=== PATIENT | female | born 1945 | race Caucasian/White ===

== ENCOUNTER 2023-08-05 08:44 | Outpatient (OUT) | payer MEDICARE, SELFPAY ==
[2023-08-05 09:23] LABS: Basophils Absolute Auto 0.1 10^3/uL (0.0-0.1); Eosinophils Absolute Auto 0.2 10^3/uL (0.0-0.7); Eosinophils Percent Auto 4.4 % (0.9-7.0); Hematocrit 40.7 % (36.0-48.0); Hemoglobin 13.3 g/dL (12.0-16.0); Immature Granulocytes Abs Auto 0.01 10^3/uL (0.00-0.03); Immature Granulocytes Pct Auto 0.2 % (0.0-0.5); Lymphocytes Absolute Auto 0.9 10^3/uL (1.2-3.8); Lymphocytes Percent Auto 18.6 % (20.5-60.0); Mean Corpuscular HGB Conc 32.7 g/dL (29.9-35.2); Mean Corpuscular Hemoglobin 30.8 pg (26.7-34.0); Mean Corpuscular Volume 94.2 fL (81.0-99.0); Mean Platelet Volume 9.7 fL (9.5-13.5); Monocytes Absolute Auto 0.6 10^3/uL (0.3-0.8); Monocytes Percent Auto 12.4 % (1.7-12.0); Neutrophils Absolute Auto 3.2 10^3/uL (1.4-6.5); Neutrophils Percent Auto 63.4 % (43.0-75.0); Platelet Count 330 10^3/uL (150-450); Red Blood Count 4.32 10^6/uL (4.20-5.40); Red Cell Distribution Width 13.2 % (11.0-15.0)
[2023-08-05 10:11] LABS: Anion Gap 10.5; BUN Creatinine Ratio 14.7; Calcium 8.5 mg/dL (8.5-10.1); Carbon Dioxide 28.5 mmol/L (21.0-32.0); Chloride 94 mmol/L (98-107); Estimated GFR (African America >60 (>=60); Estimated GFR (Non-African Ame >60 (>=60); Glucose 90 mg/dL (74-106); Sodium 129 mmol/L (136-145); Thyroid Stimulating Hormone 2.095 uIU/mL (0.358-3.740)
== END 2023-08-05 08:45 | disposition home or self-care (01) ==
LOC: LAB 08:49
PROVIDERS: PCP Internal Medicine; Visit Provider Internal Medicine
DX: I10 Essential (primary) hypertension (principal); R53.83 Other fatigue
CPT/HCPCS: 36415; 80048; 80053; 84443; 85025

== ENCOUNTER 2023-09-12 09:03 | Emergency (ER) | payer MEDICARE, SELFPAY ==
[2023-09-12 09:08] VITALS: BP 157/87; PULSE 90; RESP 16; TEMP 36.4; O2SAT 98; BMI 22.3
--- NOTE | 2023-09-12 09:25 | ED.SKABFB1 ---
HPI - Skin/Abscess/Foreign Bdy General Chief complaint: Skin/Abscess/Foreign Body Stated complaint: BEE STING LEFT LEG Time Seen by Provider: 09/12/23 09:24 Source: patient Mode of arrival: walk-in History of Present Illness HPI narrative: the patient's here for possible infection of her leg. She was stung by a yellow jacket several days ago air. She's not having any other ALLERGY type symptoms. She's not had fever shakes chills nausea vomiting or shortness of breath. It's slightly tender in the area that she was bitten. She's not on any antibiotics. She just wanted evaluated to see if there is any problems. Related Data Allergies Allergy/AdvReac Type Severity Reaction Status Date / Time No Known Drug Allergies Allergy Verified 09/12/23 09:08 Exam Narrative Exam Narrative: awake alert normal vital signs afebrile. In the anterior mid tibia-fibula on her leg she has a small area of erythema and a small pustule. Under magnification I can see any residual stinger from the envenomation. After cleansing the area with alcohol and #25-gauge needle was used unroofed the micral abscess and then the stinger was easily removed by blunt Escher. She tolerated very well. We'll go ahead and put her on an antibiotic should she have any worsening. There is no lymphangitis or other cellulitis indication on her leg. Constitutional Vital Signs, click to edit/add: Last Vital Signs Temp 97.6 F 09/12/23 09:08 Pulse 90 09/12/23 09:08 Resp 16 09/12/23 09:08 BP 157/87 H 09/12/23 09:08 Pulse Ox 98 09/12/23 09:08 O2 Del Method Room Air 09/12/23 09:08 Course Vital Signs Vital signs: Vital Signs Temperature 97.6 F 09/12/23 09:08 Pulse Rate 90 09/12/23 09:08 Respiratory Rate 16 09/12/23 09:08 Blood Pressure 157/87 H 09/12/23 09:08 Pulse Oximetry 98 09/12/23 09:08 Oxygen Delivery Method Room Air 09/12/23 09:08 Temperature 97.6 F 09/12/23 09:08 Pulse Rate 90 09/12/23 09:08 Respiratory Rate 16 09/12/23 09:08 Blood Pressure 157/87 H 09/12/23 09:08 Pulse Oximetry 98 09/12/23 09:08 Oxygen Delivery Method Room Air 09/12/23 09:08 Discharge Plan Discharge Chief Complaint: Skin/Abscess/Foreign Body Clinical Impression: Insect bite Patient Disposition: Home, Self-Care Time of Disposition Decision: 09:36 Additional Instructions: Band-Aid with topical antibiotic ointments/start Keflex if anything worsens as discussed Stand Alone Forms: Portal Instructions Referrals: Marlon Michelle DO [Primary Care Provider] - 1 week
== END 2023-09-12 09:50 | disposition home or self-care (01) ==
PROVIDERS: Emergency Provider Emergency Medicine Emergency Medical Services; PCP Internal Medicine
DX: S80.862A Insect bite (nonvenomous), left lower leg, initial encounter (principal); W57.XXXA Bitten or stung by nonvenomous insect and other nonvenomous arthropods, initial encounter
CPT/HCPCS: 10120; 99282

== ENCOUNTER 2023-11-05 11:31 | Outpatient (OUT) | payer MEDICARE, SELFPAY ==
--- OUTSIDE RECORDS SUMMARY | 2023-11-19 02:03 | XMS_ITS | CCD ---
Author Name Unknown Address [address] [facility] [address] [place] [address] Organization [facility] Care Team Providers Care Line Service Technician Name Role Phone JOSY, YULIYA Willis Unavailable Unavailabl e Tal Langley Unavailable Unavailable Tal Langley Unavailable Unavailable Tal Langley Unavailable Unavailable MARLON MICHELLE~[phone] UNKNOWN Unavailable Unavailable CHARLENE WEBB (PAC) Admitting Unavail able CHARLENE WEBB (PAC) Attending Unavail able FANTASMA NIEVES (PA) Referring Unavailable REQUEST, NONE LISTED Attending Unavaila ble REQUEST, NONE LISTED Admitting Unavaila ble REQUEST, NONE LISTED Consulting Unavaila ble OLGA, MARLON Primary Care Unavailable BALL, MARLON Consulting Unavailable BALL, MARLON Attending Unavailable BALL, MARLON Admitting Unavailable BALL, MARLON Primary Care Unavailable BALL, MARLON Primary Care Unavailable BALL, MARLON Consulting Unavailable BALL, MARLON Attending Unavailable BALL, MARLON Admitting Unavailable Ball, Marlon Unavailable TAL LANGLEY Attending Unavailable TAL LANGLEY Attending Unavailable Allergies Allergy Classification Reported Allergen(s) Allergy Type Date of Onset Reaction(s) Facility (3 sources) Bisphosphonate (substance) Drug allergy Unknown Fincon Other (2 sources) Alendronate Drug Allergy Comment:Oral Bisphosphonates Fincon Other (2 sources) ORAL BISPHOSPHONATES Propensity to adverse reactions 015 Unknown Fincon Other Medications Current Medications Medication Drug Class(es) Dates Sig (Normalized) Sig (Original) amLODIPine 2.5 mg oral tablet (3 sources) Dihydropyridine Calcium Channel Tessa take 1 tablet by mouth once daily amLODIPine Besylate 2.5 MG TAKE 1 TABLET BY MOUTH EVERY DAY Active aspirin 81 mg delayed release oral tablet (3 sources) Platelet Aggregation Inhibitor, Nonsteroidal Anti-inflammatory Drug take 1 tablet by mouth every twenty-four hours Aspirin 81 81 MG 1 tablet Orally Once a day Active atorvastatin 10 mg oral tablet (3 sources) HMG-CoA Reductase Inhibitor take 1 tablet by mouth every twenty-four hours Atorvastatin Calcium 10 MG 1 tablet Orally Once a day Active clopidogrel 75 mg oral tablet (3 sources) P2Y12 Platelet Inhibitor take 1 tablet by mouth once daily Clopidogrel Bisulfate 75 MG TAKE 1 TABLET BY MOUTH EVERY DAY Active pantoprazole 40 mg delayed release oral tablet (3 sources) Proton Pump Inhibitor take 1 tablet by mouth every twenty-four hours Pantoprazole Sodium 40 MG 1 tablet Orally Once a day Active Problems Active Problems Problem Classification Problem Date Documented Date Episodic/Chronic Allergic reactions (3 sources) Allergic contact dermatitis due to plants, except food; Translations: [Allergic contact dermatitis due to plants, except food] Episodic Anxiety disorders (3 sources) Anxiety; Translations: [Other specified anxiety disorders] Chronic Cancer of breast (5 sources) Personal history of primary malignant neoplasm of breast; Translations: [Personal history of malignant neoplasm of breast] Episodic Disorders of lipid metabolism (12 sources) Pure hypercholesterolemia, unspecified; Translations: [Pure hypercholesterolemia] Onset: 05-07-2022 Chronic Essential hypertension (5 sources) Essential hypertension; Translations: [Essential (primary) hypertension] Chronic Malaise and fatigue (1 source) Other fatigue Episodic Nonspecific chest pain (3 sources) Atypical chest pain; Translations: [Other chest pain] Episodic Osteoporosis (3 sources) Primary osteoporosis; Translations: [Age-related osteoporosis without current pathological fracture] Chronic Other and ill-defined cerebrovascular disease (3 sources) Cerebral atherosclerosis; Translations: [Cerebral atherosclerosis] Chronic Other and ill-defined cerebrovascular disease (2 sources) Cerebral atherosclerosis Chronic Other circulatory disease (3 sources) History of cerebrovascular accident without residual deficits; Translations: [Personal history of transient ischemic attack (TIA), and cerebral infarction without residual deficits] Episodic Other circulatory disease (2 sources) Personal history of transient ischemic attack (TIA), and cerebral infarction without residual deficits Episodic Other connective tissue disease (1 source) Presence of left artificial hip joint; Translations: [Presence of left artificial hip joint] Onset: 03-09-2019 Chronic Other ear and sense organ disorders (3 sources) Impacted cerumen; Translations: [Impacted cerumen, bilateral] Episodic Other upper respiratory infections (3 sources) Acute maxillary sinusitis; Translations: [Acute recurrent maxillary sinusitis] Episodic Skin and subcutaneous tissue infections (3 sources) Cellulitis of right forearm; Translations: [Cellulitis of right upper limb] Episodic Substance-related disorders (5 sources) Tobacco user; Translations: [Nicotine dependence, cigarettes, in remission] Chronic Unclassified (1 source) PRESENCE OF LEFT ARTIFICIAL HIP JOINT Onset: 07-24-2018 Viral infection (3 sources) Post-herpetic polyneuropathy; 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 Comment on above: Performed By: #### D ATCBC #### [facility] [address] [place] [address] Dr. Yovana Funes Basophils/100 WBC (Bld) 1.0 % Normal 0.2-2.0 [facility] Comment on above: Performed By: #### D ATCBC #### [facility] [address] [place] [address] Dr. Yovana Funes EO # 0.3 103/ul Normal 0.0-0.7 [facility] Comment on above: Performed By: #### D ATCBC #### [facility] [address] [place] [address] Dr. Yovana Funes Eosinophils/100 WBC (Bld) 5.5 % Normal 0.9-7.0 [facility] Comment on above: Performed By: #### D ATCBC #### [facility] [address] [place] [address] Dr. Yovana Funes Erythrocyte distribution wid th (RBC) [Ratio] 13.2 % Normal 11.0-15.0 [facility] Comment on above: Performed By: #### D ATCBC #### [facility] [address] [place] [address] Dr. Yovana Funes Hematocrit (Bld) [Volume fraction] 41.8 % Normal 3 6.0-48.0 [facility] Comment on above: Performed By: #### D ATCBC #### [facility] [address] [address] [address] Yovana Funes Hemoglobin (Bld) [Mass/Vol] 13.9 g/dL Normal 12.0-16. 0 [facility] Comment on above: Performed By: #### D ATCBC #### [facility] [address] [address] [address] Yovana Funes IG # 0.02 10e3/ul Normal 0.00-0.03 [facility] Comment on above: Performed By: #### D ATCBC #### [facility] [address] [place] [address] Dr. Yovana Funes IG % 0.4 % Normal 0.0-0.5 [facility] Comment on above: Performed By: #### D ATCBC #### [facility] [address] [place] [address] Dr. Yovana Funes LYMPH # 0.9 103/ul Critically low 1.2-3.8 [facility] Comment on above: Performed By: #### D ATCBC #### [facility] [address] [place] [address] Dr. Yovana Funes Lymphocytes/100 WBC (Bld) 16.6 % Critically low 20.5-6 0.0 [facility] Comment on above: Performed By: #### D ATCBC #### [facility] [address] [place] [address] Dr. Yovana Funes MCH (RBC) [Entitic mass] 31.1 pg Normal 26.7-34.0 [facility] Comment on above: Performed By: #### D ATCBC #### [facility] [address] [place] [address] Dr. Yovana Funes MCHC (RBC) [Mass/Vol] 33.3 g/dL Normal 29.9-35.2 [facility] Comment on above: Performed By: #### D ATCBC #### [facility] [address] [place] [address] Dr. Yovana Funes MCV (RBC) [Entitic vol] 93.5 fL Normal 81.0-99.0 [facility] Comment on above: Performed By: #### D ATCBC #### [facility] [address] [place] [address] Dr. Yovana Funes MONO # 0.5 103/ul Normal 0.3-0.8 [facility] Comment on above: Performed By: #### D ATCBC #### [facility] [address] [place] [address] Dr. Yovana Funes Monocytes/100 WBC (Bld) 10.3 % Normal 1.7-12.0 [facility] Comment on above: Performed By: #### D ATCBC #### [facility] [address] [place] [address] Dr. Yovana Funes NEUT # 3.5 103/ul Normal 1.4-6.5 [facility] Comment on above: Performed By: #### D ATCBC #### [facility] [address] [place] [address] Dr. Yovana Funes Neutrophils/100 WBC (Bld) 66.2 % Normal 43.0-75.0 [facility] Comment on above: Performed By: #### D ATCBC #### [facility] [address] [place] [address] Dr. Yovana Funes Platelet mean volume (Bld) [Entitic vol] 9.9 fL Normal 9.5-13.5 [facility] Comment on above: Performed By: #### D ATCBC #### [facility] [address] [place] [address] Dr. Yovana Funes PLT 369 103/ul Normal 150-450 [facility] Comment on above: Performed By: #### D ATCBC #### [facility] [address] [place] [address] Dr. Yovana Funes RBC 4.47 106/ul Normal 4.20-5.40 [facility] Comment on above: Performed By: #### D ATCBC #### [facility] [address] [address] [address] Yovana Funes WBC 5.3 103/ul Normal 4.0-11.0 [facility] Comment on above: Performed By: #### D ATCBC #### [facility] [address] [address] [address] Yovana Funes MARLEY- BMP WITH LIPIDon 2022 Anion gap [Moles/Vol] 13.0 mmol/L Normal [facility] Comment on above: Performed By: #### D ATBMP #### [facility] [address] [address] [address] Yovana Funes Calcium [Mass/Vol] 9.1 mg/dL Normal 8.5-10.1 [facility] Comment on above: Performed By: #### D ATBMP #### [facility] [address] [place] [address] Dr. Yovana Funes Chloride [Moles/Vol] 102 mmol/L Normal 98-107 [facility] Comment on above: Performed By: #### D ATBMP #### [facility] [address] [address] [address] Yovana Funes Cholesterol [Mass/Vol] 211 mg/dL Critically high <=200 [facility] Comment on above: Performed By: #### D ATBMP #### [facility] [address] [address] [address] Yovana Funes Cholesterol in HDL [Mass/Vol] 114 mg/dL Critically high 4 0-60 [facility] Comment on above: Performed By: #### D ATBMP #### [facility] [address] [address] [address] Yovana Funes Cholesterol in LDL [Mass/Vol] 89.8 mg/dL Normal [facility] Comment on above: Performed By: #### D ATBMP #### [facility] [address] [address] [address] Yovana Funes CO2 [Moles/Vol] 29.2 mmol/L Normal 21.0-32.0 [facility] Comment on above: Performed By: #### D ATBMP #### [facility] [address] [address] [address] Yovana Funes Creatinine [Mass/Vol] 0.55 mg/dL Normal 0.55-1.02 [facility] Comment on above: Performed By: #### D ATBMP #### [facility] [address] [address] [address] Yovana Funes EGFR-AF KENYAN >60 Normal >=60 [facility] Comment on above: Performed By: #### D ATBMP #### [facility] [address] [address] [address] Yovana Funes EGFR-NON AF KENYAN >60 Normal >=60 [facility] Comment on above: Performed By: #### D ATBMP #### [facility] [address] [address] [address] Yovana Funes Glucose [Mass/Vol] 101 mg/dL Normal 74-106 [facility] Comment on above: Performed By: #### D ATBMP #### [facility] [address] [address] [address] Yovana Funes HDL NORMAL > or = 60 mg/dl - LO W CARDIOVASCULAR RISK <40 mg/dl - HIGH CARDIOVASCULAR RISK Normal [facility] Comment on above: Performed By: #### D ATBMP #### [facility] [address] [address] [address] Yovana Funes LDL CALC NORMAL SEE BELOW Normal [facility] Comment on above: Result Comment: <100 mg/dl OPTIMAL 100 - 129 mg/dl NEAR OR ABOVE OPTIMAL 130 - 159 mg/dl BORDERLINE HIGH 160 - 189 mg/dl HIGH >190 mg/dl VERY HIGH Performed By: #### D ATBMP #### [facility] [address] [address] [address] Yovana Funes Potassium [Moles/Vol] 4.2 mmol/L Normal 3.5-5.1 [facility] Comment on above: Performed By: #### D ATBMP #### [facility] [address] [address] [address] Yovana Funes Sodium [Moles/Vol] 140 mmol/L Normal 136-145 [facility] Comment on above: Performed By: #### D ATBMP #### [facility] [address] [address] [address] Yovana Funes Triglyceride [Mass/Vol] 36 mg/dL Normal <=150 [facility] Comment on above: Performed By: #### D ATBMP #### [facility] [address] [address] [address] Yovana Funes Urea nitrogen [Mass/Vol] 13.0 mg/dL Normal 7.0-18.0 [facility] Comment on above: Performed By: #### D ATBMP #### [facility] [address] [place] [address] Dr. Yovana Funes Urea nitrogen/Creatinine [Mass ratio] 23.6 mg/mg Normal [facility] Comment on above: Performed By: #### D ATBMP #### [facility] [address] [place] [address] Dr. Yovana Funes VLDL CALC 7.2 mg/dL Normal [facility] Comment on above: Performed By: #### D ATBMP #### [facility] [address] [place] [address] Dr. Yovana Funes DIRECT LDLon 05-07-2022 Cholesterol in LDL [Mass/Vol] 55 mg/dL Normal [facility] Comment on above: Performed By: #### A LT, DLDL #### [facility] [address] [place] [address] Dr. Yovana Funes DLDL NORMAL SEE BELOW Normal [facility] Comment on above: Result Comment: <100 mg/dl OPTIMAL 100 - 129 mg/dl NEAR OR ABOVE OPTIMAL 130 - 159 mg/dl BORDERLINE HIGH 160 - 189 mg/dl HIGH >190 mg/dl VERY HIGH Performed By: #### A LT, DLDL #### [facility] [address] [place] [address] Dr. Yovana Funes SGPTon 05-07-2022 ALT [Catalytic activity/Vol] 26 U/L Normal 14-59 [facility] Comment on above: Performed By: #### A LT, DLDL #### [facility] [address] [address] [address] Yovana Funes DIRECT LDLon 03-15-2022 Cholesterol in LDL [Mass/Vol] 102 mg/dL Normal [facility] Comment on above: Performed By: #### D LDL, ALT #### [facility] [address] [address] [address] Yovana Funes DLDL NORMAL SEE BELOW Normal [facility] Comment on above: Result Comment: <100 mg/dl OPTIMAL 100 - 129 mg/dl NEAR OR ABOVE OPTIMAL 130 - 159 mg/dl BORDERLINE HIGH 160 - 189 mg/dl HIGH >190 mg/dl VERY HIGH Performed By: #### D LDL, ALT #### [facility] [address] [address] [address] Yovana Funes SGPTon 03-15-2022 ALT [Catalytic activity/Vol] 18 U/L Normal 14-59 [facility] Comment on above: Performed By: #### D LDL, ALT #### [facility] [address] [address] [address] Yovana Funes CBC Without Differentialon 0 05-12-2021 Erythrocyte distribution wid th (RBC) [Ratio] 13.7 % Normal 11.9-15.3 [facility] Comment on above: Performed By: #### C BCNOOUTREACH, OUTREACH CMP, OUTREACH LIPID #### [facility] [address] [place] [address] [place] Hematocrit (Bld) [Volume fraction] 42.3 % Normal 34.0-46.4 [facility] Comment on above: Performed By: #### C BCNOOUTREACH, OUTREACH CMP, OUTREACH LIPID #### [facility] [address] [id number] [place] Hemoglobin (Bld) [Mass/Vol] 14.3 g/dL Normal 11.8-15. 4 [facility] Comment on above: Performed By: #### C BCNOOUTREACH, OUTREACH CMP, OUTREACH LIPID #### [facility] [address] [id number] [place] MCH (RBC) [Entitic mass] 32.0 pg Normal 24.7-34.3 [facility] Comment on above: Performed By: #### C BCNOOUTREACH, OUTREACH CMP, OUTREACH LIPID #### [address] MCV (RBC) [Entitic vol] 95.0 fL Normal 80-100 [facility] Comment on above: Performed By: #### C BCNOOUTREACH, OUTREACH CMP, OUTREACH LIPID #### [address] Mean Corpuscular HGB Conc 33.7 g/dL Normal 32.0-35.0 [facility] Comment on above: Performed By: #### C BCNOOUTREACH, OUTREACH CMP, OUTREACH LIPID #### [address] Platelet mean volume (Bld) [Entitic vol] 8.8 fL Normal 6.3-10.7 [facility] Comment on above: Result Comment: PERF ORMED BY: [place] [address] PATHOLOGIST [employer] ADAM CROCKER M.D. Performed By: #### C BCNOOUTREACH, OUTREACH CMP, OUTREACH LIPID #### [address] Platelets (Bld) [#/Vol] 298 10*3/uL Normal 150-450 [facility] Comment on above: Performed By: #### C BCNOOUTREACH, OUTREACH CMP, OUTREACH LIPID #### [address] RBC (Bld) [#/Vol] 4.46 10*6/uL Normal 3.60-5.00 [facility] Comment on above: Performed By: #### C BCNOOUTREACH, OUTREACH CMP, OUTREACH LIPID #### [address] WBC (Bld) [#/Vol] 4.5 10*3/uL Normal 3.8-11.[address] [facility] Comment on above: Performed By: #### C BCNOOUTREACH, OUTREACH CMP, OUTREACH LIPID #### [facility] [address] [place] [address] [place] CMP Outreachon 05-12-2021 Albumin [Mass/Vol] 4.4 g/dL Normal 3.2-5.[address] [facility] Comment on above: Performed By: #### C BCNOOUTREACH, OUTREACH CMP, OUTREACH LIPID #### [facility] [address] [place] [address] [place] ALP [Catalytic activity/Vol] 50 U/L Normal 32-92 [facility] Comment on above: Performed By: #### C BCNOOUTREACH, OUTREACH CMP, OUTREACH LIPID #### [facility] [address] [place] [address] [place] ALT [Catalytic activity/Vol] 26 U/L Normal 10-60 [facility] Comment on above: Performed By: #### C BCNOOUTREACH, OUTREACH CMP, OUTREACH LIPID #### [facility] [address] [place] [address] [place] AST [Catalytic activity/Vol] 27 U/L Normal 10-42 [facility] Comment on above: Performed By: #### C BCNOOUTREACH, OUTREACH CMP, OUTREACH LIPID #### [facility] [address] [place] [address] [place] Bilirubin [Mass/Vol] 0.6 mg/dL Normal 0.3-1.2 [facility] Comment on above: Performed By: #### C BCNOOUTREACH, OUTREACH CMP, OUTREACH LIPID #### [facility] [address] [place] [address] [place] Calcium [Mass/Vol] 9.1 mg/dL Normal 8.2-10.[address] [facility] Comment on above: Performed By: #### C BCNOOUTREACH, OUTREACH CMP, OUTREACH LIPID #### [facility] [address] [place] [address] [place] Chloride [Moles/Vol] 99 mmol/L Normal 95-114 [facility] Comment on above: Performed By: #### C BCNOOUTREACH, OUTREACH CMP, OUTREACH LIPID #### [facility] [address] [place] [address] [place] CO2 [Moles/Vol] 25.1 mmol/L Normal 22.0-30.0 [facility] Comment on above: Performed By: #### C BCNOOUTREACH, OUTREACH CMP, OUTREACH LIPID #### [facility] [address] [place] [address] [place] Creatinine [Mass/Vol] 0.63 mg/dL Normal 0.44-1.03 [facility] Comment on above: Performed By: #### C BCNOOUTREACH, OUTREACH CMP, OUTREACH LIPID #### [facility] [address] [place] [address] [place] Estimated GFR ( Mary Ann > 60 Normal [facility] Comment on above: Result Comment: GFR estimated reference range: According to KDOQI guidelines, <60 ml/min/1.73m2 is sufficient to diagnose a patient with chronic kidney disease. Performed By: #### C BCNOOUTREACH, OUTREACH CMP, OUTREACH LIPID #### [facility] [address] [place] [address] [place] Estimated GFR (Non- Am > 60 [facility] Comment on above: Performed By: #### C BCNOOUTREACH, OUTREACH CMP, OUTREACH LIPID #### [facility] [address] [place] [address] [place] Glucose [Mass/Vol] 89 mg/dL Normal 70-[address] [facility] Comment on above: Result Comment: [place] Glucose Reference Range is dependent on time and content of last meal. Glucose of more than 200 mg/dL in a nonstressed, ambulatory subject supports the diagnosis of Diabetes Mellitus. ADA recommended reference range Performed By: #### C BCNOOUTREACH, OUTREACH CMP, OUTREACH LIPID #### [facility] [address] [place] [address] [place] Potassium [Moles/Vol] 3.9 mmol/L Normal 3.5-5.1 [facility] Comment on above: Performed By: #### C BCNOOUTREACH, OUTREACH CMP, OUTREACH LIPID #### [facility] [address] [id number] [place] Protein [Mass/Vol] 6.9 g/dL Normal 6.1-7.[address] [facility] Comment on above: Performed By: #### C BCNOOUTREACH, OUTREACH CMP, OUTREACH LIPID #### [facility] [address] Sodium [Moles/Vol] 135 mmol/L Low 136-[address] [facility] Comment on above: Performed By: #### C BCNOOUTREACH, OUTREACH CMP, OUTREACH LIPID #### [facility] [address] Urea nitrogen [Mass/Vol] 7 mg/dL Low 9-23 [facility] Comment on above: Performed By: #### C BCNOOUTREACH, OUTREACH CMP, OUTREACH LIPID #### [facility] [address] Lipid Profile Outreachon Cholesterol [Mass/Vol] 229 mg/dL High 140-200 [facility] Comment on above: Result Comment: Chol less than 200 mg/dl low risk Chol 201-239 mg/dl borderline risk Chol 240 mg/dl and greater high risk Performed By: #### C BCNOOUTREACH, OUTREACH CMP, OUTREACH LIPID #### [facility] [address] Cholesterol in HDL [Mass/Vol] 97 mg/dL High 35-85 [facility] Comment on above: Result Comment: HDL CHOL ATP-III CLASSIFICATION Cardiovascular Risk HDL > or equal to 60 mg/dL LOW HDL < 40 mg/dL HIGH Performed By: #### C BCNOOUTREACH, OUTREACH CMP, OUTREACH LIPID #### [facility] [address] Cholesterol.total/Cholestero l in HDL [Mass ratio] 2.4 {ratio} Normal <5.0 [facility] Comment on above: Result Comment: PERF ORMED BY: [place] [address] PATHOLOGIST [employer] ADAM CROCKER M.D. Performed By: #### C BCNOOUTREACH, OUTREACH CMP, OUTREACH LIPID #### [facility] [address] [place] [address] LDL Cholesterol,Calculated 120 mg/dL High 0-100 [facility] Comment on above: Result Comment: LDL ATP III CLASSIFICATION LDL less than 100 mg/dL Optimal LDL 100-129 mg/dL Near or above optimal LDL 130-159 mg/dL Borderline high LDL 160-189 mg/dL High LDL greater than 189 mg/dL Very high Performed By: #### C BCNOOUTREACH, OUTREACH CMP, OUTREACH LIPID #### [facility] [address] Triglyceride w/Reflex 62 mg/dL Normal 35-149 [facility] Comment on above: Result Comment: TRIG ATP III CLASSIFICATION TRIG less than 150 mg/dL Normal TRIG 150-199 mg/dL Borderline high TRIG 200-500 mg/dL High TRIG greater than 500 mg/dL Very high Standard traceable to the Center for Disease Conrtrol and Prevention (CDC) test method. Performed By: #### C BCNOOUTREACH, OUTREACH CMP, OUTREACH LIPID #### [facility] [address] VLDL CHOLESTEROL 12 mg/dL Normal [facility] Comment on above: Performed By: #### C BCNOOUTREACH, OUTREACH CMP, OUTREACH LIPID #### [facility] [address] CNPTOUTREACHon 01-23-2021 CNPTOUTREACH Patient Outreach ([place] [facility]) DYLAN TAFOYA ([id number]) 1945 F Date Time Provider Department 01/23/21 MARIKA GILES During your visit today, we recorded the following information about you: Allergies As of Date: 01/23/2021 (No Known Allergies) Date Reviewed: 03/09/2019 Reviewed by: Fantasma Nieves (Pa) - Fully Assessed Order(s):SARS-COVID VACCINE 1ST DOSE APPT [[id number]] Order #: [id number] FUTURE Prescriptions as of 01/23/2021 Sig: PANTOPRAZOLE ORAL Take 1 tablet by mouth as nee* CLOPIDOGREL 75 MG TABLET Take 75 mg by mouth once lizette* AMLODIPINE 5 MG TABLET Take 5 mg by mouth once daily. ZANTAC-PPI (OMEPRAZOLE) ORAL Take 40 mg by mouth as needed. LORATADINE 10 MG TABLET Take 10 mg by mouth once lizette* Problem List As Of Date 01/23/2021 Noted Resolved Primary osteoarthritis of left hip [M16.12] 11/11/2017 More... Personal history of malignant neoplasm of breas*12/15/2017 Pain in right upper arm [M79.621] 12/15/2017 Localized swelling, mass and lump, unspecified *12/15/2017 Benign essential HTN [I10] 12/15/2017 Gastroesophageal reflux disease without esophag*12/15/2017 Hip joint replacement status [Z96.649] 01/01/2018 Letter Text Encounter Status:Closed by [employer], PRODUSER on 01/26/21 Normal [facility] XR HIP 3V PELV+ AP/LAT LTon 03-09-2019 XR HIP 3V PELV+ AP/LAT LT * * *Final Report* * * DATE OF EXAM: Mar 09 2019 3:18PM X 5351 - XR HIP 3V PELV+ AP/LAT LT / PROCEDURE REASON: Status post total replacement of left hip * * * * Physician Interpretation * * * * RESULT: EXAMINATION / TECHNIQUE: XR HIP 3V PELV+ AP/LAT LT HISTORY: S/P LT THR X 1 YR. Status post total replacement of left hip . COMPARISON: 07/24/2018 RESULT: Left total hip arthroplasty. There is no periprosthetic fracture or lucency. No acute fracture or dislocation. No malalignment. Remaining pelvic joints are notable only for mild degenerative changes most prominent in the left sacroiliac joint. Incompletely assessed degenerative changes of visualized lower lumbar spine. Vascular calcifications. IMPRESSION: Arthroplasty without complication Transcribed Using Voice Recognition Transcribe Date/Time: Mar 09 2019 6:14P Dictated by: WILLIE VILLAFUERTE MD This examination was interpreted and the report reviewed and electronically signed by: WILLIE VILLAFUERTE MD on Mar 09 2019 6:15PM EST [id number] Normal [facility] XR HIP 3V PELV+ AP/LAT LTon 07-24-2018 XR HIP 3V PELV+ AP/LAT LT * * *Final Report* * * DATE OF EXAM: Jul 24 2018 10:30AM HMX 5351 - XR HIP 3V PELV+ AP/LAT LT / PROCEDURE REASON: THR * * * * Physician Interpretation * * * * RESULT: PELVIS, 1 AP VIEW LEFT HIP, 2 VIEWS AP and Lateral CLINICAL: Postop follow-up COMPARISON: 01/27/2018 RESULT: Pelvis: SI joints and symphysis pubis are intact. The right hip joint space is maintained. No fracture is noted. Left hip: Left total hip arthroplasty is in normal alignment. There is no periimplant fracture or lucency. IMPRESSION: Stable exam. Transcribed Using Voice Recognition Transcribe Date/Time: Jul 24 2018 11:16A Dictated by: ENOCH SOW MD This examination was interpreted and the report reviewed and electronically signed by: ENOCH SOW MD on Jul 24 2018 11:17AM EST [id number] Normal [facility] HISTORY PHYSICALon 8 HISTORY PHYSICAL HNO ID: [id number] thor: Tomasz Viveros) HarderService: (none)Author Type: Physician AssistantType: HANDPFiled: 12/16/2017 11:16 AMNote Text:HISTORY AND PHYSICAL EXAMINATIONSERVICE DATE: 12/15/2017SERVICE TIME: 10:41 AMPRITAYLOR HARDIN [facility] C[facility] PHYSICIAN: ANAHI Kessler FOR VISIT:Dylan Tafoya is a 72 year old female who is scheduled for arthroplastyacetabular and proximal femoral prosth total hip without autograft at [facility] of Dr. Yuliya Buckner for consultation. My finalrecommendation will be communicated back to the requesting physician byway of shared medical record or letter.The patient has the following:ACTIVE PROBLEM LISTPrimary Osteoarthritis of Left HipPersonal History of Malignant Neoplasm of BreastPain in Right Upper ArmLocalized Swelling, Mass and Lump, UnspecifiedBenign Essential HtnGastroesophageal Reflux Disease Without EsophagitisSUBJECTIVECHIEF COMPLAINT: Left hip painHPI: Patient is a 72 year old female with c/o pain to left hip. Pain hasbeen progressively worsening over the past 4-5 years. Described as anache, pain occasionally radiates to left foot. Pain is aggravated withstanding and walking for prolonged periods of time. Pain is alleviatedwith Aleve and Tylenol.PAST MEDICAL HISTORYDiagnosis Date- Breast cancer (HCC)- GERD (gastroesophageal reflux disease)- HTN (hypertension)PAST SURGICAL HISTORYProcedure Laterality Date- PAST SURGICAL HISTORY OF 1985, 1998 bilateral mastectomy x 2- PAST SURGICAL HISTORY OF colonoscopyHistory reviewed. No pertinent family history.SOCIAL HISTORY:Social History Marital status: Single Spouse name: Years of education: Number of children:Social History Main Topics Smoking status: Never Smoker Smokeless status: Never Used Alcohol use: Yes Drug use: NoPrior to Admission medications as of 12/15/17 1129Medication Sig Last Dose TakingamLODIPine (NORVASC) 5 mg tablet Take 5 mg by mouth once daily. YesZANTAC-PPI, OMEPRAZOLE, ORAL Take 40 mg by mouth as needed. Yesaspirin, enteric coated (ASPIRIN, ENTERIC COATED) 81 mg EC tablet Take 81mg by mouth once daily. Yesloratadine (CLARITIN) 10 mg tablet Take 10 mg by mouth once daily. Yesnaproxen sodium (ALEVE) 220 mg tablet Take 440 mg by mouth twice dailywith meals. YesNo medication comments found.ALLERGIESNo Known AllergiesREVIEW OF SYSTEMS:General: No weight loss, malaise or fevers.Neuro: Postive for TIA's (2014). Denies h/o seizure, denies frequentheadacheRespiratory: No history of current cough or dyspnea, or pneumonia in thepast 6 weeks. No history of respiratory/pulmonary symptoms or problems.Cardiovascular: Positive for: Hypertension Denies HLD requiringmedication. Denies chest pain at rest/with exertion; denies h/o UT cardiacsurgery or stents. Denies h/o DVT/PEGI: Positive for GERD Denies liver problemsGU: No history of dysuria, frequency or incontinence,, stones or chronickidney diseaseGYN: Negative for abnormal vaginal bleeding, abnormal vaginal discharge. : N/A, No LMP recorded. Patient is postmenopausal.Endocrine: No history of diabetes. Has not taken steroids within the past30 days. No history of endocrinological symptoms or problems.Hematology: No history of bleeding or clotting disorder. Pt is not takinganti-coagulation or platelet medications. No history of hematologicalsymptoms or problems.Oncology: +h/o breast cancer s/p mastectomy, chemo, and radiationPsych: No history of psychiatric symptoms or problems.Musculoskeletal: See HPISkin: Negative for lesions, rash and itching.OBJECTIVEPHYSICAL EXAM:VITALS:BP 125/60 Pulse 68 Temp (Src) 96.8 (Temporal Artery) Resp 16 Ht 5'1 (1.55m) Wt 115 lb (52.2kg) SpO2 98% BMI 21.74 kg/(m2).General: Alert and orientedSkin: Normal color, no rash, no lesions.HEENT: EOM, pupils equal, round and reactive.Cardiovascular: Normal S1 AND S2, no rubs, murmurs or gallops. No JVD. Pulseregular.Lungs: Normal breath sounds, no wheezes or crackles.Abdomen: Soft, non-tender, no rigidity.Extremities: No deformity, no edema or tenderness, no joint swelling orclubbing.Neurological: Normal cognition and motor skills.Pulses: Carotid and radial pulses normal +2.Diagnostic tests reviewed for today's visit: Lab Value Units Date High Low HB 14.4 g/dL 12/15/2017 15.5 11.5 HCT 45.0 % 12/15/2017 46.0 36.0 WBC 5.55 k/uL 12/15/2017 11.00 3.70 PLT 294 k/uL 12/15/2017 400 150 NA 141 mmol/L 12/15/2017 144 136 K 4.3 mmol/L 12/15/2017 5.1 3.7 GLUC 86 mg/dL 12/15/2017 99 74 BUN 12 mg/dL 12/15/2017 21 7 CREAT 0.61 mg/dL 12/15/2017 0.96 0.58 ABORHD O POSI* no uni* 12/15/2017Staph AureusDate: 12/15/2017Result: NegativeEKG completed in office todayDate: 12/15/2017Preliminary Result: Normal Sinus RhythmAssessmentASSESSMENTPatient has the following medical conditions which may affectperi-operative course:H/O TIA- 2014HTN- well controlled with medication. BP today 12/15/2017: 125/60GERD- symptoms controlled with Omeprazole, takes prnH/O Breast cancer- s/p mastectomy, chemo and radiation ( andrecurrence in )Osteoarthritis left hipMETS:Limited physical activity due to left hip painLives with son, able to complete ADLs without difficultyAmbulates independentlyDo light work around the house, such as dusting or washing dishes (2.70METs)Take care of self; that is eating, dressing, bathing, using the toilet(2.75 METs)Patient denies any chest pain or undue shortness of breath with the abovephysical activity.ASA Class: 3ANESTHESIA FINDINGS:Intubation History: No history of difficult intubationSignificant Anesthesia Considerations: NoneAirway Exam: General: Normal appearance Mallampati Score is CLASS II ULBT: Class I - Lower incisors can bite the upper lip above thevermillion line Neck: Normal appearance and function, Distance from hyoid to mentumduring neck extension is at least 3 finger breaths Mouth: Normal tongue size and Mouth opening greater than 2 finger breaths Dentition: Caps/crowns (upper and lower); ?bridge (lower)Airway History: No abnormal airway historySTOP BANG Score:Criteria:HypertensionAge over 50 (72 year old)Score = 2PLANThis patient is optimally prepared for surgery pending EKG.CONSULTS:Patient does not require consults for optimization at this time.The Following Tests/Procedures Have Been Initiated:Orders Placed This Encounter STAPH AUREUS PCR ECG COMPLETE W INTERPRETATIONLabs ordered by surgeon's office: BMP, CBC, Type and Screen, Confirm BloodTypePlanned Anesthetic: Per anesthesia choiceInstructions Given to Patient:Patient given verbal and written preop instructions and voicescomprehension and compliance.SIGNATURE: Tomasz Cote PA-C PATIENT NAME: Dylan TafoyaDATE: December 15, 2017 : 10:41 AM PAGER/CONTACT #: [facility] 12-15-2017 [facility] ([facility] --------DYLAN TAFOYA ([id number]) 1945 FDate Time Provider Department12/15/17 11:00 AM PACC AV 1 AVPANE During your visit today, we recorded the following information about you: Temperature Pulse Respiration Blood pressure 96.8 degrees 68/minute 16/minute 125/60 Weight Height 52.2 kg 1.549 Everardo Cote PA-C 12/16/2017 11:16 AM AddendumHISTORY AND PHYSICAL EXAMINATIONSERVICE DATE: 12/15/2017SERVICE TIME: 10:41 AMPRITAYLOR HARDIN [facility] CARE PHYSICIAN: ANAHI Kessler FOR VISIT:Dylan Tafoya is a 72 year old female who is scheduled for arthroplastyacetabular and proximal femoral prosth total hip without autograft at [facility] of Dr. Yuliya Buckner for consultation. My final recommendationwill be communicated back to the requesting physician by way of shared medicalrecord or letter.The patient has the following:ACTIVE PROBLEM LISTPrimary Osteoarthritis of Left HipPersonal History of Malignant Neoplasm of BreastPain in Right Upper ArmLocalized Swelling, Mass and Lump, UnspecifiedBenign Essential HtnGastroesophageal Reflux Disease Without EsophagitisSUBJECTIVECHIEF COMPLAINT: Left hip painHPI: Patient is a 72 year old female with c/o pain to left hip. Pain has beenprogressively worsening over the past 4-5 years. Described as an ache, painoccasionally radiates to left foot. Pain is aggravated with standing andwalking for prolonged periods of time. Pain is alleviated with Aleve andTylenol.PAST MEDICAL HISTORYDiagnosis Date- Breast cancer (HCC)- GERD (gastroesophageal reflux disease)- HTN (hypertension)PAST SURGICAL HISTORYProcedure Laterality Date- PAST SURGICAL HISTORY OF 1985, 1998 bilateral mastectomy x 2- PAST SURGICAL HISTORY OF colonoscopyHistory reviewed. No pertinent family history.SOCIAL HISTORY:Social History Marital status: Single Spouse name: Years of education: Number of children:Social History Main Topics Smoking status: Never Smoker Smokeless status: Never Used Alcohol use: Yes Drug use: NoPrior to Admission medications as of 12/15/17 1129Medication Sig Last Dose TakingamLODIPine (NORVASC) 5 mg tablet Take 5 mg by mouth once daily. YesZANTAC-PPI, OMEPRAZOLE, ORAL Take 40 mg by mouth as needed. Yesaspirin, enteric coated (ASPIRIN, ENTERIC COATED) 81 mg EC tablet Take 81 mg bymouth once daily. Yesloratadine (CLARITIN) 10 mg tablet Take 10 mg by mouth once daily. Yesnaproxen sodium (ALEVE) 220 mg tablet Take 440 mg by mouth twice daily withmeals. YesNo medication comments found.ALLERGIESNo Known AllergiesREVIEW OF SYSTEMS:General: No weight loss, malaise or fevers.Neuro: Postive for TIA's (2013). Denies h/o seizure, denies frequent headacheRespiratory: No history of current cough or dyspnea, or pneumonia in the past 6weeks. No history of respiratory/pulmonary symptoms or problems.Cardiovascular: Positive for: Hypertension Denies HLD requiring medication.Denies chest pain at rest/with exertion; denies h/o UT cardiac surgery orstents. Denies h/o DVT/PEGI: Positive for GERD Denies liver problemsGU: No history of dysuria, frequency or incontinence,, stones or chronic kidneydiseaseGYN: Negative for abnormal vaginal bleeding, abnormal vaginal discharge. : N/A, No LMP recorded. Patient is postmenopausal.Endocrine: No history of diabetes. Has not taken steroids within the past 30days. No history of endocrinological symptoms or problems.Hematology: No history of bleeding or clotting disorder. Pt is not takinganti-coagulation or platelet medications. No history of hematological symptomsor problems.Oncology: +h/o breast cancer s/p mastectomy, chemo, and radiationPsych: No history of psychiatric symptoms or problems.Musculoskeletal: See HPISkin: Negative for lesions, rash and itching.OBJECTIVEPHYSICAL EXAM:VITALS:BP 125/60 Pulse 68 Temp (Src) 96.8 (Temporal Artery) Resp 16 Ht 5'1ANDquot; (1.55m) Wt 115 lb (52.2kg) SpO2 98% BMI 21.74 kg/(m2).General: Alert and orientedSkin: Normal color, no rash, no lesions.HEENT: EOM, pupils equal, round and reactive.Cardiovascular: Normal S1 ANDamp; S2, no rubs, murmurs or gallops. No JVD. Pulseregular.Lungs: Normal breath sounds, no wheezes or crackles.Abdomen: Soft, non-tender, no rigidity.Extremities: No deformity, no edema or tenderness, no joint swelling orclubbing.Neurological: Normal cognition and motor skills.Pulses: Carotid and radial pulses normal +2.Diagnostic tests reviewed for today's visit: Lab Value Units Date High Low HB 14.4 g/dL 12/15/2017 15.5 11.5 HCT 45.0 % 12/15/2017 46.0 36.0 WBC 5.55 k/uL 12/15/2017 11.00 3.70 PLT 294 k/uL 12/15/2017 400 150 NA 141 mmol/L 12/15/2017 144 136 K 4.3 mmol/L 12/15/2017 5.1 3.7 GLUC 86 mg/dL 12/15/2017 99 74 BUN 12 mg/dL 12/15/2017 21 7 CREAT 0.61 mg/dL 12/15/2017 0.96 0.58 ABORHD O POSI* no uni* 12/15/2017Staph AureusDate: 12/15/2017Result: NegativeEKG completed in office todayDate: 12/15/2017Preliminary Result: Normal Sinus RhythmAssessmentASSESSMENTPatient has the following medical conditions which may affect ivory-operativecourse:H/O TIA- 2014HTN- well controlled with medication. BP today 12/15/2017: 125/60GERD- symptoms controlled with Omeprazole, takes prnH/O Breast cancer- s/p mastectomy, chemo and radiation ( and recurrence [id number])Osteoarthritis left hipMETS:Limited physical activity due to left hip painLives with son, able to complete ADLs without difficultyAmbulates independentlyDo light work around the house, such as dusting or washing dishes (2.70 METs)Take care of self; that is eating, dressing, bathing, using the toilet (2.75METs)Patient denies any chest pain or undue shortness of breath with the abovephysical activity.ASA Class: 3ANESTHESIA FINDINGS:Intubation History: No history of difficult intubationSignificant Anesthesia Considerations: NoneAirway Exam: General: Normal appearance Mallampati Score is CLASS II ULBT: Class I - Lower incisors can bite the upper lip above the vermillionline Neck: Normal appearance and function, Distance from hyoid to mentum duringneck extension is at least 3 finger breaths Mouth: Normal tongue size and Mouth opening greater than 2 finger breaths Dentition: Caps/crowns (upper and lower); ?bridge (lower)Airway History: No abnormal airway historySTOP BANG Score:Criteria:HypertensionAge over 50 (72 year old)Score = 2PLANThis patient is optimally prepared for surgery pending EKG.CONSULTS:Patient does not require consults for optimization at this time.The Following Tests/Procedures Have Been Initiated:Orders Placed This Encounter STAPH AUREUS PCR ECG COMPLETE W INTERPRETATIONLabs ordered by surgeon's office: BMP, CBC, Type and Screen, Confirm Blood TypePlanned Anesthetic: Per anesthesia choiceInstructions Given to Patient:Patient given verbal and written preop instructions and voices comprehensionand compliance.SIGNATURE: Tomasz Cote PA-C PATIENT NAME: Dylan TafoyaDATE: December 15, 2017 : 10:41 AM PAGER/CONTACT #:Tomasz Cote PA-C 12/15/2017 10:50 AM SignedPATIENT PREOPERATIVE INSTRUCTIONSYuliya Buckner, * has scheduled you for your procedure at this surgerycenter:[facility]: [phone] -- [address] [address].Please read below carefully for your personalized instructions.Blood Thinning Medications:- Stop NSAIDS (Ibuprofen, Advil, Aleve, Motrin, Celebrex, Mobic, etc.) 7 daysbefore surgery, as directed by your surgeon.- Stop Aspirin 7 days before surgery, as directed by your surgeon.- Stop Vitamin E, ALL multi-vitamins, herbals and dietary supplements 7 daysbefore surgery.- You may take Tylenol (Acetaminophen) or any of your pain medications that donot contain aspirin or NSAIDS as needed.Dietary Restrictions:- No solid food after midnight.- You may have 12 ounces of clear liquids (water, clear juices such as applejuice or gatorade, carbonated beverages, clear tea, black coffee, jello) until2 hours before scheduled arrival at facility. Medications:Approved medications to take the morning of surgery with a sip of water:OMEPRAZOLE, AMLODIPINEIf you start any new medications after today's visit, please [facility].Important Reminders: - Candy, mints, gum and tobacco products are NOT permitted the morning ofsurgery.- Hearing aids, dentures and glasses may be worn the morning of surgery.- NO jewelry, body piercings, makeup, nail irish, hairpins or contacts are thanh worn the day of surgery.- CHG wipes provided with instructions.If you develop symptoms such as a fever, cold, or flu, or have other changes [facility] within TWO DAYS of scheduled surgery or the morning of surgery,please contact the surgery center above.Personal Belongings:- Leave ALL valuables and money at home or with family members.For Outpatient Procedures: - YOU MUST HAVE A RESPONSIBLE HEALTH CARE ANALYST TAKE YOU HOME. A CONVEYOR MAN OR CABDRIVER CANNOT BE MADE A RESPONSIBLE HEALTH CARE ANALYST.- We recommend that a responsible person stays with you overnight to take careof you.- You cannot stay in a hotel alone after outpatient surgery. You will not bepermitted to have your surgery, if you do not have someone to take care of you. Arrival Time for Surgery: -You will receive a call from [facility] [place] the afternoon beforesurgery after 2:30 pm (or Friday for Friday surgery) for a scheduled arrivaltime.- If you have not heard by 4 pm, please contact [facility] [phone].Please be aware that emergency situations arise, which may delay or change yoursurgical time. If this happens, we will notify you as soon as possible andregret any inconvenience.ARIANNA Mondragon- CReferring Provider: YULIYA BUCKNER [[id number]]Allergies As of Date: 12/15/2017(No Known Allergies)Date Reviewed: 12/15/2017Reviewed by: Tomasz Viveros) Kera - Fully AssessedReason for Visit: Pre-Op Exam [87]Primary Visit Diagnosis:Preoperative clearance [Z01.818] Other Visit Diagnoses:Primary osteoarthritis of left hip [M16.12] Contact with and (suspected) exposure to other bacterial communicable diseases [Z20.818] Benign essential HTN [I10] Gastroesophageal reflux disease without esophagitis [K21.9]Order(s):STAPH AUREUS PCR [SQSAPCR] Order #: [id number] FUTURE ECG COMPLETE W INTERPRETATION [ECG01] Order #: [id number] as of 12/15/2017 Sig: AMLODIPINE 5 MG TABLET Take 5 mg by mouth once daily. ZANTAC-PPI (OMEPRAZOLE) ORAL Take 40 mg by mouth as needed. ASPIRIN 81 MG TABLET,DELAYED * Take 81 mg by mouth once lizette* LORATADINE 10 MG TABLET Take 10 mg by mouth once lizette* NAPROXEN SODIUM 220 MG TABLET Take 440 mg by mouth twice da*Problem List As Of Date 12/15/2017 Noted Resolved Primary osteoarthritis of left hip [M16.12] INVALID FOR* More... Personal history of malignant neoplasm of breas*INVALID FOR* Pain in right upper arm [M79.621] INVALID FOR* Localized swelling, mass and lump, unspecified *INVALID FOR* Benign essential HTN [I10] INVALID FOR* Gastroesophageal reflux disease without esophag*INVALID FOR* Other instructions from your clinician: PATIENT PREOPERATIVE INSTRUCTIONS Yuliya Buckner, * has scheduled you for your procedure at this surgery center: [facility]: [phone] -- [address] [address]. Please read below carefully for your personalized instructions. Blood Thinning Medications: - Stop NSAIDS (Ibuprofen, Advil, Aleve, Motrin, Celebrex, Mobic, etc.) 7 days before surgery, as directed by your surgeon. - Stop Aspirin 7 days before surgery, as directed by your surgeon. - Stop Vitamin E, ALL multi-vitamins, herbals and dietary supplements 7 days before surgery. - You may take Tylenol (Acetaminophen) or any of your pain medications that do not contain aspirin or NSAIDS as needed. Dietary Restrictions: - No solid food after midnight. - You may have 12 ounces of clear liquids (water, clear juices such as apple juice or gatorade, carbonated beverages, clear tea, black coffee, jello) until 2 hours before scheduled arrival at facility. Medications: Approved medications to take the morning of surgery with a sip of water: OMEPRAZOLE, AMLODIPINE If you start any new medications after today's visit, please contact the surgery center above. Important Reminders: - Candy, mints, gum and tobacco products are NOT permitted the morning of surgery. - Hearing aids, dentures and glasses may be worn the morning of surgery. - NO jewelry, body piercings, makeup, nail irish, hairpins or contacts are to be worn the day of surgery. - CHG wipes provided with instructions. If you develop symptoms such as a fever, cold, or flu, or have other changes to your health within TWO DAYS of scheduled surgery or the morning of surgery, please contact the surgery center above. Personal Belongings: - Leave ALL valuables and money at home or with family members. For Outpatient Procedures: - YOU MUST HAVE A RESPONSIBLE HEALTH CARE ANALYST TAKE YOU HOME. A CONVEYOR MAN OR PROTOTYPE MACHINE OPERATOR CANNOT BE MADE A RESPONSIBLE HEALTH CARE ANALYST. - We recommend that a responsible person stays with you overnight to take care of you. - You cannot stay in a hotel alone after outpatient surgery. You will not be permitted to have your surgery, if you do not have someone to take care of you. Arrival Time for Surgery: -You will receive a call from [facility] [place] the afternoon before surgery after 2:30 pm (or Friday for Friday surgery) for a scheduled arrival time. - If you have not heard by 4 pm, please contact [facility] at [phone]. Please be aware that emergency situations arise, which may delay or change your surgical time. If this happens, we will notify you as soon as possible and regret any inconvenience. NURA MondragonCEncounter Number: [id number] Status:Closed by TOMASZ COTE PA-C on 12/15/17 [facility] Staph aureus PCRon 8 MRSA PCR Negative [facility] Comment on above: Performed By: #### S APCR ####[facility] [id number] [place], [place] [phone] S aureus Spec Source Nasal [facility] Comment on above: Performed By: #### S APCR ####[facility] [address] [place], [place] [phone] Staph aureus PCR Negative [facility] Comment on above: Performed By: #### S APCR ####[facility] [id number] [place], [place] [phone] Coding Summary.on 08-07-2017 Coding Summary. 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 However, the narrative phrase printed from the coding software may appear abbreviated, or result in slightly different terminology. Coded By: Alida Gandhi Date Saved: 08/07/2017 09:54 am Normal [place] T [facility] Vital Signs Date Time Vital Sign Value Performing Clinician Facility 08-01-2023 10:30-0400 Body height 157.48 cm [facility] Other [facility] Other 08-01-2023 10:30-0400 Body mass index (BMI) [Ratio] 21.62 kg/m2 [facility] Other [facility] Other 08-01-2023 10:30-0400 Body weight 53.62 kg Marlon Plei Other [facility] Other 08-01-2023 10:30-0400 Diastolic blood pressure 72 mm[Hg] Marlon Plei Other [facility] Other 08-01-2023 10:30-0400 Respiratory rate 12 /min [facility] Other [facility] Other 08-01-2023 10:30-0400 Systolic blood pressure 118 mm[Hg] Marlon Plei Other [facility] Other 01-29-2023 10:30-0500 Body height 157.48 cm Marlon Michelle Other [facility] Other 01-29-2023 10:30-0500 Body mass index (BMI) [Ratio] 21.87 kg/m2 Marlon Ball Other [facility] Other 01-29-2023 10:30-0500 Body weight 54.25 kg Marlon Michelle Other [facility] Other 01-29-2023 10:30-0500 Diastolic blood pressure 70 mm[Hg] Marlon Ball Other [facility] Other 01-29-2023 10:30-0500 Respiratory rate 12 /min Marlon Ball Other [facility] Other 01-29-2023 10:30-0500 Systolic blood pressure 118 mm[Hg] Marlon Michelle Other [facility] Other Encounters Encounter Date Encounter Type Care Provider Facility Start: 11-14-2023 End: 11-14-2023 ambulatory TAL LANGLEY Not Available Start: 11-07-2023 End: 11-07-2023 ambulatory TAL LANGLEY Not Available Start: 08-07-2023 End: 08-07-2023 ambulatory Marlon Michelle Other [facility] Other Start: 08-07-2023 Telephone encounter Marlon Michelle [facility] Start: 08-01-2023 End: 08-01-2023 ambulatory Marlon Michelle Other [facility] Other Start: 08-01-2023 Office outpatient visit 25 minutes Marlon Michelle [facility] Start: 02-04-2023 End: 02-05-[address] NONE LISTED REQUEST Facility: Start: 01-29-2023 End: 01-29-2023 ambulatory Marlon Michelle Other [facility] Other Start: 01-29-2023 Patient encounter procedure Marlon Michelle [facility] Start: 05-07-2022 End: 05-08-2022 ambulatory MARLON MICHELLE Facility:[facility] Start: 03-15-2022 End: 03-16-2022 ambulatory MARLON MICHELLE Facility:[facility] Start: 03-09-2019 End: 03-09-2019 Patient encounter procedure FANTASMA ([place]) [facility] Start: 07-24-2018 End: 07-25-2018 Patient encounter procedure CHARLENE (PAC) [facility] Start: 12-15-2017 Ambulatory [place] [facility] Start: 08-05-2017 End: 08-05-2017 Ambulatory Tal Langley Facility:[facility] Immunizations Immunization Date Immunization Notes Care Provider Massiel perez 10-08-2021 COVID-19 Vaccine Moderna - Documentation Purposes Only Marlon Michelle Other [facility] Other 01-31-2021 COVID-19 Vaccine Moderna - Documentation Purposes Only Marlon Michelle Other [facility] Other 01-03-2021 COVID-19 Vaccine Moderna - Documentation Purposes Only Marlon Michelle Other [facility] Other 2017 diphtheria, tetanus toxoids and acellular pertussis vaccine, unspecified formulation Marlon Michelle Other [facility] Other Payers Date Payer Category Payer Medicare [id number] 1959 Medicare [id number] 1959 Private Health Insurance [facility] [id number] 1959 Self-pay [id number] 1945 Unknown [id number] [id number] 1945 Unknown [id number] 2.16.84 [id number] 1945 Unknown [id number] 1945 Unknown [id number] Unknown [id number] 2.16.84 [id number] Social History Date Type Detail Facility Sex Assigned At [facility] [employer] Other Evaluation note 08-01-2023 Note Date & Type Note Facility 08-01-2023 Evaluation note Encounter Date Diagnosis Assessment Notes Aug, Essential hypertension (ICD-10 - I10) This patient is instructed to consume a healthy, low-fat, low-salt diet. They are also encouraged to continue exercise to achieve/maintain a normal BMI. Aug, Pure hypercholesterolemia (ICD-10 - E78.00) Instructed on diet and exercise with continued statin therapy.Discusse d the beneficial effects of lowering cholesterol in reducing the risk for cerebrovascular and cardiovascular disease. Aug, Gastroesophageal reflux disease with esophagitis without hemorrhage (ICD-10 - K21.00) Diet instructions: Smaller portions, avoid eating and laying flat, avoid eating or drinking prior to bedtime. Weight loss. Aug, Cerebral atherosclerosis (ICD-10 - I67.2) Continue secondary prevention measures. Continue ASA/PLavix No bleeding complications noted No focal neurologic deficits, aware to have emergent evaluation if new symptoms occur Aug, Nicotine dependence, cigarettes, in remission (ICD-10 - F17.211) Continue abstinence Aug, H/O TIA (transient ischemic attack) and stroke (ICD-10 - Z86.73) Continue secondary prevention Aug, History of breast cancer (ICD-10 - Z85.3) Continue self monitoring, s/p mastectomy Aug, Fatigue, unspecified type (ICD-10 - R53.83) Check labs: r/o diabetes, anemia and thyroid disease [facility] Other Evaluation note 01-29-2023 Note Date & Type Note Facility 01-29-2023 Evaluation note Encounter Date Diagnosis Assessment Notes Jan, Medicare annual wellness visit, subsequent (ICD-10 - Z00.00) Personalized health advice was given to the beneficiary including a written plan for screenings discussed and provided. Advanced care planning reviewed and/or information given as requested. Additional counseling was provided here today in regards to, [ ]. The above visit was performed by [ ], under direct supervision of [ ]. Document reviewed and amended by provider signed below. Jan, Essential hypertension (ICD-10 - I10) This patient is instructed to consume a healthy, low-fat, low-salt diet. They are also encouraged to continue exercise to achieve/mainta in a normal BMI. Jan, Pure hypercholesterolemia (ICD-10 - E78.00) Diet and exercise with continued statin therapy. Jan, Gastroesophageal reflux disease with esophagitis without hemorrhage (ICD-10 - K21.00) Diet instructions: Smaller portions, avoid eating and laying flat, avoid eating or drinking prior to bedtime. Weight loss. Continue PPI If her symptoms continue Jan, Cerebral atherosclerosis (ICD-10 - I67.2) Diet instructions: Smaller portions, avoid eating and laying flat, avoid eating or drinking prior to bedtime. Weight loss. Continue PPI If her symptoms continue would refer for EGD Jan, Nicotine dependence, cigarettes, in remission (ICD-10 - F17.211) Jan, H/O TIA (transient ischemic attack) and stroke (ICD-10 - Z86.73) Continue secondary prevention measures. - discussed ASA, she had stopped. - instructed to restart, taking 2-3x weekly along w/ Plavix Jan, History of breast cancer (ICD-10 - Z85.3) b/l mastectomy [facility] Other Evaluation note Note Date & Type Note Facility Evaluation note No Information [facility] Other History general Narrative - Reported Note Date & Type Note Facility History general Narrative - Reported Type Medical History Cerebral atherosclerosis Medical History H/O TIA (transient i schemic attack) and stroke Medical History History of breast cancer Medical History Age-related osteopor osis without current pathological fracture Medical History Hyperlipidemia type II Medical History Gastroesophageal ref lux disease with esophagitis without hemorrhage Medical History Essential hypertension Medical History Pure hypercholesterolemia Medical History Situational anxiety Medical History Hearing loss of both ears due to cerumen impaction Medical History Allergic contact leidy matitis due to plant Medical History Atypical chest pain Medical History Cellulitis of right forearm Medical History Shingles (herpes zoster) polyneu ropathy Medical History Nicotine dependence, cigarettes, in remission Medical History Acute recurrent maxillary sinusi tis Surgical History colonoscopy 2004 Surgical History bilateral mastectomy 1987 Surgical History cataract OD 1999 Hospitalization History see surgical history [facility] Other Summary Purpose Family History No Family History Records FoundNo Family History Records FoundNo Family History Records FoundNo Family History Records FoundNo Family History Records FoundNo Family History Records FoundNo Family History Records Found Advance Directives No Advanced Directives Records FoundNo Advanced Directives Records FoundNo Advanced Directives Records FoundNo Advanced Directives Records FoundNo Advanced Directives Records FoundNo Advanced Directives Records FoundNo Advanced Directives Records Found Additional Source Comments INFORMATION SOURCE (unrecogn ized section and content) DATE CREATED AUTHOR 05/26/2018 [facility] DATE CREATED AUTHOR AUTHOR'S ORGANIZ ATION 05/27/2018 [facility] DATE CREATED AUTHOR AUTHOR'S ORGANIZ ATION 03/10/2019 [facility] DATE CREATED AUTHOR AUTHOR'S ORGANIZ ATION 01/27/2021 [facility] DATE CREATED AUTHOR AUTHOR'S ORGANIZ ATION 12/21/2021 [facility] DATE CREATED AUTHOR AUTHOR'S ORGANIZ ATION [facility]/05/2023 [facility] DATE CREATED AUTHOR AUTHOR'S ORGANIZ ATION 11/16/2023 [facility] EPIC REASON FOR VISIT (unrecogniz ed section and content) Wellness6 month Follow upLab Results FOR RECORDS PERTAINING TO PATIENTS WHO ARE OR HAVE BEEN ENROLLED IN A CHEMICAL DEPENDENCY/SUBSTANCEABUSE PROGRAM, SOME INFORMATION MAY BE OMITTED. This clinical summary was aggregated from multiple sources. Caution should be exercised in using it in the provision of clinical care. This summary normalizes information from multiple sources, and as a consequence, information in this document may materially change the coding, format and clinical context of patient data. In addition, data may be omitted in some cases. CLINICAL DECISIONS SHOULD BE BASED ON THE PRIMARY CLINICAL RECORDS. [employer] provides no warranty or guarantee of the accuracy or completeness of information in this document.
== END 2023-11-05 11:32 | disposition home or self-care (01) ==
LOC: PST 11:31
PROVIDERS: PCP Internal Medicine; Visit Provider Ophthalmology
DX: Z01.818 Encounter for other preprocedural examination (principal); H25.812 Combined forms of age-related cataract, left eye

== ENCOUNTER 2023-11-06 08:18 | Day surgery (SDC) | payer MEDICARE, SELFPAY ==
--- NOTE | 2023-11-05 | HP_ITS ---
Date: 11/05/2023 HISTORY: The patient is a 77-year-old white female with complaints of declining vision out of her left eye. The onset of this has been gradual over the last several years. She notes having difficulty with headlights at a distance creating glare and halos. She also notes that road signs at a distant are more difficult to see. She also states that she cannot see as well in dim lighting and computer distance she is having more trouble with. PAST OCULAR HISTORY: 1. Status post cataract extraction with intraocular lens placed for the right eye. 2. Macular degeneration bilaterally. PAST MEDICAL HISTORY: Hypercholesterolemia, hypertension. SOCIAL HISTORY: Denies tobacco, alcohol or recreational drug abuse. SYSTEMIC MEDICATIONS: Include atorvastatin, amlodipine, clopidogrel and loratadine. ALLERGIES TO MEDICATIONS: Denies. REVIEW OF SYSTEMS: No pertinent positives. PHYSICAL EXAM: GENERAL: In general, she is awake, alert and oriented x3, well developed, well nourished, in no acute distress. HEART: Regular rate and rhythm. LUNGS: Clear bilaterally. ABDOMEN: Soft, non-tender, non-distended. EXTREMITIES: No pitting edema. OPHTHALMIC EXAM: Revealed a visual acuity of 20/30 in the right and 20/50 -2 in the left that glared to 20/400. Pupils motility, muscle balance and confrontational visual gore within normal limits bilaterally. Pressures are measured at 20 bilaterally. Slit lamp exam revealed blepharitis with a severe decrease in tear film bilaterally. Conjunctiva, cornea, anterior chamber and iris were within normal limits bilaterally. Lens status demonstrated well centered posterior chamber intraocular lens in the right eye and a 3+ nuclear sclerosis with 2+ cortical changes in the left eye. FUNDUS EXAM: Revealed good view with good dilation bilaterally. There were RPE changes as well as soft drusen and hard drusen within the maculas bilaterally. Optic discs, vessels, periphery were within normal limits bilaterally. ASSESSMENT AND PLAN: Visually significant cataract, left eye. After the risks, benefits, and alternatives as well as expectations were delivered to the patient, she elected to go forward with cataract removal. She understands those risks to include but not limited to infection, bleeding, loss of vision or loss of the eye itself. Secondly, she understands that postoperatively she is likely to require spectacle correction for her best visual acuity. Finally, a complete ophthalmic exam was performed and she does carry the diagnosis of macular degeneration as it is limiting her vision to some degree; however, the cataract itself seems to be more significant at this time. After understanding all risks as well as expectations, she elected to go forward with the procedure as listed above and will be doing so in the near future. NEELIMA
[2023-11-06] MEDS: DIAZEPAM 5 MG TABLET PO (08:30)
[2023-11-06] MEDS: BESIFLOXACIN HCL 100 DROP DROPS.SUSP OP ×4 (08:33→09:10)
[2023-11-06] MEDS: CYCLOPENTOLATE HCL 1% OP SOL 40 DROP/2 ML BOTTLE OP ×4 (08:33→09:11)
[2023-11-06] MEDS: PHENYLEPHRINE HCL 2.5% OP SOL 40 DROP/2 ML BOTTLE OP ×4 (08:34→09:11)
[2023-11-06] MEDS: TROPICAMIDE 1% OP SOL 300 DROP/15 ML BOTTLE OP ×4 (08:34→09:12)
[2023-11-06 08:39] VITALS: BP 140/77; PULSE 76; RESP 20; TEMP 36.6; O2SAT 98
[2023-11-06 10:01] VITALS: BP 156/86; BP 165/90; PULSE 75; RESP 18; O2SAT 100
[2023-11-06] MEDS: APRACLONIDINE HCL 100 DROP/5 ML BOTTLE OP (10:03)
[2023-11-06] MEDS: HYALURONATE SODIUM 16 MG/ML SYRINGE EYE-LEFT (10:03)
[2023-11-06] MEDS: LIDOCAINE HCL 1% PF 20 MG/2 ML VIAL 1 ML INJ (10:04)
[2023-11-06] MEDS: BETADINE POVIDONE-IODINE 5% OP SOL 30 ML BOTTLE OP (10:04)
[2023-11-06] MEDS: LIDOCAINE 2% JELLY 10 ML UR (10:04)
[2023-11-06] MEDS: PROPARACAINE HCL 0.5% 300 DROP/15 ML BOTTLE OP (10:05)
[2023-11-06] MEDS: TETRACAINE HCL 0.5% OP SOL 80 DROP/4 ML BOTTLE OP (10:05)
[2023-11-06] MEDS: PREDNISOLONE ACETATE OP 1% SUSP 100 DROPS/5 ML 1 DROP OP (10:05)
[2023-11-06] MEDS: PHENYLEPHRINE/KETOROLAC 1-0.3% ML VIAL 4 ML IRR (10:06)
[2023-11-06] MEDS: CEFUROXIME SODIUM 750 MG, 0.9 % SODIUM CHLORIDE 16.3 ML OP (10:06)
--- NOTE | 2023-11-07 | OP_ITS ---
OPERATION DATE: 11/06/2023 SURGEON: Luke Langley M.D. PREOPERATIVE DIAGNOSIS: Nuclear sclerotic cataract left eye. POSTOPERATIVE DIAGNOSIS: Nuclear sclerotic cataract left eye. PROCEDURE NAME: Cataract extraction with intraocular lens placement for the left eye. ANESTHESIA: Topical. ESTIMATED BLOOD LOSS: Zero. COMPLICATIONS: None. PROCEDURE: Patient brought to the operating room in supine position. After proper identification, the left eye was prepped and draped in a sterile ophthalmic fashion. A paracentesis was created at the 5 o'clock position. Approximately 1 mL of unpreserved Xylocaine was injected into the anterior chamber followed by Amvisc Plus. Using a 2.6 mm Keratome blade, a clear corneal incision was created at the 3 o'clock limbus. A cystotome was then used to begin a curvilinear capsulorrhexis that was continued for 360 degrees with the Utrata forceps. BSS on a 26 gauge cannula was injected beneath the anterior capsule to hydrodissect as well as hydrodelineate the lens. After ensuring mobility, phacoemulsification was performed in a [id number]-type fashion. After all nuclear material had been removed from the eye, IA was introduced and all residual cortical material was cleaned up. Additional Amvisc Plus was injected into the posterior bag and a lens model MX60, 24.5 diopters was then injected and dialed into position. After ensuring centration, IA was reintroduced into the anterior chamber and all residual Amvisc Plus was removed from the eye. BSS on a 30 gauge cannula was injected into the stroma of both the clear corneal incision as well as the paracentesis to hydrate the wounds. Additional BSS was injected into the anterior chamber to pressurize the eye at approximately 20 to 22 mmHg by finger tension. 0.1 mL of antibiotic was injected into the anterior chamber and Weck-Steffanie sponge was used to check the wounds to be watertight. One drop of Apraclonidine and one drop of prednisolone acetate were placed into the eye and a shield was placed over top. The patient was then sent to the postoperative area in satisfactory condition to follow up the following day for postoperative care. NEELIMA
== END 2023-11-06 10:25 | disposition home or self-care (01) ==
LOC: SURGOUT 08:19
PROVIDERS: PCP Internal Medicine; Visit Provider Ophthalmology
PROC: (CPT 66984; principal; 2023-11-06 09:50)
DX: H25.12 Age-related nuclear cataract, left eye (principal); E78.00 Pure hypercholesterolemia, unspecified; I10 Essential (primary) hypertension
CPT/HCPCS: 66984; V2630

== ENCOUNTER 2024-02-02 07:25 | Outpatient (OUT) | payer MEDICARE, SELFPAY ==
--- OUTSIDE RECORDS SUMMARY | 2024-02-02 07:30 | XMS_ITS | CCD ---
Author Name Unknown Address [address] [facility] [address] [place] [address] Organization [facility] Care Team Providers Care Meat Carver Name Role Phone JOSY YULIYA Willis Unavailable Unavailabl e Tal Langley Unavailable Unavailable Tal Langley Unavailable Unavailable Tal Langley Unavailable Unavailable MARLON MICHELLE~[phone] UNKNOWN Unavailable Unavailable CHARLENE WEBB (PAC) Admitting Unavail able CHARLENE WEBB (PAC) Attending Unavail able FANTASMA NIEVES (PA) Referring Unavailable REQUEST, NONE LISTED Attending Unavaila ble REQUEST, NONE LISTED Admitting Unavaila ble REQUEST, NONE LISTED Consulting Unavaila ble BALL, MARLON Primary Care Unavailable BALL, MARLON Consulting Unavailable BALL, MARLON Attending Unavailable BALL, MARLON Admitting Unavailable BALL, MARLON Primary Care Unavailable BALL, MARLON Primary Care Unavailable BALL, MARLON Consulting Unavailable BALL, MARLON Attending Unavailable BALL, MARLON Admitting Unavailable Ball, Marlon Unavailable TAL LANGLEY Attending Unavailable TAL LANGLEY Attending Unavailable TAL LANGLEY Attending Unavailable Allergies Allergy Classification Reported Allergen(s) Allergy Type Date of Onset Reaction(s) Facility (3 sources) Bisphosphonate (substance) Drug allergy Unknown [facility] Other (2 sources) Alendronate Drug Allergy Comment:Oral Bisphosphonates [facility] Other (2 sources) ORAL BISPHOSPHONATES Propensity to adverse reactions 015 Unknown [facility] Other Medications Current Medications Medication Drug Class(es) [...] Results Test Name Value Interpretation Reference Range Facility CBC AUTO DIFFon 02-04-2023 BASO # 0.1 103/ul Normal 0.0-0.1 [facility] Comment on above: Performed By: #### DATCBC #### [facility] [address] [place] [address] Dr. Yovana Funes Basophils/100 WBC (Bld) 1.0 % Normal 0.2-2.0 [facility] Comment on above: Performed By: #### DATCBC #### [facility] [address] [place] [address] Dr. Yovana Funes EO # 0.3 103/ul Normal 0.0-0.7 [facility] Comment on above: Performed By: #### DATCBC #### [facility] [address] [place] [address] Dr. Yovana Funes Eosinophils/100 WBC (Bld) 5.5 % Normal 0.9-7.0 [facility] Comment on above: Performed By: #### DATCBC #### [facility] [address] [place] [address] Dr. Yovana Funes Erythrocyte distribution width (RBC) [Ratio] 13.2 % Normal 11.0-15.0 [facility] Comment on above: Performed By: #### DATCBC #### [facility] [address] [place] [address] Dr. Yovana Funes Hematocrit (Bld) [Volume fraction] 41.8 % Normal 36.0-48.0 [facility] Comment on above: Performed By: #### DATCBC #### [facility] [address] [address] [address] Yovana Funes Hemoglobin (Bld) [Mass/Vol] 13.9 g/dL Normal 12.0-16.0 [facility] Comment on above: Performed By: #### DATCBC #### [facility] [address] [address] [address] Yovana Funes IG # 0.02 10e3/ul Normal 0.00-0.03 [facility] Comment on above: Performed By: #### DATCBC #### [facility] [address] [place] [address] Dr. Yovana Funes IG % 0.4 % Normal 0.0-0.5 [facility] Comment on above: Performed By: #### DATCBC #### [facility] [address] [address] [address] Yovana Funes LYMPH # 0.9 103/ul Critically low 1.2-3.8 [facility] Comment on above: Performed By: #### DATCBC #### [facility] [address] [place] [address] Dr. Yovana Funes Lymphocytes/100 WBC (Bld) 16.6 % Critically low 20.5-60.0 [facility] Comment on above: Performed By: #### DATCBC #### [facility] [address] [place] [address] Dr. Yovana Funes MCH (RBC) [Entitic mass] 31.1 pg Normal 26.7-34.0 [facility] Comment on above: Performed By: #### DATCBC #### [facility] [address] [place] [address] Dr. Yovana Funes MCHC (RBC) [Mass/Vol] 33.3 g/dL Normal 29.9-35.2 [facility] Comment on above: Performed By: #### DATCBC #### [facility] [address] [place] [address] Dr. Yovana Funes MCV (RBC) [Entitic vol] 93.5 fL Normal 81.0-99.0 [facility] Comment on above: Performed By: #### DATCBC #### [facility] [address] [place] [address] Dr. Yovana Funes MONO # 0.5 103/ul Normal 0.3-0.8 [facility] Comment on above: Performed By: #### DATCBC #### [facility] [address] [place] [address] Dr. Yovana Funes Monocytes/100 WBC (Bld) 10.3 % Normal 1.7-12.0 [facility] Comment on above: Performed By: #### DATCBC #### [facility] [address] [place] [address] Dr. Yovana Funes NEUT # 3.5 103/ul Normal 1.4-6.5 [facility] Comment on above: Performed By: #### DATCBC #### [facility] [address] [place] [address] Dr. Yovana Funes Neutrophils/100 WBC (Bld) 66.2 % Normal 43.0-75.0 [facility] Comment on above: Performed By: #### DATCBC #### [facility] [address] [place] [address] Dr. Yovana Funes Platelet mean volume (Bld) [Entitic vol] 9.9 fL Normal 9.5-13.5 [facility] Comment on above: Performed By: #### DATCBC #### [facility] [address] [place] [address] Dr. Yovana Funes PLT 369 103/ul Normal 150-450 [facility] Comment on above: Performed By: #### DATCBC #### [facility] [address] [place] [address] Dr. Yovana Funes RBC 4.47 106/ul Normal 4.20-5.40 [facility] Comment on above: Performed By: #### DATCBC #### [facility] [address] [place] [address] Dr. Yovana Funes WBC 5.3 103/ul Normal 4.0-11.0 [facility] Comment on above: Performed By: #### DATCBC #### [facility] [address] [place] [address] Dr. Yovana Funes MARLEY- BMP WITH LIPIDon 2022 Anion gap [Moles/Vol] 13.0 mmol/L Normal [facility] Comment on above: Performed By: #### DATBMP #### [facility] [address] [place] [address] Dr. Yovana Funes Calcium [Mass/Vol] 9.1 mg/dL Normal 8.5-10.1 [facility] Comment on above: Performed By: #### DATBMP #### [facility] [address] [place] [address] Dr. Yovana Funes Chloride [Moles/Vol] 102 mmol/L Normal 98-107 [facility] Comment on above: Performed By: #### DATBMP #### [facility] [address] [place] [address] Dr. oYvana Funes Cholesterol [Mass/Vol] 211 mg/dL Critically high <=200 [facility] Comment on above: Performed By: #### DATBMP #### [facility] [address] [place] [address] Dr. Yovana Funes Cholesterol in HDL [Mass/Vol] 114 mg/dL Critically high 40-60 [facility] Comment on above: Performed By: #### DATBMP #### [facility] [address] [place] [address] Dr. Yovana uFnes Cholesterol in LDL [Mass/Vol] 89.8 mg/dL Normal [facility] Comment on above: Performed By: #### DATBMP #### [facility] [address] [place] [address] Dr. Yovana Funes CO2 [Moles/Vol] 29.2 mmol/L Normal 21.0-32.0 [facility] Comment on above: Performed By: #### DATBMP #### [facility] [address] [place] [address] Dr. Yovana Funes Creatinine [Mass/Vol] 0.55 mg/dL Normal 0.55-1.02 [facility] Comment on above: Performed By: #### DATBMP #### [facility] [address] [place] [address] Dr. Yovana Funes EGFR-AF THAI >60 Normal >=60 [facility] Comment on above: Performed By: #### DATBMP #### [facility] [address] [place] [address] Dr. Yovana Funes EGFR-NON AF THAI >60 Normal >=60 [facility] Comment on above: Performed By: #### DATBMP #### [facility] [address] [place] [address] Dr. Yovana Funes Glucose [Mass/Vol] 101 mg/dL Normal 74-106 [facility] Comment on above: Performed By: #### DATBMP #### [facility] [address] [place] [address] Dr. Yovana Funes HDL NORMAL > or = 60 mg/dl - LO W CARDIOVASCULAR RISK <40 mg/dl - HIGH CARDIOVASCULAR RISK Normal [facility] Comment on above: Performed By: #### DATBMP #### [facility] [address] [place] [address] Dr. Yovana Funes LDL CALC NORMAL SEE BELOW Normal [facility] Comment on above: Result Comment: <100 mg/dl OPTIMAL 100 - 129 mg/dl NEAR OR ABOVE OPTIMAL 130 - 159 mg/dl BORDERLINE HIGH 160 - 189 mg/dl HIGH >190 mg/dl VERY HIGH Performed By: #### D ATBMP #### [facility] [address] [place] [address] Dr. Yovana Funes Potassium [Moles/Vol] 4.2 mmol/L Normal 3.5-5.1 [facility] Comment on above: Performed By: #### DATBMP #### [facility] [address] [place] [address] Dr. Yovana Funes Sodium [Moles/Vol] 140 mmol/L Normal 136-145 [facility] Comment on above: Performed By: #### DATBMP #### [facility] [address] [address] [address] Yovana Funes Triglyceride [Mass/Vol] 36 mg/dL Normal <=150 [facility] Comment on above: Performed By: #### DATBMP #### [facility] [address] [address] [address] Yovana Funes Urea nitrogen [Mass/Vol] 13.0 mg/dL Normal 7.0-18.0 [facility] Comment on above: Performed By: #### DATBMP #### [facility] [address] [address] [address] Yovana Funes Urea nitrogen/Creatin ine [Mass ratio] 23.6 mg/mg Normal [facility] Comment on above: Performed By: #### DATBMP #### [facility] [address] [address] [address] Yovana Funes VLDL CALC 7.2 mg/dL Normal [facility] Comment on above: Performed By: #### DATBMP #### [facility] [address] [address] [address] Yovana Funes DIRECT LDLon 05-07-2022 Cholesterol in LDL [Mass/Vol] 55 mg/dL Normal [facility] Comment on above: Performed By: #### ALT, DLDL #### [facility] [address] [address] [address] Yovana Funes DLDL NORMAL SEE BELOW Normal [facility] Comment on above: Result Comment: <100 mg/dl OPTIMAL 100 - 129 mg/dl NEAR OR ABOVE OPTIMAL 130 - 159 mg/dl BORDERLINE HIGH 160 - 189 mg/dl HIGH >190 mg/dl VERY HIGH Performed By: #### A LT, DLDL #### [facility] [address] [address] [address] Yovana Funes SGPTon 05-07-2022 ALT [Catalytic activity/Vol] 26 U/L Normal 14-59 [facility] Comment on above: Performed By: #### ALT, DLDL #### [facility] [address] [address] [address] Yovana Funes DIRECT LDLon 03-15-2022 Cholesterol in LDL [Mass/Vol] 102 mg/dL Normal [facility] Comment on above: Performed By: #### DLDL, ALT #### [facility] [address] [address] [address] Yovana Funes DLDL NORMAL SEE BELOW Normal [facility] Comment on above: Result Comment: <100 mg/dl OPTIMAL 100 - 129 mg/dl NEAR OR ABOVE OPTIMAL 130 - 159 mg/dl BORDERLINE HIGH 160 - 189 mg/dl HIGH >190 mg/dl VERY HIGH Performed By: #### D LDL, ALT #### [facility] [address] [address] [address] Yovana Funes SGPTon 03-15-2022 ALT [Catalytic activity/Vol] 18 U/L Normal 14-59 [facility] Comment on above: Performed By: #### DLDL, ALT #### [facility] [address] [address] [address] Yovana Funes CBC Without Differentialon 0 05-12-2021 Erythrocyte distribution width (RBC) [Ratio] 13.7 % Normal 11.9-15.3 [facility] Comment on above: Performed By: #### CBCNOOUTREACH, OUTREA CH CMP, OUTREACH LIPID #### [facility] [address] Hematocrit (Bld) [Volume fraction] 42.3 % Normal 34.0-46.4 [facility] Comment on above: Performed By: #### CBCNOOUTREACH, OUTREA CH CMP, OUTREACH LIPID #### [facility] [address] [place] [address] [place] Hemoglobin (Bld) [Mass/Vol] 14.3 g/dL Normal 11.8-15.4 [facility] Comment on above: Performed By: #### CBCNOOUTREACH, OUTREA CH CMP, OUTREACH LIPID #### [facility] [address] [place] [address] [place] MCH (RBC) [Entitic mass] 32.0 pg Normal 24.7-34.3 [facility] Comment on above: Performed By: #### CBCNOOUTREACH, OUTREA CH CMP, OUTREACH LIPID #### [facility] [address] [place] [address] [place] MCV (RBC) [Entitic vol] 95.0 fL Normal 80-100 [facility] Comment on above: Performed By: #### CBCNOKEMARREACH, OUTREA CH CMP, OUTREACH LIPID #### [facility] [address] [place] [address] Mean Corpuscular HGB Conc 33.7 g/dL Normal 32.0-35.0 [facility] Comment on above: Performed By: #### CBCNOOUTREACH, OUTREA CH CMP, OUTREACH LIPID #### [address] Platelet mean volume (Bld) [Entitic vol] 8.8 fL Normal 6.3-10.7 [facility] Comment on above: Result Comment: PERFORMED BY: [place] [address] PATHOLOGIST [employer] ADAM CROCKER M.D. Performed By: #### C BCNOOUTREACH, OUTREACH CMP, OUTREACH LIPID #### [place] [address] [place] Platelets (Bld) [#/Vol] 298 10*3/uL Normal 150-450 [facility] Comment on above: Performed By: #### CBCNOOUTREACH, OUTREA CH CMP, OUTREACH LIPID #### [address] RBC (Bld) [#/Vol] 4.46 10*6/uL Normal 3.60-5.00 [facility] Comment on above: Performed By: #### CBCNOOUTREACH, OUTREA CH CMP, OUTREACH LIPID #### [place] [address] [place] WBC (Bld) [#/Vol] 4.5 10*3/uL Normal 3.8-11.6 [facility] Comment on above: Performed By: #### CBCNOOUTREACH, OUTREA CH CMP, OUTREACH LIPID #### [facility] [address] [place] [address] [place] CMP Outreachon 05-12-2021 Albumin [Mass/Vol] 4.4 g/dL Normal 3.2-5.5 [facility] Comment on above: Performed By: #### CBCNOOUTREACH, OUTREA CH CMP, OUTREACH LIPID #### [facility] [address] [place] [address] [place] ALP [Catalytic activity/Vol] 50 U/L Normal 32-92 [facility] Comment on above: Performed By: #### CBCNOOUTREACH, OUTREA CH CMP, OUTREACH LIPID #### [facility] [address] [place] [address] [place] ALT [Catalytic activity/Vol] 26 U/L Normal 10-60 [facility] Comment on above: Performed By: #### CBCNOOUTREACH, OUTREA CH CMP, OUTREACH LIPID #### [facility] [address] [place] [address] [place] AST [Catalytic activity/Vol] 27 U/L Normal 10-42 [facility] Comment on above: Performed By: #### CBCNOOUTREACH, OUTREA CH CMP, OUTREACH LIPID #### [facility] [address] [place] [address] [place] Bilirubin [Mass/Vol] 0.6 mg/dL Normal 0.3-1.2 [facility] Comment on above: Performed By: #### CBCNOOUTREACH, OUTREA CH CMP, OUTREACH LIPID #### [facility] [address] [place] [address] [place] Calcium [Mass/Vol] 9.1 mg/dL Normal 8.2-10.2 [facility] Comment on above: Performed By: #### CBCNOOUTREACH, OUTREA CH CMP, OUTREACH LIPID #### [facility] [address] [place] [address] [place] Chloride [Moles/Vol] 99 mmol/L Normal 95-114 [facility] Comment on above: Performed By: #### CBCNOOUTREACH, OUTREA CH CMP, OUTREACH LIPID #### [facility] [address] [place] [address] [place] CO2 [Moles/Vol] 25.1 mmol/L Normal 22.0-30.0 [facility] Comment on above: Performed By: #### CBCNOOUTREACH, OUTREA CH CMP, OUTREACH LIPID #### [facility] [address] [place] [address] [place] Creatinine [Mass/Vol] 0.63 mg/dL Normal 0.44-1.03 [facility] Comment on above: Performed By: #### CBCNOOUTREACH, OUTREA CH CMP, OUTREACH LIPID #### [facility] [address] [place] [address] [place] Estimated GFR ( Mary Ann > 60 Normal [facility] Comment on above: Result Comment: GFR estimated reference range: According to KDOQI guidelines, <60 ml/min/1.73m2 is sufficient to diagnose a patient with chronic kidney disease. Performed By: #### C BCNOOUTREACH, OUTREACH CMP, OUTREACH LIPID #### [place] [address] [place] Estimated GFR (Non- Am > 60 Normal [facility] Comment on above: Performed By: #### CBCNOOUTREACH, OUTREA CH CMP, OUTREACH LIPID #### [place] [address] [place] Glucose [Mass/Vol] 89 mg/dL Normal 70-100 [facility] Comment on above: Result Comment: Random Glucose Reference Range is dependent on time and content of last meal. Glucose of more than 200 mg/dL in a nonstressed, ambulatory subject supports the diagnosis of Diabetes Mellitus. ADA recommended reference range Performed By: #### C BCNOOUTREACH, OUTREACH CMP, OUTREACH LIPID #### [place] [address] [place] Potassium [Moles/Vol] 3.9 mmol/L Normal 3.5-5.1 [facility] Comment on above: Performed By: #### CBCNOOUTREACH, OUTREA CH CMP, OUTREACH LIPID #### [place] [address] [place] Protein [Mass/Vol] 6.9 g/dL Normal 6.1-7.9 [facility] Comment on above: Performed By: #### CBCNOOUTREACH, OUTREA CH CMP, OUTREACH LIPID #### [place] [address] [place] Sodium [Moles/Vol] 135 mmol/L Low 136-146 [facility] Comment on above: Performed By: #### MARIA D OUTREA CH CMP, OUTREACH LIPID #### [facility] [address] Urea nitrogen [Mass/Vol] 7 mg/dL Low 9-23 [facility] Comment on above: Performed By: #### MARIA D, FRANDYA CH CMP, OUTREACH LIPID #### [facility] [address] Lipid Profile Outreachon Cholesterol [Mass/Vol] 229 mg/dL High 140-200 [facility] Comment on above: Result Comment: Chol less than 200 mg/dl low risk Chol 201-239 mg/dl borderline risk Chol 240 mg/dl and greater high risk Performed By: #### C BCNOOUTREACH, OUTREACH CMP, OUTREACH LIPID #### [facility] [address] [place] [address] Cholesterol in HDL [Mass/Vol] 97 mg/dL High 35-85 [facility] Comment on above: Result Comment: HDL CHOL ATP-III CLASSIF ICATION Cardiovascular Risk HDL > or equal to 60 mg/dL LOW HDL < 40 mg/dL HIGH Performed By: #### C BCNOOUTREACH, OUTREACH CMP, OUTREACH LIPID #### [facility] [address] [place] [address] Cholesterol.tota l/Cholesterol in HDL [Mass ratio] 2.4 {ratio} Normal <5.0 [facility] Comment on above: Result Comment: PERFORMED BY: [place] [address] PATHOLOGIST [employer] ADAM CROCKER M.D. Performed By: #### C BCNOOUTREACH, OUTREACH CMP, OUTREACH LIPID #### [facility] [address] [place] [address] LDL Cholesterol,Calc ulated 120 mg/dL High 0-100 [facility] Comment on above: Result Comment: LDL ATP III CLASSIFICATI ON LDL less than 100 mg/dL Optimal LDL 100-129 mg/dL Near or above optimal LDL 130-159 mg/dL Borderline high LDL 160-189 mg/dL High LDL greater than 189 mg/dL Very high Performed By: #### C JACQUELINE, OUTREACH CMP, OUTREACH LIPID #### [facility] [address] Triglyceride w/Reflex 62 mg/dL Normal 35-149 [facility] Comment on above: Result Comment: TRIG ATP III CLASSIFICAT ION TRIG less than 150 mg/dL Normal TRIG 150-199 mg/dL Borderline high TRIG 200-500 mg/dL High TRIG greater than 500 mg/dL Very high Standard traceable to the Center for Disease Conrtrol and Prevention (CDC) test method. Performed By: #### C JACQUELINE, OUTREACH CMP, OUTREACH LIPID #### [facility] [address] VLDL CHOLESTEROL 12 mg/dL Normal [facility] Comment on above: Performed By: #### LINDA KILLIAN CMP, OUTREACH LIPID #### [facility] [address] CNPTOUTREACHon 01-23-2021 CNPTOUTREACH Patient Outreach ([place] [facility]) DYLAN TAFOYA ([id number]) 1945 F Date Time Provider Department 01/23/21 MARIKA GILES During your visit today, we recorded the following information about you: Allergies As of Date: 01/23/2021 (No Known Allergies) Date Reviewed: 03/09/2019 Reviewed by: Fantasma Nieves (Pa) - Fully Assessed Order(s):SARS-COVID VACCINE 1ST DOSE APPT [[id number]] Order #: [id number] FUTURE Prescriptions as of 01/23/2021 Sig: PANTOPRAZOLE [...] [Z96.649] 01/01/2018 Letter Text Encounter Status:Closed by EPIC, PRODUSER on 01/26/21 [facility] XR HIP 3V PELV+ AP/LAT LTon 03-09-2019 XR HIP 3V PELV+ AP/LAT LT * * *Final Report* * * DATE OF EXAM: Mar 09 2019 3:18PM HMX 5351 - XR HIP 3V PELV+ [...] on Mar 09 2019 6:15PM EST [id number] [facility] XR HIP 3V PELV+ AP/LAT LTon 07-24-2018 [...] Jul 24 2018 11:17AM EST [id number] Normal [facility] HISTORY PHYSICALon HISTORY PHYSICAL HNO ID: [id number] thor: Tomasz Viveros) KeraSerharlane: (none)Author Type: Physician AssistantType: HANDPFiled: 12/16/2017 11:16 AMNote Text:HISTORY AND PHYSICAL EXAMINATIONSERVICE DATE: 12/15/2017SERVICE TIME: 10:41 AMPRIUNITED STATES MARINE HOSPITAL CARE PHYSICIAN: ANAHI Kessler FOR VISIT:Dylan Tafoya is a 72 year old female who is scheduled for arthroplastyacetabular and proximal femoral prosth total hip without autograft at [facility] of Dr. Yuliya Buckner for consultation. My [...] for TIA's (2013). Denies h/o seizure, denies frequentheadacheRespiratory: No history of current cough or dyspnea, or pneumonia in thepast 6 weeks. No history of respiratory/pulmonary symptoms or problems.Cardiovascular: Positive for: Hypertension Denies HLD requiringmedication. Denies chest pain at rest/with exertion; denies h/o MO cardiacsurgery or stents. Denies h/o DVT/PEGI: Positive [...] compliance.SIGNATURE: Tomasz Cote PA-C PATIENT NAME: Dylan Tucker MicheletDATE: December 15, 2017 : 10:41 AM PAGER/CONTACT #: [facility] HOSP 12-15-2017 HOSP [facility] ([facility]) MICHELETDYLAN Tucker ([id number]) 1945 FDate Time Provider Department12/15/17 11:00 AM PACC AV 1 [facility] During your visit today, we recorded the following information about you: Temperature Pulse Respiration Blood pressure 96.8 degrees 68/minute 16/minute 125/60 Weight Height 52.2 kg 1.549 Everardo Cote PA-C 12/16/2017 11:16 AM AddendumHISTORY AND PHYSICAL EXAMINATIONSERVICE DATE: 12/15/2017SERVICE TIME: 10:41 AMPRIUNITED STATES MARINE HOSPITAL CARE PHYSICIAN: ISRAEL KesslerEASON FOR VISIT:Dylan Tafoya is a 72 year old female who is scheduled for arthroplastyacetabular and proximal femoral prosth total hip without autograft at [facility] of Dr. Yuliya Buckner for consultation. My [...] chest pain at rest/with exertion; denies h/o MO cardiac surgery orstents. Denies h/o DVT/PEGI: Positive [...] mastectomy, chemo and radiation ( and recurrence [id number])Osteoarthritis left hipMETS:Limited physical activity due to left [...] scheduled you for your procedure at this surgerycenter:[facility]: [phone] -- [address] [address].Please read below carefully for your personalized instructions.Blood [...] new medications after today's visit, please contact thesurgery center above.Important Reminders: - Candy, mints, gum and tobacco products are NOT permitted the morning ofsurgery.- Hearing aids, dentures and glasses may be worn the morning of surgery.- NO jewelry, body piercings, makeup, nail nauruan, hairpins or contacts are thanh worn the day of surgery.- CHG wipes provided with instructions.If you develop symptoms such as a fever, cold, or flu, or have other changes toyour health within TWO DAYS of scheduled surgery or the morning of surgery,please contact the surgery center above.Personal Belongings:- Leave ALL valuables and money at home or with family members.For Outpatient Procedures: - YOU MUST HAVE A RESPONSIBLE LOGGING CREW SUPERVISOR TAKE YOU HOME. A LOGGING SUPERVISOR OR CABDRIVER CANNOT BE MADE A RESPONSIBLE LOGGING CREW SUPERVISOR.- We recommend that a responsible person stays with you overnight to take careof you.- You cannot stay in a hotel alone after outpatient surgery. You will not bepermitted to have your surgery, if you do not have someone to take care of you. Arrival Time for Surgery: -You will receive a call from [facility] the afternoon beforesurgery after 2:30 pm (or Friday for Friday surgery) for a scheduled arrivaltime.- If you have not heard by 4 pm, please contact [facility] [phone].Please be aware that emergency situations arise, which may delay or change yoursurgical time. If this happens, we will notify you as soon as possible andregret any inconvenience.ARIANNA Mondragon-CReferring Provider: YULIYA BUCKNER [[id number]]Allergies As of Date: 12/15/2017(No Known Allergies)Date Reviewed: 12/15/2017Reviewed by: Tomasz Cote - Fully AssessedReason for Visit: Pre-Op Exam [87]Primary Visit Diagnosis:Preoperative clearance [Z01.818] Other Visit Diagnoses:Primary osteoarthritis of left hip [M16.12] Contact with and (suspected) exposure to other bacterial communicable diseases [Z20.818] Benign essential HTN [I10] Gastroesophageal reflux disease without esophagitis [K21.9]Order(s):STAPH AUREUS PCR [SQSAPCR] Order #: [id number] FUTURE ECG COMPLETE W INTERPRETATION [ECG01] Order #: [id number] as of 12/15/2017 Sig: AMLODIPINE 5 MG [...] for your procedure at this surgery center: [facility]: [phone] -- [address] [address]. Please read below carefully for your personalized [...] - NO jewelry, body piercings, makeup, nail nauruan, hairpins or contacts are to be worn [...] Procedures: - YOU MUST HAVE A RESPONSIBLE LOGGING CREW SUPERVISOR TAKE YOU HOME. A LOGGING SUPERVISOR OR SOFTWARE TESTER CANNOT BE MADE A RESPONSIBLE LOGGING CREW SUPERVISOR. - We recommend that a responsible person stays with you overnight to take care of you. - You cannot stay in a hotel alone after outpatient surgery. You will not be permitted to have your surgery, if you do not have someone to take care of you. Arrival Time for Surgery: -You will receive a call from [facility] [place] the afternoon before surgery after 2:30 pm (or Friday for Friday surgery) for a scheduled arrival time. - If you have not heard by 4 pm, please contact [facility] at [phone]. Please be aware that emergency situations arise, which may delay or change your surgical time. If this happens, we will notify you as soon as possible and regret any inconvenience. NURA MondragonPremier Healthcounter Number: [id number] Status:Closed by TOMASZ COTE PA-C on 12/15/17 [facility] Staph aureus PCRon 8 MRSA PCR Negative [facility] Comment on above: Performed By: #### SAPCR ####[facility] [address] [place], [place] [phone] S aureus Spec Source Nasal [facility] Comment on above: Performed By: #### SAPCR ####[facility] [address] [place], [place] [phone] Staph aureus PCR Negative [facility] Comment on above: Performed By: #### SAPCR ####[facility] [address] [place], [place] [phone] Coding Summary.on 08-07-2017 Coding Summary. 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 SECONDARY: PYMT PROC APC STAT DESCRIPTION DOCTOR NAME DATE 10325 4806 T Discission of secondary Tal Langley DO [...] Alida Gandhi Date Saved: 08/07/2017 09:54 am [facility] Vital Signs Date Time Vital Sign Value Performing Clinician Facility 08-01-2023 10:30-0400 Body height 157.48 cm iwoca Other [facility] Other 08-01-2023 10:30-0400 Body mass index (BMI) [Ratio] 21.62 kg/m2 Marlon Purchext Other [facility] Other 08-01-2023 10:30-0400 Body weight 53.62 kg Marlon Purchext Other [facility] Other 08-01-2023 10:30-0400 Diastolic blood pressure 72 mm[Hg] Marlon Purchext Other [facility] Other 08-01-2023 10:30-0400 Respiratory rate 12 /min Marlon Purchext Other [facility] Other 08-01-2023 10:30-0400 Systolic blood pressure 118 mm[Hg] Marlon Purchext Other [facility] Other 01-29-2023 10:30-0500 Body height 157.48 cm Marlon Purchext Other [facility] Other 01-29-2023 10:30-0500 Body mass index (BMI) [Ratio] 21.87 kg/m2 Marlon Michelle Other [facility] Other 01-29-2023 10:30-0500 Body weight 54.25 kg Marlon Michelle Other [facility] Other 01-29-2023 10:30-0500 Diastolic blood pressure 70 mm[Hg] Marlon Michelle Other [facility] Other 01-29-2023 10:30-0500 Respiratory rate 12 /min Marlon Michelle Other [facility] Other 01-29-2023 10:30-0500 Systolic blood pressure 118 mm[Hg] Marlon Michelle Other [facility] Other Encounters Encounter Date Encounter Type Care Provider Facility Start: 12-12-2023 End: 12-12-2023 ambulatory TAL LANGLEY Not Available Start: 11-14-2023 End: 11-14-2023 ambulatory TAL LANGLEY Not Available Start: 11-07-2023 End: 11-07-2023 ambulatory TAL LANGLEY Not Available Start: 08-07-2023 End: 08-07-2023 ambulatory Marlon Michelle Other [facility] Other Start: 08-07-2023 Telephone encounter Marlon Michelle [facility] Start: 08-01-2023 End: 08-01-2023 ambulatory Marlon Michelle Other [facility] Other Start: 08-01-2023 Office outpatient visit 25 minutes Marlon Michelle [facility] Start: 02-04-2023 End: 02-05-[address] NONE LISTED REQUEST Facility: Start: 01-29-2023 End: 01-29-2023 ambulatory Marlon Michelle Other [facility] Other Start: 01-29-2023 Patient encounter procedure Marlon Michelle [facility] Start: 05-07-2022 End: 05-08-2022 ambulatory MARLON MICHELLE Facility:[facility] Start: 03-15-2022 End: 03-16-2022 ambulatory MARLON MICHELLE Facility:[facility] Start: 03-09-2019 End: 03-09-2019 Patient encounter procedure FANTASMA (PA) [facility] Start: 07-24-2018 End: 07-25-2018 Patient encounter procedure CHARLENE (PAC) [facility] Start: 12-15-2017 Ambulatory YULIYA BUCKNRE [facility] Start: 08-05-2017 End: 08-05-2017 Ambulatory Talberta Langley [facility] Immunizations Immunization Date Immunization Notes Care Provider Fa ana 10-08-2021 COVID-19 Vaccine Moderna - Documentation Purposes Only Marlon Michelle Other [facility] Other 01-31-2021 COVID-19 Vaccine Moderna - Documentation Purposes Only Marlon Michelle Other [facility] Other 01-03-2021 COVID-19 Vaccine Moderna - Documentation Purposes Only Marlon Michelle Other [facility] Other 2017 diphtheria, tetanus toxoids and acellular pertussis vaccine, unspecified formulation Marlon Michelle Other [facility] Other Payers Date Payer Category Payer Medicare [id number] 1959 Medicare [id number] 1959 Private Health Insurance [facility] [id number] 1959 Self-pay [id number] 1945 Unknown [id number] 2.16.84 [id number] 1945 Unknown [id number] 2.16.84 [id number] 1945 Unknown [id number] 2.16.84 [id number] 1945 Unknown [id number] 1945 Unknown [id number] 2.16.840 [id number] Unknown [id number] 2.16.84 [id number] Social History Date Type Detail Facility Sex Assigned At [place] [facility] Other Evaluation note 08-01-2023 Note Date & [...] labs: r/o diabetes, anemia and thyroid disease [facility] Other Evaluation note 01-29-2023 Note Date & [...] breast cancer (ICD-10 - Z85.3) b/l mastectomy [facility] Other Evaluation note Note Date & Type Note Facility Evaluation note No Information [place] [facility] Other History general Narrative - Reported Note [...] OD 1999 Hospitalization History see surgical history [facility] Other Summary Purpose Family History No Family [...] section and content) DATE CREATED AUTHOR 05/26/2018 [facility] DATE CREATED AUTHOR AUTHOR'S ORGANIZ ATION 05/27/2018 [facility] DATE CREATED AUTHOR AUTHOR'S ORGANIZ ATION 03/10/2019 [facility] DATE CREATED AUTHOR AUTHOR'S ORGANIZ ATION 01/27/2021 [place] DATE CREATED AUTHOR AUTHOR'S ORGANIZ ATION 12/21/2021 [facility] DATE CREATED AUTHOR AUTHOR'S ORGANIZ ATION 02/05/2023 [facility] DATE CREATED AUTHOR AUTHOR'S ORGANIZ ATION 12/13/2023 [facility] EPIC REASON FOR VISIT (unrecogniz [...] BE BASED ON THE PRIMARY CLINICAL RECORDS. [employer] provides no warranty or guarantee of the accuracy or completeness of information in this document.
[2024-02-02 07:57] LABS: Basophils Percent Auto 0.8 % (0.2-2.0); Eosinophils Absolute Auto 0.3 10^3/uL (0.0-0.7); Eosinophils Percent Auto 4.8 % (0.9-7.0); Hematocrit 40.4 % (36.0-48.0); Immature Granulocytes Abs Auto 0.02 10^3/uL (0.00-0.03); Immature Granulocytes Pct Auto 0.4 % (0.0-0.5); Lymphocytes Absolute Auto 0.8 10^3/uL (1.2-3.8); Lymphocytes Percent Auto 14.8 % (20.5-60.0); Mean Corpuscular HGB Conc 32.2 g/dL (29.9-35.2); Mean Corpuscular Hemoglobin 30.7 pg (26.7-34.0); Mean Corpuscular Volume 95.5 fL (81.0-99.0); Mean Platelet Volume 9.9 fL (9.5-13.5); Monocytes Absolute Auto 0.6 10^3/uL (0.3-0.8); Monocytes Percent Auto 11.9 % (1.7-12.0); Neutrophils Absolute Auto 3.5 10^3/uL (1.4-6.5); Neutrophils Percent Auto 67.3 % (43.0-75.0); Platelet Count 316 10^3/uL (150-450); Red Blood Count 4.23 10^6/uL (4.20-5.40); Red Cell Distribution Width 12.9 % (11.0-15.0); White Blood Count 5.2 10^3/uL (4.0-11.0)
[2024-02-02 08:37] LABS: Alanine Aminotransferase 26 U/L (14-59); Albumin Globulin Ratio 1.1; Albumin Level 3.8 g/dL (3.4-5.0); Alkaline Phosphatase 63 U/L (46-116); Anion Gap 12.2; Aspartate Amino Transferase 18 U/L (15-37); BUN Creatinine Ratio 15.3; Bilirubin Total 0.5 mg/dL (0.2-1.0); Calcium 8.8 mg/dL (8.5-10.1); Chloride 98 mmol/L (98-107); Chol HDL Ratio 1.5; Cholesterol 182 mg/dL (<=200); Estimated GFR (African America >60 (>=60); Estimated GFR (Non-African Ame >60 (>=60); Globulin 3.5 g/dL; Glucose 95 mg/dL (74-106); HDL Cholesterol 118 mg/dL (40-60); Potassium 4.2 mmol/L (3.5-5.1); Sodium 136 mmol/L (136-145); Total Protein 7.3 g/dL (6.4-8.2); Triglycerides 37 mg/dL (<=150); VLDL CHOLESTEROL 7.4 mg/dL
== END 2024-02-02 07:26 | disposition home or self-care (01) ==
LOC: LAB 07:27
PROVIDERS: PCP Internal Medicine; Visit Provider Internal Medicine
DX: K21.00 Gastro-esophageal reflux disease with esophagitis, without bleeding (principal); E78.01 Familial hypercholesterolemia; I67.2 Cerebral atherosclerosis; I10 Essential (primary) hypertension
CPT/HCPCS: 36415; 80053; 80061; 85025

== ENCOUNTER 2024-02-15 10:47 | Observation (INO) | payer MEDICARE, SELFPAY ==
[2024-02-15] VITALS (54 sets, daily range): BP systolic 130–172; BP diastolic 71–99; PULSE 81–114; RESP 13–33; TEMP 36.9–37.2; O2SAT 84–100; BMI 23.1; BMI 23.0
--- OUTSIDE RECORDS SUMMARY | 2024-02-15 10:54 | XMS_ITS | CCD ---
Author Name Unknown Address [address] [facility] [address] [place] [address] Organization [facility] Care Team Providers Care Sales Operations Analyst Name Role Phone JOSY YULIYA Willis Unavailable Unavailabl e Tal Langley Unavailable Unavailable Tal Langley Unavailable Unavailable Tal Langley Unavailable Unavailable MARLON [phone] UNKNOWN Unavailable Unavailable CHARLENE WEBB (PAC) Admitting [...] (3 sources) Bisphosphonate (substance) Drug allergy Unknown Joox Other (2 sources) Alendronate Drug Allergy Comment:Oral Bisphosphonates Joox Other (2 sources) ORAL BISPHOSPHONATES Propensity to adverse reactions 015 Unknown Joox Other Medications Current Medications Medication Drug Class(es) [...] 02-04-2023 BASO # 0.1 103/ul Normal 0.0-0.1 [facility] Comment on above: Performed By: #### DATCBC #### Laboratory [address] [place] [address] Dr. Yovana Funes Basophils/100 WBC (Bld) 1.0 % Normal 0.2-2.0 [facility] Comment on above: Performed By: #### DATCBC #### Laboratory [address] [place] [address] Dr. Yovana Funes EO # 0.3 103/ul Normal 0.0-0.7 [facility] Comment on above: Performed By: #### DATCBC #### Laboratory [address] [place] [address] Dr. Yovana Funes Eosinophils/100 WBC (Bld) 5.5 % Normal 0.9-7.0 [facility] Comment on above: Performed By: #### DATCBC #### Laboratory [address] [place] [address] Dr. Yovana Funes Erythrocyte distribution width (RBC) [Ratio] 13.2 % Normal 11.0-15.0 [facility] Comment on above: Performed By: #### DATCBC #### Laboratory [address] [place] [address] Dr. Yovana Funes Hematocrit (Bld) [Volume fraction] 41.8 % Normal 36.0-48.0 [facility] Comment on above: Performed By: #### DATCBC #### Laboratory [address] [address] [address] Yovana Funes Hemoglobin (Bld) [Mass/Vol] 13.9 g/dL Normal 12.0-16.0 [facility] Comment on above: Performed By: #### DATCBC #### Laboratory [address] [address] [address] Yovana Funes IG # 0.02 10e3/ul Normal 0.00-0.03 [facility] Comment on above: Performed By: #### DATCBC #### Laboratory [address] [place] [address] Dr. Yovana Funes IG % 0.4 % Normal 0.0-0.5 [facility] Comment on above: Performed By: #### DATCBC #### Laboratory [address] [address] [address] Yovana Funes LYMPH # 0.9 103/ul Critically low 1.2-3.8 [facility] Comment on above: Performed By: #### DATCBC #### Laboratory [address] [place] [address] Dr. Yovana Funes Lymphocytes/100 WBC (Bld) 16.6 % Critically low 20.5-60.0 [facility] Comment on above: Performed By: #### DATCBC #### Laboratory [address] [place] [address] Dr. Yovana Funes MCH (RBC) [Entitic mass] 31.1 pg Normal 26.7-34.0 [facility] Comment on above: Performed By: #### DATCBC #### Laboratory [address] [place] [address] Dr. Yovana Funes MCHC (RBC) [Mass/Vol] 33.3 g/dL Normal 29.9-35.2 [facility] Comment on above: Performed By: #### DATCBC #### Laboratory [address] [place] [address] Dr. Yovana Funes MCV (RBC) [Entitic vol] 93.5 fL Normal 81.0-99.0 The Comment on above: Performed By: #### DATCBC #### Laboratory [address] [place] [address] Dr. Yovana Funes MONO # 0.5 103/ul Normal 0.3-0.8 The Comment on above: Performed By: #### DATCBC #### Laboratory [address] [place] [address] Dr. Yovana Funes Monocytes/100 WBC (Bld) 10.3 % Normal 1.7-12.0 The Comment on above: Performed By: #### DATCBC #### Laboratory [address] [place] [address] Dr. Yovana Funes NEUT # 3.5 103/ul Normal 1.4-6.5 [facility] Comment on above: Performed By: #### DATCBC #### Laboratory [address] [place] [address] Dr. Yovana Funes Neutrophils/100 WBC (Bld) 66.2 % Normal 43.0-75.0 The Comment on above: Performed By: #### DATCBC #### Laboratory [address] [place] [address] Dr. Yovana Funes Platelet mean volume (Bld) [Entitic vol] 9.9 fL Normal 9.5-13.5 The Comment on above: Performed By: #### DATCBC #### Laboratory [address] [place] [address] Dr. Yovana Funes PLT 369 103/ul Normal 150-450 The Comment on above: Performed By: #### DATCBC #### Laboratory [address] [place] [address] Dr. Yovana Funes RBC 4.47 106/ul Normal 4.20-5.40 The Comment on above: Performed By: #### DATCBC #### Laboratory [address] [place] [address] Dr. Yovana Funes WBC 5.3 103/ul Normal 4.0-11.0 [facility] Comment on above: Performed By: #### DATCBC #### Laboratory [address] [place] [address] Dr. Yovana Funes MARLEY- BMP WITH LIPIDon 2022 Anion gap [Moles/Vol] 13.0 mmol/L Normal [facility] Comment on above: Performed By: #### DATBMP #### Laboratory [address] [place] [address] Dr. Yovana Funes Calcium [Mass/Vol] 9.1 mg/dL Normal 8.5-10.1 [facility] Comment on above: Performed By: #### DATBMP #### Laboratory [address] [place] [address] Dr. Yovana Funes Chloride [Moles/Vol] 102 mmol/L Normal 98-107 [facility] Comment on above: Performed By: #### DATBMP #### Laboratory [address] [place] [address] Dr. Yovana Funes Cholesterol [Mass/Vol] 211 mg/dL Critically high <=200 The Comment on above: Performed By: #### DATBMP #### Laboratory [address] [place] [address] Dr. Yovana Funes Cholesterol in HDL [Mass/Vol] 114 mg/dL Critically high 40-60 [facility] Comment on above: Performed By: #### DATBMP #### Laboratory [address] [place] [address] Dr. Yovana Funes Cholesterol in LDL [Mass/Vol] 89.8 mg/dL Normal [facility] Comment on above: Performed By: #### DATBMP #### Laboratory [address] [place] [address] Dr. Yovana Funes CO2 [Moles/Vol] 29.2 mmol/L Normal 21.0-32.0 [facility] Comment on above: Performed By: #### DATBMP #### Laboratory [address] [place] [address] Dr. Yovana Funes Creatinine [Mass/Vol] 0.55 mg/dL Normal 0.55-1.02 The Comment on above: Performed By: #### DATBMP #### Laboratory [address] [place] [address] Dr. Yovana Funes EGFR-AF MONTENEGRIN >60 Normal >=60 [facility] Comment on above: Performed By: #### DATBMP #### Laboratory [address] [place] [address] Dr. Yovana Funes EGFR-NON AF MONTENEGRIN >60 Normal >=60 [facility] Comment on above: Performed By: #### DATBMP #### Laboratory [address] [place] [address] Dr. Yovana Funes Glucose [Mass/Vol] 101 mg/dL Normal 74-106 [facility] Comment on above: Performed By: #### DATBMP #### Laboratory [address] [place] [address] Dr. Yovana Funes HDL NORMAL > or = 60 mg/dl - LO W CARDIOVASCULAR RISK <40 mg/dl - HIGH CARDIOVASCULAR RISK Normal The Comment on above: Performed By: #### DATBMP #### Laboratory [address] [place] [address] Dr. Yovana Funes LDL CALC NORMAL SEE BELOW Normal The Comment on above: Result Comment: <100 mg/dl OPTIMAL 100 - 129 mg/dl NEAR OR ABOVE OPTIMAL 130 - 159 mg/dl BORDERLINE HIGH 160 - 189 mg/dl HIGH >190 mg/dl VERY HIGH Performed By: #### D ATBMP #### Laboratory [address] [place] [address] Dr. Yovana Funes Potassium [Moles/Vol] 4.2 mmol/L Normal 3.5-5.1 The Comment on above: Performed By: #### DATBMP #### Laboratory [address] [place] [address] Dr. Yovana Funes Sodium [Moles/Vol] 140 mmol/L Normal 136-145 The Comment on above: Performed By: #### DATBMP #### Laboratory [address] [address] [address] Yovana Funes Triglyceride [Mass/Vol] 36 mg/dL Normal <=150 [facility] Comment on above: Performed By: #### DATBMP #### Laboratory [address] [address] [address] Yovana Funes Urea nitrogen [Mass/Vol] 13.0 mg/dL Normal 7.0-18.0 [facility] Comment on above: Performed By: #### DATBMP #### Laboratory [address] [address] [address] Yovana Funes Urea nitrogen/Creatin ine [Mass ratio] 23.6 mg/mg Normal [facility] Comment on above: Performed By: #### DATBMP #### Laboratory [address] [address] [address] Yovana Funes VLDL CALC 7.2 mg/dL Normal [facility] Comment on above: Performed By: #### DATBMP #### Laboratory [address] [address] [address] Yovana Funes DIRECT LDLon 05-07-2022 Cholesterol in LDL [Mass/Vol] 55 mg/dL Normal [facility] Comment on above: Performed By: #### ALT, DLDL #### Laboratory [address] [address] [address] Yovana Funes DLDL NORMAL SEE BELOW Normal [facility] Comment on above: Result Comment: <100 mg/dl OPTIMAL 100 - 129 mg/dl NEAR OR ABOVE OPTIMAL 130 - 159 mg/dl BORDERLINE HIGH 160 - 189 mg/dl HIGH >190 mg/dl VERY HIGH Performed By: #### A LT, DLDL #### Laboratory [address] [address] [address] Yovana Funes SGPTon 05-07-2022 ALT [Catalytic activity/Vol] 26 U/L Normal 14-59 [facility] Comment on above: Performed By: #### ALT, DLDL #### Laboratory [address] [address] [address] Yovana Funes DIRECT LDLon 03-15-2022 Cholesterol in LDL [Mass/Vol] 102 mg/dL Normal The Comment on above: Performed By: #### DLDL, ALT #### Laboratory [address] [address] [address] Yovana Funes DLDL NORMAL SEE BELOW Normal [facility] Comment on above: Result Comment: <100 mg/dl OPTIMAL 100 - 129 mg/dl NEAR OR ABOVE OPTIMAL 130 - 159 mg/dl BORDERLINE HIGH 160 - 189 mg/dl HIGH >190 mg/dl VERY HIGH Performed By: #### D LDL, ALT #### Laboratory [address] [address] [address] Yovana Funes SGPTon 03-15-2022 ALT [Catalytic activity/Vol] 18 U/L Normal 14-59 [facility] Comment on above: Performed By: #### DLDL, ALT #### Laboratory [address] [address] [address] Yovana Funes CBC Without Differentialon 0 05-12-2021 Erythrocyte distribution width (RBC) [Ratio] 13.7 % Normal 11.9-15.3 [facility] Comment on above: Performed By: #### CBCNOOUTREACH, OUTREA CH CMP, OUTREACH LIPID #### [facility] [address] Hematocrit (Bld) [Volume fraction] 42.3 % Normal 34.0-46.4 [facility] Comment on above: Performed By: #### CBCNOOUTREACH, OUTREA CH CMP, OUTREACH LIPID #### [facility] [address] [place] [address] [place] Hemoglobin (Bld) [Mass/Vol] 14.3 g/dL Normal 11.8-15.4 [facility] Comment on above: Performed By: #### CBCNOOUTREACH, OUTREA CH CMP, OUTREACH LIPID #### [facility] [address] [place] [address] [place] MCH (RBC) [Entitic mass] 32.0 pg Normal 24.7-34.3 [facility] Comment on above: Performed By: #### CBCNOOUTREACH, OUTREA CH CMP, OUTREACH LIPID #### [facility] [address] [place] [address] [place] MCV (RBC) [Entitic vol] 95.0 fL Normal 80-100 [facility] Comment on above: Performed By: #### CBCNOKEMARREACH, OUTREA CH CMP, OUTREACH LIPID #### [facility] [address] [place] [address] Mean Corpuscular HGB Conc 33.7 g/dL Normal 32.0-35.0 [facility] Comment on above: Performed By: #### CBCNOOUTREACH, OUTREA CH CMP, OUTREACH LIPID #### [address] Platelet mean volume (Bld) [Entitic vol] 8.8 fL Normal 6.3-10.7 [facility] Comment on above: Result Comment: PERFORMED BY: [place] [address] PATHOLOGIST DIGITAL MUSIC INSTRUCTOR ADAM CROCKER M.D. Performed By: #### C BCNOOUTREACH, OUTREACH CMP, OUTREACH LIPID #### [place] [address] [place] Platelets (Bld) [#/Vol] 298 10*3/uL Normal 150-450 [facility] Comment on above: Performed By: #### CBCNOOUTREACH, OUTREA CH CMP, OUTREACH LIPID #### [address] RBC (Bld) [#/Vol] 4.46 10*6/uL Normal 3.60-5.00 [facility] Comment on above: Performed By: #### CBCNOOUTREACH, OUTREA CH CMP, OUTREACH LIPID #### [place] [address] [place] WBC (Bld) [#/Vol] 4.5 10*3/uL Normal 3.8-11.6 [facility] Comment on above: Performed By: #### CBCNOOUTREACH, OUTREA CH CMP, OUTREACH LIPID #### [facility] [address] [place] [address] [place] CMP Outreachon 05-12-2021 Albumin [Mass/Vol] 4.4 g/dL Normal 3.2-5.5 [facility] Comment on above: Performed By: #### CBCNOOUTREACH, OUTREA CH CMP, OUTREACH LIPID #### [facility] [address] [place] [address] [place] ALP [Catalytic activity/Vol] 50 U/L Normal 32-92 [facility] Comment on above: Performed By: #### CBCNOOUTREACH, OUTREA CH CMP, OUTREACH LIPID #### [facility] [address] [place] [address] [place] ALT [Catalytic activity/Vol] 26 U/L Normal 10-60 [facility] Comment on above: Performed By: #### CBCNOOUTREACH, OUTREA CH CMP, OUTREACH LIPID #### [facility] [address] [place] [address] [place] AST [Catalytic activity/Vol] 27 U/L Normal 10-42 [facility] Comment on above: Performed By: #### CBCNOOUTREACH, OUTREA CH CMP, OUTREACH LIPID #### [facility] [address] [place] [address] [place] Bilirubin [Mass/Vol] 0.6 mg/dL Normal 0.3-1.2 [facility] Comment on above: Performed By: #### CBCNOOUTREACH, OUTREA CH CMP, OUTREACH LIPID #### [facility] [address] [place] [address] [place] Calcium [Mass/Vol] 9.1 mg/dL Normal 8.2-10.2 [facility] Comment on above: Performed By: #### CBCNOOUTREACH, OUTREA CH CMP, OUTREACH LIPID #### [facility] [address] [place] [address] [place] Chloride [Moles/Vol] 99 mmol/L Normal 95-114 [facility] Comment on above: Performed By: #### CBCNOOUTREACH, OUTREA CH CMP, OUTREACH LIPID #### [facility] [address] [place] [address] [place] CO2 [Moles/Vol] 25.1 mmol/L Normal 22.0-30.0 [facility] Comment on above: Performed By: #### CBCNOOUTREACH, OUTREA CH CMP, OUTREACH LIPID #### [facility] [address] [place] [address] [place] Creatinine [Mass/Vol] 0.63 mg/dL Normal 0.44-1.03 [facility] Comment on above: Performed By: #### CBCNOOUTREACH, OUTREA CH CMP, OUTREACH LIPID #### [facility] [address] [place] [address] [place] Estimated GFR ( Mary Ann > 60 Normal [facility] Comment on above: Result Comment: GFR estimated reference range: According to KDOQI guidelines, <60 ml/min/1.73m2 is sufficient to diagnose a patient with chronic kidney disease. Performed By: #### C BCNOOUTREACH, OUTREACH CMP, OUTREACH LIPID #### [place] [address] [place] Estimated GFR (Non- Am > 60 Normal [facility] Comment on above: Performed By: #### CBCNOOUTREACH, OUTREA CH CMP, OUTREACH LIPID #### [place] [address] [place] Glucose [Mass/Vol] 89 mg/dL Normal 70-100 [facility] Comment on above: Result Comment: Random Glucose Reference Range is dependent on time and content of last meal. Glucose of more than 200 mg/dL in a nonstressed, ambulatory subject supports the diagnosis of Diabetes Mellitus. ADA recommended reference range Performed By: #### C BCNOOUTREACH, OUTREACH CMP, OUTREACH LIPID #### [place] [address] [place] Potassium [Moles/Vol] 3.9 mmol/L Normal 3.5-5.1 [facility] Comment on above: Performed By: #### CBCNOOUTREACH, OUTREA CH CMP, OUTREACH LIPID #### [place] [address] [place] Protein [Mass/Vol] 6.9 g/dL Normal 6.1-7.9 [facility] Comment on above: Performed By: #### CBCNOOUTREACH, OUTREA CH CMP, OUTREACH LIPID #### [place] [address] [place] Sodium [Moles/Vol] 135 mmol/L Low 136-146 [facility] Comment on above: Performed By: #### MARIA D OUTREA CH CMP, OUTREACH LIPID #### [facility] [address] Urea nitrogen [Mass/Vol] 7 mg/dL Low 9-23 [facility] Comment on above: Performed By: #### MARIA D, FRANDYA CH CMP, OUTREACH LIPID #### [facility] [address] Lipid Profile Outreachon Cholesterol [Mass/Vol] 229 mg/dL High 140-200 [facility] Comment on above: Result Comment: Chol less than 200 mg/dl low risk Chol 201-239 mg/dl borderline risk Chol 240 mg/dl and greater high risk Performed By: #### C BCNOOUTREACH, OUTREACH CMP, OUTREACH LIPID #### [facility] [address] [place] [address] Cholesterol in HDL [Mass/Vol] 97 mg/dL High 35-85 [facility] Comment on above: Result Comment: HDL CHOL ATP-III CLASSIF ICATION Cardiovascular Risk HDL > or equal to 60 mg/dL LOW HDL < 40 mg/dL HIGH Performed By: #### C BCNOOUTREACH, OUTREACH CMP, OUTREACH LIPID #### [facility] [address] [place] [address] Cholesterol.tota l/Cholesterol in HDL [Mass ratio] 2.4 {ratio} Normal <5.0 [facility] Comment on above: Result Comment: PERFORMED BY: [place] [address] PATHOLOGIST DIGITAL MUSIC INSTRUCTOR ADAM CROCKER M.D. Performed By: #### C BCNOOUTREACH, OUTREACH CMP, OUTREACH LIPID #### [facility] [address] [place] [address] LDL Cholesterol,Calc ulated 120 mg/dL High 0-100 [facility] Comment on above: Result Comment: LDL ATP III CLASSIFICATI ON LDL less than 100 mg/dL Optimal LDL 100-129 mg/dL Near or above optimal LDL 130-159 mg/dL Borderline high LDL 160-189 mg/dL High LDL greater than 189 mg/dL Very high Performed By: #### C JACQUELINE, OUTREACH CMP, OUTREACH LIPID #### [facility] [address] Triglyceride w/Reflex 62 mg/dL Normal 35-149 [facility] Comment on above: Result Comment: TRIG ATP III CLASSIFICAT ION TRIG less than 150 mg/dL Normal TRIG 150-199 mg/dL Borderline high TRIG 200-500 mg/dL High TRIG greater than 500 mg/dL Very high Standard traceable to the Center for Disease Conrtrol and Prevention (CDC) test method. Performed By: #### C JACQUELINE, OUTREACH CMP, OUTREACH LIPID #### [facility] [address] VLDL CHOLESTEROL 12 mg/dL Normal [facility] Comment on above: Performed By: #### LINDA KILLIAN CMP, OUTREACH LIPID #### [facility] [address] CNPTOUTREACHon 01-23-2021 CNPTOUTREACH Patient Outreach ([place] [facility]) DYLAN TAFOYA ([id number]) 1945 F Date Time Provider Department 01/23/21 MARIKA GILES During your visit today, we recorded the following information about you: Allergies As of Date: 01/23/2021 (No Known Allergies) Date Reviewed: 03/09/2019 Reviewed by: Fantasma Nieves (Pa) - Fully Assessed Order(s):SARS-COVID VACCINE 1ST DOSE APPT [63996XMS] Order #: [id number] FUTURE Prescriptions as of 01/23/2021 Sig: PANTOPRAZOLE [...] Encounter Status:Closed by EPIC, PRODUSER on 01/26/21 [facility] XR HIP 3V PELV+ AP/LAT LTon [...] on Mar 09 2019 6:15PM EST [id number] [facility] XR HIP 3V PELV+ AP/LAT LTon [...] Jul 24 2018 11:17AM EST [id number] Normal [facility] HISTORY PHYSICALon HISTORY PHYSICAL HNO ID: [id number] thor: Tomasz Viveros) KeraSerharlane: (none)Author Type: Physician AssistantType: HANDPFiled: 12/16/2017 11:16 AMNote Text:HISTORY AND PHYSICAL EXAMINATIONSERVICE DATE: 12/15/2017SERVICE TIME: 10:41 [facility]: ANAHI Kessler FOR VISIT:Dylan Tafoya [...] chest pain at rest/with exertion; denies h/o [place] cardiacsurgery or stents. Denies h/o DVT/PEGI: Positive [...] 15, 2017 : 10:41 AM PAGER/CONTACT #: [facility] HOSP 12-15-2017 HOSP [facility] ([facility] MICHELETDYLAN Tucker ([id number]) 1945 FDate Time Provider Department12/15/17 11:00 AM P[facility] During your visit today, we recorded the following information about you: Temperature Pulse Respiration Blood pressure 96.8 degrees 68/minute 16/minute 125/60 Weight Height 52.2 kg 1.549 Everardo Cote PA-C 12/16/2017 11:16 AM AddendumHISTORY AND PHYSICAL EXAMINATIONSERVICE DATE: 12/15/2017SERVICE TIME: 10:41 [facility] PHYSICIAN: ISRAEL KesslerEASON FOR VISIT:Dylan Tafoya is a 72 year old female who is scheduled for arthroplastyacetabular and proximal femoral prosth total hip without autograft at [facility] of Dr. Yuliya Buckner [...] chest pain at rest/with exertion; denies h/o [place] cardiac surgery orstents. Denies h/o DVT/PEGI: Positive [...] mastectomy, chemo and radiation ( and recurrence [id number])Osteoarthritis left hipMETS:Limited physical activity due to left [...] scheduled you for your procedure at this surgerycenter:[facility]: [phone] -- [address] [address].Please read below carefully for your personalized instructions.Blood [...] surgery.- NO jewelry, body piercings, makeup, nail armenian, hairpins or contacts are thanh worn the [...] Procedures: - YOU MUST HAVE A RESPONSIBLE LEGAL RESEARCH ANALYST TAKE YOU HOME. A [employer]LIK[employer] DEVELOPER OR CABDRIVER CANNOT BE MADE A RESPONSIBLE LEGAL RESEARCH ANALYST.- We recommend that a responsible person stays with you overnight to take careof you.- You cannot stay in a hotel alone after outpatient surgery. You will not bepermitted to have your surgery, if you do not have someone to take care of you. Arrival Time for Surgery: -You will receive a call from [facility] the afternoon beforesurgery after 2:30 pm (or Friday for Friday surgery) for a scheduled arrivaltime.- If you have not heard by 4 pm, please contact [facility] [phone].Please be aware that emergency situations arise, which may delay or change yoursurgical time. If this happens, we will notify you as soon as possible andregret any inconvenience.ARIANNA Mondragon-CReferring Provider: YULIYA BUCKNER [[id number]]Allergies As of Date: 12/15/2017(No Known Allergies)Date Reviewed: 12/15/2017Reviewed by: Tomasz Cote - Fully AssessedReason for Visit: Pre-Op Exam [87]Primary Visit Diagnosis:Preoperative clearance [Z01.818] Other Visit Diagnoses:Primary osteoarthritis of left hip [M16.12] Contact with and (suspected) exposure to other bacterial communicable diseases [Z20.818] Benign essential HTN [I10] Gastroesophageal reflux disease without esophagitis [K21.9]Order(s):STAPH AUREUS PCR [SQSAPCR] Order #: [id number] FUTURE ECG COMPLETE W INTERPRETATION [ECG01] Order #: [id number] as of 12/15/2017 Sig: AMLODIPINE 5 MG [...] for your procedure at this surgery center: [facility]: [phone] -- [address] [address]. Please read below carefully for your personalized [...] - NO jewelry, body piercings, makeup, nail armenian, hairpins or contacts are to be worn [...] Procedures: - YOU MUST HAVE A RESPONSIBLE LEGAL RESEARCH ANALYST TAKE YOU HOME. A [employer]LIKVIEW DEVELOPER OR AUTO DEALERSHIP PORTER CANNOT BE MADE A RESPONSIBLE LEGAL RESEARCH ANALYST. - We recommend that a responsible person stays with you overnight to take care of you. - You cannot stay in a hotel alone after outpatient surgery. You will not be permitted to have your surgery, if you do not have someone to take care of you. Arrival Time for Surgery: -You will receive a call from [facility] the afternoon before surgery after 2:30 pm (or Friday for Friday surgery) for a scheduled arrival time. - If you have not heard by 4 pm, please contact [facility] at [phone]. Please be aware that emergency situations arise, which may delay or change your surgical time. If this happens, we will notify you as soon as possible and regret any inconvenience. [facility]agonMansfield Hospitalcounter Number: [id number] Status:Closed by TOMASZ COTE PA-C on 12/15/17 [facility] Staph aureus PCRon 8 MRSA PCR Negative [facility] Comment on above: Performed By: #### SAPCR ####[facility] [address] [place], [place] [phone] S aureus Spec Source Nasal [facility] Comment on above: Performed By: #### SAPCR ####[facility] [address] [place], [place] [phone] Staph aureus PCR Negative [facility] Comment on above: Performed By: #### SAPCR ####[facility] [address] [place], [place] [phone] Coding Summary.on 08-07-2017 Coding Summary. CODING DATE: 017 LATR[facility] STATUS: Home (Routine DC) PAYOR: Medicare APC DESCRIPTION [address] [facility] Procedures ADMIT DX: REASON FOR VISIT DX: H26.40 Unspecified secondary cataract FINAL DX: PRINCIPAL: H26.40 Unspecified secondary cataract SECONDARY: PYMT PROC APC STAT DESCRIPTION DOCTOR NAME DATE 82259 [id number] T Discission of secondary Tal Langley DO [...] Alida Gandhi Date Saved: 08/07/2017 09:54 am [facility] Vital Signs Date Time Vital Sign Value Performing Clinician Facility 08-01-2023 10:30-0400 Body height 157.[address] [facility] Other [facility] Other 08-01-2023 10:30-0400 Body mass index (BMI) [Ratio] 21.62 kg/m2 [facility] Other [facility] Other 08-01-2023 10:30-0400 Body weight 53.62 kg [facility] Other [facility] Other 08-01-2023 10:30-0400 Diastolic blood pressure 72 mm[Hg] [facility] Other [facility] Other 08-01-2023 10:30-0400 Respiratory rate 12 /min [facility] Other [facility] Other 08-01-2023 10:30-0400 Systolic blood pressure 118 mm[Hg] [facility] Other [facility] Other 01-29-2023 10:30-0500 Body height 157.48 cm [facility] Other [facility] Other 01-29-2023 10:30-0500 Body mass index (BMI) [Ratio] 21.87 kg/m2 Marlon Michelle Other [facility] Other 01-29-2023 10:30-0500 Body weight 54.25 kg Marlon Michelle Other [facility] Other 01-29-2023 10:30-0500 Diastolic blood pressure 70 mm[Hg] Marlon Michelle Other [facility] Other 01-29-2023 10:30-0500 Respiratory rate 12 /min Marlon Michelle Other [facility] Other 01-29-2023 10:30-0500 Systolic blood pressure 118 mm[Hg] [facility] Michelle Other [facility] Other Encounters Encounter Date Encounter Type Care Provider Facility Start: 12-12-2023 End: 12-12-2023 ambulatory TAL LANGLEY Not Available Start: 11-14-2023 End: 11-14-2023 ambulatory TAL LANGLEY Not Available Start: 11-07-2023 End: 11-07-2023 ambulatory TAL LANGLEY Not Available Start: 08-07-2023 End: 08-07-2023 ambulatory Marlon Michelle Other [facility] Other Start: 08-07-2023 Telephone encounter Marlon Michelle [facility] Start: 08-01-2023 End: 08-01-2023 ambulatory Marlon Michelle Other [facility] Other Start: 08-01-2023 Office outpatient visit 25 minutes Marlon Michelle [facility] Start: 02-04-2023 End: 02-05-[address] NONE LISTED REQUEST Facility: Start: 01-29-2023 End: 01-29-2023 ambulatory Marlon Michelle Other [facility] Other Start: 01-29-2023 Patient encounter procedure Marlon Michelle [facility] Start: 05-07-2022 End: 05-08-2022 ambulatory MARLON MICHELLE Facility:[facility] Start: 03-15-2022 End: 03-16-2022 ambulatory MARLON MICHELLE Facility:[facility] Start: 03-09-2019 End: 03-09-2019 Patient encounter procedure FANTASMA (PA) [facility] Start: 07-24-2018 End: 07-25-2018 Patient encounter procedure CHARLENE (PAC) [facility] Start: 12-15-2017 Ambulatory YULIYA BUCKNER [facility] Start: 08-05-2017 End: 08-05-2017 Ambulatory Talberta Langley Facility:[facility] Immunizations Immunization Date Immunization Notes Care Provider Fa ana 10-08-2021 COVID-19 Vaccine Moderna - Documentation Purposes Only Marlon Michelle Other [facility] Other 01-31-2021 COVID-19 Vaccine Moderna - Documentation Purposes Only Marlon Michelle Other [facility] Other 01-03-2021 COVID-19 Vaccine Moderna - Documentation Purposes Only Marlon Michelle Other [facility] Other 2017 diphtheria, tetanus toxoids and acellular pertussis vaccine, unspecified formulation Marlon Michelle Other [facility] Other Payers Date Payer Category Payer Medicare [id number] 1959 Medicare [id number] 1959 Private Health Insurance [facility] [id number] 1959 Self-pay [id number] 1945 Unknown [id number] 2.16.84 [id number] 1945 Unknown [id number] 2.16.84 [id number] 1945 Unknown [id number] 2.16.84 [id number] 1945 Unknown [id number] 1945 Unknown [id number] Unknown [id number] 2.16.84 [id number] Social History Date Type Detail Facility Sex Assigned At [facility] Other Evaluation note 08-01-2023 Note Date & [...] labs: r/o diabetes, anemia and thyroid disease [facility] Other Evaluation note 01-29-2023 Note Date & [...] breast cancer (ICD-10 - Z85.3) b/l mastectomy [facility] Other Evaluation note Note Date & Type Note Facility Evaluation note No Information [facility] Other History general Narrative - Reported Note [...] OD 1999 Hospitalization History see surgical history [facility] Other Summary Purpose Family History No Family [...] section and content) DATE CREATED AUTHOR 05/26/2018 [facility] DATE CREATED AUTHOR AUTHOR'S ORGANIZ ATION 05/27/2018 [facility] DATE CREATED AUTHOR AUTHOR'S ORGANIZ ATION 03/10/2019 [facility] DATE CREATED AUTHOR AUTHOR'S ORGANIZ ATION 01/27/2021 [facility] DATE CREATED AUTHOR AUTHOR'S ORGANIZ ATION 12/21/2021 [facility] DATE CREATED AUTHOR AUTHOR'S ORGANIZ ATION 02/05/2023 [facility] DATE CREATED AUTHOR AUTHOR'S ORGANIZ ATION 12/13/2023 [facility] EPIC REASON FOR VISIT (unrecogniz [...] BE BASED ON THE PRIMARY CLINICAL RECORDS. [employer] provides no warranty or guarantee of the accuracy or completeness of information in this document.
--- NOTE | 2024-02-15 11:01 | XR_ITS ---
The [address] [address] Patient Name: DYLAN TAFOYA MRN: [id number] date: 1945 Sex: F Assigned Patient Location: ER Current Patient Location: ER Accession/Order Number: [id number] Exam Date: 02/15/2024 11:20 Report Date: 02/15/2024 12:20 At the request of: JOE TORRES Procedure: XR chest 1V EXAMINATION: XR chest 1V HISTORY: poss tia ; frontal headache; numbness in upper extremities COMPARISON: XR chest 07/27/2020 FINDINGS: LUNGS: Stable dense nodule within right lung base favoring a granuloma. No acute infiltrates. MEDIASTINUM: No abnormal widening. BOWEL GAS PATTERN: Non-obstructed. FREE AIR: None. CALCIFICATIONS: None significant. BONES: No fracture or visible bone lesion. OTHER: Numerous surgical clips projecting over left axilla and upper chest. XR/XR chest 1V IMPRESSION: 1. No acute cardiopulmonary process. Stable chest. Electronically authenticated by: LI WEI Date: 02/15/2024 12:20
--- NOTE | 2024-02-15 11:01 | ECG_ITS ---
The [facility] Test Date: 2024-02-15 Pat Name: DYLAN TAFOYA Department: Room: - Gender: Female Sorority Mother: : 1945 Requested By: EMERSON ESPINOZA Order Number: [id number] Reading MD: EMERSON ESPINOZA Measurements Intervals [place] Rate: 97 P: 50 GA: 172 QRS: 35 QRSD: 72 T: 56 QT: 330 QTc: 385 Interpretive Statements 1100 Sinus rhythm 8102 Low QRS voltage in chest leads 9120 atypical ECG Compared to ECG 11/23/2021 23:14:16 Low QRS voltage now present Electronically Signed On 02-15-2024 19:56:14 EDT by EMERSON ESPINOZA
--- NOTE | 2024-02-15 11:01 | CT_ITS ---
The [address] [address] Patient Name: DYLAN TAFOYA MRN: [id number] date: 1945 Sex: F Assigned Patient Location: ER Current Patient Location: ER Accession/Order Number: [id number] Exam Date: 02/15/2024 11:20 Report Date: 02/15/2024 11:51 At the request of: JOE TORRES Procedure: CT stroke head/brain wo con EXAM: CT stroke head/brain wo con HISTORY: Right hand numbness, improved frontal headache numbness in extremities COMPARISON: None. TECHNIQUE: Noncontrast CT was obtained of the head. Dose reduction techniques were achieved by using automated exposure control and/or adjustment of mA and/or kV according to patient size and/or use of iterative reconstruction technique. FINDINGS: Mild diffuse ventricular and sulcal prominence consistent with age-related involutional change No herniation or hydrocephalus. The drummond matter/white matter differentiation is maintained throughout. Periventricular and deep white matter regions of decreased attenuation. No CT evidence of contemporary infarction. No acute intracranial hemorrhage or parenchymal mass. The calvarium and skull base are intact. The pneumatized portions of the skull are clear. Atherosclerotic vascular calcifications. CT/CT stroke head/brain wo con IMPRESSION: 1. No acute intracranial abnormality. Electronically authenticated by: RAINE ALEMAN Date: 02/15/2024 11:51
--- NOTE | 2024-02-15 11:03 | ED.GENADUL1 ---
HPI - General Adult General Chief complaint: Headache Stated complaint: FAINT, NUMBING Time Seen by Provider: 02/15/24 10:51 Source: patient Mode of arrival: Wheelchair Limitations: no limitations History of Present Illness HPI narrative: 78-year-old female presents for right hand numbness which is nearly resolved. She was at a grocery store when this started about 1 hour ago. Earlier in the day she had had a headache but she took her blood pressure medicine and an aspirin and it went away. She has had no weakness in the arm and no speech difficulties. Only her hand was affected. 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 Related Data Home Medications Medication Instructions Recorded Confirmed amlodipine 2.5 mg tablet 2.5 mg PO QDAY 11/03/23 11/03/23 atorvastatin 10 mg tablet 10 mg PO QDAY 11/03/23 11/03/23 clopidogrel 75 mg tablet 75 mg PO QDAY 11/03/23 11/03/23 pantoprazole 40 mg tablet,delayed 40 mg PO QDAY 11/03/23 11/03/23 release Allergies Allergy/AdvReac Type Severity Reaction Status Date / Time No Known Drug Allergies Allergy Verified 02/15/24 10:54 Review of Systems ROS Narrative A ten point review of systems is negative except as noted above. [facility] Medical History (Updated 02/15/24 @ 13:35 by Anuj Reid MD) Macular degeneration ?H35.30 - Unspecified macular degeneration (ICD-10) Breast cancer ?C50.919 - Malignant neoplasm of unspecified site of unspecified female breast (ICD-10) History of TIAs ?Z86.73 - Personal history of transient ischemic attack (TIA), and cerebral infarction without residual deficits (ICD-10) High cholesterol ?E78.00 - Pure hypercholesterolemia, unspecified (ICD-10) GERD (gastroesophageal reflux disease) ?K21.9 - Gastro-esophageal reflux disease without esophagitis (ICD-10) Hypertension ?I10 - Essential (primary) hypertension (ICD-10) Cataracts, bilateral ?H26.9 - Unspecified cataract (ICD-10) Surgical History (Updated 11/03/23 @ 12:53 by Luna Li RN) History of hip replacement ?Z96.649 - Presence of unspecified artificial hip joint (ICD-10) H/O bilateral mastectomy ?Z90.13 - Acquired absence of bilateral breasts and nipples (ICD-10) Family History (Updated 11/03/23 @ 12:54 by Luna Li RN) Other Family history of COPD (chronic obstructive pulmonary disease) Family history of cancer Family history of hypertension Family history of stroke Social History (Updated 11/03/23 @ 12:54 by Luna Li RN) Within the past year, how often did you have a drink containing alcohol: never Score interpretation: A score less than 3 is consistent with normal alcohol consumption. Smoking status: Never smoker Second hand tobacco smoke exposure: No Non-prescribed substance use: denies use Previous occupational history: retired Exam Narrative Exam Narrative: Nurses note and vital signs reviewed and patient is not hypoxic. General: The patient appears well and in no apparent distress. Patient is resting comfortably on cart. Skin: Warm, dry, no pallor noted. There is no rash noted. Head: Normocephalic, atraumatic Eye: Normal conjunctiva, no drainage Ears, Nose, Mouth, and Throat: oral mucosa is moist. Nares patent. Cardiovascular: Regular Rate and Rhythm Respiratory: Patient is in no distress, no accessory muscle use, lungs are clear to auscultation, no wheezing, rales or rhonchi Back: non-tender GI: Soft and nontender Musculoskeletal: The patient has no evidence of calf tenderness, no pitting edema, symmetrical pulses noted bilaterally Neurological: Awake alert and oriented. Cranial nerves II through XII intact. Hand grasp 5 out of 5 and symmetric. Biceps and tricep strength 5 out of 5 and symmetric. Lower extremity strength intact. Radial pulses are 2+ bilaterally. Psychiatric: Cooperative Constitutional Vital Signs, click to edit/add: Last Vital Signs Temp 98.5 F 02/15/24 10:52 Pulse 96 H 02/15/24 12:30 Resp 21 02/15/24 12:30 BP 136/77 02/15/24 12:30 Pulse Ox 98 02/15/24 12:30 O2 Del Method Room Air 02/15/24 10:52 Course Vital Signs Vital signs: Vital Signs Temperature 98.5 F 02/15/24 10:52 Pulse Rate 97 H 02/15/24 10:52 Respiratory Rate 16 02/15/24 10:52 Blood Pressure 172/99 H 03/17/24 10:52 Pulse Oximetry 100 03/17/24 10:52 Oxygen Delivery Method Room Air 02/15/24 10:52 Temperature 98.5 F 02/15/24 10:52 Pulse Rate 96 H 02/15/24 12:30 Respiratory Rate 21 02/15/24 12:30 Blood Pressure 136/77 02/15/24 12:30 Pulse Oximetry 98 02/15/24 12:30 Oxygen Delivery Method Room Air 02/15/24 10:52 Medical Decision Making MDM Narrative Medical decision making narrative: NIH score is 1 CT is negative. Neurology was consulted and they recommend admitting with follow-up MRI and continuing her Plavix and statin. As of 1:30 PM her symptoms in the right hand has resolved completely. My clinical impression is that she has had a TIA. Differential Diagnosis Differential Diagnosis: TIA, stroke, migraine Lab Data Lab results reviewed: Yes I reviewed the patient's lab results Labs: Lab Results 02/15/24 Range/Units 11:06 WBC 5.3 (4.0-11.0) 10^3/uL RBC 4.24 (4.20-5.40) 10^6/uL Hgb 13.3 (12.0-16.0) g/dL Hct 41.1 (36.0-48.0) % MCV 96.9 (81.0-99.0) fL MCH 31.4 (26.7-34.0) pg MCHC 32.4 (29.9-35.2) g/dL RDW 12.9 (11.0-15.0) % Plt Count 334 (150-450) 10^3/uL MPV 10.0 (9.5-13.5) fL Neut % (Auto) 71.6 (43.0-75.0) % Lymph % (Auto) 14.2 L (20.5-60.0) % [place] % (Auto) 9.5 (1.7-12.0) % Eos % (Auto) 3.2 (0.9-7.0) % Baso % (Auto) 1.1 (0.2-2.0) % Neut # (Auto) 3.8 (1.4-6.5) 10^3/uL Lymph # (Auto) 0.8 L (1.2-3.8) 10^3/uL [place] # (Auto) 0.5 (0.3-0.8) 10^3/uL Eos # (Auto) 0.2 (0.0-0.7) 10^3/uL Baso # (Auto) 0.1 (0.0-0.1) 10^3/uL Abs Immat Gran (auto) 0.02 (0.00-0.03) 10^3/uL Imm/Tot Granulo (auto) 0.4 (0.0-0.5) % PT 9.8 (9.0-11.6) sec INR <0.93 APTT 28.4 (22.3-36.2) sec Sodium 135 L (136-145) mmol/L Potassium 3.9 (3.5-5.1) mmol/L Chloride 96 L (98-107) mmol/L Carbon Dioxide 28.0 (21.0-32.0) mmol/L Anion Gap 14.9 BUN 9.0 (7.0-18.0) mg/dL Creatinine 0.64 (0.55-1.02) mg/dL Est GFR ( Amer) >60 (>=60) Est GFR (Non-Af Amer) >60 (>=60) BUN/Creatinine Ratio 14.1 Glucose 99 (74-106) mg/dL Calcium 8.6 (8.5-10.1) mg/dL Imaging Data CT scan - head: Radiologist's impression: ITS Impressions Brain CT 02/15/24 11:01 IMPRESSION: 1. No acute intracranial abnormality. Electronically authenticated by: RAINE ALEMAN Date: 02/15/2024 11:51 Chest X-Ray 02/15/24 11:01 IMPRESSION: 1. No acute cardiopulmonary process. Stable chest. Electronically authenticated by: LI WEI Date: 02/15/2024 12:20 ECG Data Attestation: I personally reviewed and interpreted this ECG as follows: (EKG on my interpretation shows sinus rhythm with a rate of 97 and no acute change) Discharge Plan Discharge Chief Complaint: Headache Clinical Impression: Brain TIA Patient Disposition: Admitted as Observation Time of Disposition Decision: 13:34 Condition: Good Prescriptions / Home Meds: No Action atorvastatin 10 mg tablet 10 mg PO QDAY amlodipine 2.5 mg tablet 2.5 mg PO QDAY clopidogrel 75 mg tablet 75 mg PO QDAY pantoprazole 40 mg tablet,delayed release (DR/EC) 40 mg PO QDAY Referrals: Marlon Michelle DO [Primary Care Provider] - 1 week
[2024-02-15 11:27] LABS: Basophils Absolute Auto 0.1 10^3/uL (0.0-0.1); Basophils Percent Auto 1.1 % (0.2-2.0); Eosinophils Absolute Auto 0.2 10^3/uL (0.0-0.7); Eosinophils Percent Auto 3.2 % (0.9-7.0); Hematocrit 41.1 % (36.0-48.0); Hemoglobin 13.3 g/dL (12.0-16.0); Immature Granulocytes Abs Auto 0.02 10^3/uL (0.00-0.03); Immature Granulocytes Pct Auto 0.4 % (0.0-0.5); Lymphocytes Absolute Auto 0.8 10^3/uL (1.2-3.8); Lymphocytes Percent Auto 14.2 % (20.5-60.0); Mean Corpuscular HGB Conc 32.4 g/dL (29.9-35.2); Mean Corpuscular Hemoglobin 31.4 pg (26.7-34.0); Mean Corpuscular Volume 96.9 fL (81.0-99.0); Monocytes Absolute Auto 0.5 10^3/uL (0.3-0.8); Monocytes Percent Auto 9.5 % (1.7-12.0); Neutrophils Absolute Auto 3.8 10^3/uL (1.4-6.5); Neutrophils Percent Auto 71.6 % (43.0-75.0); Platelet Count 334 10^3/uL (150-450); Red Blood Count 4.24 10^6/uL (4.20-5.40); Red Cell Distribution Width 12.9 % (11.0-15.0); White Blood Count 5.3 10^3/uL (4.0-11.0)
[2024-02-15 11:37] LABS: Anion Gap 14.9; BUN Creatinine Ratio 14.1; Calcium 8.6 mg/dL (8.5-10.1); Chloride 96 mmol/L (98-107); Estimated GFR (African America >60 (>=60); Estimated GFR (Non-African Ame >60 (>=60); Glucose 99 mg/dL (74-106); Potassium 3.9 mmol/L (3.5-5.1); Sodium 135 mmol/L (136-145)
[2024-02-15 11:42] LABS: Partial Thromboplastin Time 28.4 sec (22.3-36.2); Prothrombin Time 9.8 sec (9.0-11.6)
[2024-02-15 11:46] LABS: INR <0.93
--- OUTSIDE RECORDS SUMMARY | 2024-02-15 13:56 | XMS_ITS | CCD ---
Author Name Unknown Address [address] [place] [address] Organization [facility] Care Team Providers Care Fishing Vessel Operator Name Role Phone JOSY YULIYA Willis Unavailable Unavailabl e Tal Langley Unavailable Unavailable Tal Langley Unavailable Unavailable Tal Langley Unavailable Unavailable MARLON MICHELLE~[phone] UNKNOWN Unavailable Unavailable CHARLENE WEBB (PAC) Admitting Unavail able CHARLENE WEBB (PAC) Attending Unavail able FANTASMA NIEVES (PA) Referring Unavailable REQUEST, NONE LISTED Attending Unavaila ble REQUEST, NONE LISTED Admitting Unavaila ble REQUEST, NONE LISTED Consulting Unavaila ble OLGA, MARLON Primary Care Unavailable BALL, MALRON Consulting Unavailable OLGA, MARLON Attending Unavailable BALL, MARLON Admitting Unavailable BALL, MARLON Primary Care Unavailable BALL, MARLON Primary Care Unavailable BALL, MARLON Consulting Unavailable BALL, MARLON Attending Unavailable BALL, MARLON Admitting Unavailable Ball, Marlon Unavailable TAL LANGLEY Attending Unavailable TAL LANGLEY Attending Unavailable TAL LANGLEY Attending Unavailable Allergies Allergy Classification Reported Allergen(s) Allergy Type Date of Onset Reaction(s) Facility (3 sources) Bisphosphonate (substance) Drug allergy Unknown Dazo Other (2 sources) Alendronate Drug Allergy Comment:Oral Bisphosphonates Dazo Other (2 sources) ORAL BISPHOSPHONATES Propensity to adverse reactions 015 Unknown Dazo Other Medications Current Medications Medication Drug Class(es) [...] 02-04-2023 BASO # 0.1 103/ul Normal 0.0-0.1 [facility] Comment on above: Performed By: #### DATCBC #### [facility] [address] [place] [address] Dr. Yovana Funes Basophils/100 WBC (Bld) 1.0 % Normal 0.2-2.0 [facility] Comment on above: Performed By: #### DATCBC #### [facility] [address] [place] [address] Dr. Yovana Funes EO # 0.3 103/ul Normal 0.0-0.7 [facility] Comment on above: Performed By: #### DATCBC #### [facility] [address] [place] [address] Dr. Yovana Funes Eosinophils/100 WBC (Bld) 5.5 % Normal 0.9-7.0 [facility] Comment on above: Performed By: #### DATCBC #### [facility] [address] [place] [address] Dr. Yovana Funes Erythrocyte distribution width (RBC) [Ratio] 13.2 % Normal 11.0-15.0 [facility] Comment on above: Performed By: #### DATCBC #### [facility] [address] [place] [address] Dr. Yovana Funes Hematocrit (Bld) [Volume fraction] 41.8 % Normal 36.0-48.0 [facility] Comment on above: Performed By: #### DATCBC #### [facility] [address] [address] [address] Yovana Funes Hemoglobin (Bld) [Mass/Vol] 13.9 g/dL Normal 12.0-16.0 [facility] Comment on above: Performed By: #### DATCBC #### [facility] [address] [address] [address] Yovana Funes IG # 0.02 10e3/ul Normal 0.00-0.03 [facility] Comment on above: Performed By: #### DATCBC #### [facility] [address] [place] [address] Dr. Yovana Funes IG % 0.4 % Normal 0.0-0.5 [facility] Comment on above: Performed By: #### DATCBC #### [facility] [address] [address] [address] Yovana Funes LYMPH # 0.9 103/ul Critically low 1.2-3.8 [facility] Comment on above: Performed By: #### DATCBC #### [facility] [address] [place] [address] Dr. Yovana Funes Lymphocytes/100 WBC (Bld) 16.6 % Critically low 20.5-60.0 [facility] Comment on above: Performed By: #### DATCBC #### [facility] [address] [place] [address] Dr. Yovana Funes MCH (RBC) [Entitic mass] 31.1 pg Normal 26.7-34.0 [facility] Comment on above: Performed By: #### DATCBC #### [facility] [address] [place] [address] Dr. Yovana Funes MCHC (RBC) [Mass/Vol] 33.3 g/dL Normal 29.9-35.2 [facility] Comment on above: Performed By: #### DATCBC #### [facility] [address] [place] [address] Dr. Yovana Funes MCV (RBC) [Entitic vol] 93.5 fL Normal 81.0-99.0 [facility] Comment on above: Performed By: #### DATCBC #### [facility] [address] [place] [address] Dr. Yovana Funes MONO # 0.5 103/ul Normal 0.3-0.8 [facility] Comment on above: Performed By: #### DATCBC #### [facility] [address] [place] [address] Dr. Yovana Funes Monocytes/100 WBC (Bld) 10.3 % Normal 1.7-12.0 [facility] Comment on above: Performed By: #### DATCBC #### [facility] [address] [place] [address] Dr. Yovana Funes NEUT # 3.5 103/ul Normal 1.4-6.5 [facility] Comment on above: Performed By: #### DATCBC #### [facility] [address] [place] [address] Dr. Yovana Funes Neutrophils/100 WBC (Bld) 66.2 % Normal 43.0-75.0 [facility] Comment on above: Performed By: #### DATCBC #### [facility] [address] [place] [address] Dr. Yovana Funes Platelet mean volume (Bld) [Entitic vol] 9.9 fL Normal 9.5-13.5 [facility] Comment on above: Performed By: #### DATCBC #### [facility] [address] [place] [address] Dr. Yovana Funes PLT 369 103/ul Normal 150-450 [facility] Comment on above: Performed By: #### DATCBC #### [facility] [address] [place] [address] Dr. Yovana Funes RBC 4.47 106/ul Normal 4.20-5.40 [facility] Comment on above: Performed By: #### DATCBC #### [facility] [address] [place] [address] Dr. Yovana Funes WBC 5.3 103/ul Normal 4.0-11.0 [facility] Comment on above: Performed By: #### DATCBC #### [facility] [address] [place] [address] Dr. Yovana Funes MARLEY- BMP WITH LIPIDon 2022 Anion gap [Moles/Vol] 13.0 mmol/L Normal [facility] Comment on above: Performed By: #### DATBMP #### [facility] [address] [place] [address] Dr. Yovana Funes Calcium [Mass/Vol] 9.1 mg/dL Normal 8.5-10.1 [facility] Comment on above: Performed By: #### DATBMP #### [facility] [address] [place] [address] Dr. Yovana Funes Chloride [Moles/Vol] 102 mmol/L Normal 98-107 [facility] Comment on above: Performed By: #### DATBMP #### [facility] [address] [place] [address] Dr. Yovana Funes Cholesterol [Mass/Vol] 211 mg/dL Critically high <=200 [facility] Comment on above: Performed By: #### DATBMP #### [facility] [address] [place] [address] Dr. Yovana Funes Cholesterol in HDL [Mass/Vol] 114 mg/dL Critically high 40-60 [facility] Comment on above: Performed By: #### DATBMP #### [facility] [address] [place] [address] Dr. Yovana Funes Cholesterol in LDL [Mass/Vol] 89.8 mg/dL Normal [facility] Comment on above: Performed By: #### DATBMP #### [facility] [address] [place] [address] Dr. Yovana Funes CO2 [Moles/Vol] 29.2 mmol/L Normal 21.0-32.0 [facility] Comment on above: Performed By: #### DATBMP #### [facility] [address] [place] [address] Dr. Yovana Funes Creatinine [Mass/Vol] 0.55 mg/dL Normal 0.55-1.02 [facility] Comment on above: Performed By: #### DATBMP #### [facility] [address] [place] [address] Dr. Yovana Funes EGFR-AF LAO >60 Normal >=60 [facility] Comment on above: Performed By: #### DATBMP #### [facility] [address] [place] [address] Dr. Yovana Funes EGFR-NON AF LAO >60 Normal >=60 [facility] Comment on above: Performed By: #### DATBMP #### [facility] [address] [place] [address] Dr. Yovana Funes Glucose [Mass/Vol] 101 mg/dL Normal 74-106 [facility] Comment on above: Performed By: #### DATBMP #### [facility] [address] [place] [address] Dr. Yovana Funes HDL NORMAL > or = 60 mg/dl - LO W CARDIOVASCULAR RISK <40 mg/dl - HIGH CARDIOVASCULAR RISK Normal [facility] Comment on above: Performed By: #### DATBMP #### [facility] [address] [place] [address] Dr. Yovana Funes LDL CALC NORMAL SEE BELOW Normal [facility] Comment on above: Result Comment: <100 mg/dl OPTIMAL 100 - 129 mg/dl NEAR OR ABOVE OPTIMAL 130 - 159 mg/dl BORDERLINE HIGH 160 - 189 mg/dl HIGH >190 mg/dl VERY HIGH Performed By: #### D ATBMP #### [facility] [address] [place] [address] Dr. Yovana Funes Potassium [Moles/Vol] 4.2 mmol/L Normal 3.5-5.1 [facility] Comment on above: Performed By: #### DATBMP #### [facility] [address] [place] [address] Dr. Yovana Funes Sodium [Moles/Vol] 140 mmol/L Normal 136-145 [facility] Comment on above: Performed By: #### DATBMP #### [facility] [address] [address] [address] Yovana Funes Triglyceride [Mass/Vol] 36 mg/dL Normal <=150 [facility] Comment on above: Performed By: #### DATBMP #### [facility] [address] [address] [address] Yovana Funes Urea nitrogen [Mass/Vol] 13.0 mg/dL Normal 7.0-18.0 [facility] Comment on above: Performed By: #### DATBMP #### [facility] [address] [address] [address] Yovana Funes Urea nitrogen/Creatin ine [Mass ratio] 23.6 mg/mg Normal [facility] Comment on above: Performed By: #### DATBMP #### [facility] [address] [address] [address] Yovana Funes VLDL CALC 7.2 mg/dL Normal [facility] Comment on above: Performed By: #### DATBMP #### [facility] [address] [address] [address] Yovana Funes DIRECT LDLon 05-07-2022 Cholesterol in LDL [Mass/Vol] 55 mg/dL Normal [facility] Comment on above: Performed By: #### ALT, DLDL #### [facility] [address] [address] [address] Yovana Funes DLDL NORMAL SEE BELOW Normal [facility] Comment on above: Result Comment: <100 mg/dl OPTIMAL 100 - 129 mg/dl NEAR OR ABOVE OPTIMAL 130 - 159 mg/dl BORDERLINE HIGH 160 - 189 mg/dl HIGH >190 mg/dl VERY HIGH Performed By: #### A LT, DLDL #### [facility] [address] [address] [address] Yovana Funes SGPTon 05-07-2022 ALT [Catalytic activity/Vol] 26 U/L Normal 14-59 [facility] Comment on above: Performed By: #### ALT, DLDL #### [facility] [address] [address] [address] Yovana Funes DIRECT LDLon 03-15-2022 Cholesterol in LDL [Mass/Vol] 102 mg/dL Normal [facility] Comment on above: Performed By: #### DLDL, ALT #### [facility] [address] [address] [address] Yovana Funes DLDL NORMAL SEE BELOW Normal [facility] Comment on above: Result Comment: <100 mg/dl OPTIMAL 100 - 129 mg/dl NEAR OR ABOVE OPTIMAL 130 - 159 mg/dl BORDERLINE HIGH 160 - 189 mg/dl HIGH >190 mg/dl VERY HIGH Performed By: #### D LDL, ALT #### [facility] [address] [address] [address] Yovana Funes SGPTon 03-15-2022 ALT [Catalytic activity/Vol] 18 U/L Normal 14-59 [facility] Comment on above: Performed By: #### DLDL, ALT #### [facility] [address] [address] [address] Yovana Funes CBC Without Differentialon 0 05-12-2021 Erythrocyte distribution width (RBC) [Ratio] 13.7 % Normal 11.9-15.3 [facility] Comment on above: Performed By: #### CBCNOOUTREACH, OUTREA CH CMP, OUTREACH LIPID #### [facility] [address] Hematocrit (Bld) [Volume fraction] 42.3 % Normal 34.0-46.4 [facility] Comment on above: Performed By: #### CBCNOOUTREACH, OUTREA CH CMP, OUTREACH LIPID #### [facility] [address] [place] [address] [place] Hemoglobin (Bld) [Mass/Vol] 14.3 g/dL Normal 11.8-15.4 [facility] Comment on above: Performed By: #### CBCNOOUTREACH, OUTREA CH CMP, OUTREACH LIPID #### [facility] [address] [place] [address] [place] MCH (RBC) [Entitic mass] 32.0 pg Normal 24.7-34.3 [facility] Comment on above: Performed By: #### CBCNOOUTREACH, OUTREA CH CMP, OUTREACH LIPID #### [facility] [address] [place] [address] [place] MCV (RBC) [Entitic vol] 95.0 fL Normal 80-100 [facility] Comment on above: Performed By: #### CBCNOKEMARREACH, OUTREA CH CMP, OUTREACH LIPID #### [facility] [address] [place] [address] Mean Corpuscular HGB Conc 33.7 g/dL Normal 32.0-35.0 [facility] Comment on above: Performed By: #### CBCNOOUTREACH, OUTREA CH CMP, OUTREACH LIPID #### [address] Platelet mean volume (Bld) [Entitic vol] 8.8 fL Normal 6.3-10.7 [facility] Comment on above: Result Comment: PERFORMED BY: [place] [address] PATHOLOGIST LOANS OFFICER ADAM CROCKER M.D. Performed By: #### C BCNOOUTREACH, OUTREACH CMP, OUTREACH LIPID #### [place] [address] [place] Platelets (Bld) [#/Vol] 298 10*3/uL Normal 150-450 [facility] Comment on above: Performed By: #### CBCNOOUTREACH, OUTREA CH CMP, OUTREACH LIPID #### [address] RBC (Bld) [#/Vol] 4.46 10*6/uL Normal 3.60-5.00 [facility] Comment on above: Performed By: #### CBCNOOUTREACH, OUTREA CH CMP, OUTREACH LIPID #### [place] [address] [place] WBC (Bld) [#/Vol] 4.5 10*3/uL Normal 3.8-11.6 [facility] Comment on above: Performed By: #### CBCNOOUTREACH, OUTREA CH CMP, OUTREACH LIPID #### [facility] [address] [place] [address] [place] CMP Outreachon 05-12-2021 Albumin [Mass/Vol] 4.4 g/dL Normal 3.2-5.5 [facility] Comment on above: Performed By: #### CBCNOOUTREACH, OUTREA CH CMP, OUTREACH LIPID #### [facility] [address] [place] [address] [place] ALP [Catalytic activity/Vol] 50 U/L Normal 32-92 [facility] Comment on above: Performed By: #### CBCNOOUTREACH, OUTREA CH CMP, OUTREACH LIPID #### [facility] [address] [place] [address] [place] ALT [Catalytic activity/Vol] 26 U/L Normal 10-60 [facility] Comment on above: Performed By: #### CBCNOOUTREACH, OUTREA CH CMP, OUTREACH LIPID #### [facility] [address] [place] [address] [place] AST [Catalytic activity/Vol] 27 U/L Normal 10-42 [facility] Comment on above: Performed By: #### CBCNOOUTREACH, OUTREA CH CMP, OUTREACH LIPID #### [facility] [address] [place] [address] [place] Bilirubin [Mass/Vol] 0.6 mg/dL Normal 0.3-1.2 [facility] Comment on above: Performed By: #### CBCNOOUTREACH, OUTREA CH CMP, OUTREACH LIPID #### [facility] [address] [place] [address] [place] Calcium [Mass/Vol] 9.1 mg/dL Normal 8.2-10.2 [facility] Comment on above: Performed By: #### CBCNOOUTREACH, OUTREA CH CMP, OUTREACH LIPID #### [facility] [address] [place] [address] [place] Chloride [Moles/Vol] 99 mmol/L Normal 95-114 [facility] Comment on above: Performed By: #### CBCNOOUTREACH, OUTREA CH CMP, OUTREACH LIPID #### [facility] [address] [place] [address] [place] CO2 [Moles/Vol] 25.1 mmol/L Normal 22.0-30.0 [facility] Comment on above: Performed By: #### CBCNOOUTREACH, OUTREA CH CMP, OUTREACH LIPID #### [facility] [address] [place] [address] [place] Creatinine [Mass/Vol] 0.63 mg/dL Normal 0.44-1.03 [facility] Comment on above: Performed By: #### CBCNOOUTREACH, OUTREA CH CMP, OUTREACH LIPID #### [facility] [address] [place] [address] [place] Estimated GFR ( Mary Ann > 60 Normal [facility] Comment on above: Result Comment: GFR estimated reference range: According to KDOQI guidelines, <60 ml/min/1.73m2 is sufficient to diagnose a patient with chronic kidney disease. Performed By: #### C BCNOOUTREACH, OUTREACH CMP, OUTREACH LIPID #### [address] Estimated GFR (Non- Am > 60 Normal [facility] Comment on above: Performed By: #### CBCNOOUTREACH, OUTREA CH CMP, OUTREACH LIPID #### [place] [address] [place] Glucose [Mass/Vol] 89 mg/dL Normal 70-100 [facility] Comment on above: Result Comment: Random Glucose Reference Range is dependent on time and content of last meal. Glucose of more than 200 mg/dL in a nonstressed, ambulatory subject supports the diagnosis of Diabetes Mellitus. ADA recommended reference range Performed By: #### C BCNOOUTREACH, OUTREACH CMP, OUTREACH LIPID #### [place] [address] [place] Potassium [Moles/Vol] 3.9 mmol/L Normal 3.5-5.1 [facility] Comment on above: Performed By: #### CBCNOOUTREACH, OUTREA CH CMP, OUTREACH LIPID #### [place] [address] [place] Protein [Mass/Vol] 6.9 g/dL Normal 6.1-7.9 [facility] Comment on above: Performed By: #### CBCNOOUTREACH, OUTREA CH CMP, OUTREACH LIPID #### [place] [address] [place] Sodium [Moles/Vol] 135 mmol/L Low 136-146 [facility] Comment on above: Performed By: #### MARIA D, OUTREA CH CMP, OUTREACH LIPID #### [facility] [address] Urea nitrogen [Mass/Vol] 7 mg/dL Low 9-23 [facility] Comment on above: Performed By: #### MARIA D, FRANDYA CH CMP, OUTREACH LIPID #### [facility] [address] [place] [address] [place] Lipid Profile Outreachon Cholesterol [Mass/Vol] 229 mg/dL High 140-200 [facility] Comment on above: Result Comment: Chol less than 200 mg/dl low risk Chol 201-239 mg/dl borderline risk Chol 240 mg/dl and greater high risk Performed By: #### C BCNOOUTREACH, OUTREACH CMP, OUTREACH LIPID #### [facility] [address] [place] [address] Cholesterol in HDL [Mass/Vol] 97 mg/dL High 35-85 [facility] Comment on above: Result Comment: HDL CHOL ATP-III CLASSIF ICATION Cardiovascular Risk HDL > or equal to 60 mg/dL LOW HDL < 40 mg/dL HIGH Performed By: #### C BCNOOUTREACH, OUTREACH CMP, OUTREACH LIPID #### [facility] [address] [place] [address] Cholesterol.tota l/Cholesterol in HDL [Mass ratio] 2.4 {ratio} Normal <5.0 [facility] Comment on above: Result Comment: PERFORMED BY: [place] [address] PATHOLOGIST LOANS OFFICER ADAM CROCKER M.D. Performed By: #### C BCNOOUTREACH, OUTREACH CMP, OUTREACH LIPID #### [facility] [address] [place] [address] LDL Cholesterol,Calc ulated 120 mg/dL High 0-100 [facility] Comment on above: Result Comment: LDL ATP III CLASSIFICATI ON LDL less than 100 mg/dL Optimal LDL 100-129 mg/dL Near or above optimal LDL 130-159 mg/dL Borderline high LDL 160-189 mg/dL High LDL greater than 189 mg/dL Very high Performed By: #### C JACQUELINE, OUTREACH CMP, OUTREACH LIPID #### [facility] [address] Triglyceride w/Reflex 62 mg/dL Normal 35-149 [facility] Comment on above: Result Comment: TRIG ATP III CLASSIFICAT ION TRIG less than 150 mg/dL Normal TRIG 150-199 mg/dL Borderline high TRIG 200-500 mg/dL High TRIG greater than 500 mg/dL Very high Standard traceable to the Center for Disease Conrtrol and Prevention (CDC) test method. Performed By: #### C JACQUELINE, OUTREACH CMP, OUTREACH LIPID #### [facility] [address] VLDL CHOLESTEROL 12 mg/dL Normal [facility] Comment on above: Performed By: #### LINDA KILLIAN CMP, OUTREACH LIPID #### [facility] [address] CNPTOUTREACHon 01-23-2021 CNPTOUTREACH Patient Outreach ([place] [facility]) DYLAN TAFOYA ([id number]) 1945 F Date Time Provider Department 01/23/21 MARIKA GILES During your visit today, we recorded the following information about you: Allergies As of Date: 01/23/2021 (No Known Allergies) Date Reviewed: 03/09/2019 Reviewed by: Fantasma Nieves (Pa) - Fully Assessed Order(s):SARS-COVID VACCINE 1ST DOSE APPT [[id number]] Order #: [id number] FUTURE Prescriptions as of 01/23/2021 Sig: PANTOPRAZOLE [...] Encounter Status:Closed by EPIC, PRODUSER on 01/26/21 [facility] XR HIP 3V PELV+ AP/LAT LTon 03-09-2019 [...] on Mar 09 2019 6:15PM EST [id number] [facility] XR HIP 3V PELV+ AP/LAT [...] Jul 24 2018 11:17AM EST [id number] Normal [facility] HISTORY PHYSICALon HISTORY PHYSICAL HNO ID: [id number] thor: Tomasz Viveros) KeraService: (none)Author Type: Physician AssistantType: HANDPFiled: 12/16/2017 11:16 AMNote Text:HISTORY AND PHYSICAL EXAMINATIONSERVICE DATE: 12/15/2017SERVICE TIME: 10:41 [facility]PR[facility]USA [facility] PH[facility]IAN: ANAHI Kessler FOR VISIT:Dylan [...] chest pain at rest/with exertion; denies h/o [place] cardiacsurgery or stents. Denies h/o DVT/PEGI: Positive [...] and compliance.SIGNATURE: Tomasz Cote PA-C PATIENT NAME: yDlan Tucker KeanuDATE: December 15, 2017 : 10:41 AM PAGER/CONTACT #: [facility] 12-15-2017 [facility] DYLAN TAFOYA Garrett ([id number]) 1945 FDate Time Provider Department12/15/17 11:00 AM P[facility] During your visit today, we recorded the following information about you: Temperature Pulse Respiration Blood pressure 96.8 degrees 68/minute 16/minute 125/60 Weight Height 52.2 kg 1.549 Everardo Cote PA-C 12/16/2017 11:16 AM AddendumHISTORY AND PHYSICAL EXAMINATIONSERVICE DATE: 12/15/2017SERVICE TIME: 10:41 AMPRIUSA [facility] PHYSICIAN: ISRAEL KesslerEASON FOR VISIT:Dylan Tafoya is a 72 year old female who is scheduled for arthroplastyacetabular and proximal femoral prosth total hip [facility] Yuliya Buckner for consultation. [...] chest pain at rest/with exertion; denies h/o [place] cardiac surgery orstents. Denies h/o DVT/PEGI: Positive [...] medical conditions which may affect ivory-operativecourse:H/O TIA- 2013HTN- well controlled with medication. BP today 12/15/2017: 125/60GERD- symptoms controlled with Omeprazole, takes prnH/O Breast cancer- s/p mastectomy, chemo and radiation ( and recurrence [id number])Osteoarthritis left hipMETS:Limited physical activity due to left [...] ?bridge (lower)Airway History: No abnormal airway historySTOP [facility] Score:Criteria:HypertensionAge over 50 (72 year old)Score = [...] scheduled you for your procedure at this surgerycenter:[facility]: [phone] -- [address] [address].Please read below carefully for your personalized instructions.Blood [...] surgery.- NO jewelry, body piercings, makeup, nail barbadian, hairpins or contacts are thanh worn the [...] Procedures: - YOU MUST HAVE A RESPONSIBLE ELECTRIC DEICER INSPECTOR TAKE YOU HOME. A INK TECHNICIAN OR CABDRIVER CANNOT BE MADE A RESPONSIBLE ELECTRIC DEICER INSPECTOR.- We recommend that a responsible person stays with you overnight to take careof you.- You cannot stay in a hotel alone after outpatient surgery. You will not bepermitted to have your surgery, if you do not have someone to take care of you. Arrival Time for Surgery: -You will receive a call from [facility] the afternoon beforesurgery after 2:30 pm (or Friday for Friday surgery) for a scheduled arrivaltime.- If you have not heard by 4 pm, please contact [facility] [phone].Please be aware that emergency situations arise, which may delay or change yoursurgical time. If this happens, we will notify you as soon as possible andregret any inconvenience.ARIANNA Mondragon-CReferring Provider: YULIYA BUCKNER [[id number]]Allergies As of Date: 12/15/2017(No Known Allergies)Date Reviewed: 12/15/2017Reviewed by: Tomasz Cote - Fully AssessedReason for Visit: Pre-Op Exam [87]Primary Visit Diagnosis:Preoperative clearance [Z01.818] Other Visit Diagnoses:Primary osteoarthritis of left hip [M16.12] Contact with and (suspected) exposure to other bacterial communicable diseases [Z20.818] Benign essential HTN [I10] Gastroesophageal reflux disease without esophagitis [K21.9]Order(s):STAPH AUREUS PCR [SQSAPCR] Order #: [id number] FUTURE ECG COMPLETE W INTERPRETATION [ECG01] Order #: [id number] as of 12/15/2017 Sig: AMLODIPINE 5 MG [...] for your procedure at this surgery center: [facility]: [phone] -- [address] [address]. Please read below carefully for your personalized [...] - NO jewelry, body piercings, makeup, nail barbadian, hairpins or contacts are to be worn [...] Procedures: - YOU MUST HAVE A RESPONSIBLE ELECTRIC DEICER INSPECTOR TAKE YOU HOME. A INK TECHNICIAN OR ANCHOR TACK PULLER CANNOT BE MADE A RESPONSIBLE ELECTRIC DEICER INSPECTOR. - We recommend that a responsible person stays with you overnight to take care of you. - You cannot stay in a hotel alone after outpatient surgery. You will not be permitted to have your surgery, if you do not have someone to take care of you. Arrival Time for Surgery: -You will receive a call from [facility] the afternoon before surgery after 2:30 pm (or Friday for Friday surgery) for a scheduled arrival time. - If you have not heard by 4 pm, please contact [facility] at [phone]. Please be aware that emergency situations arise, which may delay or change your surgical time. If this happens, we will notify you as soon as possible and regret any inconvenience. [facility]Paul[facility] Hospitalcounter Number: [id number] Status:Closed by TOMASZ COTE PA-C on 12/15/17 [facility] Staph aureus PCRon 8 MRSA PCR Negative [facility] Comment on above: Performed By: #### SAPCR ####[facility] [address] [place], [place] [phone] S aureus Spec Source Nasal [facility] Comment on above: Performed By: #### SAPCR ####[facility] [address] [place], [place] [phone] Staph aureus PCR Negative [facility] Comment on above: Performed By: #### SAPCR ####[facility] [address] [place], [place] [phone] Coding Summary.on 08-07-2017 Coding Summary. CODING DATE: 017 LATRICE [facility] STATUS: Home (Routine DC) PAYOR: Medicare APC DESCRIPTION [address] [facility] Procedures ADMIT DX: REASON FOR VISIT DX: H26.40 Unspecified secondary cataract FINAL DX: PRINCIPAL: H26.40 Unspecified secondary cataract SECONDARY: PYMT PROC APC STAT DESCRIPTION DOCTOR NAME DATE 54090 4596 T Discission of secondary Tal Langley DO [...] Alida Gandhi Date Saved: 08/07/2017 09:54 am [facility] Vital Signs Date Time Vital Sign Value Performing Clinician Facility 08-01-2023 10:30-0400 Body height 157.48 cm [facility] Other [facility] Other 08-01-2023 10:30-0400 Body mass index (BMI) [Ratio] 21.62 kg/m2 Marlon CS [facility] Other [facility] Other 08-01-2023 10:30-0400 Body weight 53.62 kg Marlon [facility] Other [facility] Other 08-01-2023 10:30-0400 Diastolic blood pressure 72 mm[Hg] [facility] Other [facility] Other 08-01-2023 10:30-0400 Respiratory rate 12 /min Marlon [facility] Other [facility] Other 08-01-2023 10:30-0400 Systolic blood pressure 118 mm[Hg] Marlon [facility] Other [facility] Other 01-29-2023 10:30-0500 Body height 157.48 cm Marlon [facility] Other [facility] Other 01-29-2023 10:30-0500 Body mass index (BMI) [Ratio] 21.87 kg/m2 Marlon Michelle Other [facility] Other 01-29-2023 10:30-0500 Body weight 54.25 kg Marlon Michelle Other [facility] Other 01-29-2023 10:30-0500 Diastolic blood pressure 70 mm[Hg] Marlon Michelle Other [facility] Other 01-29-2023 10:30-0500 Respiratory rate 12 /min Marlon Michelle Other [facility] Other 01-29-2023 10:30-0500 Systolic blood pressure 118 mm[Hg] Marlon Michelle Other [facility] Other Encounters Encounter Date Encounter Type Care Provider Facility Start: 12-12-2023 End: 12-12-2023 ambulatory TAL LANGLEY Not Available Start: 11-14-2023 End: 11-14-2023 ambulatory TAL LANGLEY Not Available Start: 11-07-2023 End: 11-07-2023 ambulatory TAL LANGLEY Not Available Start: 08-07-2023 End: 08-07-2023 ambulatory Marlon Michelle Other [facility] Other Start: 08-07-2023 Telephone encounter Marlon Michelle [facility] Start: 08-01-2023 End: 08-01-2023 ambulatory Marlon Michelle Other [facility] Other Start: 08-01-2023 Office outpatient visit 25 minutes Marlon Michelle [facility] Start: 02-04-2023 End: 02-05-[address] NONE LISTED REQUEST Facility: Start: 01-29-2023 End: 01-29-2023 ambulatory Marlon Michelle Other [facility] Other Start: 01-29-2023 Patient encounter procedure Marlon [facility] Start: 05-07-2022 End: 05-08-2022 ambulatory MARLON MICHELLE Facility:[facility] Start: 03-15-2022 End: 03-16-2022 ambulatory MARLON MICHELLE Facility:[facility] Start: 03-09-2019 End: 03-09-2019 Patient encounter procedure FANTASMA (PA) [facility] Start: 07-24-2018 End: 07-25-2018 Patient encounter procedure CHARLENE (PAC) [facility] Start: 12-15-2017 Ambulatory YULIYA BUCKNER [facility] Start: 08-05-2017 End: 08-05-2017 Ambulatory Talberta Langley Facility:[facility] [place] [place] Immunizations Immunization Date Immunization Notes Care Provider Massiel perez 10-08-2021 COVID-19 Vaccine Moderna - Documentation Purposes Only Marlon Michelle Other [facility] Other 01-31-2021 COVID-19 Vaccine Moderna - Documentation Purposes Only Marlon Michelle Other [facility] Other 01-03-2021 COVID-19 Vaccine Moderna - Documentation Purposes Only Marlon Michelle Other [facility] Other 2017 diphtheria, tetanus toxoids and acellular pertussis vaccine, unspecified formulation Marlon Michelle Other [facility] Other Payers Date Payer Category Payer Medicare [id number] 1959 Medicare [id number] 1959 Private Health Insurance [facility] [id number] 1959 Self-pay [id number] 1945 Unknown [id number] 2.16.84 [id number] 1945 Unknown [id number] 2.16.84 [id number] 1945 Unknown [id number] 2.16.84 [id number] 1945 Unknown [id number] 1945 Unknown [id number] Unknown [id number] 2.16.84 [id number] Social History Date Type Detail Facility Sex Assigned At [facility] Other Evaluation note 08-01-2023 Note Date & [...] labs: r/o diabetes, anemia and thyroid disease [facility] Other Evaluation note 01-29-2023 Note Date & [...] breast cancer (ICD-10 - Z85.3) b/l mastectomy [facility] Other Evaluation note Note Date & Type Note Facility Evaluation note No Information [place] Other History general Narrative - Reported Note [...] OD 1999 Hospitalization History see surgical history [facility] Other Summary Purpose Family History No Family [...] section and content) DATE CREATED AUTHOR 05/26/2018 [facility] DATE CREATED AUTHOR AUTHOR'S ORGANIZ ATION 05/27/2018 [facility] DATE CREATED AUTHOR AUTHOR'S ORGANIZ ATION 03/10/2019 [facility] DATE CREATED AUTHOR AUTHOR'S ORGANIZ ATION 01/27/2021 [facility] DATE CREATED AUTHOR AUTHOR'S ORGANIZ ATION 12/21/2021 [facility] DATE CREATED AUTHOR AUTHOR'S ORGANIZ ATION 02/05/2023 [facility] DATE CREATED AUTHOR AUTHOR'S ORGANIZ ATION 12/13/2023 [facility] EPIC REASON FOR VISIT [...] BE BASED ON THE PRIMARY CLINICAL RECORDS. [employer] provides no warranty or guarantee of the accuracy or completeness of information in this document.
--- NOTE | 2024-02-15 14:21 | MR_ITS ---
The [address] [address] Patient Name: DYLAN TAFOYA MRN: [id number] date: 1945 Sex: F Assigned Patient Location: ICU Current Patient Location: ICU Accession/Order Number: [id number] Exam Date: 02/15/2024 15:30 Report Date: 02/15/2024 16:17 At the request of: WKESI SHARMA Procedure: MR head/brain wo con EXAM: MR head/brain wo con CLINICAL INDICATION: TIA COMPARISON: None TECHNIQUE: Unenhanced MRI imaging of the brain was performed. Images were obtained in multiple planes using a variety of pulse sequences including T1 weighting, T2 weighting, FLAIR, and diffusion-weighted imaging. FINDINGS: Axial FLAIR sequence demonstrates moderate hyperintensity within the periventricular and deep subcortical white matter, likely related to chronic small vessel ischemic changes. Scattered small foci of susceptibility artifact within the bilateral cerebral hemispheres and brainstem, likely old microhemorrhages and/or related to cerebral amyloid angiopathy. Otherwise no suspicious abnormal parenchymal signal intensity, mass effect, midline shift, or extra-axial collection. No hydrocephalus. No abnormal signal on diffusion imaging to suggest acute infarct. Mild bilateral maxillary sinus mucosal thickening. The vascular structures at the skull base are unremarkable. MR/MR head/brain wo con IMPRESSION: No acute intracranial abnormality noted. Chronic senescent changes. Scattered small old microhemorrhages and/or changes related to cerebral amyloid angiopathy. Electronically authenticated by: TAMMIE HODGES Date: 02/15/2024 16:17
--- NOTE | 2024-02-15 14:21 | MR_ITS ---
[address] [address] Patient Name: DYLAN TAFOYA MRN: [id number] date: 1945 Sex: F Assigned Patient Location: ICU Current Patient Location: ICU Accession/Order Number: [id number] Exam Date: 02/15/2024 15:30 Report Date: 02/15/2024 16:14 At the request of: KWESI SHARMA Procedure: MR angio head wo con EXAM: MR angio head wo con CLINICAL INDICATION: TIA COMPARISON: None TECHNIQUE: MRA of the brain/[place] of [place] without contrast. The following sequences were performed: Axial 2-D and 3-D [id number]. Three-dimensional reconstructions were performed. FINDINGS: Evaluation is slightly limited due to patient involuntary motion artifact. The visualized vertebral arteries appear intact and are symmetric. The basilar artery is intact. The visualized right internal carotid artery is normal. The visualized left internal carotid artery is normal. Anterior circulation: Limited evaluation due to motion artifact. No high-grade occlusions. Posterior circulation: Limited evaluation due to motion artifact. No high-grade occlusions. origin of the left posterior cerebral artery, normal variant. MR/MR angio head wo con IMPRESSION: This examination demonstrates no focal hemodynamically significant stenosis, aneurysm or occlusion. Electronically authenticated by: TAMMIE HODGES Date: 02/15/2024 16:14
[2024-02-15] MEDS: LORAZEPAM 1 MG TABLET PO (15:25)
--- NOTE | 2024-02-15 16:57 | US_ITS ---
[address] [address] Patient Name: DYLAN TAFOYA MRN: [id number] date: 1945 Sex: F Assigned Patient Location: ICU Current Patient Location: ICU Accession/Order Number: [id number] Exam Date: 02/15/2024 17:15 Report Date: 02/16/2024 04:15 At the request of: KWESI SHARMA Procedure: US carotid duplex BI EXAMINATION: US carotid duplex BI HISTORY: TIA , right arm numbness COMPARISON: No relevant comparison available. TECHNIQUE: Duplex Doppler ultrasound analysis of carotid and vertebral arteries. . Bilateral carotid arterial duplex examination was performed using B-mode, color flow and spectral analysis. Carotid stenosis is reported according to validated velocity parameters, similar to NASCET criteria. FINDINGS: RIGHT CAROTID ARTERY: Mild atherosclerotic plaque within bulb without significant stenosis. RIGHT VERTEBRAL: Antegrade flow. Subclavian: PSV: 77.4 cm/s EDV: 0.0 cm/s CCA: Prox: PSV: 39.2 cm/s EDV: 10.4 cm/s Mid: PSV: 57.5 cm/s EDV: 12.1 cm/s Distal: PSV: 52.0 cm/s EDV: 14.5 cm/s BULB: PSV: 52.9 cm/s EDV: 11.9 cm/s ICA: Prox: PSV: 55.5 cm/s EDV: 16.2 cm/s Mid: PSV: 79.0 cm/s EDV: 26.7 cm/s Distal: PSV: 99.1 cm/s EDV: 30.5 cm/s ECA: PSV: 75.8 cm/s EDV: 13.7 cm/s VERTEBRAL: PSV: 47.6 cm/s EDV: 8.4 cm/s ICA/CCA ratio: PSV: 1.7 EDV: 2.5 LEFT CAROTID ARTERY: Mild atherosclerotic plaque within bulb without significant stenosis. LEFT VERTEBRAL: Antegrade flow. Subclavian: PSV: 108.0 cm/s EDV: 0.0 cm/s CCA: Prox: PSV: 54.5 cm/s EDV: 16.0 cm/s Mid: PSV: 72.1 cm/s EDV: 17.1 cm/s Distal: PSV: 72.1 cm/s EDV: 17.1 cm/s BULB: PSV: 68.8 cm/s EDV: 16.0 cm/s ICA: Prox: PSV: 81.7 cm/s EDV: 20.4 cm/s Mid: PSV: 78.5 cm/s EDV: 26.8 cm/s Distal: PSV: 94.6 cm/s EDV: 30.0 cm/s ECA: PSV: 69.4 cm/s EDV: 9.8 cm/s VERTEBRAL: PSV: 37.2 cm/s EDV: 10.1 cm/s ICA/CCA ratio: PSV: 1.3 EDV: 1.8 US/US carotid duplex BI IMPRESSION: 1. Bilateral mild atherosclerotic plaque within carotid bulbs without significant stenosis. 2. Bilateral 0-49% flow stenosis. Spectral Doppler US Thresholds Stenosis (%) PSV (cm/sec) VICA/VCCA 0-49 <150 <2.5 50-69 150-225 2.5-4.0 >70 >225 >4.0 Electronically authenticated by: LI WEI Date: 02/16/2024 04:15
[2024-02-15] MEDS: CLOPIDOGREL BISULFATE 75 MG TABLET PO (21:30)
[2024-02-15] MEDS: ATORVASTATIN CALCIUM 10 MG TABLET PO (21:30)
[2024-02-16] VITALS (8 sets, daily range): BP systolic 139; BP diastolic 90; PULSE 76–88; RESP 16–18; TEMP 37.2; O2SAT 96
[2024-02-16 05:33] LABS: Estimated Average Glucose 105 mg/dL; Glycohemoglobin A1C 5.3 % (4.5-6.2)
[2024-02-16 05:41] LABS: Alanine Aminotransferase 19 U/L (14-59); Albumin Globulin Ratio 1.1; Albumin Level 3.4 g/dL (3.4-5.0); Alkaline Phosphatase 57 U/L (46-116); Aspartate Amino Transferase 16 U/L (15-37); BUN Creatinine Ratio 18.6; Bilirubin Total 0.4 mg/dL (0.2-1.0); Calcium 8.7 mg/dL (8.5-10.1); Carbon Dioxide 27.8 mmol/L (21.0-32.0); Chloride 101 mmol/L (98-107); Estimated GFR (African America >60 (>=60); Estimated GFR (Non-African Ame >60 (>=60); Glucose 88 mg/dL (74-106); Potassium 3.8 mmol/L (3.5-5.1); Sodium 136 mmol/L (136-145); Total Protein 6.4 g/dL (6.4-8.2)
[2024-02-16] MEDS: ACETAMINOPHEN 500 MG TABLET 1000 MG PO (07:16)
[2024-02-16] MEDS: OMEPRAZOLE 40 MG CAPSULE.DR PO (09:25)
[2024-02-16] MEDS: AMLODIPINE BESYLATE 5 MG TABLET 2.5 MG PO (09:25)
--- NOTE | 2024-02-16 11:51 | CM.NOTE ---
Rounds made with Dr. Romano, discussed with pt discharge to home today after EEG completed.
--- NOTE | 2024-02-16 12:11 | CM.NOTE ---
Medicare Outpatient Observation Notice discussed with pt, pt verbalizes understanding and signs paper. Original given to pt and copy placed in pt's chart.
--- NOTE | 2024-02-16 12:42 | P.HP_ITS ---
<Statement entered by Jhonny Romano MD - 02/16/24 20:30> Patient seen and examined, agree with assessment and plan below. Presented with numbness in right hand. No weakness or speech deficits. To ER and symptoms resolved. CT head negative. Teleneuro recommended MRI brain. Admitted and MRI/MRA normal. Carotid US normal. No additional symptoms. Neurology recommended aspirin in addition to plavix x 3 weeks. Discharge home. Diagnosis: 1. TIA 2. HTN 3. Dyslipidemia HPI H&P: HPI History of Present Illness Chief complaint: FAINT, NUMBING TIA Narrative: 02/16/24 1105 This is a 78-year-old female patient with a past medical history as outlined below including previous TIAs, hypertension, hyperlipidemia, and GERD; who presented to the ED yesterday afternoon complaining of right hand numbness and headache. She apparently also was noting some altered sensation of the left forearm and hand but cannot clearly describe whether this was left lateral numbness, or related to altered sensation of her right hand when touching her left arm. She has been complaining of neck pain and headache and difficulty finding a comfortable pillow to sleep on. She denies any dysarthria, facial droop, or unilateral weakness with this episode. She presented to the ED for further evaluation as her previous TIAs presented with numbness of the hand, although dysarthria was also noted during those events. Workup in the ED was relatively benign with normal lab values, and an unremarkable EKG. CT of the brain was negative for acute findings. Telemetry stroke was consulted and they recommended an observation admission to obtain an MRI of the brain. An MRI of the brain was obtained yesterday afternoon and it was also negative for acute findings of ischemia. An MRA of the head revealed no hemodynamically significant stenosis, aneurysm, or occlusion. Carotid Doppler study was also obtained and this was negative for flow stenosis. At the time of my exam the patient is sitting up in a bedside chair chatting with her son. She denies any numbness of either arm. Her headache has improved since taking Tylenol. She continues to complain of neck pain and stiffness. The cervical paraspinous and trapezius muscles are notably spasmed, especially on the left. The patient has been seen in consult by telestroke and they believe nerve impingement is the likely cause of the patient's symptoms. They are recommending an EEG for complete workup to rule out focal or absence type seizures. An EEG will be obtained prior to patient's discharge today. Interpretation of that study will be pending neurology review in the next couple of days. Disposition: As the patient's symptoms have resolved, she is being discharged home in stable condition. Per neurology recommendation, we are prescribing a low-dose aspirin for 21 days to be taken along with her usual Plavix. She should follow-up with teleneurology as scheduled. We defer further workup to the neurology service if indicated. Opioid HPI Opioid Management Most Recent Opioid Data: Last Pain Intensity 0 02/16/24 11:19 Last Pain Assessment 02/16/24 12:00 Last MAR Pain Assessment 02/16/24 09:27 Last ORT Total Score 0 02/15/24 14:13 Last ORT Risk Category Low Risk 02/15/24 14:13 Review of Systems ROS Status of ROS 10 or more systems reviewed and unremark able except as noted in history and below [facility] Medical History (Updated 02/16/24 @ 12:42 by Tiffany Meza NP) High cholesterol ?E78.00 - Pure hypercholesterolemia, unspecified (ICD-10) Hypertension ?I10 - Essential (primary) hypertension (ICD-10) Insect bite ?W57.XXXA - Bitten or stung by nonvenomous insect and other nonvenomous arthropods, initial encounter (ICD-10) Macular degeneration ?H35.30 - Unspecified macular degeneration (ICD-10) Breast cancer ?C50.919 - Malignant neoplasm of unspecified site of unspecified female breast (ICD-10) History of TIAs ?Z86.73 - Personal history of transient ischemic attack (TIA), and cerebral infarction without residual deficits (ICD-10) GERD (gastroesophageal reflux disease) ?K21.9 - Gastro-esophageal reflux disease without esophagitis (ICD-10) Cataracts, bilateral ?H26.9 - Unspecified cataract (ICD-10) Surgical History (Updated 11/03/23 @ 12:53 by Luna Li RN) History of hip replacement ?Z96.649 - Presence of unspecified artificial hip joint (ICD-10) H/O bilateral mastectomy ?Z90.13 - Acquired absence of bilateral breasts and nipples (ICD-10) Family History (Updated 11/03/23 @ 12:54 by Luna Li RN) Other Family history of COPD (chronic obstructive pulmonary disease) Family history of cancer Family history of hypertension Family history of stroke Social History (Updated 11/03/23 @ 12:54 by Luna Li RN) Within the past year, how often did you have a drink containing alcohol: never Score interpretation: A score less than 3 is consistent with normal alcohol consumption. Smoking status: Never smoker Second hand tobacco smoke exposure: No Non-prescribed substance use: denies use Previous occupational history: retired [employer] Home Medications and Allergies Home Medications Medication Instructions Recorded Confirmed Type amlodipine 2.5 mg tablet 2.5 mg PO QDAY 11/03/23 02/15/24 History atorvastatin 10 mg tablet 10 mg PO .QHS 11/03/23 02/15/24 History clopidogrel 75 mg tablet 75 mg PO QDAY 11/03/23 02/15/24 History pantoprazole 40 mg tablet,delayed 40 mg PO QDAY 11/03/23 02/15/24 History release aspirin 81 mg capsule 81 mg PO DAILY 21 days #21 caps 02/16/24 Rx Allergies Allergy/AdvReac Type Severity Reaction Status Date / Time No Known Drug Allergies Allergy Verified 02/15/24 10:54 Exam Constitutional Vital Signs, click to edit/add: Last Vital Signs Temp 98.9 F 02/16/24 03:07 Pulse 88 02/16/24 12:00 Resp 16 02/16/24 12:00 BP 139/90 02/16/24 03:07 Pulse Ox 96 02/16/24 12:00 O2 Del Method Room Air 02/16/24 03:07 Common normals: no apparent distress, oriented x3, alert and well nourished General appearance: cooperative Orientation/consciousness: Yes awake HENNY Common normals: normocephalic, head/scalp atraumatic, hearing grossly normal bilaterally, external nose normal and moist oral mucous membranes Eye Common normals: PERRL, EOMs intact bilaterally, conjunctivae normal and no scleral icterus Alignment: alignment normal Eyelid: eyelids normal Neck & C-Spine Common normals: no JVD Cervical spine: pain with cervical ROM, paracervical muscle tenderness, paracervical muscle spasm (L>R) and trapezius muscle tenderness Chest Common normals: inspection of chest normal Chest: symmetrical chest wall rise Respiratory Common normals: normal respiratory effort, no retractions, no use of accessory muscles and clear to auscultation bilaterally Effort & inspection: able to speak in complete sentences Cardio Common normals: no JVD, regular rate, regular rhythm, S1 normal heart sound, S2 normal heart sound, no gallops, no clicks, no murmurs, no rub and peripheral pulses 2+ throughout GI Common normals: Normal to inspection, nondistended, normoactive bowel sounds present, soft to palpation, non-tender, no hepatosplenomegaly, no masses and no bruits Bladder/kidney exam: bladder normal to palpation Back & Pelvis Common normals: thoracic and lumbar spine normal to inspection Extremity Common normals: normal capillary refill and no pedal edema General: normal exam except as noted; no clubbing and no cyanosis Neuro Daniele Coma Scale: GCS not evaluated Common normals: CN's II-XII intact bilaterally, moves all extremities, no focal motor deficits and no sensory deficits noted Speech: speech normal Gait (neuro): normal gait Sensory exam: double simultaneous stimulation for sensation normal Motor exam: strength 5/5 throughout Psych Common normals: mental status grossly normal, thought process normal, affect normal and activity/motor behavior normal Results Labs Labs: BMP 02/16/24 04:11 Sodium 136 Potassium 3.8 Chloride 101 Carbon Dioxide 27.8 BUN 11.0 Creatinine 0.59 Glucose 88 Calcium 8.7 Liver Function 02/16/24 Range/Units 04:11 Total Bilirubin 0.4 (0.2-1.0) mg/dL AST 16 (15-37) U/L ALT 19 (14-59) U/L Alkaline Phosphatase 57 (46-116) U/L Albumin 3.4 (3.4-5.0) g/dL Pulse Oximetry Attestation: I have reviewed the pertinent pulse oximetry results. Assessment and Plan Assessment and Plan (1) Brain TIA: Assessment and Plan: Acute/Suspected * Adm observation * All imaging studies including CT brain, MRI brain, MRA Head, and Carotid dopplers are negative for acute ischemia/occlusion * Clinically suspect nerve impingement or cervical muscle strain * Consult Telestroke - follow up outpatient with neurology service after discharge * EEG obtained prior to discharge - result pending * Recent 2D Echo with bubble study negative for PFO or other structural abnormalities * D/C home on usual Plavix plus 21 day course of low dose Aspirin. (2) Cervical muscle strain: Assessment and Plan: Acute/subacute * Recommend massage therapy or PT therapy or both * Follow up w/ PCP (3) Hypertension: Assessment and Plan: Chronic * Continue home amlodipine (4) High cholesterol: Assessment and Plan: Chronic * Continue home statin (5) GERD (gastroesophageal reflux disease): Assessment and Plan: Chronic * Continue home PPI
--- NOTE | 2024-02-17 15:52 | CM.DCFOLLOWU ---
02/16- 1st attempt. No answer
--- NOTE | 2024-02-18 14:15 | CM.NOTE ---
02/17) 14:15 Second attempt at discharge followup call and no answer.
--- NOTE | 2024-02-19 14:36 | CM.NOTE ---
3rd attempt. No answer
== END 2024-02-16 13:00 | disposition home or self-care (01) ==
LOC: ER 13:35 → ICU 13:54
PROVIDERS: Admitting Provider Family Medicine; Emergency Provider Emergency Medicine; PCP Internal Medicine; Visit Provider Family Medicine
DX: G45.9 Transient cerebral ischemic attack, unspecified (principal); I10 Essential (primary) hypertension; E78.00 Pure hypercholesterolemia, unspecified; K21.9 Gastro-esophageal reflux disease without esophagitis; S16.1XXA Strain of muscle, fascia and tendon at neck level, initial encounter; Z86.73 Personal history of transient ischemic attack (TIA), and cerebral infarction without residual deficits; Z85.3 Personal history of malignant neoplasm of breast; Z96.649 Presence of unspecified artificial hip joint; Z90.13 Acquired absence of bilateral breasts and nipples; Z79.82 Long term (current) use of aspirin; Z79.899 Other long term (current) drug therapy; Z79.02 Long term (current) use of antithrombotics/antiplatelets
CPT/HCPCS: 36415; 70450; 70544; 70551; 71045; 80048; 80053; 83036; 85025; 85610; 85730; 93005; 93880; 95816; 99285; G0378

== ENCOUNTER 2024-08-18 13:27 | Outpatient (OUT) | payer MEDICARE, SELFPAY ==
[2024-08-18 13:53] LABS: Basophils Absolute Auto 0.1 10^3/uL (0.0-0.1); Basophils Percent Auto 0.9 % (0.2-2.0); Eosinophils Absolute Auto 0.2 10^3/uL (0.0-0.7); Hematocrit 40.4 % (36.0-48.0); Hemoglobin 13.1 g/dL (12.0-16.0); Immature Granulocytes Abs Auto 0.02 10^3/uL (0.00-0.03); Immature Granulocytes Pct Auto 0.3 % (0.0-0.5); Lymphocytes Percent Auto 13.6 % (20.5-60.0); Mean Corpuscular HGB Conc 32.4 g/dL (29.9-35.2); Mean Corpuscular Hemoglobin 31.1 pg (26.7-34.0); Mean Platelet Volume 9.7 fL (9.5-13.5); Monocytes Absolute Auto 0.7 10^3/uL (0.3-0.8); Monocytes Percent Auto 9.3 % (1.7-12.0); Neutrophils Absolute Auto 5.1 10^3/uL (1.4-6.5); Neutrophils Percent Auto 72.9 % (43.0-75.0); Platelet Count 353 10^3/uL (150-450); Red Blood Count 4.21 10^6/uL (4.20-5.40); Red Cell Distribution Width 13.4 % (11.0-15.0)
[2024-08-18 14:23] LABS: BUN Creatinine Ratio 17.7; Calcium 8.8 mg/dL (8.5-10.1); Carbon Dioxide 31.9 mmol/L (21.0-32.0); Chloride 96 mmol/L (98-107); Estimated GFR (African America >60 (>=60); Estimated GFR (Non-African Ame >60 (>=60); Glucose 99 mg/dL (74-106); Potassium 3.9 mmol/L (3.5-5.1); Sodium 130 mmol/L (136-145); Thyroid Stimulating Hormone 1.387 uIU/mL (0.358-3.740)
[2024-08-19 04:08] LABS: Vitamin B12 353 pg/mL (232-1245)
== END 2024-08-18 13:28 | disposition home or self-care (01) ==
LOC: LAB 13:31
PROVIDERS: PCP Internal Medicine; Visit Provider Internal Medicine
DX: E78.00 Pure hypercholesterolemia, unspecified (principal); I67.2 Cerebral atherosclerosis; R53.83 Other fatigue; D64.9 Anemia, unspecified; I10 Essential (primary) hypertension; I25.10 Atherosclerotic heart disease of native coronary artery without angina pectoris
CPT/HCPCS: 36415; 80048; 82607; 82728; 84443; 85025

== ENCOUNTER 2024-09-22 12:52 | Outpatient (OUT) | payer MEDICARE, SELFPAY ==
--- OUTSIDE RECORDS SUMMARY | 2024-09-22 13:19 | XMS_ITS | CCD ---
Author Organization [facility] Care Team Providers Care Storekeeper Steward Name Role Phone YULIYA BUCKNER Unavailable Unavailabl e Tal Langley Unavailable Unavailable Tal Langley Unavailable Unavailable Tal Langley Unavailable Unavailable MARLON [phone] UNKNOWN Unavailable Unavailable CHARLENE WEBB (PAC) Admitting [...] Ball, Marlon Unavailable TAL LANGLEY Attending Unavailable ZAHLTAL MCGILL Attending Unavailable TAL LANGLEY Attending Unavailable ZAHLER, TAL Inman Attending Unavailable ZAHLER, TAL Inman Attending Unavailable Allergies Allergy Classification Reported Allergen(s) Allergy Type Date of Onset Reaction(s) Facility (3 sources) Bisphosphonate (substance) Drug allergy Unknown [facility] Other (2 sources) Alendronate Drug Allergy Comment:Oral Bisphosphonates [facility] Other (2 sources) ORAL BISPHOSPHONATES Propensity to adverse reactions Unknown [facility] Other (2 sources) Alendronate Drug Allergy Comment:Oral Bisphosphonates [facility] (2 sources) Bisphosphonates Allergy to substance Unknown Reaction [facility] Medications Current Medications Medication Drug Class(es) Dates Sig (Normalized) Sig (Original) amLODIPine 2.5 mg oral tablet (6 sources) Dihydropyridine Calcium Channel Tessa Start: 01-29-2024 End: 04-28-2024 take 2.5 mg by mouth once daily Amlodipine Active 2.5 MG PO Daily April 28, 2024 12:35pm take 1 tablet by mouth once lizette y amLODIPine Besylate 2.5 MG TAKE 1 TABLET BY MOUTH EVERY DAY Active aspirin 81 mg delayed release oral tablet (5 sources) Platelet Aggregation Inhibitor, Nonsteroidal Anti-inflammatory Drug Start: 01-29-2024 take 81 mg by mouth once daily Aspirin Active 81 MG PO Daily January 29, 2024 1:00am take 1 tablet by tabatha th every twenty-four hours Aspirin 81 81 MG 1 tablet Orally Once a day Active atorvastatin 10 mg oral tablet (6 sources) HMG-CoA Reductase Inhibitor Start: 08-12-2024 Atorvastatin Active 0 .ROUTE .COMPLEX August 12, 2024 7:22am TAKE 1 TABLET EVERY EVENING 90 Start: 01-29-2024 End: 08-12-2024 take 10 mg by mouth once daily Atorvastatin Discontinu ed 10 MG PO Daily January 29, 2024 1:00am August 12, 2024 7:22am take 1 tablet by tabatha th every twenty-four hours Atorvastatin Calcium 10 MG 1 tablet Orally Once a day Active clopidogrel 75 mg oral tablet (6 sources) [id number] Platelet Inhibitor Start: 01-29-2024 End: 04-28-2024 take 75 mg by mouth once daily Clopidogrel Active 75 MG PO Daily April 28, 2024 12:35pm take 1 tablet by mouth once lizette y Clopidogrel Bisulfate 75 MG TAKE 1 TABLET BY MOUTH EVERY DAY Active doxepin 6 mg oral tablet (1 source) Tricyclic Antidepressant Start: 08-17-2024 take 6 mg by mouth once daily at bedtime Doxepin Active 6 MG PO Daily at bedtime August 17, 2024 12:00am pantoprazole 40 mg delayed release oral tablet (5 sources) Proton Pump Inhibitor Start: 01-29-2024 take 40 mg by mouth once daily Pantoprazole Active 40 MG PO Daily January 29, 2024 1:00am take 1 tablet by tabatha th every twenty-four hours Pantoprazole Sodium 40 MG 1 tablet Orall y Once a day Active Problems Active Problems Problem Classification Problem Date Documented Date Episodic/Chronic Allergic reactions (3 sources) Allergic contact dermatitis due to plants, except food; Translations: [Allergic contact dermatitis due to plants, except food] Episodic Anxiety disorders (5 sources) Anxiety; Translations: [Other specified anxiety disorders] 01-29-2024 Chronic Cancer of breast (9 sources) Personal history of primary malignant neoplasm of breast; Translations: [Personal history of malignant neoplasm of breast] Episodic Disorders of lipid metabolism (17 sources) Pure hypercholesterolemia, unspecified; Translations: [Pure hypercholesterolemia] Onset: 05-07-2022 Chronic Esophageal disorders (4 sources) Gastro-esophageal reflux disease with esophagitis; Translations: [Gastroesophageal reflux disease with esophagitis without hemorrhage] 01-29-2024 Chronic Essential hypertension (11 sources) Essential hypertension; Translations: [Essential (primary) hypertension] Chronic Malaise and fatigue (1 source) Other fatigue Episodic Nonspecific chest pain (3 sources) Atypical chest pain; Translations: [Other chest pain] Episodic Osteoporosis (7 sources) Primary osteoporosis; Translations: [Age-related osteoporosis without current pathological fracture] 01-29-2024 Chronic Other and ill-defined cerebrovascular disease (5 sources) Cerebral atherosclerosis; Translations: [Cerebral atherosclerosis] 01-29-2024 Chronic Other and ill-defined cerebrovascular disease (5 sources) Cerebral atherosclerosis; Translations: [Cerebral atherosclerosis] Chronic Other circulatory disease (3 sources) History of cerebrovascular accident without residual deficits; Translations: [Personal history of transient ischemic attack (TIA), and cerebral infarction without residual deficits] Episodic Other circulatory disease (5 sources) Personal history of transient ischemic attack (TIA), and cerebral infarction without residual deficits; Translations: [Personal history of transient ischemic attack (TIA), and cerebral infarction without residual deficits] Episodic Other circulatory disease (2 sources) History of cerebrovascular disease; Translations: [Personal history of transient ischemic attack (TIA), and cerebral infarction without residual deficits] 01-29-2024 Episodic Other connective tissue disease (1 source) Presence of left artificial hip joint; Translations: [Presence of left artificial hip joint] Onset: 03-09-2019 Chronic Other ear and sense organ disorders (3 sources) Impacted cerumen; Translations: [Impacted cerumen, bilateral] Episodic Other upper respiratory infections (3 sources) Acute maxillary sinusitis; Translations: [Acute recurrent maxillary sinusitis] Episodic Residual codes; unclassified (1 source) Pain, unspecified; Translations: [Pain, unspecified] Onset: 02-16-2024 Episodic Residual codes; unclassified (1 source) Insomnia; Translations: [Insomnia, unspecified] 08-17-2024 Episodic Residual codes; unclassified (1 source) Insomnia, unspecified; Translations: [Insomnia, unspecified] 08-17-2024 Episodic Skin and subcutaneous tissue infections (3 sources) Cellulitis of right forearm; Translations: [Cellulitis of right upper limb] Episodic Spondylosis; intervertebral disc disorders; other back problems (4 sources) Cervical spondylosis; Translations: [Other spondylosis with radiculopathy, cervical region] 02-22-2024 Chronic Substance-related disorders (5 sources) Tobacco user; Translations: [Nicotine dependence, cigarettes, in remission] Chronic Syncope (1 source) Syncope and collapse; Translations: [Syncope and collapse] Onset: 02-16-2024 Episodic Unclassified (1 source) PRESENCE OF LEFT ARTIFICIAL HIP JOINT Onset: 07-24-2018 Unclassified (1 source) TIA vs. 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] Episodic Past or Other Problems Problem Classification Problem Date Documented Da te Episodic/Chronic Esophageal disorders (5 sources) Esophageal disorders; Translations: [Gastroesophageal reflux disease with esophagitis without hemorrhage] Results Test Name Value Interpretation Reference Range Facility Estimated glomerular filtrat ion rate (GFR) non- Americanon 02-16-2024 GFR/1.73 sq M.predicted among non-blacks MDRD (S/P/Bld) [Vol rate/Area] mL/min/{1.73_m2} >=60 [facility] Globulin Calc (S) [Mass/Vol] on 02-16-2024 Globulin (S) [Mass/Vol] 3.0 g/dL [facility] Glucose mean value [Mass/vol ume] in Blood Estimated from glycated hemoglobinon 02-16-2024 Average glucose Estimated from glycated hemoglobin (Bld) [Mass/Vol] 105 mg/dL [facility] Laboratory - Chemistry and C hemistry - challengeon 02-16-2024 Albumin [Mass/Vol] 3.4 g/dL 3.4-5.0 [facility] ALP [Catalytic activity/Vol] 57 U/L 46-116 [facility] ALT [Catalytic activity/Vol] 19 U/L 14-59 [facility] AST [Catalytic activity/Vol] 16 U/L 15-37 [facility] Bilirubin [Mass/Vol] 0.4 mg/dL 0.2-1.0 [facility] Calcium [Mass/Vol] 8.7 mg/dL 8.5-10.1 [facility] Chloride [Moles/Vol] 101 mmol/L 98-107 [facility] CO2 [Moles/Vol] 27.8 mmol/L 21.0-32.0 [facility] Creatinine [Mass/Vol] 0.59 mg/dL 0.55-1.02 [facility] GFR/1.73 sq M.predicted MDRD (S/P/Bld) [Vol rate/Area] mL/min/{1.73_m2} >=60 [facility] Glucose [Mass/Vol] 88 mg/dL 74-106 [facility] Potassium [Moles/Vol] 3.8 mmol/L 3.5-5.1 [facility] Protein [Mass/Vol] 6.4 g/dL 6.4-8.2 [facility] Sodium [Moles/Vol] 136 mmol/L 136-145 [facility] Urea nitrogen [Mass/Vol] 11.0 mg/dL 7.0-18.0 [facility] Urea nitrogen/Creatin ine [Mass ratio] 18.6 mg/mg [facility] Laboratory - Hematology and Cell countson 02-16-2024 HbA1c (Bld) [Mass fraction] 5.3 % 4.5-6.2 [facility] Comment on above: ADA RECOMMENDED LIMIT 4.0 - 6.0ADA THERA PEUTIC TARGET < 7.0ACTION SUGGESTED> 7.0 Serum or plasma albumin/glob ulin mass ratioon 02-16-2024 Albumin/Globulin [Mass ratio] 1.1 {ratio} [facility] Serum or plasma anion gap de terminationon 02-16-2024 Anion gap [Moles/Vol] 11.0 mmol/L [facility] Activated partial thrombopla stin time (aPTT) in platelet poor plasma by coagulation aon 02-15-2024 aPTT Coag (PPP) [Time] 28.4 s 22.3-36.2 [facility] Basophils Auto (Bld) [#/Vol] on 02-15-2024 Basophils (Bld) [#/Vol] 0.1 10 3/uL 0.0-0.1 [facility] Basophils/100 WBC Auto (Bld) on 02-15-2024 Basophils/100 WBC (Bld) 1.1 % 0.2-2.0 [facility] Eosinophils/100 WBC Auto (Bl d)on 02-15-2024 Eosinophils/100 WBC (Bld) 3.2 % 0.9-7.0 [facility] Erythrocyte distribution wid th Auto (RBC) [Ratio]on 02-15-2024 Erythrocyte distribution width (RBC) [Ratio] 12.9 % 11.0-15.0 [facility] Estimated glomerular filtrat ion rate (GFR) non- Americanon 02-15-2024 GFR/1.73 sq M.predicted among non-blacks MDRD (S/P/Bld) [Vol rate/Area] mL/min/{1.73_m2} >=60 [facility] Hematocrit Auto (Bld) [Volum e fraction]on 02-15-2024 Hematocrit (Bld) [Volume fraction] 41.1 % 36.0-48.0 [facility] Hemoglobin [Mass/volume] in Bloodon 02-15-2024 Hemoglobin (Bld) [Mass/Vol] 13.3 g/dL 12.0-16.0 [facility] INR in Platelet poor plasma by Coagulation assayon 02-15-2024 INR Coag (PPP) [Relative time] {INR} [facility] Comment on above: DESIRED INR:2.0-3.0 CONDITIONS NOT LISTE D BELOW2.5-3.5 FOR PROSTHETIC HEART VALVE REPLACEMENT2.5-3.5 RECURRENT THROMBOSIS Laboratory - Chemistry and C hemistry - challengeon 02-15-2024 Calcium [Mass/Vol] 8.6 mg/dL 8.5-10.1 [facility] Chloride [Moles/Vol] 96 mmol/L 98-107 [facility] CO2 [Moles/Vol] 28.0 mmol/L 21.0-32.0 [facility] Creatinine [Mass/Vol] 0.64 mg/dL 0.55-1.02 [facility] GFR/1.73 sq M.predicted MDRD (S/P/Bld) [Vol rate/Area] mL/min/{1.73_m2} >=60 [facility] Glucose [Mass/Vol] 99 mg/dL 74-106 [facility] Potassium [Moles/Vol] 3.9 mmol/L 3.5-5.1 [facility] Sodium [Moles/Vol] 135 mmol/L 136-145 [facility] Urea nitrogen [Mass/Vol] 9.0 mg/dL 7.0-18.0 [facility] Urea nitrogen/Creatin ine [Mass ratio] 14.1 mg/mg [facility] Laboratory - Hematology and Cell countson 02-15-2024 Immature granulocytes/100 WBC (Bld) 0.4 % 0.0-0.5 [facility] Leukocytes [#/volume] correc jatin for nucleated erythrocytes in Blood by Automated counon 02-15-2024 WBC corrected for nucl RBC Auto (Bld) [#/Vol] 5.3 10 3/uL 4.0-11.0 [facility] Lymphocytes Auto (Bld) [#/Vo l]on 02-15-2024 Lymphocytes (Bld) [#/Vol] 0.8 10 3/uL 1.2-3.8 [facility] Lymphocytes/100 WBC Auto (Bl d)on 02-15-2024 Lymphocytes/100 WBC (Bld) 14.2 % 20.5-60.0 [facility] MCH Auto (RBC) [Entitic mass ]on 02-15-2024 MCH (RBC) [Entitic mass] 31.4 pg 26.7-34.0 [facility] MCHC Auto (RBC) [Mass/Vol]on 02-15-2024 MCHC (RBC) [Mass/Vol] 32.4 g/dL 29.9-35.2 [facility] MCV Auto (RBC) [Entitic vol] on 02-15-2024 MCV (RBC) [Entitic vol] 96.9 fL 81.0-99.0 [facility] Monocytes Auto (Bld) [#/Vol] on 02-15-2024 Monocytes (Bld) [#/Vol] 0.5 10 3/uL 0.3-0.8 [facility] Monocytes/100 WBC Auto (Bld) on 02-15-2024 Monocytes/100 WBC (Bld) 9.5 % 1.7-12.0 [facility] Neutrophils Auto (Bld) [#/Vo l]on 02-15-2024 Neutrophils (Bld) [#/Vol] 3.8 10 3/uL 1.4-6.5 [facility] Neutrophils/100 WBC Auto (Bl d)on 02-15-2024 Neutrophils/100 WBC (Bld) 71.6 % 43.0-75.0 [facility] No Panel Informationon 02-14 Eosinophils # (Auto) 0.2 10 3/uL 0.0-0.7 [facility] Immature Granulocyte # (Auto) 0.02 10 3/uL 0.00-0.03 [facility] Platelet mean volume Auto (B ld) [Entitic vol]on 02-15-2024 Platelet mean volume (Bld) [Entitic vol] 10.0 fL 9.5-13.5 [facility] Platelets Auto (Bld) [#/Vol] on 02-15-2024 Platelets (Bld) [#/Vol] 334 10 3/uL 150-450 [facility] Prothrombin time (PT)on 01-29 PT Coag (PPP) [Time] 9.8 s 9.0-11.6 [facility] RBC Auto (Bld) [#/Vol]on RBC (Bld) [#/Vol] 4.24 10 6/uL 4.20-5.40 [facility] Serum or plasma anion gap de terminationon 02-15-2024 Anion gap [Moles/Vol] 14.9 mmol/L [facility] Basophils Auto (Bld) [#/Vol] on 02-02-2024 Basophils (Bld) [#/Vol] 0.0 10 3/uL 0.0-0.1 [facility] Basophils/100 WBC Auto (Bld) on 02-02-2024 Basophils/100 WBC (Bld) 0.8 % 0.2-2.0 [facility] Cholesterol in LDL Calc [Mas s/Vol]on 02-02-2024 Cholesterol in LDL [Mass/Vol] 57.0 mg/dL [facility] Comment on above: <100 mg/dl [id number] mg/dl NEAR OR ABOVE [id number] mg/dl BORDERLINE [id number] mg/dl HIGH>190 mg/dl VERY HIGH Cholesterol in VLDL Calc [Ma ss/Vol]on 02-02-2024 Cholesterol in VLDL [Mass/Vol] 7.4 mg/dL [facility] Eosinophils/100 WBC Auto (Bl d)on 02-02-2024 Eosinophils/100 WBC (Bld) 4.8 % 0.9-7.0 [facility] Erythrocyte distribution wid th Auto (RBC) [Ratio]on 02-02-2024 Erythrocyte distribution width (RBC) [Ratio] 12.9 % 11.0-15.0 [facility] Estimated glomerular filtrat ion rate (GFR) non- Americanon 02-02-2024 GFR/1.73 sq M.predicted among non-blacks MDRD (S/P/Bld) [Vol rate/Area] mL/min/{1.73_m2} >=60 [facility] Globulin Calc (S) [Mass/Vol] on 02-02-2024 Globulin (S) [Mass/Vol] 3.5 g/dL [facility] Hematocrit Auto (Bld) [Volum e fraction]on 02-02-2024 Hematocrit (Bld) [Volume fraction] 40.4 % 36.0-48.0 [facility] Hemoglobin [Mass/volume] in Bloodon 02-02-2024 Hemoglobin (Bld) [Mass/Vol] 13.0 g/dL 12.0-16.0 [facility] Laboratory - Chemistry and C hemistry - challengeon 02-02-2024 Albumin [Mass/Vol] 3.8 g/dL 3.4-5.0 [facility] ALP [Catalytic activity/Vol] 63 U/L 46-116 [facility] ALT [Catalytic activity/Vol] 26 U/L 14-59 [facility] AST [Catalytic activity/Vol] 18 U/L 15-37 [facility] Bilirubin [Mass/Vol] 0.5 mg/dL 0.2-1.0 [facility] Calcium [Mass/Vol] 8.8 mg/dL 8.5-10.1 [facility] Chloride [Moles/Vol] 98 mmol/L 98-107 [facility] Cholesterol [Mass/Vol] 182 mg/dL <=200 [facility] Cholesterol in HDL [Mass/Vol] 118 mg/dL 40-60 [facility] Comment on above: > or =60 mg/dl - LOW CARDIOVASCULAR RISK <40 mg/dl - HIGH CARDIOVASCULAR RISK CO2 [Moles/Vol] 30.0 mmol/L 21.0-32.0 [facility] Creatinine [Mass/Vol] 0.72 mg/dL 0.55-1.02 [facility] GFR/1.73 sq M.predicted MDRD (S/P/Bld) [Vol rate/Area] mL/min/{1.73_m2} >=60 [facility] Glucose [Mass/Vol] 95 mg/dL 74-106 [facility] Potassium [Moles/Vol] 4.2 mmol/L 3.5-5.1 [facility] Protein [Mass/Vol] 7.3 g/dL 6.4-8.2 [facility] Sodium [Moles/Vol] 136 mmol/L 136-145 [facility] Triglyceride [Mass/Vol] 37 mg/dL <=150 [facility] Urea nitrogen [Mass/Vol] 11.0 mg/dL 7.0-18.0 [facility] Urea nitrogen/Creatin ine [Mass ratio] 15.3 mg/mg [facility] Laboratory - Hematology and Cell countson 02-02-2024 Immature granulocytes/100 WBC (Bld) 0.4 % 0.0-0.5 [facility] Leukocytes [#/volume] correc jatin for nucleated erythrocytes in Blood by Automated counon 02-02-2024 WBC corrected for nucl RBC Auto (Bld) [#/Vol] 5.2 10 3/uL 4.0-11.0 [facility] Lymphocytes Auto (Bld) [#/Vo l]on 02-02-2024 Lymphocytes (Bld) [#/Vol] 0.8 10 3/uL 1.2-3.8 [facility] Lymphocytes/100 WBC Auto (Bl d)on 02-02-2024 Lymphocytes/100 WBC (Bld) 14.8 % 20.5-60.0 [facility] MCH Auto (RBC) [Entitic mass ]on 02-02-2024 MCH (RBC) [Entitic mass] 30.7 pg 26.7-34.0 [facility] MCHC Auto (RBC) [Mass/Vol]on 02-02-2024 MCHC (RBC) [Mass/Vol] 32.2 g/dL 29.9-35.2 [facility] MCV Auto (RBC) [Entitic vol] on 02-02-2024 MCV (RBC) [Entitic vol] 95.5 fL 81.0-99.0 [facility] Monocytes Auto (Bld) [#/Vol] on 02-02-2024 Monocytes (Bld) [#/Vol] 0.6 10 3/uL 0.3-0.8 [facility] Monocytes/100 WBC Auto (Bld) on 02-02-2024 Monocytes/100 WBC (Bld) 11.9 % 1.7-12.0 [facility] Neutrophils Auto (Bld) [#/Vo l]on 02-02-2024 Neutrophils (Bld) [#/Vol] 3.5 10 3/uL 1.4-6.5 [facility] Neutrophils/100 WBC Auto (Bl d)on 02-02-2024 Neutrophils/100 WBC (Bld) 67.3 % 43.0-75.0 [facility] No Panel Informationon 02-01 Eosinophils # (Auto) 0.3 10 3/uL 0.0-0.7 [facility] Immature Granulocyte # (Auto) 0.02 10 3/uL 0.00-0.03 [facility] Platelet mean volume Auto (B ld) [Entitic vol]on 02-02-2024 Platelet mean volume (Bld) [Entitic vol] 9.9 fL 9.5-13.5 [facility] Platelets Auto (Bld) [#/Vol] on 02-02-2024 Platelets (Bld) [#/Vol] 316 10 3/uL 150-450 [facility] RBC Auto (Bld) [#/Vol]on RBC (Bld) [#/Vol] 4.23 10 6/uL 4.20-5.40 [facility] Serum or plasma albumin/glob ulin mass ratioon 02-02-2024 Albumin/Globulin [Mass ratio] 1.1 {ratio} [facility] Serum or plasma anion gap de terminationon 02-02-2024 Anion gap [Moles/Vol] 12.2 mmol/L [facility] Serum or plasma total choles terol/high density lipoprotein (HDL) cholesterol mass olivia 02-02-2024 Cholesterol.tota l/Cholesterol in HDL [Mass ratio] 1.5 {ratio} [facility] Comment on above: 3.3 - 4.4 LOW RISK4.4 - 7.1 AVERAGE RISK 7.1 - 11.0 MODERATE RISK>11.0 HIGH RISK CBC AUTO DIFFon 02-04-2023 BASO # 0.1 103/ul Normal 0.0-0.1 [facility] Comment on above: Performed By: #### DATCBC #### [facility] [address] [place] [address] Dr. Yovana Funes Basophils/100 WBC (Bld) 1.0 % Normal 0.2-2.0 [facility] Comment on above: Performed By: #### DATCBC #### [facility] [address] [place] [address] Dr. Yovnaa Funes EO # 0.3 103/ul Normal 0.0-0.7 [facility] Comment on above: Performed By: #### DATCBC #### [facility] [address] [place] [address] Dr. Yovana Funes Eosinophils/100 WBC (Bld) 5.5 % Normal 0.9-7.0 [facility] Comment on above: Performed By: #### DATCBC #### [facility] [address] [place] [address] Dr. Yovana Funes Erythrocyte distribution width (RBC) [Ratio] 13.2 % Normal 11.0-15.0 [facility] Comment on above: Performed By: #### DATCBC #### [facility] [address] [place] [address] Dr. Yovana Funes Hematocrit (Bld) [Volume fraction] 41.8 % Normal 36.0-48.0 [facility] Comment on above: Performed By: #### DATCBC #### [facility] [address] [place] [address] Dr. Yovana Funes Hemoglobin (Bld) [Mass/Vol] 13.9 g/dL Normal 12.0-16.0 [facility] Comment on above: Performed By: #### DATCBC #### [facility] [address] [place] [address] Dr. Yovana Funes IG # 0.02 10e3/ul Normal 0.00-0.03 [facility] Comment on above: Performed By: #### DATCBC #### [facility] [address] [place] [address] Dr. Yovana Funes IG % 0.4 % Normal 0.0-0.5 [facility] Comment on above: Performed By: #### DATCBC #### [facility] [address] [place] [address] Dr. Yovana Funes LYMPH # 0.9 103/ul Critically low 1.2-3.8 [facility] Comment on above: Performed By: #### DATCBC #### [facility] [address] [place] [address] Dr. Yovana Funes Lymphocytes/100 WBC (Bld) 16.6 % Critically low 20.5-60.0 [facility] Comment on above: Performed By: #### DATCBC #### [facility] [address] [place] [address] Dr. Yovana Funes MCH (RBC) [Entitic mass] 31.1 pg Normal 26.7-34.0 [facility] Comment on above: Performed By: #### DATCBC #### [facility] [address] [address] [address] Yovana Funes MCHC (RBC) [Mass/Vol] 33.3 g/dL Normal 29.9-35.2 [facility] Comment on above: Performed By: #### DATCBC #### [facility] [address] [place] [address] Dr. Yovana Funes MCV (RBC) [Entitic vol] 93.5 fL Normal 81.0-99.0 [facility] Comment on above: Performed By: #### DATCBC #### [facility] [address] [address] [address] Yovana Funes MONO # 0.5 103/ul Normal 0.3-0.8 [facility] Comment on above: Performed By: #### DATCBC #### [facility] [address] [place] [address] Dr. Yovana Funes Monocytes/100 WBC (Bld) 10.3 % Normal 1.7-12.0 [facility] Comment on above: Performed By: #### DATCBC #### [facility] [address] [place] [address] Dr. Yovana Funes NEUT # 3.5 103/ul Normal 1.4-6.5 [facility] Comment on above: Performed By: #### DATCBC #### [facility] [address] [place] [address] Dr. Yovana Funes Neutrophils/100 WBC (Bld) 66.2 % Normal 43.0-75.0 [facility] Comment on above: Performed By: #### DATCBC #### [facility] [address] [place] [address] Dr. Yovana Funes Platelet mean volume (Bld) [Entitic vol] 9.9 fL Normal 9.5-13.5 [facility] Comment on above: Performed By: #### DATCBC #### [facility] [address] [place] [address] Dr. Yovana Funes PLT 369 103/ul Normal 150-450 [facility] Comment on above: Performed By: #### DATCBC #### [facility] [address] [address] [address] Yovana Funes RBC 4.47 106/ul Normal 4.20-5.40 [facility] Comment on above: Performed By: #### DATCBC #### [facility] [address] [address] [address] Yovana Funes WBC 5.3 103/ul Normal 4.0-11.0 [facility] Comment on above: Performed By: #### DATCBC #### [facility] [address] [address] [address] Yovana Funes MARLEY- BMP WITH LIPIDon 2022 Anion gap [Moles/Vol] 13.0 mmol/L Normal [facility] Comment on above: Performed By: #### DATBMP #### [facility] [address] [place] [address] Dr. Yovana Funes Calcium [Mass/Vol] 9.1 mg/dL Normal 8.5-10.1 [facility] Comment on above: Performed By: #### DATBMP #### [facility] [address] [place] [address] Dr. Yovana Funes Chloride [Moles/Vol] 102 mmol/L Normal 98-107 [facility] Comment on above: Performed By: #### DATBMP #### [facility] [address] [place] [address] Dr. Yovana Funes Cholesterol [Mass/Vol] 211 mg/dL Critically high <=200 [facility] Comment on above: Performed By: #### DATBMP #### [facility] [address] [place] [address] Dr. Yovana Funes Cholesterol in HDL [Mass/Vol] 114 mg/dL Critically high 40-60 [facility] Comment on above: Performed By: #### DATBMP #### [facility] [address] [place] [address] Dr. Yovana Funes Cholesterol in LDL [Mass/Vol] 89.8 mg/dL Normal [facility] Comment on above: Performed By: #### DATBMP #### [facility] [address] [place] [address] Dr. Yovana Funes CO2 [Moles/Vol] 29.2 mmol/L Normal 21.0-32.0 [facility] Comment on above: Performed By: #### DATBMP #### [facility] [address] [place] [address] Dr. Yovana Funes Creatinine [Mass/Vol] 0.55 mg/dL Normal 0.55-1.02 [facility] Comment on above: Performed By: #### DATBMP #### [facility] [address] [place] [address] Dr. Yovana Funes EGFR-AF GRENADIAN >60 Normal >=60 [facility] Comment on above: Performed By: #### DATBMP #### [facility] [address] [place] [address] Dr. Yovana Funes EGFR-NON AF GRENADIAN >60 Normal >=60 [facility] Comment on above: Performed By: #### DATBMP #### [facility] [address] [place] [address] Dr. Yovana Funes Glucose [Mass/Vol] 101 mg/dL Normal 74-106 [facility] Comment on above: Performed By: #### DATBMP #### [facility] [address] [place] [address] Dr. Yovana Funes HDL NORMAL > or = 60 mg/dl - LO W CARDIOVASCULAR RISK <40 mg/dl - HIGH CARDIOVASCULAR RISK Normal [facility] Comment on above: Performed By: #### DATBMP #### [facility] [address] [place] [address] Dr. Yovana Funes LDL CALC NORMAL SEE BELOW Normal [facility] Comment on above: Result Comment: <100 mg/dl OPTIMAL 100 - 129 mg/dl NEAR OR ABOVE OPTIMAL 130 - 159 mg/dl BORDERLINE HIGH 160 - 189 mg/dl HIGH >190 mg/dl VERY HIGH Performed By: #### D ATBMP #### [facility] [address] [place] [address] Dr. Yovana Funes Potassium [Moles/Vol] 4.2 mmol/L Normal 3.5-5.1 [facility] Comment on above: Performed By: #### DATBMP #### [facility] [address] [address] [address] Yovana Funes Sodium [Moles/Vol] 140 mmol/L Normal 136-145 [facility] Comment on above: Performed By: #### DATBMP #### [facility] [address] [address] [address] Yovana Funes Triglyceride [Mass/Vol] 36 mg/dL Normal <=150 [facility] Comment on above: Performed By: #### DATBMP #### [facility] [address] [address] [address] Yovana Funes Urea nitrogen [Mass/Vol] 13.0 mg/dL Normal 7.0-18.0 [facility] Comment on above: Performed By: #### DATBMP #### [facility] [address] [place] [address] Dr. Yovana Funes Urea nitrogen/Creatin ine [Mass ratio] 23.6 mg/mg Normal [facility] Comment on above: Performed By: #### DATBMP #### [facility] [address] [place] [address] Dr. Yovana Funes VLDL CALC 7.2 mg/dL Normal [facility] Comment on above: Performed By: #### DATBMP #### [facility] [address] [place] [address] Dr. Yovana Funes DIRECT LDLon 05-07-2022 Cholesterol in LDL [Mass/Vol] 55 mg/dL Normal [facility] Comment on above: Performed By: #### ALT, DLDL #### [facility] [address] [place] [address] Dr. Yovana Funes DLDL NORMAL SEE BELOW Normal [facility] Comment on above: Result Comment: <100 mg/dl OPTIMAL 100 - 129 mg/dl NEAR OR ABOVE OPTIMAL 130 - 159 mg/dl BORDERLINE HIGH 160 - 189 mg/dl HIGH >190 mg/dl VERY HIGH Performed By: #### A LT, DLDL #### [facility] [address] [address] [address] Yovana Funes SGPTon 05-07-2022 ALT [Catalytic activity/Vol] 26 U/L Normal 14-59 [facility] Comment on above: Performed By: #### ALT, DLDL #### [facility] [address] [address] [address] Yovana Funes DIRECT LDLon 03-15-2022 Cholesterol in LDL [Mass/Vol] 102 mg/dL Normal [facility] Comment on above: Performed By: #### DLDL, ALT #### [facility] [address] [address] [address] Yovana Funes DLDL NORMAL SEE BELOW Normal [facility] Comment on above: Result Comment: <100 mg/dl OPTIMAL 100 - 129 mg/dl NEAR OR ABOVE OPTIMAL 130 - 159 mg/dl BORDERLINE HIGH 160 - 189 mg/dl HIGH >190 mg/dl VERY HIGH Performed By: #### D LDL, ALT #### [facility] [address] [address] [address] Yovana Funes SGPTon 03-15-2022 ALT [Catalytic activity/Vol] 18 U/L Normal [facility] Comment on above: Performed By: #### DLDL, ALT #### [facility] [address] [address] [address] Yovana Funes CBC Without Differentialon 0 05-12-2021 Erythrocyte distribution width (RBC) [Ratio] 13.7 % Normal 11.9-15.3 [facility] Comment on above: Performed By: #### CBCNOKEMARREACH, OUTREA CH CMP, OUTREACH LIPID #### [facility] [address] [place] [address] [place] Hematocrit (Bld) [Volume fraction] 42.3 % Normal 34.0-46.4 [facility] Comment on above: Performed By: #### CBCNOOUTREACH, OUTREA CH CMP, OUTREACH LIPID #### [facility] [address] [place] [address] [place] Hemoglobin (Bld) [Mass/Vol] 14.3 g/dL Normal 11.8-15.4 [facility] Comment on above: Performed By: #### CBCNOOUTREACH, OUTREA CH CMP, OUTREACH LIPID #### [facility] [address] [place] [address] [place] MCH (RBC) [Entitic mass] 32.0 pg Normal 24.7-34.3 [facility] Comment on above: Performed By: #### CBCNOOUTREACH, OUTREA CH CMP, OUTREACH LIPID #### [facility] [address] [place] [address] MCV (RBC) [Entitic vol] 95.0 fL Normal 80-100 [facility] Comment on above: Performed By: #### CBCNOOUTREACH, OUTREA CH CMP, OUTREACH LIPID #### [facility] [address] Mean Corpuscular HGB Conc 33.7 g/dL Normal 32.0-35.0 [facility] Comment on above: Performed By: #### CBCNOOUTREACH, OUTREA CH CMP, OUTREACH LIPID #### [address] Platelet mean volume (Bld) [Entitic vol] 8.8 fL Normal 6.3-10.7 [facility] Comment on above: Result Comment: PERFORMED BY: [place] [address] PATHOLOGIST HAZARDOUS MATERIAL TECHNICIAN ADAM CROCKER M.D. Performed By: #### C BCNOOUTREACH, OUTREACH CMP, OUTREACH LIPID #### [address] Platelets (Bld) [#/Vol] 298 10*3/uL Normal 150-450 [facility] Comment on above: Performed By: #### CBCNOOUTREACH, OUTREA CH CMP, OUTREACH LIPID #### [place] [address] [place] RBC (Bld) [#/Vol] 4.46 10*6/uL Normal 3.60-5.00 [facility] Comment on above: Performed By: #### CBCNOOUTREACH, OUTREA CH CMP, OUTREACH LIPID #### [place] [address] [place] WBC (Bld) [#/Vol] 4.5 10*3/uL Normal 3.8-11.6 [facility] Comment on above: Performed By: #### MARIA D, OUTREA CH CMP, OUTREACH LIPID #### [facility] [address] [place] [address] [place] CMP Outreachon 05-12-2021 Albumin [Mass/Vol] 4.4 g/dL Normal 3.2-5.5 [facility] Comment on above: Performed By: #### CBCNOKEMARREACH, OUTREA CH CMP, OUTREACH LIPID #### [facility] [address] [place] [address] [place] ALP [Catalytic activity/Vol] 50 U/L Normal 32-92 [facility] Comment on above: Performed By: #### CBCNOKEMARREACH, OUTREA CH CMP, OUTREACH LIPID #### [facility] [address] [place] [address] [place] ALT [Catalytic activity/Vol] 26 U/L Normal 10-60 [facility] Comment on above: Performed By: #### CBCNOKEMARREACH, OUTREA CH CMP, OUTREACH LIPID #### [facility] [address] [place] [address] [place] AST [Catalytic activity/Vol] 27 U/L Normal 10-42 [facility] Comment on above: Performed By: #### CBCNOOUTREACH, OUTREA CH CMP, OUTREACH LIPID #### [facility] [address] [place] [address] [place] Bilirubin [Mass/Vol] 0.6 mg/dL Normal 0.3-1.2 [facility] Comment on above: Performed By: #### CBCNOOUTREACH, OUTREA CH CMP, OUTREACH LIPID #### [facility] [address] [place] [address] [place] Calcium [Mass/Vol] 9.1 mg/dL Normal 8.2-10.2 [facility] Comment on above: Performed By: #### CBCNOOUTREACH, OUTREA CH CMP, OUTREACH LIPID #### [facility] [address] [place] [address] [place] Chloride [Moles/Vol] 99 mmol/L Normal 95-114 [facility] Comment on above: Performed By: #### CBCNOOUTREACH, OUTREA CH CMP, OUTREACH LIPID #### [facility] [address] [id number] [place] CO2 [Moles/Vol] 25.1 mmol/L Normal 22.0-30.0 [facility] Comment on above: Performed By: #### CBCNOOUTREACH, OUTREA CH CMP, OUTREACH LIPID #### [facility] [address] [id number] [place] Creatinine [Mass/Vol] 0.63 mg/dL Normal 0.44-1.03 [facility] Comment on above: Performed By: #### CBCNOOUTREACH, OUTREA CH CMP, OUTREACH LIPID #### [facility] [address] [place] [address] [place] Estimated GFR ( Mary Ann > 60 Normal [facility] Comment on above: Result Comment: GFR estimated reference range: According to KDOQI guidelines, <60 ml/min/1.73m2 is sufficient to diagnose a patient with chronic kidney disease. Performed By: #### C BCNOOUTREACH, OUTREACH CMP, OUTREACH LIPID #### [facility] [address] [place] [address] [place] Estimated GFR (Non- Am > 60 Normal [facility] Comment on above: Performed By: #### CBCNOOUTREACH, OUTREA CH CMP, OUTREACH LIPID #### [facility] [address] [place] [address] [place] Glucose [Mass/Vol] 89 mg/dL Normal 70-100 [facility] Comment on above: Result Comment: Random Glucose Reference Range is dependent on time and content of last meal. Glucose of more than 200 mg/dL in a nonstressed, ambulatory subject supports the diagnosis of Diabetes Mellitus. ADA recommended reference range Performed By: #### C BCNOOUTREACH, OUTREACH CMP, OUTREACH LIPID #### [facility] [address] [place] [address] [place] Potassium [Moles/Vol] 3.9 mmol/L Normal 3.5-5.1 [facility] Comment on above: Performed By: #### CBCNOOUTREACH, OUTREA CH CMP, OUTREACH LIPID #### [facility] [address] [place] [address] [place] Protein [Mass/Vol] 6.9 g/dL Normal 6.1-7.9 [facility] Comment on above: Performed By: #### ANISHAREACH, OUTREA CH CMP, OUTREACH LIPID #### [facility] [address] Sodium [Moles/Vol] 135 mmol/L Low 136-146 [facility] Comment on above: Performed By: #### CBCNOKEMARREACH, OUTREA CH CMP, OUTREACH LIPID #### [facility] [address] Urea nitrogen [Mass/Vol] 7 mg/dL Low 9-23 [facility] Comment on above: Performed By: #### CBCNOKEMARREACH, OUTREA CH CMP, OUTREACH LIPID #### [facility] [address] [place] [address] [place] Lipid Profile Outreachon Cholesterol [Mass/Vol] 229 mg/dL High 140-200 [facility] Comment on above: Result Comment: Chol less than 200 mg/dl low risk Chol 201-239 mg/dl borderline risk Chol 240 mg/dl and greater high risk Performed By: #### C BCNOOUTREACH, OUTREACH CMP, OUTREACH LIPID #### [facility] [address] Cholesterol in HDL [Mass/Vol] 97 mg/dL High 35-85 [facility] Comment on above: Result Comment: HDL CHOL ATP-III CLASSIF ICATION Cardiovascular Risk HDL > or equal to 60 mg/dL LOW HDL < 40 mg/dL HIGH Performed By: #### C BCNOOUTREACH, OUTREACH CMP, OUTREACH LIPID #### [facility] [address] Cholesterol.tota l/Cholesterol in HDL [Mass ratio] 2.4 {ratio} Normal <5.0 [facility] Comment on above: Result Comment: PERFORMED BY: [place] [address] PATHOLOGIST HAZARDOUS MATERIAL TECHNICIAN ADAM CROCKER M.D. Performed By: #### C BCNOOUTREACH, OUTREACH CMP, OUTREACH LIPID #### [facility] [address] LDL Cholesterol,Calc ulated 120 mg/dL High 0-100 [facility] Comment on above: Result Comment: LDL ATP III CLASSIFICATI ON LDL less than 100 mg/dL Optimal LDL 100-129 mg/dL Near or above optimal LDL 130-159 mg/dL Borderline high LDL 160-189 mg/dL High LDL greater than 189 mg/dL Very high Performed By: #### C JACQUELINE, OUTREACH CMP, OUTREACH LIPID #### [facility] [address] Triglyceride w/Reflex 62 mg/dL Normal 35-149 [facility] Comment on above: Result Comment: TRIG ATP III CLASSIFICAT ION TRIG less than 150 mg/dL Normal TRIG 150-199 mg/dL Borderline high TRIG 200-500 mg/dL High TRIG greater than 500 mg/dL Very high Standard traceable to the Center for Disease Conrtrol and Prevention (CDC) test method. Performed By: #### C JACQUELINE, [facility] CMP, OUTREACH LIPID #### [facility] [address] VLDL CHOLESTEROL 12 mg/dL Normal [facility] Comment on above: Performed By: #### LINDA KILLIAN CMP, OUTREACH LIPID #### [address] [place] [id number] [facility] CNPTOUTREACHon 01-23-2021 CNPTOUTREACH Patient Outreach ([place] [facility]) DYLAN TAFOYA ([id number]) 1945 F Date Time Provider Department 01/23/21 MARIKA GILES During your visit today, we recorded the following information about you: Allergies As of Date: 01/23/2021 (No Known Allergies) Date Reviewed: 03/09/2019 Reviewed by: Fantasma Nieves (Pa) - Fully Assessed Order(s):SARS-COVID VACCINE 1ST DOSE APPT [[id number]] Order #: [id number] FUTURE Prescriptions as of 01/23/2021 Sig: PANTOPRAZOLE [...] [Z96.649] 01/01/2018 Letter Text Encounter Status:Closed by [employer], PRODUSER on 01/26/21 Normal [facility] XR HIP 3V PELV+ AP/LAT LTon [...] on Mar 09 2019 6:15PM EST [id number] [facility] XR HIP 3V PELV+ AP/LAT [...] on Jul 24 2018 11:17AM EST [id number] [facility] HISTORY PHYSICALon HISTORY PHYSICAL HNO ID: [id number] thor: Tomasz Viveros) HarderService: (none)Author Type: Physician AssistantType: HANDPFiled: 12/16/2017 11:16 AMNote Text:HISTORY AND PHYSICAL EXAMINATIONSERVICE DATE: 12/15/2017SERVICE TIME: 10:[facility]: ISRAEL KesslerEASON FOR VISIT:Dylan Tafoya [...] chest pain at rest/with exertion; denies h/o DC cardiacsurgery or stents. Denies h/o DVT/PEGI: Positive [...] compliance.SIGNATURE: Tomasz Cote PA-C PATIENT NAME: Dylan SchraderTE: December 15, 2017 : 10:41 AM PAGER/CONTACT #: [facility] 12-15-2017 [facility] DYLAN TAFOYA ([id number]) 1945 FDate Time Provider Department12/15/17 11:00 AM PACC AV 1 AVPANE During your visit today, we recorded the following information about you: Temperature Pulse Respiration Blood pressure 96.8 degrees 68/minute 16/minute 125/60 Weight Height 52.2 kg 1.549 Everardo Cote PA-C 12/16/2017 11:16 AM AddendumHISTORY AND PHYSICAL EXAMINATIONSERVICE DATE: 12/15/2017SERVICE TIME: 10:41 [facility]PR[facility]AN[facility]IAN: ANAHI Kessler FOR VISIT:Dylan Tafoya is a 72 year old female who is scheduled for arthroplastyacetabular and proximal femoral prosth total hip without autograft at [facility] Dr. Yuliya Buckner for [...] chest pain at rest/with exertion; denies h/o DC cardiac surgery orstents. Denies h/o DVT/PEGI: Positive [...] mastectomy, chemo and radiation ( and recurrence [id number])Osteoarthritis left hipMETS:Limited physical activity due to left [...] comprehensionand compliance.SIGNATURE: Tomasz Cote PA-C PATIENT NAME: Dlyan TafoyaDATE: December 15, 2017 : 10:41 AM PAGER/CONTACT #:Tomasz Cote PA-C 12/15/2017 10:50 AM SignedPATIENT PREOPERATIVE INSTRUCTIONSYuliya Buckner, * has scheduled you for your procedure at this surgerycenter:[facility]: [phone] -- [address] [address].Please read below carefully for your personalized instructions.Blood [...] surgery.- NO jewelry, body piercings, makeup, nail finnish, hairpins or contacts are thanh worn the day of surgery.- CHG wipes provided with instructions.If you develop symptoms such as a fever, cold, or flu, or have other changes [facility] within TWO DAYS of scheduled surgery or the morning of surgery,please contact the surgery center above.Personal Belongings:- Leave ALL valuables and money at home or with family members.For Outpatient Procedures: - YOU MUST HAVE A RESPONSIBLE GAS LINE REPAIRER TAKE YOU HOME. A COTTON AGENT OR CABDRIVER CANNOT BE MADE A RESPONSIBLE GAS LINE REPAIRER.- We recommend that a responsible person stays with you overnight to take careof you.- You cannot stay in a hotel alone after outpatient surgery. You will not bepermitted to have your surgery, if you do not have someone to take care of you. Arrival Time for Surgery: -You will receive a call from [facility] the afternoon beforesurgery after 2:30 pm (or Friday for Friday surgery) for a scheduled arrivaltime.- If you have not heard by 4 pm, please contact [facility] [phone].Please be aware that emergency situations arise, which may delay or change yoursurgical time. If this happens, we will notify you as soon as possible andregret any inconvenience.ARIANNA Mondragon-CReferring Provider: YULIYA BUCKNER [[id number]]Allergies As of Date: 12/15/2017(No Known Allergies)Date Reviewed: 12/15/2017Reviewed by: Tomasz Viveros) Kera - Fully AssessedReason for Visit: Pre-Op Exam [87]Primary Visit Diagnosis:Preoperative clearance [Z01.818] Other Visit Diagnoses:Primary osteoarthritis of left hip [M16.12] Contact with and (suspected) exposure to other bacterial communicable diseases [Z20.818] Benign essential HTN [I10] Gastroesophageal reflux disease without esophagitis [K21.9]Order(s):STAPH AUREUS PCR [SQSAPCR] Order #: [id number] FUTURE ECG COMPLETE W INTERPRETATION [ECG01] Order #: [id number] as of 12/15/2017 Sig: AMLODIPINE 5 MG [...] for your procedure at this surgery center: [facility]: [phone] -- [address] [address]. Please read below carefully for your personalized [...] - NO jewelry, body piercings, makeup, nail finnish, hairpins or contacts are to be worn [...] Procedures: - YOU MUST HAVE A RESPONSIBLE GAS LINE REPAIRER TAKE YOU HOME. A COTTON AGENT OR OFFICE CLEANER CANNOT BE MADE A RESPONSIBLE GAS LINE REPAIRER. - We recommend that a responsible person stays with you overnight to take care of you. - You cannot stay in a hotel alone after outpatient surgery. You will not be permitted to have your surgery, if you do not have someone to take care of you. Arrival Time for Surgery: -You will receive a call from [facility] the afternoon before surgery after 2:30 pm (or Friday for Friday surgery) for a scheduled arrival time. - If you have not heard by 4 pm, please contact [facility] at [phone]. Please be aware that emergency situations arise, which may delay or change your surgical time. If this happens, we will notify you as soon as possible and regret any inconvenience. NURA MondragonCEncounter Number: [id number] Status:Closed by TOMASZ COTE PA-C on 12/15/17 [facility] Staph aureus PCRon 8 MRSA PCR Negative [facility] Comment on above: Performed By: #### SAPCR ####[facility]ish vargasUnited [facility] [place] [address] [place], [place] [phone] S aureus Spec Source Nasal [facility] Comment on above: Performed By: #### SAPCR ####[facility] [address] [place], [place] [phone] Staph aureus PCR Negative [facility] Comment on above: Performed By: #### SAPCR ####Vish Newell [employer] [address] [place], [place] [phone] Coding Summary.on 08-07-2017 Coding Summary. CODING DATE: 017 FINAL [facility] DSCH STATUS: Home (Routine DC) PAYOR: Medicare APC DESCRIPTION 5[address] [facility] Procedures ADMIT DX: REASON FOR VISIT DX: H26.40 Unspecified secondary cataract FINAL DX: PRINCIPAL: H26.40 Unspecified secondary cataract SECONDARY: PYMT PROC APC STAT DESCRIPTION DOCTOR NAME DATE 22867 5481 T Discission of secondary Tal Langley DO [...] Gandhi Date Saved: 08/07/2017 09:54 am Normal [facility] Vital Signs Date Time Vital Sign Value Performing Clinician Facility 08-17-2024 10:36-0400 Body height 157.48 cm [facility] 08-17-2024 10:36-0400 Body mass index (BMI) [Ratio] 21.9 kg/m2 [facility] 08-17-2024 10:36-0400 Body weight 54.43 kg [facility] 08-17-2024 10:36-0400 Diastolic blood pressure 74 mm[Hg] [facility] 08-17-2024 10:36-0400 Heart rate 71 /min [facility] 08-17-2024 10:36-0400 Respiratory rate 12 /min [facility] 08-17-2024 10:36-0400 Systolic blood pressure 130 mm[Hg] [facility] 02-24-2024 09:51-0400 Body height 157.48 cm [facility] 02-24-2024 09:51-0400 Body mass index (BMI) [Ratio] 22.6 kg/m2 [facility] 02-24-2024 09:51-0400 Body weight 56.01 kg [facility] 03-26-2024 09:51-0400 Diastolic blood pressure 76 mm[Hg] [facility] 02-24-2024 09:51-0400 Heart rate 90 /min [facility] 02-24-2024 09:51-0400 Respiratory rate 12 /min [facility] 02-24-2024 09:51-0400 Systolic blood pressure 125 mm[Hg] [facility] 01-30-2024 10:51-0500 Body height 157.48 cm [facility] 01-30-2024 10:51-0500 Body mass index (BMI) [Ratio] 22.6 kg/m2 [facility] 01-30-2024 10:51-0500 Body weight 56.3 kg [facility] 01-30-2024 10:51-0500 Diastolic blood pressure 75 mm[Hg] [facility] 01-30-2024 10:51-0500 Heart rate 83 /min [facility] 01-30-2024 10:51-0500 Respiratory rate 12 /min [facility] 01-30-2024 10:51-0500 Systolic blood pressure 135 mm[Hg] [facility] 08-01-2023 10:30-0400 Body height 157.48 cm Marlon Ball Other [facility] [employer] Other 08-01-2023 10:30-0400 Body mass index (BMI) [Ratio] 21.62 kg/m2 Marlon Ball Other [facility] [employer] Other 08-01-2023 10:30-0400 Body weight 53.62 kg Marlon Ball Other [facility] [employer] Other 08-01-2023 10:30-0400 Diastolic blood pressure 72 mm[Hg] Marlon Ball Other [facility] [employer] Other 08-01-2023 10:30-0400 Respiratory rate 12 /min Marlon Ball Other [facility] [employer] Other 08-01-2023 10:30-0400 Systolic blood pressure 118 mm[Hg] Marlon Miguel Angel Other [employer] Other 01-29-2023 10:30-0500 Body height 157.48 cm Marlon Ball Other [employer] Other 01-29-2023 10:30-0500 Body mass index (BMI) [Ratio] 21.87 kg/m2 Marlon Michelle Other [employer] Other 01-29-2023 10:30-0500 Body weight 54.25 kg Marlon Michelle Other [employer] Other 01-29-2023 10:30-0500 Diastolic blood pressure 70 mm[Hg] Marlon [employer] Other [employer] Other 01-29-2023 10:30-0500 Respiratory rate 12 /min Marlon Michelle Other [employer] Other 01-29-2023 10:30-0500 Systolic blood pressure 118 mm[Hg] [facility] [employer] Other [employer] Other Encounters Encounter Date Encounter Type Care Provider Facility Start: 08-17-2024 End: 08-17-2024 ambulatory [facility] Work Phone: Start: 08-17-2024 End: 08-17-2024 Patient encounter procedure [facility] [facility] Work Phone: Start: 07-21-2024 End: 07-21-2024 ambulatory TAL LANGLEY Not Available Start: 03-12-2024 End: 03-12-2024 ambulatory TAL LANGLEY Not Available Start: 02-24-2024 End: 02-24-2024 ambulatory [facility] Work Phone: Start: 02-24-2024 End: 02-24-2024 Patient encounter procedure [facility] Work Phone: Start: 02-18-2024 Non-patient / Non-visit [facility] Work Phone: Start: 02-16-2024 ambulatory [facility] Start: 02-16-2024 Non-patient / Non-visit [facility] Work Phone: Start: 02-15-2024 End: 02-17-2024 Emergency department patient visit [facility] Start: 02-15-2024 Non-patient / Non-visit [facility] Work Phone: Start: 02-02-2024 Non-patient / Non-visit [facility] Work Phone: Start: 01-30-2024 End: 01-30-2024 Patient encounter procedure [facility] Work Phone: Start: 12-12-2023 End: 12-12-2023 ambulatory TAL D KERRYER Not Available Start: 11-14-2023 End: 11-14-2023 ambulatory TAL D KERRYER Not Available Start: 11-07-2023 End: 11-07-2023 ambulatory TAL D ZAHLER Not Available Start: 08-07-2023 End: 08-07-2023 ambulatory Marlon Michelle Other [facility] Other Start: 08-07-2023 Telephone encounter Marlon Michelle FP [facility] Start: 08-01-2023 End: 08-01-2023 ambulatory Marlon Michelle Other [facility] Other Start: 08-01-2023 Office outpatient visit 25 minutes Marlon Michelle [facility] Start: 02-04-2023 End: 02-05-[address] NONE LISTED REQUEST Facility: Start: 01-29-2023 End: 01-29-2023 ambulatory Marlon Michelle Other [facility] Other Start: 01-29-2023 Patient encounter procedure Marlon Michelle [facility] Start: 05-07-2022 End: 05-08-2022 ambulatory MARLON MICHELLE Facility:[facility] Start: 03-15-2022 End: 03-16-2022 ambulatory MARLON MICHELLE Facility:[facility] Start: 03-09-2019 End: 03-09-2019 Patient encounter procedure FANTASMA ([place]) [facility] Start: 07-24-2018 End: 07-25-2018 Patient encounter procedure CHARLENE (PAC) [facility] Start: 12-15-2017 Ambulatory YULIYA [facility] Start: 08-05-2017 End: 08-05-2017 Ambulatory Tal Langley Facility:[facility] Plan of Treatment Date Care Activity Detail Author [facility] Immunizations Immunization Date Immunization Notes Care Provider Fa ana 10-08-2021 COVID-19 Vaccine Mod shailesh - Documentation Purposes Only Marlon Michelle Other [facility] 01-31-2021 COVID-19 Vaccine Mod shailesh - Documentation Purposes Only Marlon Michelle Other [facility] 01-03-2021 COVID-19 Vaccine Mod shailesh - Documentation Purposes Only Marlon Michelle Other [facility] 2017 diphtheria, tetanus toxoids and acellular pertussis vaccine, unspecified formulation Marlon Michelle Other [facility] Payers Date Payer Category Payer Medicare [id number] 1959 Medicare [id number] 1959 Private Health Insurance [facility] [id number] Self-pay [id number] 1945 Unknown [id number] 1945 Unknown [id number] [id number] 1945 Unknown [id number] 2.16.840.1.386736.3.579.2.1286 1945 Unknown [id number] 2.16.840.1.761163.3.579.2.1286 1945 Unknown [id number] 2.16.840.1.529602.3.579.2.1286 1945 Unknown [id number] 2.16.840.1.632858.3.579.2.1286 1945 Unknown [id number] 2.16.840.1.627366.3.579.2.1286 1945 Unknown [id number] 2.16.840.1.255511.3.579.2.1286 1945 Unknown [id number] 2.16.840.1.894513.3.579.2.1259 1945 Unknown [id number] 2.16.840.1.755968.3.579.2.1259 1945 Unknown [id number] 2.16.840.1.791613.3.579.2.1259 1945 Unknown [id number] 2.16.840.1.364865.3.579.2.1259 1945 Unknown [id number] 2.16.840.1.003864.3.579.2.1259 Self-pay Self Pay [id number] Unknown [id number] [id number] Unknown [place] [id number] Social History Date Type Detail Facility Sex Assigned At [facility] Other Start: 01-30-2024 [facility] Start: 1945 Sex Assigned At Female [facility] Evaluation note 08-01-2023 Note Date & Type [...] labs: r/o diabetes, anemia and thyroid disease [facility] Other Evaluation note 01-29-2023 Note Date & [...] breast cancer (ICD-10 - Z85.3) b/l mastectomy [facility] Other Evaluation note Note Date & Type Note Facility Evaluation note No Information [place] [employer] Other Evaluation note Note Date & Type Note Facility Evaluation note Diagnosis Onset Date Age-related osteoporosis wit hout current pathological fracture acute Cerebral atherosclerosis acu te Essential hypertension acute Gastroesophageal reflux dise ase with esophagitis without hemorrhage acute H/O TIA (transient ischemic attack) and stroke acute History of breast cancer acu te Hyperlipidemia type II acute Medicare annual wellness visit, subsequent noneactive Cerebral atherosclerosis acu te Cervical spondylosis with radiculopathy acute Essential hypertension acute H/O TIA (transient ischemic attack) and stroke acute History of breast cancer acu te Hyperlipidemia type II acute [facility] Work Phone: Evaluation note Note Date & Type Note Facility Evaluation note Diagnosis Onset Date Age-related osteoporosis wit hout current pathological fracture acute Cerebral atherosclerosis acu te Cervical spondylosis with radiculopathy acute Essential hypertension acute Gastroesophageal reflux dise ase with esophagitis without hemorrhage acute H/O TIA (transient ischemic attack) and stroke acute Hypercholesterolemia acute Insomnia acute [facility] Work Phone: History general Narrative - Reported Note Date [...] recurrent maxillary sinusi tis Surgical History colonoscopy 2003 Surgical History bilateral mastectomy 1986 Surgical History cataract OD 1998 Hospitalization History see surgical history [facility] Other Summary Purpose Family History No Family History Records FoundNo Family History Records FoundNo Family History Records FoundNo Family History Records FoundNo Family History Records FoundNo Family History Records FoundNo Family History Records FoundNo Family History Records Found Advance Directives Advance Directive Response Recorded Date/ Time Advance Directives No April 16 3:34pm Chief Complaint and Reason for Visit Chief Complaint [facility] Amb Documentation TB Follow Up Reason for Visit Age-related osteopor osis without current pathological fracture Cerebral atherosclerosis Essential hypertension Gastroesophageal reflux disease with esophagitis without hemorrhage H/O TIA (transient ischemic attack) and stroke History of breast cancer Hyperlipidemia type II Medicare annual wellness visit, subsequent Cerebral atherosclerosis Cervical spondylosis with radiculopathy Essential hypertension H/O TIA (transient ischemic attack) and stroke History of breast cancer Hyperlipidemia type II Chief Complaint 6 month follow up/LV M to reschedule 07/23 Reason for Visit Age-related osteopor osis without current pathological fracture Cerebral atherosclerosis Cervical spondylosis with radiculopathy Essential hypertension Gastroesophageal reflux disease with esophagitis without hemorrhage H/O TIA (transient ischemic attack) and stroke Hypercholesterolemia Insomnia Additional Source Comments INFORMATION SOURCE (unrecogn ized section and content) DATE CREATED AUTHOR 05/26/2018 [facility] DATE CREATED AUTHOR AUTHOR'S ORGANIZ ATION 05/27/2018 [facility] DATE CREATED AUTHOR AUTHOR'S ORGANIZ ATION 03/10/2019 [facility] DATE CREATED AUTHOR AUTHOR'S ORGANIZ ATION 01/27/2021 [facility] DATE CREATED AUTHOR AUTHOR'S ORGANIZ ATION 12/21/2021 [facility] DATE CREATED AUTHOR AUTHOR'S ORGANIZ ATION 02/05/2023 [facility] DATE CREATED AUTHOR AUTHOR'S ORGANKING ATION 02/22/2024 [facility] DATE CREATED AUTHOR AUTHOR'S ORGANKING ATION 07/23/2024 [facility] EPIC REASON FOR VISIT (unrecogniz ed section and content) Wellness6 month Follow upLab Results Care Teams (unrecognized sec tion and content) Team Status: Active Member Role Status Dates Marlon Michelle , DO Primary Care Provider Active Team Status: Inactive Member Role Status Dates Marlon Michelle , DO Primary Care Provide r, Attending Provider Active Start: January 30, 2024 End: January 30, 2024 Team Status: Active Member Role Status Dates Marlon Michelle , DO Primary Care Provide r, Attending Provider Active Start: February 02, 2024 Team Status: Active Member Role Status Dates Marlon Michelle , DO Primary Care Provide r, Attending Provider Active Start: February 15, 2024 Team Status: Active Member Role Status Dates Marlon Michelle , DO Primary Care Provide r, Attending Provider Active Start: February 16, 2024 Team Status: Active Member Role Status Dates Marlon Michelle , DO Primary Care Provider Active Start: February 18, 2024 BING Caro Attending Provider Active St art: February 18, 2024 Team Status: Inactive Member Role Status Dates Marlon Michelle , DO Primary Care Provide r, Attending Provider Active Start: February 24, 2024 End: February 24, 2024 Team Status: Inactive Member Role Status Dates Marlon Michelle , DO Primary Care Provide r, Attending Provider Active Start: August 17, 2024 End: August 17, 2024 Goals (unrecognized section and content) Goals may be documented in a n alternate section FOR RECORDS PERTAINING TO PATIENTS WHO ARE [...] BE BASED ON THE PRIMARY CLINICAL RECORDS. [facility]. provides no warranty or guarantee of the accuracy or completeness of information in this document.
[2024-09-22 13:28] LABS: Sodium Urine Random 38 mmol/L (30-90)
[2024-09-22 13:57] LABS: Anion Gap 12.1; BUN Creatinine Ratio 15.9; Calcium 8.6 mg/dL (8.5-10.1); Carbon Dioxide 27.7 mmol/L (21.0-32.0); Chloride 99 mmol/L (98-107); Estimated GFR (African America >60 (>=60 mL/min/1.73m^2); Estimated GFR (Non-African Ame >60 (>=60 mL/min/1.73m^2); Glucose 75 mg/dL (74-106); Potassium 3.8 mmol/L (3.5-5.1); Sodium 135 mmol/L (136-145)
[2024-09-28 05:08] LABS: Osmolality, Urine 219 mOsmol/kg (.)
== END 2024-09-22 12:53 | disposition home or self-care (01) ==
LOC: LAB 12:57
PROVIDERS: PCP Internal Medicine; Visit Provider Internal Medicine
DX: E87.1 Hypo-osmolality and hyponatremia (principal)
CPT/HCPCS: 36415; 80048; 83930; 83935; 84300

== ENCOUNTER 2024-10-19 09:16 | Outpatient (OUT) | payer MEDICARE, SELFPAY ==
--- OUTSIDE RECORDS SUMMARY | 2024-10-19 09:41 | XMS_ITS | CCD ---
Author Organization [facility] Care Team Providers Care Diabetes Specialist Name Role Phone YULIYA BUCKNER Unavailable Unavailabl e Tal Langley Unavailable Unavailable Tal Langley Unavailable Unavailable Tal Langley Unavailable Unavailable MARLON [phone] UNKNOWN Unavailable Unavailable CHARLENE WEBB (PAC) Admitting [...] (3 sources) Bisphosphonate (substance) Drug allergy Unknown [facility] Other (2 sources) Alendronate Drug Allergy Comment:Oral Bisphosphonates [facility] Other (2 sources) ORAL BISPHOSPHONATES Propensity to adverse reactions Unknown [facility] Other (3 sources) Alendronate Drug Allergy Comment:Oral Bisphosphonates [facility] (3 sources) Bisphosphonates Allergy to substance Unknown Reaction [facility] Medications Current Medications Medication Drug Class(es) Dates Sig (Normalized) Sig (Original) amLODIPine 2.5 mg oral tablet (8 sources) Dihydropyridine Calcium Channel Tessa Start: 01-29-2024 End: 04-28-2024 take 1 tablet by mouth once daily Amlodipine 2.5 mg tablet Active 2.5 MG PO Daily April 28, 2024 11:35am take 1 tablet by mouth once lizette y amLODIPine Besylate 2.5 MG TAKE 1 TABLET BY MOUTH EVERY DAY Active aspirin 81 mg delayed release oral tablet (6 sources) Platelet Aggregation Inhibitor, Nonsteroidal Anti-inflammatory Drug Start: 01-29-2024 take 1 tablet by mouth once daily Aspirin 81 mg tablet,delayed release (DR/EC) Active 81 MG PO Daily January 29, 2024 12:00am take 1 tablet by tabatha th every twenty-four hours Aspirin 81 81 MG 1 tablet Orally Once a day Active atorvastatin 10 mg oral tablet (8 sources) HMG-CoA Reductase Inhibitor Start: 08-12-2024 Atorvastatin 10 mg tablet Active 0 .ROUTE .COMPLEX August 12, 2024 6:22am TAKE 1 TABLET EVERY EVENING 90 Start: 01-29-2024 End: 08-12-2024 take 1 tablet by mouth once daily Atorvastatin 10 mg tablet Discontinued 10 MG PO Daily January 29, 2024 12:00am August 12, 2024 6:22am take 1 tablet by tabatha th every twenty-four hours Atorvastatin Calcium 10 MG 1 tablet Orally Once a day Active clopidogrel 75 mg oral tablet (8 sources) [id number] Platelet Inhibitor Start: 01-29-2024 End: 04-28-2024 take 1 tablet by mouth once daily Clopidogrel 75 mg tablet Active 75 MG PO Daily April 28, 2024 11:35am take 1 tablet by mouth once lizette y Clopidogrel Bisulfate 75 MG TAKE 1 TABLET BY MOUTH EVERY DAY Active doxepin 6 mg oral tablet (2 sources) Tricyclic Antidepressant Start: 08-17-2024 take 1 tablet by mouth once daily at bedtime as needed for sleep Doxepin 6 mg tablet Active 6 MG PO Daily at bedtime as needed for sleep August 16, 2024 11:00pm pantoprazole 40 mg delayed release oral tablet (6 sources) Proton Pump Inhibitor Start: 01-29-2024 take 1 tablet by mouth once daily Pantoprazole 40 mg tablet,delayed release (DR/EC) Active 40 MG PO Daily January 29, 2024 12:00am take 1 tablet by tabatha th every twenty-four hours Pantoprazole Sodium 40 MG 1 tablet Orall y Once a day Active predniSONE 20 mg oral tablet (1 source) Start: 10-19-2024 Prednisone 20 mg tablet Active 0 PO Daily 15 October 19, 2024 12:00am 2 tabs w/ food daily x 5 days then 1 tab w/ food x 5 days Problems Active Problems Problem Classification Problem Date Documented Date Episodic/Chronic Allergic reactions (3 sources) Allergic contact dermatitis due to plants, except food; Translations: [Allergic contact dermatitis due to plants, except food] Episodic Anxiety disorders (6 sources) Anxiety; Translations: [Other specified anxiety disorders] 01-29-2024 Chronic Cancer of breast (10 sources) Personal history of primary malignant neoplasm of breast; Translations: [Personal history of malignant neoplasm of breast] Episodic Disorders of lipid metabolism (20 sources) Pure hypercholesterolemia, unspecified; Translations: [Pure hypercholesterolemia] Onset: 05-07-2022 Chronic Esophageal disorders (6 sources) Gastro-esophageal reflux disease with esophagitis; Translations: [Gastroesophageal reflux disease with esophagitis without hemorrhage] 01-29-2024 Chronic Essential hypertension (14 sources) Essential hypertension; Translations: [Essential (primary) hypertension] Chronic Fluid and electrolyte disorders (1 source) Hyponatremia; Translations: [Hypo-osmolality and hyponatremia] 08-19-2024 Episodic Headache; including migraine (2 sources) Temporal headache; Translations: [Right sided temporal headache] 10-19-2024 Episodic Malaise and fatigue (1 source) Other fatigue Episodic Nonspecific chest pain (3 sources) Atypical chest pain; Translations: [Other chest pain] Episodic Osteoporosis (9 sources) Primary osteoporosis; Translations: [Age-related osteoporosis without current pathological fracture] 01-29-2024 Chronic Other and ill-defined cerebrovascular disease (6 sources) Cerebral atherosclerosis; Translations: [Cerebral atherosclerosis] 01-29-2024 Chronic Other and ill-defined cerebrovascular disease (7 sources) Cerebral atherosclerosis; Translations: [Cerebral atherosclerosis] Chronic Other circulatory disease (3 sources) History of cerebrovascular accident without residual deficits; Translations: [Personal history of transient ischemic attack (TIA), and cerebral infarction without residual deficits] Episodic Other circulatory disease (7 sources) Personal history of transient ischemic attack (TIA), and cerebral infarction without residual deficits; Translations: [Personal history of transient ischemic attack (TIA), and cerebral infarction without residual deficits] Episodic Other circulatory disease (3 sources) History of cerebrovascular disease; Translations: [Personal [...] unspecified] Onset: 02-16-2024 Episodic Residual codes; unclassified (2 sources) Insomnia; Translations: [Insomnia, unspecified] 08-17-2024 Episodic Residual codes; unclassified (2 sources) Insomnia, unspecified; Translations: [Insomnia, unspecified] 08-17-2024 Episodic Skin and subcutaneous tissue infections (3 sources) Cellulitis of right forearm; Translations: [Cellulitis of right upper limb] Episodic Spondylosis; intervertebral disc disorders; other back problems (6 sources) Cervical spondylosis; Translations: [Other spondylosis with [...] glomerular filtrat ion rate (GFR) non- Americanon 09-22-2024 GFR/1.73 sq M.predicted among non-blacks MDRD (S/P/Bld) [Vol rate/Area] Estimated glomerular filtration rate (GFR) non- >=60 mL/min/1.7 3m 2 [facility] Laboratory - Chemistry and C hemistry - challengeon 09-22-2024 Calcium [Mass/Vol] 8.6 mg/dL 8.5-10.1 [facility] Chloride [Moles/Vol] 99 mmol/L 98-107 [facility] CO2 [Moles/Vol] 27.7 mmol/L 21.0-32.0 [facility] Creatinine [Mass/Vol] 0.69 mg/dL 0.55-1.02 [facility] GFR/1.73 sq M.predicted MDRD (S/P/Bld) [Vol rate/Area] mL/min/{1.73_m2} >=60 mL/min/1.7 3m 2 [facility] Glucose [Mass/Vol] 75 mg/dL 74-106 [facility] Osmolality [Osmolality] 265 mosm/kg Abnormal 280-301 [facility] Comment on above: Performed at: [facility] [address] [id number] Director: Nicole Fowler MD, Phone: [phone] Potassium [Moles/Vol] 3.8 mmol/L 3.5-5.1 [facility] Sodium [Moles/Vol] 135 mmol/L Low 136-145 [facility] Urea nitrogen [Mass/Vol] 11.0 mg/dL 7.0-18.0 [facility] Urea nitrogen/Creatin ine [Mass ratio] 15.9 mg/mg [facility] Sodium (U) [Moles/Vol] 38 mmol/L 30-90 [facility] No Panel Informationon 09-22 Urine Osmolality 219 mOsmol/kg . [facility] Comment on above: 24 hr : 300 - 900 Random: 50 - 1400 Afte r 12hr fluid restriction: >850Performed at: [facility] [address] [id number] Director: Nicole Fowler MD, Phone: [phone] Serum or plasma anion gap de terminationon 09-22-2024 Anion gap [Moles/Vol] Serum or plasma anion gap determination [facility] Basophils Auto (Bld) [#/Vol] on 08-18-2024 Basophils (Bld) [#/Vol] Automated basophil count 0.0-0.1 [facility] Basophils/100 WBC Auto (Bld) on 08-18-2024 Basophils/100 WBC (Bld) Automated basophil % 0.2-2.0 [facility] Eosinophils/100 WBC Auto (Bl d)on 08-18-2024 Eosinophils/100 WBC (Bld) Automated eosinophil % 0.9-7.0 [facility] Erythrocyte distribution wid th Auto (RBC) [Ratio]on 08-18-2024 Erythrocyte distribution width (RBC) [Ratio] Erythrocyte distribution width [Ratio] by Automated count 11.0-15.0 [facility] Estimated glomerular filtrat ion rate (GFR) non- Americanon 08-18-2024 GFR/1.73 sq M.predicted among non-blacks MDRD (S/P/Bld) [Vol rate/Area] Estimated glomerular filtration rate (GFR) non- >=60 [facility] Hematocrit Auto (Bld) [Volum e fraction]on 08-18-2024 Hematocrit (Bld) [Volume fraction] Hematocrit [Volume Fraction] of Blood by Automated count 36.0-48.0 [facility] Hemoglobin [Mass/volume] in Bloodon 08-18-2024 Hemoglobin (Bld) [Mass/Vol] Hemoglobin [Mass/volume] in Blood 12.0-16.0 [facility] Laboratory - Chemistry and C hemistry - challengeon 08-18-2024 Calcium [Mass/Vol] 8.8 mg/dL 8.5-10.1 [facility] Chloride [Moles/Vol] 96 mmol/L Low 98-107 [facility] CO2 [Moles/Vol] 31.9 mmol/L 21.0-32.0 [facility] Cobalamin (Vitamin B12) [Mass/Vol] 353 pg/mL 232-1245 [facility] Comment on above: Performed at: [facility] [id number] [place], [place] [id number] Director: Hunter Hoover PhD, Phone: [phone] Creatinine [Mass/Vol] 0.62 mg/dL 0.55-1.02 [facility] Ferritin [Mass/Vol] 79.0 ng/mL 8.0-252.0 [facility] GFR/1.73 sq M.predicted MDRD (S/P/Bld) [Vol rate/Area] mL/min/{1.73_m2} >=60 [facility] Glucose [Mass/Vol] 99 mg/dL 74-106 [facility] Potassium [Moles/Vol] 3.9 mmol/L 3.5-5.1 [facility] Sodium [Moles/Vol] 130 mmol/L Low 136-145 [facility] TSH Qn 1.387 m[IU]/L 0.358-3.74 0 [facility] Urea nitrogen [Mass/Vol] 11.0 mg/dL 7.0-18.0 [facility] Urea nitrogen/Creatin ine [Mass ratio] 17.7 mg/mg [facility] Laboratory - Hematology and Cell countson 08-18-2024 Immature granulocytes/100 WBC (Bld) 0.3 % 0.0-0.5 [facility] Leukocytes [#/volume] correc jatin for nucleated erythrocytes in Blood by Automated counon 08-18-2024 WBC corrected for nucl RBC Auto (Bld) [#/Vol] Leukocytes [#/volume] corrected for nucleated erythrocytes in Blood by Automated coun 4.0-11.0 [facility] Lymphocytes Auto (Bld) [#/Vo l]on 08-18-2024 Lymphocytes (Bld) [#/Vol] Lymphocytes [#/volume] in Blood by Automated count Low 1.2-3.8 [facility] Lymphocytes/100 WBC Auto (Bl d)on 08-18-2024 Lymphocytes/100 WBC (Bld) Lymphocytes/100 leukocytes in Blood by Automated count Low 20.5-60.0 [facility] MCH Auto (RBC) [Entitic mass ]on 08-18-2024 MCH (RBC) [Entitic mass] MCH [Entitic mass] by Automated count 26.7-34.0 [facility] MCHC Auto (RBC) [Mass/Vol]on 08-18-2024 MCHC (RBC) [Mass/Vol] MCHC [Mass/volume] by Automated count 29.9-35.2 [facility] MCV Auto (RBC) [Entitic vol] on 08-18-2024 MCV (RBC) [Entitic vol] MCV [Entitic volume] by Automated count 81.0-99.0 [facility] Monocytes Auto (Bld) [#/Vol] on 08-18-2024 Monocytes (Bld) [#/Vol] Automated blood monocyte count 0.3-0.8 [facility] Monocytes/100 WBC Auto (Bld) on 08-18-2024 Monocytes/100 WBC (Bld) Automated monocyte % 1.7-12.0 [facility] Neutrophils Auto (Bld) [#/Vo l]on 08-18-2024 Neutrophils (Bld) [#/Vol] Neutrophils [#/volume] in Blood by Automated count 1.4-6.5 [facility] Neutrophils/100 WBC Auto (Bl d)on 08-18-2024 Neutrophils/100 WBC (Bld) Automated neutrophil % 43.0-75.0 [facility] No Panel Informationon 08-18 Eosinophils # (Auto) 0.2 10 3/uL 0.0-0.7 [facility] Immature Granulocyte # (Auto) 0.02 10 3/uL 0.00-0.03 [facility] Platelet mean volume Auto (B ld) [Entitic vol]on 08-18-2024 Platelet mean volume (Bld) [Entitic vol] Platelet mean volume [Entitic volume] in Blood by Automated count 9.5-13.5 [facility] Platelets Auto (Bld) [#/Vol] on 08-18-2024 Platelets (Bld) [#/Vol] Platelets [#/volume] in Blood by Automated count 150-450 [facility] RBC Auto (Bld) [#/Vol]on RBC (Bld) [#/Vol] Erythrocytes [#/volume] in Blood by Automated count 4.20-5.40 [facility] Serum or plasma anion gap de terminationon 08-18-2024 Anion gap [Moles/Vol] Serum or plasma anion gap determination [facility] Estimated glomerular filtrat ion rate (GFR) non- Americanon 02-16-2024 GFR/1.73 sq M.predicted among non-blacks MDRD (S/P/Bld) [Vol rate/Area] mL/min/{1.73_m2} >=60 [facility] Globulin Calc (S) [Mass/Vol] on 02-16-2024 Globulin (S) [Mass/Vol] 3.0 g/dL [facility] Glucose mean value [Mass/vol ume] in Blood Estimated from glycated hemoglobinon 02-16-2024 Average glucose Estimated from glycated hemoglobin (Bld) [Mass/Vol] 105 mg/dL [facility] Laboratory - Chemistry and C hemistry - challengeon 02-16-2024 Albumin [Mass/Vol] 3.4 g/dL 3.4-5.0 [facility] ALP [Catalytic activity/Vol] 57 U/L 46-116 [facility] ALT [Catalytic activity/Vol] 19 U/L 14-59 [facility] AST [Catalytic activity/Vol] 16 U/L 15-37 [facility] Bilirubin [Mass/Vol] 0.4 mg/dL 0.2-1.0 [facility] Calcium [Mass/Vol] 8.7 mg/dL 8.5-10.1 [facility] Chloride [Moles/Vol] 101 mmol/L 98-107 [facility] CO2 [Moles/Vol] 27.8 mmol/L 21.0-32.0 [facility] Creatinine [Mass/Vol] 0.59 mg/dL 0.55-1.02 [facility] GFR/1.73 sq M.predicted MDRD (S/P/Bld) [Vol rate/Area] mL/min/{1.73_m2} >=60 [facility] Glucose [Mass/Vol] 88 mg/dL 74-106 [facility] Potassium [Moles/Vol] 3.8 mmol/L 3.5-5.1 [facility] Protein [Mass/Vol] 6.4 g/dL 6.4-8.2 [facility] Sodium [Moles/Vol] 136 mmol/L 136-145 [facility] Urea nitrogen [Mass/Vol] 11.0 mg/dL 7.0-18.0 [facility] Urea nitrogen/Creatin ine [Mass ratio] 18.6 mg/mg [facility] Laboratory - Hematology and Cell countson 02-16-2024 HbA1c (Bld) [Mass fraction] 5.3 % 4.5-6.2 [facility] Comment on above: ADA RECOMMENDED LIMIT 4.0 - 6.0ADA THERA PEUTIC TARGET < 7.0ACTION SUGGESTED> 7.0 Serum or plasma albumin/glob ulin mass ratioon 02-16-2024 Albumin/Globulin [Mass ratio] 1.1 {ratio} [facility] Serum or plasma anion gap de terminationon 02-16-2024 Anion gap [Moles/Vol] 11.0 mmol/L [facility] Activated partial thrombopla stin time (aPTT) in platelet poor plasma by coagulation aon 02-15-2024 aPTT Coag (PPP) [Time] 28.4 s 22.3-36.2 [facility] Basophils Auto (Bld) [#/Vol] on 02-15-2024 Basophils (Bld) [#/Vol] 0.1 10 3/uL 0.0-0.1 [facility] Basophils/100 WBC Auto (Bld) on 02-15-2024 Basophils/100 WBC (Bld) 1.1 % 0.2-2.0 [facility] Eosinophils/100 WBC Auto (Bl d)on 02-15-2024 Eosinophils/100 WBC (Bld) 3.2 % 0.9-7.0 [facility] Erythrocyte distribution wid th Auto (RBC) [Ratio]on 02-15-2024 Erythrocyte distribution width (RBC) [Ratio] 12.9 % 11.0-15.0 [facility] Estimated glomerular filtrat ion rate (GFR) non- Americanon 02-15-2024 GFR/1.73 sq M.predicted among non-blacks MDRD (S/P/Bld) [Vol rate/Area] mL/min/{1.73_m2} >=60 [facility] Hematocrit Auto (Bld) [Volum e fraction]on 02-15-2024 Hematocrit (Bld) [Volume fraction] 41.1 % 36.0-48.0 [facility] Hemoglobin [Mass/volume] in Bloodon 02-15-2024 Hemoglobin (Bld) [Mass/Vol] 13.3 g/dL 12.0-16.0 [facility] INR in Platelet poor plasma by Coagulation assayon 02-15-2024 INR Coag (PPP) [Relative time] {INR} [facility] Comment on above: DESIRED INR:2.0-3.0 CONDITIONS NOT LISTE D BELOW2.5-3.5 FOR PROSTHETIC HEART VALVE REPLACEMENT2.5-3.5 RECURRENT THROMBOSIS Laboratory - Chemistry and C hemistry - challengeon 02-15-2024 Calcium [Mass/Vol] 8.6 mg/dL 8.5-10.1 [facility] Chloride [Moles/Vol] 96 mmol/L 98-107 [facility] CO2 [Moles/Vol] 28.0 mmol/L 21.0-32.0 [facility] Creatinine [Mass/Vol] 0.64 mg/dL 0.55-1.02 [facility] GFR/1.73 sq M.predicted MDRD (S/P/Bld) [Vol rate/Area] mL/min/{1.73_m2} >=60 [facility] Glucose [Mass/Vol] 99 mg/dL 74-106 [facility] Potassium [Moles/Vol] 3.9 mmol/L 3.5-5.1 [facility] Sodium [Moles/Vol] 135 mmol/L 136-145 [facility] Urea nitrogen [Mass/Vol] 9.0 mg/dL 7.0-18.0 [facility] Urea nitrogen/Creatin ine [Mass ratio] 14.1 mg/mg [facility] Laboratory - Hematology and Cell countson 02-15-2024 Immature granulocytes/100 WBC (Bld) 0.4 % 0.0-0.5 [facility] Leukocytes [#/volume] correc jatin for nucleated erythrocytes in Blood by Automated counon 02-15-2024 WBC corrected for nucl RBC Auto (Bld) [#/Vol] 5.3 10 3/uL 4.0-11.0 [facility] Lymphocytes Auto (Bld) [#/Vo l]on 02-15-2024 Lymphocytes (Bld) [#/Vol] 0.8 10 3/uL 1.2-3.8 [facility] Lymphocytes/100 WBC Auto (Bl d)on 02-15-2024 Lymphocytes/100 WBC (Bld) 14.2 % 20.5-60.0 [facility] MCH Auto (RBC) [Entitic mass ]on 02-15-2024 MCH (RBC) [Entitic mass] 31.4 pg 26.7-34.0 [facility] MCHC Auto (RBC) [Mass/Vol]on 02-15-2024 MCHC (RBC) [Mass/Vol] 32.4 g/dL 29.9-35.2 [facility] MCV Auto (RBC) [Entitic vol] on 02-15-2024 MCV (RBC) [Entitic vol] 96.9 fL 81.0-99.0 [facility] Monocytes Auto (Bld) [#/Vol] on 02-15-2024 Monocytes (Bld) [#/Vol] 0.5 10 3/uL 0.3-0.8 [facility] Monocytes/100 WBC Auto (Bld) on 02-15-2024 Monocytes/100 WBC (Bld) 9.5 % 1.7-12.0 [facility] Neutrophils Auto (Bld) [#/Vo l]on 02-15-2024 Neutrophils (Bld) [#/Vol] 3.8 10 3/uL 1.4-6.5 [facility] Neutrophils/100 WBC Auto (Bl d)on 02-15-2024 Neutrophils/100 WBC (Bld) 71.6 % 43.0-75.0 [facility] No Panel Informationon 02-14 Eosinophils # (Auto) 0.2 10 3/uL 0.0-0.7 [facility] Immature Granulocyte # (Auto) 0.02 10 3/uL 0.00-0.03 [facility] Platelet mean volume Auto (B ld) [Entitic vol]on 02-15-2024 Platelet mean volume (Bld) [Entitic vol] 10.0 fL 9.5-13.5 [facility] Platelets Auto (Bld) [#/Vol] on 02-15-2024 Platelets (Bld) [#/Vol] 334 10 3/uL 150-450 [facility] Prothrombin time (PT)on 01-29 PT Coag (PPP) [Time] 9.8 s 9.0-11.6 [facility] RBC Auto (Bld) [#/Vol]on RBC (Bld) [#/Vol] 4.24 10 6/uL 4.20-5.40 [facility] Serum or plasma anion gap de terminationon 02-15-2024 Anion gap [Moles/Vol] 14.9 mmol/L [facility] Basophils Auto (Bld) [#/Vol] on 02-02-2024 Basophils (Bld) [#/Vol] 0.0 10 3/uL 0.0-0.1 [facility] Basophils/100 WBC Auto (Bld) on 02-02-2024 Basophils/100 WBC (Bld) 0.8 % 0.2-2.0 [facility] Cholesterol in LDL Calc [Mas s/Vol]on 02-02-2024 Cholesterol in LDL [Mass/Vol] 57.0 mg/dL [facility] Comment on above: <100 mg/dl [id number] mg/dl NEAR OR ABOVE [id number] mg/dl BORDERLINE [id number] mg/dl HIGH>190 mg/dl VERY HIGH Cholesterol in VLDL Calc [Ma ss/Vol]on 02-02-2024 Cholesterol in VLDL [Mass/Vol] 7.4 mg/dL [facility] Eosinophils/100 WBC Auto (Bl d)on 02-02-2024 Eosinophils/100 WBC (Bld) 4.8 % 0.9-7.0 [facility] Erythrocyte distribution wid th Auto (RBC) [Ratio]on 02-02-2024 Erythrocyte distribution width (RBC) [Ratio] 12.9 % 11.0-15.0 [facility] Estimated glomerular filtrat ion rate (GFR) non- Americanon 02-02-2024 GFR/1.73 sq M.predicted among non-blacks MDRD (S/P/Bld) [Vol rate/Area] mL/min/{1.73_m2} >=60 [facility] Globulin Calc (S) [Mass/Vol] on 02-02-2024 Globulin (S) [Mass/Vol] 3.5 g/dL [facility] Hematocrit Auto (Bld) [Volum e fraction]on 02-02-2024 Hematocrit (Bld) [Volume fraction] 40.4 % 36.0-48.0 [facility] Hemoglobin [Mass/volume] in Bloodon 02-02-2024 Hemoglobin (Bld) [Mass/Vol] 13.0 g/dL 12.0-16.0 [facility] Laboratory - Chemistry and C hemistry - challengeon 02-02-2024 Albumin [Mass/Vol] 3.8 g/dL 3.4-5.0 [facility] ALP [Catalytic activity/Vol] 63 U/L 46-116 [facility] ALT [Catalytic activity/Vol] 26 U/L 14-59 [facility] AST [Catalytic activity/Vol] 18 U/L 15-37 [facility] Bilirubin [Mass/Vol] 0.5 mg/dL 0.2-1.0 [facility] Calcium [Mass/Vol] 8.8 mg/dL 8.5-10.1 [facility] Chloride [Moles/Vol] 98 mmol/L 98-107 [facility] Cholesterol [Mass/Vol] 182 mg/dL <=200 [facility] Cholesterol in HDL [Mass/Vol] 118 mg/dL 40-60 [facility] Comment on above: > or =60 mg/dl - LOW CARDIOVASCULAR RISK <40 mg/dl - HIGH CARDIOVASCULAR RISK CO2 [Moles/Vol] 30.0 mmol/L 21.0-32.0 [facility] Creatinine [Mass/Vol] 0.72 mg/dL 0.55-1.02 [facility] GFR/1.73 sq M.predicted MDRD (S/P/Bld) [Vol rate/Area] mL/min/{1.73_m2} >=60 [facility] Glucose [Mass/Vol] 95 mg/dL 74-106 [facility] Potassium [Moles/Vol] 4.2 mmol/L 3.5-5.1 [facility] Protein [Mass/Vol] 7.3 g/dL 6.4-8.2 [facility] Sodium [Moles/Vol] 136 mmol/L 136-145 [facility] Triglyceride [Mass/Vol] 37 mg/dL <=150 [facility] Urea nitrogen [Mass/Vol] 11.0 mg/dL 7.0-18.0 [facility] Urea nitrogen/Creatin ine [Mass ratio] 15.3 mg/mg [facility] Laboratory - Hematology and Cell countson 02-02-2024 Immature granulocytes/100 WBC (Bld) 0.4 % 0.0-0.5 [facility] Leukocytes [#/volume] correc jatin for nucleated erythrocytes in Blood by Automated counon 02-02-2024 WBC corrected for nucl RBC Auto (Bld) [#/Vol] 5.2 10 3/uL 4.0-11.0 [facility] Lymphocytes Auto (Bld) [#/Vo l]on 02-02-2024 Lymphocytes (Bld) [#/Vol] 0.8 10 3/uL 1.2-3.8 [facility] Lymphocytes/100 WBC Auto (Bl d)on 02-02-2024 Lymphocytes/100 WBC (Bld) 14.8 % 20.5-60.0 [facility] MCH Auto (RBC) [Entitic mass ]on 02-02-2024 MCH (RBC) [Entitic mass] 30.7 pg 26.7-34.0 [facility] MCHC Auto (RBC) [Mass/Vol]on 02-02-2024 MCHC (RBC) [Mass/Vol] 32.2 g/dL 29.9-35.2 [facility] MCV Auto (RBC) [Entitic vol] on 02-02-2024 MCV (RBC) [Entitic vol] 95.5 fL 81.0-99.0 [facility] Monocytes Auto (Bld) [#/Vol] on 02-02-2024 Monocytes (Bld) [#/Vol] 0.6 10 3/uL 0.3-0.8 [facility] Monocytes/100 WBC Auto (Bld) on 02-02-2024 Monocytes/100 WBC (Bld) 11.9 % 1.7-12.0 [facility] Neutrophils Auto (Bld) [#/Vo l]on 02-02-2024 Neutrophils (Bld) [#/Vol] 3.5 10 3/uL 1.4-6.5 [facility] Neutrophils/100 WBC Auto (Bl d)on 02-02-2024 Neutrophils/100 WBC (Bld) 67.3 % 43.0-75.0 [facility] No Panel Informationon 02-01 Eosinophils # (Auto) 0.3 10 3/uL 0.0-0.7 [facility] Immature Granulocyte # (Auto) 0.02 10 3/uL 0.00-0.03 [facility] Platelet mean volume Auto (B ld) [Entitic vol]on 02-02-2024 Platelet mean volume (Bld) [Entitic vol] 9.9 fL 9.5-13.5 [facility] Platelets Auto (Bld) [#/Vol] on 02-02-2024 Platelets (Bld) [#/Vol] 316 10 3/uL 150-450 [facility] RBC Auto (Bld) [#/Vol]on RBC (Bld) [#/Vol] 4.23 10 6/uL 4.20-5.40 [facility] Serum or plasma albumin/glob ulin mass ratioon 02-02-2024 Albumin/Globulin [Mass ratio] 1.1 {ratio} [facility] Serum or plasma anion gap de terminationon 02-02-2024 Anion gap [Moles/Vol] 12.2 mmol/L [facility] Serum or plasma total choles terol/high density lipoprotein (HDL) cholesterol mass olivia 02-02-2024 Cholesterol.tota l/Cholesterol in HDL [Mass ratio] 1.5 {ratio} [facility] Comment on above: 3.3 - 4.4 LOW RISK4.4 - 7.1 AVERAGE RISK 7.1 - 11.0 MODERATE RISK>11.0 HIGH RISK CBC AUTO DIFFon 02-04-2023 BASO # 0.1 103/ul Normal 0.0-0.1 [facility] Comment on above: Performed By: #### DATCBC #### [facility] [address] [place] [address] Dr. Yovana Funes Basophils/100 WBC (Bld) 1.0 % Normal 0.2-2.0 [facility] Comment on above: Performed By: #### DATCBC #### [facility] [address] [place] [address] Dr. Yovana Funes EO # 0.3 103/ul Normal 0.0-0.7 [facility] Comment on above: Performed By: #### DATCBC #### [facility] [address] [place] [address] Dr. Yovana Funes Eosinophils/100 WBC (Bld) 5.5 % Normal 0.9-7.0 [facility] Comment on above: Performed By: #### DATCBC #### [facility] [address] [place] [address] Dr. Yovana Funes Erythrocyte distribution width (RBC) [Ratio] 13.2 % Normal 11.0-15.0 [facility] Comment on above: Performed By: #### DATCBC #### [facility] [address] [place] [address] Dr. Yovana Funes Hematocrit (Bld) [Volume fraction] 41.8 % Normal 36.0-48.0 [facility] Comment on above: Performed By: #### DATCBC #### [facility] [address] [place] [address] Dr. Yovana Funes Hemoglobin (Bld) [Mass/Vol] 13.9 g/dL Normal 12.0-16.0 [facility] Comment on above: Performed By: #### DATCBC #### [facility] [address] [place] [address] Dr. Yovana Funes IG # 0.02 10e3/ul Normal 0.00-0.03 [facility] Comment on above: Performed By: #### DATCBC #### [facility] [address] [place] [address] Dr. Yovana Funes IG % 0.4 % Normal 0.0-0.5 [facility] Comment on above: Performed By: #### DATCBC #### [facility] [address] [place] [address] Dr. Yovana Funes LYMPH # 0.9 103/ul Critically low 1.2-3.8 [facility] Comment on above: Performed By: #### DATCBC #### [facility] [address] [place] [address] Dr. Yovana Funes Lymphocytes/100 WBC (Bld) 16.6 % Critically low 20.5-60.0 [facility] Comment on above: Performed By: #### DATCBC #### [facility] [address] [place] [address] Dr. Yovana Funes MCH (RBC) [Entitic mass] 31.1 pg Normal 26.7-34.0 [facility] Comment on above: Performed By: #### DATCBC #### [facility] [address] [place] [address] Dr. Yovana Funes MCHC (RBC) [Mass/Vol] 33.3 g/dL Normal 29.9-35.2 [facility] Comment on above: Performed By: #### DATCBC #### [facility] [address] [place] [address] Dr. Yovana Funes MCV (RBC) [Entitic vol] 93.5 fL Normal 81.0-99.0 [facility] Comment on above: Performed By: #### DATCBC #### [facility] [address] [place] [address] Dr. Yovana Funes MONO # 0.5 103/ul Normal 0.3-0.8 [facility] Comment on above: Performed By: #### DATCBC #### [facility] [address] [place] [address] Dr. Yovana Funes Monocytes/100 WBC (Bld) 10.3 % Normal 1.7-12.0 [facility] Comment on above: Performed By: #### DATCBC #### [facility] [address] [place] [address] Dr. Yovana Funes NEUT # 3.5 103/ul Normal 1.4-6.5 [facility] Comment on above: Performed By: #### DATCBC #### [facility] [address] [address] [address] Yovana Funes Neutrophils/100 WBC (Bld) 66.2 % Normal 43.0-75.0 [facility] Comment on above: Performed By: #### DATCBC #### [facility] [address] [address] [address] Yovana Funes Platelet mean volume (Bld) [Entitic vol] 9.9 fL Normal 9.5-13.5 [facility] Comment on above: Performed By: #### DATCBC #### [facility] [address] [place] [address] Dr. Yovana Funes PLT 369 103/ul Normal 150-450 [facility] Comment on above: Performed By: #### DATCBC #### [facility] [address] [place] [address] Dr. Yovana Funes RBC 4.47 106/ul Normal 4.20-5.40 [facility] Comment on above: Performed By: #### DATCBC #### [facility] [address] [place] [address] Dr. Yovnaa Funes WBC 5.3 103/ul Normal 4.0-11.0 [facility] Comment on above: Performed By: #### DATCBC #### [facility] [address] [place] [address] Dr. Yovana Funes MARLEY- BMP WITH LIPIDon 2022 Anion gap [Moles/Vol] 13.0 mmol/L Normal [facility] Comment on above: Performed By: #### DATBMP #### [facility] [address] [place] [address] Dr. Yovana Funes Calcium [Mass/Vol] 9.1 mg/dL Normal 8.5-10.1 [facility] Comment on above: Performed By: #### DATBMP #### [facility] [address] [place] [address] Dr. Yovana Funes Chloride [Moles/Vol] 102 mmol/L Normal 98-107 [facility] Comment on above: Performed By: #### DATBMP #### [facility] [address] [address] [address] Yovana Funes Cholesterol [Mass/Vol] 211 mg/dL Critically high <=200 [facility] Comment on above: Performed By: #### DATBMP #### [facility] [address] [address] [address] Yovana Funes Cholesterol in HDL [Mass/Vol] 114 mg/dL Critically high 40-60 [facility] Comment on above: Performed By: #### DATBMP #### [facility] [address] [address] [address] Yovana Funes Cholesterol in LDL [Mass/Vol] 89.8 mg/dL Normal [facility] Comment on above: Performed By: #### DATBMP #### [facility] [address] [address] [address] Yovana Funes CO2 [Moles/Vol] 29.2 mmol/L Normal 21.0-32.0 [facility] Comment on above: Performed By: #### DATBMP #### [facility] [address] [address] [address] Yovana Funes Creatinine [Mass/Vol] 0.55 mg/dL Normal 0.55-1.02 [facility] Comment on above: Performed By: #### DATBMP #### [facility] [address] [address] [address] Yovana Funes EGFR-AF GUINEAN >60 Normal >=60 [facility] Comment on above: Performed By: #### DATBMP #### [facility] [address] [address] [address] Yovana Funes EGFR-NON AF GUINEAN >60 Normal >=60 [facility] Comment on above: Performed By: #### DATBMP #### [facility] [address] [address] [address] Yovana Funes Glucose [Mass/Vol] 101 mg/dL Normal 74-106 [facility] Comment on above: Performed By: #### DATBMP #### [facility] [address] [address] [address] Yovana Funes HDL NORMAL > or = 60 mg/dl - LO W CARDIOVASCULAR RISK <40 mg/dl - HIGH CARDIOVASCULAR RISK Normal [facility] Comment on above: Performed By: #### DATBMP #### [facility] [address] [address] [address] Yovana Funes LDL CALC NORMAL SEE BELOW Normal [facility] Comment on above: Result Comment: <100 mg/dl OPTIMAL 100 - 129 mg/dl NEAR OR ABOVE OPTIMAL 130 - 159 mg/dl BORDERLINE HIGH 160 - 189 mg/dl HIGH >190 mg/dl VERY HIGH Performed By: #### D ATBMP #### [facility] [address] [address] [address] Yovana Funes Potassium [Moles/Vol] 4.2 mmol/L Normal 3.5-5.1 [facility] Comment on above: Performed By: #### DATBMP #### [facility] [address] [address] [address] Yovana Funes Sodium [Moles/Vol] 140 mmol/L Normal 136-145 [facility] Comment on above: Performed By: #### DATBMP #### [facility] [address] [address] [address] Yovana Funes Triglyceride [Mass/Vol] 36 mg/dL Normal <=150 [facility] Comment on above: Performed By: #### DATBMP #### [facility] [address] [address] [address] Yovana Funes Urea nitrogen [Mass/Vol] 13.0 mg/dL Normal 7.0-18.0 [facility] Comment on above: Performed By: #### DATBMP #### [facility] [address] [address] [address] Yovana Funes Urea nitrogen/Creatin ine [Mass ratio] 23.6 mg/mg Normal [facility] Comment on above: Performed By: #### DATBMP #### [facility] [address] [address] [address] Yovana Funse VLDL CALC 7.2 mg/dL Normal [facility] Comment on above: Performed By: #### DATBMP #### [facility] [address] [address] [address] Yovana Funes DIRECT LDLon 05-07-2022 Cholesterol in LDL [Mass/Vol] 55 mg/dL Normal [facility] Comment on above: Performed By: #### ALT, DLDL #### [facility] [address] [place] [address] Dr. Yovana Funes DLDL NORMAL SEE BELOW Normal [facility] Comment on above: Result Comment: <100 mg/dl OPTIMAL 100 - 129 mg/dl NEAR OR ABOVE OPTIMAL 130 - 159 mg/dl BORDERLINE HIGH 160 - 189 mg/dl HIGH >190 mg/dl VERY HIGH Performed By: #### A LT, DLDL #### [facility] [address] [place] [address] Dr. Yovana Funes SGPTon 05-07-2022 ALT [Catalytic activity/Vol] 26 U/L Normal [facility] Comment on above: Performed By: #### ALT, DLDL #### [facility] [address] [place] [address] Dr. Yovana Funes DIRECT LDLon 03-15-2022 Cholesterol in LDL [Mass/Vol] 102 mg/dL Normal [facility] Comment on above: Performed By: #### DLDL, ALT #### [facility] [address] [place] [address] Dr. Yovana Funes DLDL NORMAL SEE BELOW Normal [facility] Comment on above: Result Comment: <100 mg/dl OPTIMAL 100 - 129 mg/dl NEAR OR ABOVE OPTIMAL 130 - 159 mg/dl BORDERLINE HIGH 160 - 189 mg/dl HIGH >190 mg/dl VERY HIGH Performed By: #### D LDL, ALT #### [facility] [address] [place] [address] Dr. Yovana Funes SGPTon 03-15-2022 ALT [Catalytic activity/Vol] 18 U/L Normal [facility] Comment on above: Performed By: #### DLDL, ALT #### [facility] [address] [place] [address] Dr. Yovana Funes CBC Without Differentialon 0 05-12-2021 Erythrocyte distribution width (RBC) [Ratio] 13.7 % Normal 11.9-15.3 [facility] Comment on above: Performed By: #### CBCNOOUTREACH, OUTREA CH CMP, OUTREACH LIPID #### [facility] [address] [place] [address] Hematocrit (Bld) [Volume fraction] 42.3 % Normal 34.0-46.4 [facility] Comment on above: Performed By: #### CBCNOOUTREACH, OUTREA CH CMP, OUTREACH LIPID #### [address] Hemoglobin (Bld) [Mass/Vol] 14.3 g/dL Normal 11.8-15.4 [facility] Comment on above: Performed By: #### CBCNOOUTREACH, OUTREA CH CMP, OUTREACH LIPID #### [address] MCH (RBC) [Entitic mass] 32.0 pg Normal 24.7-34.3 [facility] Comment on above: Performed By: #### CBCNOOUTREACH, OUTREA CH CMP, OUTREACH LIPID #### [address] MCV (RBC) [Entitic vol] 95.0 fL Normal 80-100 [facility] Comment on above: Performed By: #### CBCNOOUTREACH, OUTREA CH CMP, OUTREACH LIPID #### [address] Mean Corpuscular HGB Conc 33.7 g/dL Normal 32.0-35.0 [facility] Comment on above: Performed By: #### CBCNOOUTREACH, OUTREA CH CMP, OUTREACH LIPID #### [address] Platelet mean volume (Bld) [Entitic vol] 8.8 fL Normal 6.3-10.7 [facility] Comment on above: Result Comment: PERFORMED BY: [place] [address] PATHOLOGIST LEAK OPERATOR [employer] ADAM CROCKER M.D. Performed By: #### C BCNOOUTREACH, OUTREACH CMP, OUTREACH LIPID #### [facility] [address] Platelets (Bld) [#/Vol] 298 10*3/uL Normal 150-450 [facility] Comment on above: Performed By: #### CBCNOKEMARREACH, OUTREA CH CMP, OUTREACH LIPID #### [facility] [address] RBC (Bld) [#/Vol] 4.46 10*6/uL Normal 3.60-5.00 [facility] Comment on above: Performed By: #### CBCNOKEMARREACH, OUTREA CH CMP, OUTREACH LIPID #### [facility] [address] WBC (Bld) [#/Vol] 4.5 10*3/uL Normal 3.8-11.6 [facility] Comment on above: Performed By: #### QASIMNOFRANDYACH, OUTREA CH CMP, OUTREACH LIPID #### [facility] [address] [place] [address] CMP Outreachon 05-12-2021 Albumin [Mass/Vol] 4.4 g/dL Normal 3.2-5.5 [facility] Comment on above: Performed By: #### CBCNOKEMARREACH, OUTREA CH CMP, OUTREACH LIPID #### [facility] [address] [place] [address] ALP [Catalytic activity/Vol] 50 U/L Normal 32-92 [facility] Comment on above: Performed By: #### CBCNOOUTREACH, OUTREA CH CMP, OUTREACH LIPID #### [facility] [address] [place] [address] [place] ALT [Catalytic activity/Vol] 26 U/L Normal 10-60 [facility] Comment on above: Performed By: #### CBCNOOUTREACH, OUTREA CH CMP, OUTREACH LIPID #### [facility] [address] [place] [address] AST [Catalytic activity/Vol] 27 U/L Normal 10-42 [facility] Comment on above: Performed By: #### CBCNOOUTREACH, OUTREA CH CMP, OUTREACH LIPID #### [facility] [address] [place] [address] [place] Bilirubin [Mass/Vol] 0.6 mg/dL Normal 0.3-1.2 [facility] Comment on above: Performed By: #### CBCNOOUTREACH, OUTREA CH CMP, OUTREACH LIPID #### [facility] [address] [place] [address] [place] Calcium [Mass/Vol] 9.1 mg/dL Normal 8.2-10.2 [facility] Comment on above: Performed By: #### CBCNOOUTREACH, OUTREA CH CMP, OUTREACH LIPID #### [facility] [address] [place] [address] [place] Chloride [Moles/Vol] 99 mmol/L Normal 95-114 [facility] Comment on above: Performed By: #### CBCNOOUTREACH, OUTREA CH CMP, OUTREACH LIPID #### [facility] [address] [place] [address] [place] CO2 [Moles/Vol] 25.1 mmol/L Normal 22.0-30.0 [facility] Comment on above: Performed By: #### CBCNOOUTREACH, OUTREA CH CMP, OUTREACH LIPID #### [facility] [address] [place] [address] [place] Creatinine [Mass/Vol] 0.63 mg/dL Normal 0.44-1.03 [facility] Comment on above: Performed By: #### CBCNOOUTREACH, OUTREA CH CMP, OUTREACH LIPID #### [facility] [address] [place] [address] [place] Estimated GFR ( Mary Ann > 60 [facility] Comment on above: Result Comment: GFR estimated reference range: According to KDOQI guidelines, <60 ml/min/1.73m2 is sufficient to diagnose a patient with chronic kidney disease. Performed By: #### C BCNOOUTREACH, OUTREACH CMP, OUTREACH LIPID #### [facility] [address] [place] [address] [place] Estimated GFR (Non- Am > 60 Normal [facility] Comment on above: Performed By: #### CBCNOOUTREACH, OUTREA CH CMP, OUTREACH LIPID #### [facility] [address] [place] [address] [place] Glucose [Mass/Vol] 89 mg/dL Normal 70-100 [facility] Comment on above: Result Comment: Random Glucose Reference Range is dependent on time and content of last meal. Glucose of more than 200 mg/dL in a nonstressed, ambulatory subject supports the diagnosis of Diabetes Mellitus. ADA recommended reference range Performed By: #### C BCNOKEMARRENINO, OUTREACH CMP, OUTREACH LIPID #### [facility] [address] [place] [address] [place] Potassium [Moles/Vol] 3.9 mmol/L Normal 3.5-5.1 [facility] Comment on above: Performed By: #### LINDA KILLIAN CH CMP, OUTREACH LIPID #### [facility] [address] [place] [address] [place] Protein [Mass/Vol] 6.9 g/dL Normal 6.1-7.9 [facility] Comment on above: Performed By: #### LINDA KILLIAN CH CMP, OUTREACH LIPID #### [facility] [address] [place] [address] [place] Sodium [Moles/Vol] 135 mmol/L Low 136-146 [facility] Comment on above: Performed By: #### LINDA KILLIAN CH CMP, OUTREACH LIPID #### [facility] [address] [id number] [place] Urea nitrogen [Mass/Vol] 7 mg/dL Low 9-23 [facility] Comment on above: Performed By: #### LINDA KILLIAN CH CMP, OUTREACH LIPID #### [facility] [address] [id number] [place] Lipid Profile Outreachon Cholesterol [Mass/Vol] 229 mg/dL High 140-200 [facility] Comment on above: Result Comment: Chol less than 200 mg/dl low risk Chol 201-239 mg/dl borderline risk Chol 240 mg/dl and greater high risk Performed By: #### C BCNOKEMARREACH, OUTREACH CMP, OUTREACH LIPID #### [facility] [address] [id number] [place] Cholesterol in HDL [Mass/Vol] 97 mg/dL High 35-85 [facility] Comment on above: Result Comment: HDL CHOL ATP-III CLASSIF ICATION Cardiovascular Risk HDL > or equal to 60 mg/dL LOW HDL < 40 mg/dL HIGH Performed By: #### C BCNOOUTREACH, OUTREACH CMP, OUTREACH LIPID #### [facility] [address] Cholesterol.tota l/Cholesterol in HDL [Mass ratio] 2.4 {ratio} Normal <5.0 [facility] Comment on above: Result Comment: PERFORMED BY: [facility] [address] [place] [address] PATHOLOGIST LEAK OPERATOR [employer] ADAM CROCKER M.D. Performed By: #### C BCNOOUTREACH, OUTREACH CMP, OUTREACH LIPID #### [facility] [address] LDL Cholesterol,Calc ulated 120 mg/dL High 0-100 [facility] Comment on above: Result Comment: LDL ATP III CLASSIFICATI ON LDL less than 100 mg/dL Optimal LDL 100-129 mg/dL Near or above optimal LDL 130-159 mg/dL Borderline high LDL 160-189 mg/dL High LDL greater than 189 mg/dL Very high Performed By: #### C BCNOOUTREACH, OUTREACH CMP, OUTREACH LIPID #### [facility] [address] Triglyceride w/Reflex 62 mg/dL Normal 35-149 [facility] Comment on above: Result Comment: TRIG ATP III CLASSIFICAT ION TRIG less than 150 mg/dL Normal TRIG 150-199 mg/dL Borderline high TRIG 200-500 mg/dL High TRIG greater than 500 mg/dL Very high Standard traceable to the Center for Disease Conrtrol and Prevention (CDC) test method. Performed By: #### C BCNOOUTREACH, OUTREACH CMP, OUTREACH LIPID #### [facility] [address] VLDL CHOLESTEROL 12 mg/dL Normal [facility] Comment on above: Performed By: #### CBCNOKEMARREACH, OUTREA CMP, OUTREACH LIPID #### [facility] [address] [id number] [facility] CNPTOUTREACHon 01-23-2021 J[facility] Patient Outreach ([place] [facility]) DYLAN TAFOYA ([id number]) 1945 F Date Time Provider Department 01/23/21 SHERSMARIKA During your visit today, we recorded the following information about you: Allergies As of Date: 01/23/2021 (No Known Allergies) Date Reviewed: 03/09/2019 Reviewed by: Fantasma Mandujano) Sandeep - Fully Assessed Order(s):SARS-COVID VACCINE 1ST DOSE APPT [[id number]] Order #: [id number] FUTURE Prescriptions as of 01/23/2021 Sig: PANTOPRAZOLE [...] Encounter Status:Closed by EPIC, PRODUSER on 01/26/21 Normal [facility] XR HIP 3V PELV+ AP/LAT LTon 03-09-2019 [...] on Mar 09 2019 6:15PM EST [id number] [facility] XR HIP 3V PELV+ AP/LAT LTon [...] on Jul 24 2018 11:17AM EST [id number] [facility] HISTORY PHYSICALon 8 HISTORY PHYSICAL HNO ID: [id number] thor: Tomasz Lópeze: (none)Author Type: Physician AssistantType: HANDPFiled: 12/16/2017 11:16 AMNote Text:HISTORY AND PHYSICAL EXAMINATIONSERVICE DATE: 12/15/2017SERVICE TIME: 10:[facility] ANAHI Kessler FOR VISIT:Dylan [...] chest pain at rest/with exertion; denies h/o AR cardiacsurgery or stents. Denies h/o DVT/PEGI: Positive [...] 15, 2017 : 10:41 AM PAGER/CONTACT #: [facility] 12-15-2017 [facility] DYL[facility] TAFOYA ([id number]) 1945 FDate Time Provider Department12/15/17 11:[address] During your visit today, we recorded the following information about you: Temperature Pulse Respiration Blood pressure 96.8 degrees 68/minute 16/minute 125/60 Weight Height 52.2 kg 1.549 Everardo Cote PA-C 12/16/2017 11:16 AM AddendumHISTORY AND PHYSICAL EXAMINATIONSERVICE DATE: 12/15/2017SERVICE TIME: 10:41 [facility] CARE PHYSICIAN: ANAHI Kessler FOR [...] for TIA's (2014). Denies h/o seizure, denies frequent headacheRespiratory: No history of current cough or dyspnea, or pneumonia in the past 6weeks. No history of respiratory/pulmonary symptoms or problems.Cardiovascular: Positive for: Hypertension Denies HLD requiring medication.Denies chest pain at rest/with exertion; denies h/o AR cardiac surgery orstents. Denies h/o DVT/PEGI: Positive [...] mastectomy, chemo and radiation ( and recurrence [id number])Osteoarthritis left hipMETS:Limited physical activity due to left [...] Tomasz Cote PA-C PATIENT NAME: Dylan Tucker BradyDATE: December 15, 2017 : 10:41 AM PAGER/CONTACT #:Tomasz Cote PA-C 12/15/2017 10:50 AM SignedPATIENT PREOPERATIVE INSTRUCTIONSYuliya Buckner, * has scheduled you for your procedure at this surgerycenter:[facility]: [phone] -- [address] [address].Please read below carefully for your personalized instructions.Blood [...] new medications after today's visit, please contact [facility] center above.Important Reminders: - Candy, mints, gum and tobacco products are NOT permitted the morning ofsurgery.- Hearing aids, dentures and glasses may be worn the morning of surgery.- NO jewelry, body piercings, makeup, nail angolan, hairpins or contacts are thanh worn the [...] Procedures: - YOU MUST HAVE A RESPONSIBLE MANAGER PHYSICAL TAKE YOU HOME. A INSPECTOR [employer] OR CABDRIVER CANNOT BE MADE A RESPONSIBLE MANAGER PHYSICAL.- We recommend that a responsible person stays with you overnight to take careof you.- You cannot stay in a hotel alone after outpatient surgery. You will not bepermitted to have your surgery, if you do not have someone to take care of you. Arrival Time for Surgery: -You will receive a call from [facility] the afternoon beforesurgery after 2:30 pm (or Friday for Friday surgery) for a scheduled arrivaltime.- If you have not heard by 4 pm, please contact [facility] [phone].Please be aware that emergency situations arise, which may delay or change yoursurgical time. If this happens, we will notify you as soon as possible andregret any inconvenience.ARIANNA Mondragon-CReferring Provider: YULIYA BUCKNER [[id number]]Allergies As of Date: 12/15/2017(No Known Allergies)Date Reviewed: 12/15/2017Reviewed by: Tomasz Viveros) Kera - Fully AssessedReason for Visit: Pre-Op Exam [87]Primary Visit Diagnosis:Preoperative clearance [Z01.818] Other Visit Diagnoses:Primary osteoarthritis of left hip [M16.12] Contact with and (suspected) exposure to other bacterial communicable diseases [Z20.818] Benign essential HTN [I10] Gastroesophageal reflux disease without esophagitis [K21.9]Order(s):STAPH AUREUS PCR [SQSAPCR] Order #: [id number] FUTURE ECG COMPLETE W INTERPRETATION [ECG01] Order #: [id number] as of 12/15/2017 Sig: AMLODIPINE 5 MG [...] for your procedure at this surgery center: [facility]: [phone] -- [address], [place] [address]. Please read below carefully for your personalized [...] - NO jewelry, body piercings, makeup, nail angolan, hairpins or contacts are to be worn [...] Procedures: - YOU MUST HAVE A RESPONSIBLE MANAGER PHYSICAL TAKE YOU HOME. A INSPECTOR [employer] OR DESK EDITOR CANNOT BE MADE A RESPONSIBLE MANAGER PHYSICAL. - We recommend that a responsible person stays with you overnight to take care of you. - You cannot stay in a hotel alone after outpatient surgery. You will not be permitted to have your surgery, if you do not have someone to take care of you. Arrival Time for Surgery: -You will receive a call from [facility] the afternoon before surgery after 2:30 pm (or Friday for Friday surgery) for a scheduled arrival time. - If you have not heard by 4 pm, please contact [facility] [place] at [phone]. Please be aware that emergency situations arise, which may delay or change your surgical time. If this happens, we will notify you as soon as possible and regret any inconvenience. ARIANNA Mondragon-CEncounter Number: [id number] Status:Closed by TOMASZ COTE PA-C on 12/15/17 [facility] Staph aureus PCRon 8 MRSA PCR Negative [facility] Comment on above: Performed By: #### SAPCR ####Vish Newell [facility] [id number] [place], [place] [phone] S aureus Spec Source Nasal [facility] Comment on above: Performed By: #### SAPCR ####Vish [facility]ell [facility] [id number] [place], [place] [phone] Staph aureus PCR Negative [facility] Comment on above: Performed By: #### SAPCR ####[facility] [address] [place], [place] [phone] Coding Summary.on 08-07-2017 Coding Summary. 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 [...] Alida Gandhi Date Saved: 08/07/2017 09:54 am [facility] Vital Signs Date Time Vital Sign Value Performing Clinician Facility 10-19-2024 08:270500 Body height 157.48 cm [facility] 10-19-2024 08:270500 Body mass index (BMI) [Ratio] 22 kg/m2 [facility] 10-19-2024 08:270500 Body weight 54.6 kg [facility] 10-19-2024 08:27-0500 Diastolic blood pressure 81 mm[Hg] [facility] 10-19-2024 08:27-0500 Heart rate 81 /min [facility] 10-19-2024 08:27-0500 Respiratory rate 12 /min [facility] 10-19-2024 08:27-0500 Systolic blood pressure 135 mm[Hg] [facility] 08-17-2024 10:36-0400 Body height 157.48 cm [facility] 08-17-2024 10:36-0400 Body mass index (BMI) [Ratio] 21.9 kg/m2 [facility] 08-17-2024 10:36-0400 Body weight 54.43 kg [facility] 08-17-2024 10:36-0400 Diastolic blood pressure 74 mm[Hg] [facility] 08-17-2024 10:36-0400 Heart rate 71 /min [facility] 08-17-2024 10:36-0400 Respiratory rate 12 /min [facility] 08-17-2024 10:36-0400 Systolic blood pressure 130 mm[Hg] [facility] 02-24-2024 09:51-0400 Body height 157.48 cm [facility] 02-24-2024 09:51-0400 Body mass index (BMI) [Ratio] 22.6 kg/m2 [facility] 02-24-2024 09:51-0400 Body weight 56.01 kg [facility] 02-24-2024 09:51-0400 Diastolic blood pressure 76 mm[Hg] [facility] 02-24-2024 09:51-0400 Heart rate 90 /min [facility] 02-24-2024 09:51-0400 Respiratory rate 12 /min [facility] 02-24-2024 09:51-0400 Systolic blood pressure 125 mm[Hg] [facility] 01-30-2024 10:51-0500 Body height 157.48 cm [facility] 01-30-2024 10:51-0500 Body mass index (BMI) [Ratio] 22.6 kg/m2 [facility] 01-30-2024 10:51-0500 Body weight 56.3 kg [facility] 01-30-2024 10:51-0500 Diastolic blood pressure 75 mm[Hg] [facility] 01-30-2024 10:51-0500 Heart rate 83 /min [facility] 01-30-2024 10:51-0500 Respiratory rate 12 /min [facility] 01-30-2024 10:51-0500 Systolic blood pressure 135 mm[Hg] [facility] 08-01-2023 10:30-0400 Body height 157.48 cm Marlon Ball Other [facility] Other 08-01-2023 10:30-0400 Body mass index (BMI) [Ratio] 21.62 kg/m2 Marlon Ball Other [facility] Other 08-01-2023 10:30-0400 Body weight 53.62 kg Marlon Ball Other [facility] Other 08-01-2023 10:30-0400 Diastolic blood pressure 72 mm[Hg] Marlon Ball Other [facility] Other 08-01-2023 10:30-0400 Respiratory rate 12 /min Marlon Ball Other [facility] Other 08-01-2023 10:30-0400 Systolic blood pressure 118 mm[Hg] Marlon Ball Other [facility] Other 01-29-2023 10:30-0500 Body height 157.48 cm Marlon Ball Other [facility] Other 01-29-2023 10:30-0500 Body mass index (BMI) [Ratio] 21.87 kg/m2 Marlon Ball Other [facility] Other 01-29-2023 10:30-0500 Body weight 54.25 kg Marlon Ball Other [facility] Other 01-29-2023 10:30-0500 Diastolic blood pressure 70 mm[Hg] Marlon Ball Other [facility] Other 01-29-2023 10:30-0500 Respiratory rate 12 /min Marlon Ball Other [facility] Other 01-29-2023 10:30-0500 Systolic blood pressure 118 mm[Hg] Marlon Ball Other [facility] Other Encounters Encounter Date Encounter Type Care Provider Facility Start: 10-19-2024 End: 10-19-2024 [facility] Work Phone: Start: 10-19-2024 End: 10-19-2024 Patient encounter procedure [facility] Physician [facility] Work Phone: Start: 09-22-2024 Non-patient / Non-visit [facility] Physician [facility] Work Phone: Start: 08-18-2024 Non-patient / Non-visit [facility] Phys[facility] Work Phone: Start: 08-17-2024 End: 08-17-2024 ambulatory [facility] Work Phone: Start: 08-17-2024 End: 08-17-2024 Patient encounter procedure [facility] Physician [facility] Work Phone: Start: 07-21-2024 End: 07-21-2024 ambulatory TAL LANGLEY Not Available Start: 03-12-2024 End: 03-12-2024 ambulatory TAL LANGLEY Not Available Start: 02-24-2024 End: 02-24-2024 ambulatory [facility] Work Phone: Start: 02-24-2024 End: 02-24-2024 Patient encounter procedure [facility] Physician [facility] Work Phone: Start: 02-18-2024 Non-patient / Non-visit [facility] Work Phone: Start: 02-16-2024 ambulatory [facility] Start: 02-16-2024 Non-patient / Non-visit [facility] Work Phone: Start: 02-15-2024 End: 02-17-2024 Emergency department patient visit [facility] Start: 02-15-2024 Non-patient / Non-visit [facility] Work Phone: Start: 02-02-2024 Non-patient / Non-visit [facility] Work Phone: Start: 01-30-2024 End: 01-30-2024 Patient encounter procedure [facility] Work Phone: Start: 12-12-2023 End: 12-12-2023 ambulatory TALANGUS LANGLEY Not Available Start: 11-14-2023 End: 11-14-2023 ambulatory TAL D SHIVAM Not Available Start: 11-07-2023 End: 11-07-2023 ambulatory TAL D KERRYER Not Available Start: 08-07-2023 End: 08-07-2023 ambulatory Marlon Michelle Other [facility] Other Start: 08-07-2023 Telephone encounter Marlon Michelle [facility] Start: 08-01-2023 End: 08-01-2023 ambulatory Marlon Michelle Other [facility] Other Start: 08-01-2023 Office outpatient visit 25 minutes Marlon Michelle [facility] Start: 02-04-2023 End: 02-05-[address] NONE LISTED REQUEST Facility: Start: 01-29-2023 End: 01-29-2023 ambulatory Marlon Michelle Other [facility] Other Start: 01-29-2023 Patient encounter procedure Marlon Michelle [facility] Start: 05-07-2022 End: 05-08-2022 ambulatory MARLON MICHELLE Facility:[facility] Start: 03-15-2022 End: 03-16-2022 ambulatory MARLON MICHELLE Facility:[facility] Start: 03-09-2019 End: 03-09-2019 Patient encounter procedure FANTASMA (PA) [facility] Start: 07-24-2018 End: 07-25-2018 Patient encounter procedure CHARLENE (PAC) [facility] Start: 12-15-2017 Ambulatory YULIYA BUCKNER [facility] Start: 08-05-2017 End: 08-05-2017 Ambulatory Tal Shivam Facility:[facility] Plan of Treatment Date Care Activity Detail Author [facility] Immunizations Immunization Date Immunization Notes Care Provider Massiel perez 10-08-2021 COVID-19 Vaccine Mod shailesh - Documentation Purposes Only Marlon Michelle Other [facility] 01-31-2021 COVID-19 Vaccine Mod shailesh - Documentation Purposes Only Marlon Michelle Other [facility] 01-03-2021 COVID-19 Vaccine Mod shailesh - Documentation Purposes Only Marlon Michelle Other [facility] 2017 diphtheria, tetanus toxoids and acellular pertussis vaccine, unspecified formulation Marlon Michelle Other [facility] Payers Date Payer Category Payer Medicare [id number] 1959 Medicare [id number] 1959 Private Health Insurance [facility] [id number] Self-pay [id number] 1945 Unknown [id number] 1945 Unknown [id number] 1945 Unknown [id number] 2.16.840.1.746868.3.579.2.1286 1945 Unknown [id number] 2.16.840.1.964746.3.579.2.1286 1945 Unknown [id number] 2.16.840.1.272785.3.579.2.1286 1945 Unknown [id number] 2.16.840.1.894174.3.579.2.1286 1945 Unknown [id number] 2.16.840.1.138739.3.579.2.1286 1945 Unknown [id number] 2.16.840.1.554790.3.579.2.1286 1945 Unknown [id number] 2.16.840.1.453907.3.579.2.1259 1945 Unknown [id number] 2.16.840.1.974656.3.579.2.1259 1945 Unknown [id number] 2.16.840.1.953351.3.579.2.1259 1945 Unknown [id number] 2.16.840.1.429257.3.579.2.1259 1945 Unknown [id number] 2.16.840.1.247565.3.579.2.1259 Self-pay Self Pay [id number] 311 Unknown [id number] [id number] Unknown [facility] [id number] Social History Date Type Detail Facility Sex Assigned At [facility] Other Start: 01-30-2024 End: 01-30-2024 Tobacco smoking status NHIS Never smoked tobacco (finding) [facility] Start: 1945 Sex Assigned At Female [facility] Start: 10-19-2024 Sex Female (finding) [facility] Evaluation note 08-17-2024 Note Date & Type Note Facility 08-17-2024 Evaluation note Diagnosis Onset Date Resolution Age-related osteoporosis without current pathological fracture acute August 17, 2024 10:24am Cerebral atherosclerosis acute August 17, 2024 10:24am Cervical spondylosis with radiculopathy acute August 17, 2024 10:24am Essential hypertension acute Se ptember 2023 10:24am Gastroesophageal reflux disease with esophagitis without hemorrhage acute August 10:24am H/O TIA (transient ischemic attack) and stroke acute August 10:24am Hypercholesterolemia acute Aug emb2023 10:24am Insomnia acute August 10:24am Cerebral atherosclerosis acute October 19, 2024 8:23am H/O TIA (transient ischemic attack) and stroke acute October 8:23am Hypercholesterolemia acute Nove mb2023 8:23am Right temporal headache acute N ovember 2023 8:23am [facility] Work Phone: Evaluation note 08-01-2023 Note Date & Type [...] labs: r/o diabetes, anemia and thyroid disease [facility] Other Evaluation note 01-29-2023 Note Date & [...] breast cancer (ICD-10 - Z85.3) b/l mastectomy [facility] Other Evaluation note Note Date & Type Note Facility Evaluation note No Information [facility] Other Evaluation note Note Date & Type [...] cancer acu te Hyperlipidemia type II acute [facility] Work Phone: Evaluation note Note Date & Type Note Facility Evaluation note Diagnosis Onset Date Age-related osteoporosis wit hout current pathological fracture acute Cerebral atherosclerosis acu te Cervical spondylosis with radiculopathy acute Essential hypertension acute Gastroesophageal reflux dise ase with esophagitis without hemorrhage acute H/O TIA (transient ischemic attack) and stroke acute Hypercholesterolemia acute Insomnia acute [facility] Work Phone: History general Narrative - Reported [...] History colonoscopy 2003 Surgical History bilateral mastectomy 1987 Surgical History cataract OD 1998 Hospitalization History see surgical history [facility] Other Summary Purpose Family History No Family History Records FoundNo Family History Records FoundNo Family History Records FoundNo Family History Records FoundNo Family History Records FoundNo Family History Records FoundNo Family History Records FoundNo Family History Records Found Advance Directives Advance Directive Response Recorded Date/ Time Advance Directives No April 16 3:34pm Advance Directive Response Recorded Date/ Time Advance Directives No April 16 2:34pm Chief Complaint and Reason for Visit Chief Complaint [facility] Amb Documentation [facility] Follow Up Reason for Visit Age-related osteopor [...] (transient ischemic attack) and stroke Hypercholesterolemia Insomnia Chief Complaint Admit Date 6 month follow up/LVM to reschedule 07/23August 17, 2024 10:24am pain by confucianist October 19, 2024 8:23am Reason for Visit Admit Date Age-related osteoporosis wit hout current pathological fracture August 17, 2024 10:24am Cerebral atherosclerosis August 17, 2024 10:24am Cervical spondylosis with radiculopathy August 17, 2024 10:24am Essential hypertension August 17 024 10:24am Gastroesophageal reflux dise ase with esophagitis without hemorrhage August 17, 2024 10:24am H/O TIA (transient ischemic attack) and stroke August 17, 2024 10:24am Hypercholesterolemia August 17 10:24am Insomnia August 17, 2024 10:24am Cerebral atherosclerosis October 19, 2024 8:23am H/O TIA (transient ischemic attack) and stroke October 19, 2024 8:23am Hypercholesterolemia October 19, 2024 8:23am Right temporal headache October 19 8:23am Additional Source Comments INFORMATION SOURCE (unrecogn ized section and content) DATE CREATED AUTHOR 05/26/2018 [facility] DATE CREATED AUTHOR AUTHOR'S ORGANIZ ATION 05/27/2018 [facility] DATE CREATED AUTHOR AUTHOR'S ORGANIZ ATION 03/10/2019 [facility] DATE CREATED AUTHOR AUTHOR'S ORGANIZ ATION 01/27/2021 [facility] DATE CREATED AUTHOR AUTHOR'S ORGANIZ ATION 12/21/2021 [facility] DATE CREATED AUTHOR AUTHOR'S ORGANIZ ATION 02/05/2023 [facility] DATE CREATED AUTHOR AUTHOR'S ORGANIZ ATION 02/22/2024 [facility] DATE CREATED AUTHOR AUTHOR'S ORGANIZ ATION 07/23/2024 [facility] EPIC REASON FOR [...] 2024 Team Status: Active Member Role Status Ti Michelle , DO Primary Care Provide r, Attending Provider Active Start: February 02, 2024 Team Status: Active Member Role Status Ti Michelle DO Primary Care Provide r, Attending Provider Active Start: February 15, 2024 Team Status: Active Member Role Status Ti Michelle DO Primary Care Provide r, Attending Provider Active Start: February 16, 2024 Team Status: Active Member Role Status Ti Michelle DO Primary Care Provider Active Start: February 18, 2024 BING Caro Attending Provider Active St art: February 18, 2024 Team Status: Inactive Member Role Status Ti Michelle DO Primary Care Provide r, Attending Provider Active Start: February 24, 2024 End: February 24, 2024 Team Status: Inactive Member Role Status Ti Michelle DO Primary Care Provide r, Attending Provider Active Start: August 17, 2024 End: August 17, 2024 Team Status: Active Member Role Status Ti Michelle DO Primary Care Provide r, Attending Provider Active Start: August 18, 2024 Team Status: Active Member Role Status Ti Michelle DO Primary Care Provide r, Attending Provider Active Start: September 22, 2024 Team Status: Inactive Member Role Status Ti Michelle , DO Primary Care Provide r, Attending Provider Active Start: October 19, 2024 End: October 19, 2024 Goals (unrecognized section and content) Goals [...] BE BASED ON THE PRIMARY CLINICAL RECORDS. [facility] [employer] [facility]. provides no warranty or guarantee of the accuracy or completeness of information in this document.
[2024-10-19 09:58] LABS: Basophils Absolute Auto 0.1 10^3/uL (0.0-0.1); Eosinophils Absolute Auto 0.2 10^3/uL (0.0-0.7); Eosinophils Percent Auto 2.7 % (0.9-7.0); Hematocrit 40.6 % (36.0-48.0); Hemoglobin 13.5 g/dL (12.0-16.0); Immature Granulocytes Abs Auto 0.02 10^3/uL (0.00-0.03); Immature Granulocytes Pct Auto 0.3 % (0.0-0.5); Lymphocytes Absolute Auto 0.8 10^3/uL (1.2-3.8); Lymphocytes Percent Auto 13.7 % (20.5-60.0); Mean Corpuscular HGB Conc 33.3 g/dL (29.9-35.2); Mean Corpuscular Hemoglobin 31.6 pg (26.7-34.0); Mean Corpuscular Volume 95.1 fL (81.0-99.0); Mean Platelet Volume 9.9 fL (9.5-13.5); Monocytes Absolute Auto 0.5 10^3/uL (0.3-0.8); Monocytes Percent Auto 8.7 % (1.7-12.0); Neutrophils Absolute Auto 4.4 10^3/uL (1.4-6.5); Neutrophils Percent Auto 73.6 % (43.0-75.0); Platelet Count 334 10^3/uL (150-450); Red Blood Count 4.27 10^6/uL (4.20-5.40); Red Cell Distribution Width 12.9 % (11.0-15.0)
[2024-10-19 10:07] LABS: Anion Gap 14.5; BUN Creatinine Ratio 17.9; C Reactive Protein <0.50 mg/dL (<=0.50); Calcium 8.9 mg/dL (8.5-10.1); Carbon Dioxide 27.1 mmol/L (21.0-32.0); Chloride 99 mmol/L (98-107); Estimated GFR (African America >60 (>=60 mL/min/1.73m^2); Estimated GFR (Non-African Ame >60 (>=60 mL/min/1.73m^2); Glucose 89 mg/dL (74-106); Potassium 4.6 mmol/L (3.5-5.1); Sodium 136 mmol/L (136-145)
[2024-10-19 10:34] LABS: Erythrocyte Sedimentation Rate 6 mm/hr (<=30)
== END 2024-10-19 09:17 | disposition home or self-care (01) ==
LOC: LAB 09:18
PROVIDERS: PCP Internal Medicine; Visit Provider Internal Medicine
DX: R51.9 Headache, unspecified (principal); M31.6 Other giant cell arteritis; I10 Essential (primary) hypertension
CPT/HCPCS: 36415; 80048; 85025; 85652; 86140

== ENCOUNTER 2025-07-20 20:22 | Observation (INO) | payer MEDICARE, SELFPAY ==
[2025-07-20] VITALS (21 sets, daily range): BP systolic 138–175; BP diastolic 85–92; PULSE 83–104; TEMP 37.1; O2SAT 95–99; BMI 24.2
--- OUTSIDE RECORDS SUMMARY | 2025-07-20 20:29 | XMS_ITS | CCD ---
Author Organization [facility] Care Team Providers Care Fold Skiver Name Role Phone YULIYA BUCKNER Unavailable Unavailabl e CHARLENE WEBB (PAC) Admitting Unavail able CHARLENE WEBB (PAC) Attending Unavail able FANTASMA NIEVES (PA) Referring Unavailable REQUEST, NONE LISTED Attending Unavaila ble REQUEST, NONE LISTED Admitting Unavaila ble REQUEST, NONE LISTED Consulting Unavaila ble OLGA, MARLON Primary Care Unavailable OLGA, MARLON Consulting Unavailable OLGA, MARLON Attending Unavailable OLGA, MARLON Admitting Unavailable BALL, MARLON Primary Care Unavailable BALL, MARLON Primary Care Unavailable BALL, MARLON Consulting Unavailable OLGA, MARLON Attending Unavailable LOGA, MARLON Admitting Unavailable Olga, Marlon Unavailable Marlon Espinoza MD Primary Care Provider Marlon Espinoza DO Primary Care Provider Jai Gonzales Attending Unavailable Yuliya Christianson Attending Unavailable Yuliya Christianson Admitting Unavailable Yuliya Garza Consulting Unavailable Garza, DO Yuliya Maldonado Consulting Unavailable Garza, Yuliya Maldonado Consulting Unavailable Garza, Yuliya Maldonado Consulting Unavailable Agrza, Yuliya T Consulting Unavailable Garza, Yuliya T Consulting Unavailable Garza, Yuliya T Consulting Unavailable Garza, Yuliya T Consulting Unavailable Garza, Yuliya T Consulting Unavailable Garza, Yuliya T Consulting Unavailable Garza, Yuliya Maldonado Consulting Unavailable Geoff, Yuliya Maldonado Consulting Unavailable MARLON ESPINOZA Primary Care Physician [phone] Aubrie Scott Unavailable Unavailable Unavailable Primary Care Provider Unavailabl e PROVIDER, UNKNOWN Admitting Unavailable KIARA POSADA Attending Unavailable JANETT JARAMILLO Referring Unavailable PROVIDER, UNKNOWN Attending Unavailable PROVIDER, UNKNOWN Admitting Unavailable Marlon Espinoza DO Primary Care Provider Yuliya Christianson Admitting Unavailable Yuliya Christianson Attending Unavailable Yuliya Garza Consulting Unavailable Garza, DO Yuliya Maldonado Consulting Unavailable Darrel Rodriguez Consulting Unavailable Garza, Yuliya Maldonado Consulting Unavailable Garza, Yuliya T Consulting Unavailable Garza, Yuliya T Consulting Unavailable Garza, Yuliya T Consulting Unavailable Garza, Yuliya T Consulting Unavailable Garza, Yuliya T Consulting Unavailable Garza, Yuliya T Consulting Unavailable Garza, Yuliya T Consulting Unavailable Garza, Yuliya T Consulting Unavailable ZAHLER, TAL [place] Attending Unavailable ZAHLNANO, TAL [place] Attending Unavailable GARZA, YULIYA T Referring Unavailable GARZA, YULIYA T Attending Unavailable GARZA, YULIYA T Referring Unavailable GARZA, YULIYA T Referring Unavailable GARZA, YULIYA T Attending Unavailable GARZA, YULIYA T Referring Unavailable CODY, LUPE Attending Unavailable GARZA, YULIYA T Referring Unavailable KELBLEY, TIFFANIE Attending Unavailable GARZA, YULIYA T Referring Unavailable KELBLEY, TIFFANIE Attending Unavailable GARZA, YULIYA T Referring Unavailable CODY, LUPE Attending Unavailable GARZA, YULIYA T Referring Unavailable ZAHLER, TAL [place] Attending Unavailable ZAHLER, TAL [place] Attending Unavailable Allergies Allergy Classification Reported Allergen(s) Allergy Type Date of Onset Reaction(s) Facility (3 sources) Bisphosphonate (substance) Drug allergy Unknown [facility] Other (2 sources) Alendronate Drug Allergy Comment:Oral Bisphosphonates [facility] Other (2 sources) ORAL BISPHOSPHONATES Propensity to adverse reactions Unknown [facility] Other (4 sources) Alendronate Drug Allergy Comment:Oral Bisphosphonates [facility] (4 sources) Bisphosphonates Allergy to substance Unknown Reaction [facility] Medications Current Medications Medication Drug Class(es) Dates Sig (Normalized) Sig (Original) acetaminophen 325 mg oral tablet (11 sources) Start: 05-05-2025 take 2 tablets by mouth every six hours acetaminophen 325 mg Tab 650 mg = 2 tab(s), Oral, q6hr, # 112, Refills(s) 0 Start Date: 05/05/25 Status: Ordered Quantity: 112.0 Unit: Repeat number: 1 acetaminophen (T ylenol) 500 MG tablet Take by mouth Active amitriptyline hydrochloride 10 mg oral tablet (20 sources) Tricyclic Antidepressant Start: 10-27-2024 End: 01-31-2025 take 1 tablet by mouth at bedtime amitriptyline (Elavil) 10 MG tablet Take 10 mg by mouth at bedtime 11/08/2024 Active amLODIPine 2.5 mg oral tablet (20 sources) Dihydropyridine Calcium Channel Tessa Start: 02-06-2023 End: 04-28-2024 take 1 tablet by mouth once daily amLODIPine (Norvasc) 2.5 MG tablet Take 2.5 mg by mouth Daily 02/06/2023 Active aspirin 81 mg delayed release oral tablet (20 sources) Platelet Aggregation Inhibitor, Nonsteroidal Anti-inflammatory Drug Start: 01-29-2024 Aspirin Low Dose 81 MG EC tablet 02/16/2024 Active take 1 tablet by tabatha th every twenty-four hours Aspirin 81 81 MG 1 tablet Orally Once a day Active atorvastatin 10 mg oral tablet (20 sources) HMG-CoA Reductase Inhibitor Start: 08-12-2024 Atorvastatin 10 mg tablet Active 0 .ROUTE .COMPLEX August 12, 2024 6:22am TAKE 1 TABLET EVERY EVENING 90 Start: 03-10-2023 End: 08-12-2024 take 1 tablet by mouth in the evening atorvastatin (Lipitor) 10 MG tablet Take 10 mg by mouth in the evening 03/10/2023 Active clobetasol propionate 0.5 mg/ml topical cream (18 sources) Corticosteroid Start: 04-08-2023 clobetasol (Te movate) 0.05 % cream 04/08/2023 Active Start: 04-08-2023 clobetasol (Te movate) 0.05 % cream APPLY TO AFFECTED AREAS ON EXTREMITIES TWICE DAILY FRIDAY THRU FRIDAY,OFF ON WEEKENDS 04/08/2023 Active clopidogrel 75 mg oral tablet (20 sources) P2Y12 Platelet Inhibitor Start: 05-03-2025 take 1 tablet by mouth once daily clopidogrel 75 mg Tab 75 mg = 1 tab(s), Oral, Daily, # 30 tab(s), Refills(s) 0 Start Date: 05/03/25 Status: Ordered Quantity: 30.0 Unit: tab(s) Repeat number: 1 Start: 01-29-2024 End: 04-28-2024 take 1 tablet by mouth once daily Clopidogrel 75 mg tablet Active 75 MG PO Daily April 28, 2024 11:35am CoQ10 100 mg oral capsule (1 source) Start: 05-03-2025 take 1 capsule by mouth at bedtime CoQ10 100 mg oral capsule = 1 cap(s), Oral, Bedtime, Refills(s) 0 Start Date: 05/03/25 Status: Ordered Repeat number: 1 famotidine 20 mg oral tablet (2 sources) Histamine-2 Receptor Antagonist Start: 05-03-2025 take 1 tablet by mouth once daily as needed famotidine 20 mg Tab 20 mg = 1 tab(s), Oral, Daily, PRN Indigestion, # 30 tab(s), Refills(s) 0 Start Date: 05/03/25 Status: Ordered Quantity: 30.0 Unit: tab(s) Repeat number: 1 Start: 01-31-2025 take 1 tablet by tabatha twice daily as needed Famotidine 20 mg tablet Active 20 MG PO Twice daily as needed for dyspepsia 60 January 31, 2025 12:00am fluocinonide 0.0005 mg/mg topical ointment (18 sources) Corticosteroid Start: 09-16-2022 fluocinonide ( Lidex) 0.05 % ointment 09/16/2022 Active Start: 09-16-2022 fluocinonide ( Lidex) 0.05 % ointment APPLY TO AFFECTED AREAS ON LEG TWICE A DAY FOR 3 WEEKS THEN NEEDED FOR FLARE 09/16/2022 Active loratadine 10 mg oral tablet (19 sources) Start: 05-03-2025 take 1 tablet by mouth once daily loratadine 10 mg Tab 10 mg = 1 tab(s), Oral, Daily, # 90 tab(s), Refills(s) 0 Start Date: 05/03/25 Status: Ordered Quantity: 90.0 Unit: tab(s) Repeat number: 1 Multi Vitamins oral tablet (1 source) Start: 05-03-2025 Multi Vitamins oral tablet 1 tab(s), Oral, Daily, 30 tab(s), Refill(s) 0 Start Date: 05/03/25 Status: Ordered Quantity: 30.0 Unit: tab(s) Repeat number: 1 ofloxacin 3 mg/ml ophthalmic solution (4 sources) Quinolone Antimicrobial Start: 10-08-2023 End: 12-10-2024 ofloxacin (Ocuflox) 0.3 % ophthalmic solution 10/08/2023 12/10/2024 Discontinued pantoprazole 40 mg delayed release oral tablet (20 sources) Proton Pump Inhibitor Start: 01-29-2024 End: 01-31-2025 pantoprazole (ProtoNix) 40 MG EC tablet 02/16/2024 Active take 1 tablet by tabatha th every twenty-four hours Pantoprazole Sodium 40 MG 1 tablet Orall y Once a day Active traMADol hydrochloride 50 mg oral tablet (5 sources) Opioid Agonist Start: 05-05-2025 End: 06-23-2025 Ultram 50 mg Tab 50 mg = 1 tab(s), Oral, q6hr, PRN Pain 8-10, # 16 tab(s), Refills(s) 0, Pharmacy: [facility]/pharmacy #[id number], 154.9, cm, 05/03/25 12:59:00 EDT, Height/Length Dosing, 53.7, kg, 05/04/25 7:33:00 EDT, Weight Dosing Start Date: 05/05/25 Status: Ordered Quantity: 16.0 Unit: tab(s) Repeat number: 1 Completed/Discontinued Medications Medication Drug Class(es) Dates Sig (Normalized) Sig (Original) doxepin 6 mg oral tablet (3 sources) Tricyclic Antidepressant Start: 08-17-2024 End: 10-27-2024 take 1 tablet by mouth once daily at bedtime as needed for sleep Doxepin 6 mg tablet Discontinued 6 MG PO Daily at bedtime as needed for sleep August 16, 2024 11:00pm October 27, 2024 5:47pm predniSONE 20 mg oral tablet (2 sources) Start: 10-19-2024 End: 10-27-2024 Prednisone 20 mg tablet Discontinued 0 PO Daily 15 October 19, 2024 12:00am October 27, 2024 5:42pm 2 tabs w/ food daily x 5 days then 1 tab w/ food x 5 days Problems Active Problems Problem Classification Problem Date Documented Date Episodic/Chronic Allergic reactions (3 sources) Allergic contact dermatitis due to plants, except food; Translations: [Allergic contact dermatitis due to plants, except food] Episodic Anxiety disorders (7 sources) Anxiety; Translations: [Other specified anxiety disorders] 01-29-2024 Chronic Cancer of breast (12 sources) Personal history of primary malignant neoplasm of breast; Translations: [Personal history of malignant neoplasm of breast] Episodic Cataract (20 sources) Artificial lens present; Translations: [Presence of intraocular lens] Onset: 04-30-2023 Resolved: 07-21-2024 11-07-2023 Chronic Disorders of lipid metabolism (20 sources) Pure hypercholesterolemia, unspecified; Translations: [Pure hypercholesterolemia] Onset: 05-07-2022 Chronic E Codes: Fall (1 source) Unspecified fall, initial encounter; Translations: [Unspecified fall, initial encounter] Onset: 05-06-2025 Episodic Esophageal disorders (8 sources) Gastro-esophageal reflux disease with esophagitis; Translations: [Gastroesophageal reflux disease with esophagitis without hemorrhage] 01-29-2024 Chronic Essential hypertension (17 sources) Essential hypertension; Translations: [Essential (primary) hypertension] Chronic Fluid and electrolyte disorders (2 sources) Hyponatremia; Translations: [Hypo-osmolality and hyponatremia] 08-19-2024 Episodic Fracture of upper limb (9 sources) Closed fracture of shaft of humerus; Translations: [Unspecified fracture of shaft of humerus, left arm, initial encounter for closed fracture] Onset: 05-03-2025 Episodic Headache; including migraine (3 sources) Temporal headache; Translations: [Right sided temporal headache] 10-19-2024 Episodic Malaise and fatigue (1 source) Other fatigue Episodic Nonspecific chest pain (3 sources) Atypical chest pain; Translations: [Other chest pain] Episodic Open wounds of head; neck; and trunk (1 source) Laceration of lip ; Translations: [Laceration without foreign body of lip, initial encounter] Onset: 05-03-2025 Episodic Osteoporosis (11 sources) Primary osteoporosis; Translations: [Age-related osteoporosis without current pathological fracture] 01-29-2024 Chronic Other and ill-defined cerebrovascular disease (7 sources) Cerebral atherosclerosis; Translations: [Cerebral atherosclerosis] 01-29-2024 Chronic Other and ill-defined cerebrovascular disease (8 sources) Cerebral atherosclerosis; Translations: [Cerebral atherosclerosis] Chronic Other circulatory disease (3 sources) History of cerebrovascular accident without residual deficits; Translations: [Personal history of transient ischemic attack (TIA), and cerebral infarction without residual deficits] Episodic Other circulatory disease (8 sources) Personal history of transient ischemic attack (TIA), and cerebral infarction without residual deficits; Translations: [Personal history of transient ischemic attack (TIA), and cerebral infarction without residual deficits] Episodic Other circulatory disease (4 sources) History of cerebrovascular disease; Translations: [Personal history of transient ischemic attack (TIA), and cerebral infarction without residual deficits] 01-29-2024 Episodic Other connective tissue disease (1 source) Presence of left artificial hip joint; Translations: [Presence of left artificial hip joint] Onset: 03-09-2019 Chronic Other ear and sense organ disorders (3 sources) Impacted cerumen; Translations: [Impacted cerumen, bilateral] Episodic Other eye disorders (1 source) Hemorrhage of left orbit; Translations: [Hemorrhage of left orbit] Onset: 05-03-2025 Chronic Other non-traumatic joint disorders (8 sources) Pain in left shoulder; Translations: [Pain in joint, shoulder region] 05-26-2025 Episodic Other upper respiratory infections (3 sources) Acute maxillary sinusitis; Translations: [Acute recurrent maxillary sinusitis] Episodic Residual codes; unclassified (1 source) Pain, unspecified; Translations: [Pain, unspecified] Onset: 02-16-2024 Episodic Residual codes; unclassified (3 sources) Insomnia; Translations: [Insomnia, unspecified] 08-17-2024 Episodic Residual codes; unclassified (3 sources) Insomnia, unspecified; Translations: [Insomnia, unspecified] 08-17-2024 Episodic Retinal detachments; defects; vascular occlusion; and retinopathy (20 sources) Nonexudative age-related macular degeneration; Translations: [Nonexudative age-related macular degeneration, bilateral, 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 involvement] Onset: 04-30-2023 07-21-2024 Chronic Skin and subcutaneous tissue infections (3 sources) Cellulitis of right forearm; Translations: [Cellulitis of right upper limb] Episodic Skull and face fractures (9 sources) Closed fracture of orbital floor; Translations: [Fracture of orbital floor, left side, initial encounter for closed fracture] Onset: 05-03-2025 Episodic Spondylosis; intervertebral disc disorders; other back problems (8 sources) Cervical spondylosis; Translations: [Other spondylosis with radiculopathy, cervical region] 02-22-2024 Chronic Substance-related disorders (5 sources) Tobacco user; Translations: [Nicotine dependence, cigarettes, in remission] Chronic Syncope (3 sources) Syncope and collapse; Translations: [Syncope and collapse] Onset: 02-16-2024 Episodic Unclassified (1 source) PRESENCE OF LEFT ARTIFICIAL HIP JOINT Onset: 07-24-2018 Unclassified (1 source) TIA vs. Migraine Onset: 02-15-2024 Unclassified (2 sources) Acute pain of left shoulder 06-23-2025 Viral infection (3 sources) Post-herpetic polyneuropathy; Translations: [Postherpetic polyneuropathy] Episodic Past or Other Problems Problem Classification Problem Date Documented Da te Episodic/Chronic Esophageal disorders (5 sources) Esophageal disorders; Translations: [Gastroesophageal reflux disease with esophagitis without hemorrhage] Inflammation; infection of eye (except that caused by tuberculosis or sexually transmitteddisease) (20 sources) Blepharitis of upper and lower eyelids of bilateral eyes; Translations: [Unspecified blepharitis right eye, upper and lower eyelids] Onset: 04-30-2023 07-21-2024 Episodic Other eye disorders (20 sources) Dry eyes; Translations: [Dry eye syndrome of bilateral lacrimal glands] Onset: 04-30-2023 07-21-2024 Episodic Other eye disorders (14 sources) Epithelial basement membrane dystrophy; Translations: [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 After 2 weeks, if you must blow your nose, blow gently through both sides at the same time. Do not pinch your nose: do not blow just one side at a time. Sneezing: If you must sneeze, keep your mouth open and do not pinch your nose closed. Sucking: Do not drink though a straw (using a syringe is okay). Do not smoke (this will also impair your body's ability to heal). Blowing: Do not play a wind instrument. Do not blow up balloons. Pushing or lifting: Do not lift or push objects weighing more than 20 pounds. Bending over: Keep your head above the level of your heart. Sleep with your head slightly raised Normal [facility] Progress Notes[facility] 05-12-2025 [facility] Attendant Authentication Interface Message Text New Patient - Face Trauma Ms Tafoya sustained a fall after missing the last step on stairs. She was transported to ED at [facility] via EMS. She fell overall on there left side resulting in left sided facial pain, swelling, and UE pain (shoulder vs arm fx/dislocation). She was admitted to hospital for 2 days following accident and was discharged home with instructions to follow up for further evaluation of facial injuries. Today Mrs. Tafoya presents for further evaluation of facial injuries. She reports improvement in swelling, but notes that the bruising has remained overall consistent. 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 She reports some tenderness at her upper jaw on the left with some foods that require more chewing or are hard. Endorses tenderness to palpation just below her nose. Endorses using cool compresses for swelling and discomfort. Arm is currently in sling and reports that she does not need surgery for this, but is unsure how long she will be in sling. Denies any fever, chills, MUELLER, SOB/ difficulty in breathing, Visual changes, nausea or vomiting. Medical History[1] Surgical History[2] Problem List[3] Social Drivers of Health Tobacco Use: Low Risk (04/13/2025) Received from [facility] Healthcare Patient History Smoking Tobacco Use: Never Smokeless Tobacco Use: Never Passive Exposure: Not on file Alcohol Use: Not on file Financial Resource Strain: Not on file Food Insecurity: Not on file Transportation Needs: Not on file Physical Activity: Not on file Stress: Not on file Social Connections: Not on file Intimate Partner Violence: Unknown (01/22/2024) Received from [facility] Safety AND Environment Fear of Current or Ex-Partner: Not on file Emotionally Abused: Not on file Physically Abused: Not on file Sexually Abused: Not on file Physically or Sexually Abused: Not on file Depression: Not on file Housing Stability: Not on file Utilities: Not on file Physical Exam: Gen- Well appearing, NAD Head- NC/AT Face- No abrasions or lacerations. + Mid face stability. Forehead- No lacerations or abrasions. + Diffuse Ecchymosis, minimal edema. Small hematoma at the left lateral brow cecilia. 2 cm x 1 cm. No depressions or palpable step offs. Eye- Symmetric in position without enophthalmos and proptosis. No subconjunctival hemorrhage. Clear sclera. No telecanthus. Pupils reactive bilaterally. EOMI bilaterally. + periorbital edema. + periorbital ecchymosis. No discharge, bleeding or excessive tearing. No palpable step offs or crepitus. Minimal tenderness on palpation. Nose - Nares patent bilaterally. No septal hematoma or visible FB. No septal deviation. Nasal dorsum positioned midline without obvious displacement/deviation. No ecchymosis or edema. No active bleeding or drainage from nostrils. tenderness at the nasal bridge or dorsum. No palpable crepitus. Ears - No ecchymosis in the pre- and post auricular region. No drainage or bleeding from ear canal. Mouth- No external abrasions, lacerations or lesions in perioral region. Moist oral mucosa. No intraoral lesions or alveolar ridge ecchymosis. Minor tenderness at the left maxilla. Mandible - No palpable fractures or step offs. No mobile fragments. No Malocclusion. TMJ ROM intact. No tenderness to palpation at TMJ. No Tenderness to palpation along the mandibular angle, body and submental region. No shift at opening of jaw. Neuro- Facial nerve grossly intact. Sensation to light touch intact in V1, V2 and V3. Neck - ROM intact Assessment: Facial fractures and CT reviewed with patient. It was explained to patient that facial fractures can be treated both conservatively (without surgery) and operatively. Based on the fracture pattern and clinical symptoms, each option can be considered. Based on fractures pt sustained, the fractures are minimally displaced and positioned in a way that healing will occur appropriately. Risks with conservative management without operative intervention in this setting could result in asymmetry or aesthetic differences. Pt overall states that if surgery could be avoided that would be her preference. Plan: - No acute surgical intervention needed. - Reviewed sinus precautions - 2 more weeks - HOB Elevation for decreased swelling - OK to use ice for pain and comfort. - Soft diet for comfort - advance as tolerated. Kiara Posada PA-C [1] No past medical history on file. [2] No past surgical history on file. [3] There is no problem list on file for this patient. Normal [facility] Att[facility] Authentication Interface Message Text Patient was identified by name and date of . Adriana Gregg MA Chief Complaint Patient presents with New patient, to establish relationship Normal [facility] Progress Noteson 05-06-2025 [facility] Attendant Authentication Interface Message Text Orders encounter created to obtain images from [employer] for outpatient follow up with Plastic Surgery. Normal [facility] Discharge Note-Nursingon Discharge Note-Nursing Discharge Note-Nursing APRIL TAFOYA :1945 Visit Date:05/03/2025 Inpatient Discharge Instructions Your Care Team Admitting Physician - Meghan LIN, Yuliya Healy Consulting Physician - Yuliya Garza DO Reason for Your Visit fall Your Diagnosis Closed fracture of left maxillary sinus Closed head injury with LOC Closed left humeral fracture Fall Fracture of left orbital floor Laceration of lower lip Periorbital hematoma of left eye Shoulder pain-swelling Syncope Syncope/Near syncope Tests Performed Carotid Duplex US Bilateral CT Abdomen/Pelvis w/ Contrast CT C-Spine w/o Contrast CT Chest w/ Contrast CT Head or Brain w/o Contrast CT Maxillofacial w/o Contrast Humerus XR Left XR Knee Complete 4+ Views Right This Is Your Medications List acetaminophen (acetaminophen 325 mg Tab) amitriptyline (amitriptyline 10 mg Tab) amlodipine (amLODIPine 2.5 mg Tab) aspirin (aspirin 81 mg Oral EC Tab) atorvastatin (atorvastatin 10 mg Tab) clopidogrel (clopidogrel 75 mg Tab) famotidine (famotidine 20 mg Tab) loratadine (loratadine 10 mg Tab) multivitamin (Multi Vitamins oral tablet) tramadol (Ultram 50 mg Tab) ubiquinone (CoQ10 100 mg oral capsule) Procedure History Colonoscopy (2003), Cancer of chin, 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 Discharge Vitals Temperature (Oral) 36.7 ???C Heart Rate (Monitored) 78 Respiratory Rate 16 Blood Pressure 123/72 Weight 61.7 kg What to do next Instructions From Your Doctor Event Name Event Result Discharge Activity Expect minimal amount of drainage and/or bleeding, No weight bearing Discharge Restrictions No driving, Do not operate machinery or tools, Do not make important decisions for 24 hours Discharge Diet(s) Regular Call Your Doctor For Persistent or heavy bleeding, Temperature above 101.5 degrees, Redness, swelling, or pus at operative site, Severe pain at the operative site, Persistent vomiting Discharge Instructions Sling for 4 weeks. New Follow Up Appointments after Discharge Follow Up with MARLON ESPINOZA When: Comments: Doctor's office will call patient to make hospital follow up appointment. Where: [address] [facility] [place] [address]- Business (1) Follow Up with [facility] will be in place for patient upon discharged from the hospital. When: Follow Up with Yuliya Garza When: Comments: Call for followup appointment 2-3 weeks left shoulder Where: [address] [place] [id number]- Business (1) The Following Services Have Been Arranged for You Prof Skilled Services, Arranged - Occupational Therapy, Physical Therapy, Nursing Medications What How Much When Instructions Next Dose New acetaminophen (acetaminophen 325 mg Tab) 2 Tablets By Mouth Every 6 hours 6/5 @ 4pm New tramadol (Ultram 50 mg Tab) 1 Tablets By Mouth Every 6 hours as needed for Pain 8-10 Pickup at [facility]/pharmacy #[id number] 6/5 @ 2pm Unchanged amitriptyline (amitriptyline 10 mg Tab) 1 Tablets By Mouth Once a day (at bedtime) as needed for Sleep 6/ @ 9pm Unchanged amlodipine (amLODIPine 2.5 mg Tab) 1 Tablets By Mouth Every day 6/6 @ 9am Unchanged aspirin (aspirin 81 mg Oral EC Tab) 1 Tablets By Mouth Every day as needed for Headache 6/6 @ 9am Unchanged atorvastatin (atorvastatin 10 mg Tab) 1 Tablets By Mouth At bedtime 6/5 @ 9pm Unchanged clopidogrel (clopidogrel 75 mg Tab) 1 Tablets By Mouth Every day 6/6 @ 9am Unchanged famotidine (famotidine 20 mg Tab) 1 Tablets By Mouth Every day as needed for Indigestion resume Unchanged loratadine (loratadine 10 mg Tab) 1 Tablets By Mouth Every day 05/06 @ 9am Unchanged multivitamin (Multi Vitamins oral tablet) 1 Tablets By Mouth Every day /6 @ 9am Unchanged ubiquinone (CoQ10 100 mg oral capsule) 1 Capsules By Mouth At bedtime /5 @ 9pm Pharmacy Information [facility]/pharmacy #[id number]: [address], [place] [id number] [phone] Test Results CBC BMP WBC: 11 E9/L (05/04/25 06:17:00) Glucose Lvl: 113 mg/dL (05/04/25 06:17:00) RBC: 3.9 E12/L Low (05/04/25 06:17:00) BUN: 18 mg/dL (05/04/25 06:17:00) HGB: 12.4 gm/dL (05/04/25 06:17:00) Creatinine: 0.6 mg/dL (05/04/25 06:17:00) Hct: 35.9 % (05/04/25 06:17:00) BUN/Creat Ratio: 30 High (05/04/25 06:17:00) MCV: 91.7 fL (05/04/25 06:17:00) Sodium Lvl: 128 mmol/L Low (05/04/25 06:17:00) MCH: 31.7 pg (05/04/25 06:17:00) Potassium Lvl: 4 mmol/L (05/04/25 06:17:00) MCHC: 34.6 gm/dL (05/04/25 06:17:00) Chloride: 94 mmol/L Low (05/04/25 06:17:00) RDW: 13.7 % (05/04/25 06:17:00) CO2: 25 mmol/L (05/04/25 06:17:00) Platelet: 374 E9/L (05/04/25 06:17:00) AGAP: 13 mEq/L (05/04/25 06:17:00) MPV: 8.4 fL (05/04/25 06:17:00) Calcium Lvl: 8.8 mg/dL Low ( (more content not included)... Normal [facility] [place] Inpatient Clinical Summaryon 05-05-2025 Inpatient Clinical Summary Inpatient Clinical Summary [place] [id number] Clinical Summary Person Information: Name: APRIL TAFOYA Age: 79 Years : 1945 Sex: Female PCP: MARLON ESPINOZA DO Marital Status: Phone: [phone] Race: White Ethnicity: Non- or Language: Greenlandic Visit Id: Visit Reason: Shoulder pain-swelling; Closed head injury with LOC; Syncope/Near syncope; Fall; FALL, SYCOPE Speciality: Acuity: Enc Type: Inpatient Med Service: Medical Arrival: 05/03/2025 12:25:32 Discharge: Dispo Type: Admitted as IP to this [facility] Address: [address] [id number] Provider Notes: Diagnosis: Closed fracture of left maxillary sinus; Closed left humeral fracture; Fracture of left orbital floor; Laceration of lower lip; Periorbital hematoma of left eye; Syncope Problems Active Syncope Smoking Status: Former Smoker Functional Status: Sensory Deficits: History of Falls: Immediately prior to hospitalization Mobility Assistance Prior to Admission: Independent ADLs: Independent Current Level of Assistance for Self-Care/Mobility: Cognitive Status: Oriented x 3 Allergies No Known Allergies Measurements: Height: 154.9 cm Weight: 61.7 kg Blood Pressure: 123 mmHg / 72 mmHg BMI: 23.17 kg/m2 Procedures No Procedures Performed or Documented Immunizations No Immunizations Documented This Visit Final Med List: acetaminophen (acetaminophen 325 mg Tab) 2 Tablets By Mouth every 6 hours. amitriptyline (amitriptyline 10 mg Tab) 1 Tablets By Mouth once a day (at bedtime) as needed Sleep. amlodipine (amLODIPine 2.5 mg Tab) 1 Tablets By Mouth every day. aspirin (aspirin 81 mg Oral EC Tab) 1 Tablets By Mouth every day as needed Headache. atorvastatin (atorvastatin 10 mg Tab) 1 Tablets By Mouth at bedtime. clopidogrel (clopidogrel 75 mg Tab) 1 Tablets By Mouth every day. famotidine (famotidine 20 mg Tab) 1 Tablets By Mouth every day as needed Indigestion. loratadine (loratadine 10 mg Tab) 1 Tablets By Mouth every day. multivitamin (Multi Vitamins oral tablet) 1 Tablets By Mouth every day. tramadol (Ultram 50 mg Tab) 1 Tablets By Mouth every 6 hours as needed Pain 8-10. Refills: 0. ubiquinone (CoQ10 100 mg oral capsule) 1 Capsules By Mouth at bedtime. Care Team Members: Attending Physician: Yuliya Christianson MD Consulting Physician: Yuliya Garza DO Referring Physician: Follow up: With: Address: When: Yuliya Garza [address] [place] [id number] Business (1) 05/26/2025 2:45 PM With: Address: When: MARLON ESPINOZA [address] [place] [id number] Business (1) Comments: Doctor's office will call patient to make hospital follow up appointment. With: Address: When: [facility] will be in place for patient upon discharged from the hospital. Patient Education Information: Humerus Fracture Treated With Immobilization, Eoam-ew-Ptwa Normal [facility] Inpatient Patient Summaryon 05-05-2025 Inpatient Patient Summary Inpatient Patient Summary [facility] [address], [place] [address] Patient Discharge Instructions PERSON INFORMATION Name: APRIL TAFOYA Date of : 1945 Current Date: 05/05/2025 14:11:04 PHYSICIANS Admitting Physician: Mgehan LIN, Yuliya Healy Primary Care Physician: MARLON ESPINOZA DO PCP Comment: Discharge Diagnosis: Closed fracture of left maxillary sinus; Closed left humeral fracture; Fracture of left orbital floor; Laceration of lower lip; Periorbital hematoma of left eye; Syncope Condition at Discharge: APRIL TAFOYA has been given the following list of follow-up instructions, prescriptions, and patient education materials: PATIENT FOLLOW-UP INFORMATION Diet: Regular Discharge Activity: Expect minimal amount of drainage and/or bleeding, No weight bearing Discharge Restrictions: No driving, Do not operate machinery or tools, Do not make important decisions for 24 hours Wound Care Instructions: Remove Your Dressing In Days Call Your Doctor For: Persistent or heavy bleeding, Temperature above 101.5 degrees, Redness, swelling, or pus at operative site, Severe pain at the operative site, Persistent vomiting IF UNABLE TO CONTACT YOUR PHYSICIAN AND YOU FEEL IT IS AN EMERGENCY, GO TO THE NEAREST EMERGENCY ROOM OR CALL 911 Home Treatment: Devices/Equipment: None, Walker Special Services: Additional Instructions: Sling for 4 weeks. Primary Care Physician to provide the following pending test results: Follow up: With: Address: When: Yuliya Garza [address] [place] [address] Business (1) 05/26/2025 2:45 PM With: Address: Ros: MARLON ESPINOZA [address] [place] [address] Business (1) Comments: Doctor's office will call patient to make hospital follow up appointment. With: Address: When: [facility] will be in place for patient upon discharged from the hospital. In the event that this physician does not participate in your insurance network, please consult with your insurance company to find a nearby participating provider. Comment: MICHELET Larson JANET F, have received the attached patient education materials/instructions and have verbalized understanding: Patient Signature Date Clinican/Nurse Signature Date HERE ARE THE MEDICATION CHANGES THAT OCCURRED DURING YOUR HOSPITAL STAY New Medications [id number], [address], [place] [id number], [phone] tramadol (Ultram 50 mg Tab) 1 Tablets By Mouth every 6 hours as needed Pain 8-10. Refills: 0. Last Dose: Next Dose: Other Medications acetaminophen (acetaminophen 325 mg Tab) 2 Tablets By Mouth every 6 hours. Last Dose: Next Dose: Medications to Continue with No Changes Other Medications amitriptyline (amitriptyline 10 mg Tab) 1 Tablets By Mouth once a day (at bedtime) as needed Sleep. Last Dose: Next Dose: amlodipine (amLODIPine 2.5 mg Tab) 1 Tablets By Mouth every day. Last Dose: Next Dose: aspirin (aspirin 81 mg Oral EC Tab) 1 Tablets By Mouth every day as needed Headache. Last Dose: Next Dose: atorvastatin (atorvastatin 10 mg Tab) 1 Tablets By Mouth at bedtime. Last Dose: Next Dose: clopidogrel (clopidogrel 75 mg Tab) 1 Tablets By Mouth every day. Last Dose: Next Dose: famotidine (famotidine 20 mg Tab) 1 Tablets By Mouth every day as needed Indigestion. Last Dose: Next Dose: loratadine (loratadine 10 mg Tab) 1 Tablets By Mouth every day. Last Dose: Next Dose: multivitamin (Multi Vitamins oral tablet) 1 Tablets By Mouth every day. Last Dose: Next Dose: ubiquinone (CoQ10 100 mg oral capsule) 1 Capsules By Mouth at bedtime. Last Dose: Next Dose: Comment: MEDICATION LIST PROVIDED FOR YOU IS A LIST OF YOUR CURRENT MEDICATIONS. PLEASE CARRY THIS WITH YOU AT ALL TIMES. acetaminophen (acetaminophen 325 mg Tab) 2 Tablets By Mouth every 6 hours. amitriptyline (amitriptyline 10 mg Tab) 1 Tablets By Mouth once a day (at bedtime) as needed Sleep. amlodipine (amLODIPine 2.5 mg Tab) 1 Tablets By Mouth every day. aspirin (aspirin 81 mg Oral EC Tab) 1 Tablets By Mouth every day as needed Headache. atorvastatin (atorvastatin 10 mg Tab) 1 Tablets By Mouth at bedtime. clopidogrel (clopidogrel 75 mg Tab) 1 Tablets By Mouth every day. famotidine (famotidine 20 mg Tab) 1 Tablets By Mouth ever (more content not included)... Normal [facility] [place] Interdisciplinary Note - Ubaldo e Manageron 05-05-2025 Interdisciplinary Note - Shoe Caser Interdisciplinary Note - Shoe Caser CM followed up with patient and sister at bedside. Patient denies any additional discharge needs at this time and son will transport home at discharge. Plan is home with supportive family and [facility]. IMM reviewed and copy in room. All in agreement with discharge plan. Normal [facility] [place] Comment on above: Result Comment: Elec tronically Signed By: Eugenia Allen I\.br\Date and Time Signed: 05/05/25 09:44 EDT BMPon 05-04-2025 Anion gap [Moles/Vol] 13 mmol/L Normal 6-16 [facility] [place] Comment on above: Performed By: #### 2 [id number] #### [facility] [place] [facility] [address] [place] [address] BUN/Creat Ratio 30 No Units High 10-20 [facility] Comment on above: Performed By: #### 2 [id number] #### [facility] [place] [facility] [address] [place] [address] Calcium [Mass/Vol] 8.8 mg/dL Low 8.9-11.1 [facility] [place] Comment on above: Performed By: #### 2 [id number] #### [facility] [place] [facility] [address] [place] [address] Chloride [Moles/Vol] 94 mmol/L Low 101-111 [facility] [place] Comment on above: Performed By: #### 2 [id number] #### [facility] [place] [facility] [address] [place] [address] CO2 [Moles/Vol] 25 mmol/L Normal 21-31 [facility] Comment on above: Performed By: #### 2 [id number] #### [facility] [place] [facility] [address] [place] [address] Creatinine [Mass/Vol] 0.6 mg/dL Normal 0.5-1.3 [facility] [place] Comment on above: Performed By: #### 2 [id number] #### [facility] [place] [facility] [address] [place] [address] Glucose [Mass/Vol] 113 mg/dL Normal 55-199 [facility] [place] Comment on above: Performed By: #### 2 [id number] #### [facility] [place] [facility] [address] [place] [address] Potassium [Moles/Vol] 4.0 mmol/L Normal 3.5-5.3 [facility] [place] Comment on above: Performed By: #### 2 [id number] #### [facility] [place] [facility] [address] [place] [address] Sodium [Moles/Vol] 128 mmol/L Low 135-145 [facility] [place] Comment on above: Performed By: #### 2 [id number] #### [facility] [place] [facility] [address] [place] [address] Urea nitrogen [Mass/Vol] 18 mg/dL Normal 5-21 [facility] [place] Comment on above: Performed By: #### 2 [id number] #### [facility] [place] [facility] [address] [place] [address] CBC w/ Auto Diffon 5 Basophil Absolute 0.0 E9/L Normal 0.0-0.2 [facility] [place] Comment on above: Performed By: #### 2 [id number] #### [facility] [place] [facility] [address] [place] [address] Basophils/100 WBC (Bld) 0.1 % Normal 0.0-2.0 [facility] [place] Comment on above: Performed By: #### 2 [id number] #### [facility] [place] [facility] [address] [place] [address] Eos Absolute 0.0 E9/L Normal 0.0-0.5 [facility] [place] Comment on above: Performed By: #### 2 [id number] #### [facility] [place] [facility] [address] [place] [address] Eosinophils/100 WBC (Bld) 0.0 % Normal 0.0-8.0 [facility] [place] Comment on above: Performed By: #### 2 [id number] #### [facility] [place] [facility] [address] [place] [address] Erythrocyte distribution width (RBC) [Ratio] 13.7 % Normal 10.9-14.2 [facility] [place] Comment on above: Performed By: #### 2 [id number] #### [facility] [place] [facility] [address] [place] [address] Hematocrit (Bld) [Volume fraction] 35.9 % Normal 34.0-46.0 [facility] [place] Comment on above: Performed By: #### 2 [id number] #### [facility] [place] [facility] [address] [place] [address] Hemoglobin (Bld) [Mass/Vol] 12.4 g/dL Normal 12.0-16.0 [facility] [place] Comment on above: Performed By: #### 2 [id number] #### [facility] [place] [facility] [address] [place] [address] Lymph Absolute 0.4 E9/L Low 1.0-4.0 [facility] Comment on above: Performed By: #### 2 [id number] #### [facility] [place] [facility] [address] [place] [address] Lymphocytes/100 WBC (Bld) 3.9 % Low 14.0-50.0 [facility] [place] Comment on above: Performed By: #### 2 [id number] #### [facility] [place] [facility] [address] [place] [address] MCH (RBC) [Entitic mass] 31.7 pg Normal 27.0-34.0 [facility] [place] Comment on above: Performed By: #### 2 [id number] #### [facility] [place] [facility] [address] [place] [address] MCHC (RBC) [Mass/Vol] 34.6 g/dL Normal 31.4-36.0 [facility] [place] Comment on above: Performed By: #### 2 [id number] #### [facility] [place] [facility] [address] [place] [address] MCV (RBC) [Entitic vol] 91.7 fL Normal 80.0-100.0 [facility] [place] Comment on above: Performed By: #### 2 [id number] #### [facility] [place] [facility] [address] [place] [address] [place] Absolute 1.1 E9/L High 0.2-1.0 [facility] Comment on above: Performed By: #### 2 [id number] #### [facility] [place] [facility] [address] [place] [address] Monocytes/100 WBC (Bld) 9.9 % Normal 4.0-14.0 [facility] [place] Comment on above: Performed By: #### 2 [id number] #### [facility] [place] [facility] [address] [place] [address] Neutro Absolute 9.4 E9/L High 2.0-7.5 [facility] Comment on above: Performed By: #### 2 [id number] #### [facility] [place] [facility] [address] [place] [address] Neutro Auto 86.1 % High 36.0-75.0 [facility] [place] Comment on above: Performed By: #### 2 [id number] #### [facility] [place] [facility] [address] [place] [address] Platelet 374.0 E9/L Normal 150.0-500. 0 [facility] [place] Comment on above: Performed By: #### 2 [id number] #### [facility] [place] [facility] [address] [place] [address] Platelet mean volume (Bld) [Entitic vol] 8.4 fL Normal 6.4-10.8 [facility] [place] Comment on above: Performed By: #### 2 [id number] #### [facility] [place] [facility] [address] [place] [address] RBC 3.9 E12/L Low 4.3-5.9 [facility] [place] Comment on above: Performed By: #### 2 [id number] #### [facility] [place] [facility] [address] [place] [address] WBC 11.0 E9/L Normal 4.0-11.0 [facility] [place] Comment on above: Performed By: #### 2 [id number] #### [facility] [place] [facility] [address] [place] [address] CHEMISTRYOrdered By: SYSTEM SYSTEM on 05-04-2025 Anion gap [Moles/Vol] 13 mmol/L Normal 6 - 16 mEq/L [facility] Calcium [Mass/Vol] 8.8 mg/dL Low 8.9 - 11. 1 mg/dL [facility] Chloride [Moles/Vol] 94 mmol/L Low 101 - 111 mmol/L [facility] CO2 [Moles/Vol] 25 mmol/L Normal 21 - 31 mmol/L [facility] Creatinine [Mass/Vol] 0.6 mg/dL Normal 0.5 - 1.3 mg/dL [facility] GFR/1.73 sq M.predicted MDRD (S/P/Bld) [Vol rate/Area] 91 mL/min/1.73 m2 Normal >=59mL/min /1.73 m2 [facility] Glucose [Mass/Vol] 113 mg/dL Normal 55 - 199 mg/dL [facility] Magnesium [Mass/Vol] 2.0 mg/dL Normal 1.3 - 2.4 mg/dL [facility] Phosphate [Mass/Vol] 3.8 mg/dL Normal 1.9 - 4.6 mg/dL [facility] Potassium [Moles/Vol] 4.0 mmol/L Normal 3.5 - 5.3 mmol/L [facility] Sodium [Moles/Vol] 128 mmol/L Low 135 - 145 mmol/L [facility] Urea nitrogen [Mass/Vol] 18 mg/dL Normal 5 - 21 mg/dL [facility] Urea nitrogen/Creatinine [Mass ratio] 30 mg/mg High 10 - 20 [facility] COAGULATIONOrdered By: Jen Longoria on 05-04-2025 aPTT Coag (PPP) [Time] 30.0 s Normal 25.1 - 36.5 second(s) [facility] Comment on above: Interpretive Data: P arameter 15 days - 4 weeks 1 - 5 months 6 - 11 months 1 - 5 years 6 - 10 years 11 - 17 years PTT Mean: 35.4 (27.6-45.6) Mean: 33.5 (24.8-40.7) Mean: 32.4 (25.1-40.7) Mean: 31.6 (24.0-39.2) Mean: 31.6 (26.9-38.7) Mean: 31.0 (24.6-38.4) Pediatric Reference ranges were obtained from a study by Golden Chen et al. prepared from 1437 samples obtained at 7 different centers using the same coagulation reagent and instrumentation as [facility] Currently there are no coagulation studies available worldwide for children to 14 days, and no normal ranges. Heparin therapeutic range (represented by Anti-Factor Xa activity of 0.2 - 0.4 U/mL) corresponds to PTT of 56.6 - 109.0 sec. INR Coag (PPP) [Relative time] 0.94 {INR} Invalid Interpretation Code [facility] Comment on above: Interpretive Data: I NR results are specifically intended to assess patients stabilized on long-term Anticoagulation therapy suggested INR s Less Intensive Anticoagulation 2.0 3.0 Conventional Range 3.0 4.5 PT Coag (PPP) [Time] 10.5 s Normal 9.4 - 12.5 second(s) [facility] Comment on above: Interpretive Data: 1 5 days - 4 weeks 1 - 5 months 6 -11 months 1-5 years 6-10 years 11 -17 years Mean: 11.2 (9.5-12.6) Mean: 11.0 (9.7-12.8) Mean: 11.0 (9.8-13.0) Mean: 11.3 (9.9-13.4) Mean: 11.7 (10.0-14.6) Mean: 11.8 (10.0 - 14.1) Pediatric Reference ranges were obtained from a study by Golden Chen et alSteven prepared from 1437 samples obtained at 7 different centers using the same coagulation reagent and instrumentation as [facility]. Currently there are no coagulation studies available worldwide for children to 14 days, and no normal ranges. HEMATOLOGYOrdered By: SYSTEM SYSTEM on 05-04-2025 Basophils/100 WBC (Bld) 0.1 % Normal 0.0 - 2.0 % [facility] Basophils/Leukocyte s Auto (Bld) [Pure # fraction] 0.0 E9/L Normal 0.0 - 0.2 E9/L [facility] Eosinophils (Bld) [#/Vol] 0.0 E9/L Normal 0.0 - 0.5 E9/L [facility] Eosinophils/100 WBC (Bld) 0.0 % Normal 0.0 - 8.0 % [facility] Erythrocyte distribution width (RBC) [Ratio] 13.7 % Normal 10.9 - 14.2 % [facility] Hematocrit (Bld) [Volume fraction] 35.9 % Normal 34.0 - 46.0 % [facility] Hemoglobin (Bld) [Mass/Vol] 12.4 g/dL Normal 12.0 - 16.0 gm/dL [facility] Lymphocytes (Bld) [#/Vol] 0.4 E9/L Low 1.0 - 4.0 E9/L [facility] Lymphocytes/100 WBC (Bld) 3.9 % Low 14.0 - 50.0 % [facility] MCH (RBC) [Entitic mass] 31.7 pg Normal 27.0 - 34.0 pg [facility] MCHC (RBC) [Mass/Vol] 34.6 g/dL Normal 31.4 - 36.0 gm/dL [facility] MCV (RBC) [Entitic vol] 91.7 fL Normal 80.0 - 100.0 fL [facility] Monocytes (Bld) [#/Vol] 1.1 E9/L High 0.2 - 1.0 E9/L [facility] Monocytes/100 WBC (Bld) 9.9 % Normal 4.0 - 14.0 % [facility] Neutrophils (Bld) [#/Vol] 9.4 E9/L High 2.0 - 7.5 E9/L [facility] Neutrophils/100 WBC (Bld) 86.1 % High 36.0 - 75.0 % [facility] Platelet mean volume (Bld) [Entitic vol] 8.4 fL Normal 6.4 - 10.8 fL [facility] Platelets (Bld) [#/Vol] 374.0 E9/L Normal 150.0 - 500.0 E9/L [facility] RBC (Bld) [#/Vol] 3.9 E12/L Low 4.3 - 5.9 E12/L [facility] WBC corrected for nucl RBC Auto (Bld) [#/Vol] 11.0 E9/L Normal 4.0 - 11.0 E9/L [facility] Interdisciplinary Note - Ubaldo Tavera 05-04-2025 Interdisciplinary Note - Shoe Caser Interdisciplinary Note - Shoe Caser CM met with patient, son and sister at bedside. Patient A & O and pleasant at time of assessment. Patient states she is from home and lives alone in a single level condo with about 3 NICOLAS. Patient at baseline is independent with all self care, drives and does not use any DME in the home. Patient states she does have DME at her son's house who lives 5 minutes from her that including a cane, FWW and shower chair if needed at discharge. Son will be her transportation home at discharge and CM reviewed discharge options of home with HHC V SNF if required. CM will follow up with patient after PT /OT evals are completed and recommendations have been made. Patient is hoping to be able to discharge home with family support and HHC. Patient states she goes to the activity center and works out 3 times a week to stay active. Patient follows with Dr Espinoza for her PCP needs and Trauma team is attending with ortho on consult. Discharge plan is pending PT OT evals at this time. CM to follow. IMM singed in ER on 05/03 and reviewed at [email or web address]. CM followed up with patient at bedside and PT /OT recs are for C at [place]. CM reviewed recommendations for HHC with patient and provided MCR choices and patient states all her neighbors have [facility] and that is who she wants. CM made referral to [facility] for RN PT OT AIDE services. Normal [facility] [place] Comment on above: Result Comment: Elec tronically Signed By: Eugenia Allen I\.emily\Date and Time Signed: 05/04/25 13:10 EDT Interdisciplinary Note - Brett n 05-04-2025 Interdisciplinary Note - OT Interdisciplinary Note - OT OT [facility] six clicks score 18/24 = HH services. Patient requires min - mod A w/ UE self care d/t fx/immobilization. Pt completes transfers with SBA. Pt is limited by pain and LUE immobilization. INpatient OT services to follow daily with focus on adapted techniques to maximize safety and Ind w/ adls/transfers. Normal [facility] [place] Magnesiumon 05-04-2025 Magnesium [Mass/Vol] 2.0 mg/dL Normal 1.3-2.4 [facility] [place] Comment on above: Performed By: #### 2 [id number] #### [facility] [place] [facility] [address] [place] [address] PT & PTTon 05-04-2025 INR Coag (PPP) [Relative time] 0.94 {INR} Invalid Interpretation Code [facility] [place] Comment on above: Result Comment: INR results are specifically intended to assess patients stabilized on long-term Anticoagulation therapy suggested INR???s ???Less Intensive Anticoagulation??? 2.0 ??? 3.0 Conventional Range 3.0 ??? 4.5 Performed By: #### 1 [id number] #### [facility] [address] [place] [address] PT 10.5 second(s) Normal 9.4-12.5 [facility] Comment on above: Result Comment: 15 d ays - 4 weeks 1 - 5 months 6 -11 months 1- 5 years 6-10 years 11 -17 years Mean: 11.2 (9.5-12.6) Mean: 11.0 (9.7-12.8) Mean: 11.0 (9.8-13.0) Mean: 11.3 (9.9-13.4) Mean: 11.7 (10.0-14.6) Mean: 11.8 (10.0 - 14.1) Pediatric Reference ranges were obtained from a study by Golden Chen et al. prepared from 1437 samples obtained at 7 different centers using the same coagulation reagent and instrumentation as [facility] Currently there are no coagulation studies available worldwide for children to 14 days, and no normal ranges. Performed By: #### 1 [id number] #### [facility] [address] [place] [address] PTT 30.0 second(s) Normal 25.1-36.5 [facility] Comment on above: Result Comment: Para meter 15 days - 4 weeks 1 - 5 months 6 - 11 months 1 - 5 years 6 - 10 years 11 - 17 years PTT Mean: 35.4 (27.6-45.6) Mean: 33.5 (24.8-40.7) Mean: 32.4 (25.1-40.7) Mean: 31.6 (24.0-39.2) Mean: 31.6 (26.9-38.7) Mean: 31.0 (24.6-38.4) Pediatric Reference ranges were obtained from a study by Golden Chen et al. prepared from 1437 samples obtained at 7 different centers using the same coagulation reagent and instrumentation as [facility] Currently there are no coagulation studies available worldwide for children to 14 days, and no normal ranges. Heparin therapeutic range (represented by Anti-Factor Xa activity of 0.2 - 0.4 U/mL) corresponds to PTT of 56.6 - 109.0 sec. 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 COLOR FLOW DOPPLER SONOGRAPHY CAROTID ARTERIES. CLINICAL HISTORY: SYNCOPE. COMPARISON: NONE. COMMENT: On the right side, calcified plaque right carotid bifurcation and proximal right internal carotid artery. On the left side, calcified plaque proximal left internal carotid artery. There is antegrade blood flow in the right and left vertebral arteries in the neck. On Doppler images, the peak systolic velocity measurements in centimeters per second are as follows: Right proximal common carotid artery is 102.0 / 9.9, right distal common carotid artery is 81.4 / 13.7, right proximal internal carotid artery is 62.1 / 15.5, right mid internal carotid artery is 80.1 / 20.5, right distal internal carotid artery is 83.9 / 21.1, right external carotid artery is 128.0 cm/s, left proximal common carotid artery is 90.1 / 18.0, left distal common carotid artery is 96.3 / 26.1, left proximal internal carotid artery is 111.0 / 21.2, left mid internal carotid artery is 94.1 / 22.7, left distal internal carotid artery is 92.5 / 27.4, left external carotid artery is 158.0 cm/s. The peak systolic internal carotid to common carotid artery ratio on the right is 1.0 and on the left is 1.2. Optimization of duplex velocity criteria for diagnosis of internal carotid artery (ICA) stenosis: A report of the Intersocietal Accreditation Commission (IAC) Vascular Testing Division Carotid Diagnostic Criteria Committee. Vascular Medicine 2020; [email or web address]/ doi/full/10.1177/0538907B6790 97535 Report Ordering Provider: Janett Jaramillo FINAL REPORT Dictated: 05/04/2025 8:48 am Marlon Corley MD Signed (Electronic Signature): 05/04/2025 8:48 am Signed by: Marlon Corley MD Transcribed by: MICK Technologist: JULIAN Normal [facility] eGFRon 05-04-2025 eGFR 91 mL/min/1.73 m2 Normal >=59 [facility] Comment on above: Performed By: #### 1 [id number] #### [facility] [address] [place] [address] ABO/Rhon 05-03-2025 ABO/Rh Positive Invalid Interpretation Code [facility] Comment on above: Performed By: #### 2 [id number] #### [facility] [address] [place] [address] ABO/Rh History Checkon 05-03 ABO/Rh History Check Type verified by second s Normal [facility] Comment on above: Performed By: #### 1 [id number] #### [facility] [address] [place] [address] ABO/Rh Retypeon 05-03-2025 ABO/Rh Retype Interp Positive Invalid Interpretation Code [facility] Comment on above: Performed By: #### 1 [id number] #### [facility] [address] [place] [address] ABSCon 05-03-2025 ABSC Gel Interp Negative Normal [facility] Comment on above: Performed By: #### 1 [id number] #### [facility] [address] [place] [address] BB Draw & Holdon 05-03-2025 BB D&H Sample drawn for Blood Ba Normal [facility] Comment on above: Performed By: #### 1 [id number] #### [facility] [address] [place] [address] BLOOD BANKOrdered By: Joseph Bowman on 05-03-2025 ABO/Rh Interp Positive Invalid Interpretation Code [facility] BB Subsection ABSC Gel Interp Negative (05/03/25 4:06 PM) Normal [facility] BB Subsection ABO/Rh Retype Interp Positive Invalid Interpretation Code [facility] BB Subsection BMPon 05-03-2025 Anion gap [Moles/Vol] 12 mmol/L Normal 6-16 [facility] Comment on above: Performed By: #### 2 [id number] #### [facility] [address] [place] [address] BUN/Creat Ratio 30 No Units High 10-20 [facility] Comment on above: Performed By: #### 2 [id number] #### [facility] [address] [place] [address] Calcium [Mass/Vol] 8.8 mg/dL Low 8.9-11.1 [facility] Comment on above: Performed By: #### 2 [id number] #### [facility] [address] [place] [address] Chloride [Moles/Vol] 96 mmol/L Low 101-111 [facility] Comment on above: Performed By: #### 2 [id number] #### [facility] [address] [place] [address] CO2 [Moles/Vol] 25 mmol/L Normal 21-31 [facility] Comment on above: Performed By: #### 2 [id number] #### [facility] [address] [place] [address] Creatinine [Mass/Vol] 0.6 mg/dL Normal 0.5-1.3 [facility] Comment on above: Performed By: #### 2 [id number] #### [facility] [address] [place] [address] Glucose [Mass/Vol] 121 mg/dL Normal 55-199 [facility] Comment on above: Performed By: #### 2 [id number] #### [facility] [address] [place] [address] Potassium [Moles/Vol] 3.9 mmol/L Normal 3.5-5.3 [facility] Comment on above: Performed By: #### 2 [id number] #### [facility] [address] [place] [address] Sodium [Moles/Vol] 129 mmol/L Low 135-145 [facility] Comment on above: Performed By: #### 2 [id number] #### [facility] [address] [place] [address] Urea nitrogen [Mass/Vol] 18 mg/dL Normal 5-21 [facility] Comment on above: Performed By: #### 2 [id number] #### [facility] [address] [place] [address] Blood Bank ID#on 05-03-2025 BBID# [id number] Invalid Interpretation Code [facility] Comment on above: Performed By: #### 1 [id number] #### [facility] [address] [place] [address] CBC w/ Auto Diffon 5 Basophil Absolute 0.1 E9/L Normal 0.0-0.2 [facility] Comment on above: Performed By: #### 2 [id number] #### [facility] [address] [place] [address] Basophils/100 WBC (Bld) 1.2 % Normal 0.0-2.0 [facility] Comment on above: Performed By: #### 2 [id number] #### [facility] [address] [place] [address] Eos Absolute 0.2 E9/L Normal 0.0-0.5 [facility] Comment on above: Performed By: #### 2 [id number] #### [facility] [address] [place] [address] Eosinophils/100 WBC (Bld) 3.2 % Normal 0.0-8.0 [facility] Comment on above: Performed By: #### 2 [id number] #### [facility] [address] [place] [address] Erythrocyte distribution width (RBC) [Ratio] 13.7 % Normal 10.9-14.2 [facility] Comment on above: Performed By: #### 2 [id number] #### [facility] [address] [place] [address] Hematocrit (Bld) [Volume fraction] 40.1 % Normal 34.0-46.0 [facility] Comment on above: Performed By: #### 2 [id number] #### [facility] [address] [place] [address] Hemoglobin (Bld) [Mass/Vol] 13.9 g/dL Normal 12.0-16.0 [facility] Comment on above: Performed By: #### 2 [id number] #### [facility] [address] [place] [address] Lymph Absolute 1.0 E9/L Normal 1.0-4.0 [facility] Comment on above: Performed By: #### 2 [id number] #### [facility] [address] [place] [address] Lymphocytes/100 WBC (Bld) 15.1 % Normal 14.0-50.0 [facility] Comment on above: Performed By: #### 2 [id number] #### [facility] [address] [place] [address] MCH (RBC) [Entitic mass] 31.8 pg Normal 27.0-34.0 [facility] Comment on above: Performed By: #### 2 [id number] #### [facility] [address] [place] [address] MCHC (RBC) [Mass/Vol] 34.5 g/dL Normal 31.4-36.0 [facility] Comment on above: Performed By: #### 2 [id number] #### [facility] [address] [place] [address] MCV (RBC) [Entitic vol] 92.1 fL Normal 80.0-100.0 [facility] Comment on above: Performed By: #### 2 [id number] #### [facility] [address] [place] [address] [place] Absolute 0.6 E9/L Normal 0.2-1.0 [facility] Comment on above: Performed By: #### 2 [id number] #### [facility] [address] [place] [address] Monocytes/100 WBC (Bld) 9.4 % Normal 4.0-14.0 [facility] Comment on above: Performed By: #### 2 [id number] #### [facility] [address] [place] [address] Neutro Absolute 4.6 E9/L Normal 2.0-7.5 [facility] Comment on above: Performed By: #### 2 [id number] #### [facility] [address] [place] [address] Neutro Auto 71.1 % Normal 36.0-75.0 [facility] Comment on above: Performed By: #### 2 [id number] #### [facility] [address] [place] [address] Platelet 382.0 E9/L Normal 150.0-500. 0 [facility] Comment on above: Performed By: #### 2 [id number] #### [facility] [address] [place] [address] Platelet mean volume (Bld) [Entitic vol] 7.6 fL Normal 6.4-10.8 [facility] Comment on above: Performed By: #### 2 [id number] #### [facility] [address] [place] [address] RBC 4.4 E12/L Normal 4.3-5.9 [facility] Comment on above: Performed By: #### 2 [id number] #### [facility] [address] [place] [address] WBC 6.4 E9/L Normal 4.0-11.0 [facility] Comment on above: Performed By: #### 2 [id number] #### [facility] [address] [place] [address] CHEMISTRYOrdered By: SYSTEM SYSTEM on 05-03-2025 Amphetamines Screen method >1000 ng/mL Ql (U) NEGATIVE 7 (05/03/25 3:24 PM) Normal NEGATIVE [facility] Comment on above: Interpretive Data: N egative Cutoff: <1000 ng/mL Barbiturates Screen Ql (U) NEGATIVE 8 (05/03/25 3:24 PM) Normal NEGATIVE [facility] Comment on above: Interpretive Data: N egative Cutoff: <200 ng/mL Benzodiazepines Ql (U) NEGATIVE 1 (05/03/25 3:24 PM) Normal NEGATIVE [facility] Comment on above: Interpretive Data: N egative Cutoff: <200 ng/mL Cannabinoids Screen Ql (U) NEGATIVE 6 (05/03/25 3:24 PM) Normal NEGATIVE [facility] Comment on above: Interpretive Data: N egative Cutoff: <50 ng/mL Cocaine Ql (U) NEGATIVE 2 (05/03/25 3:24 PM) Normal NEGATIVE [facility] Comment on above: Interpretive Data: N egative Cutoff: <300 ng/mL Opiates Screen Ql (U) NEGATIVE 4 (05/03/25 3:24 PM) Normal NEGATIVE [facility] Comment on above: Interpretive Data: N egative Cutoff: <300 ng/mL Phencyclidine Screen method >25 ng/mL Ql (U) NEGATIVE 5 (05/03/25 3:24 PM) Normal NEGATIVE [facility] Comment on above: Interpretive Data: N egative Cutoff: <25 ng/mL These drug screen results are to be used for medical (i.e., treatment) purposes only. Unconfirmed drug screening results must not be used for non-medical purposes (e.g., employment testing, legal testing). U Fentanyl NEGATIVE 16 (05/03/25 3:24 PM) Normal NEGATIVE [facility] Comment on above: Interpretive Data: N egative Cutoff: <5 ng/mL These drug screen results are to be used for medical (i.e., treatment) purposes only. Unconfirmed drug screening results must not be used for non-medical purposes (e.g., employment testing, legal testing). Albumin [Mass/Vol] 4.4 g/dL Normal 3.3 - 5.0 gm/dL [facility] Albumin/Globulin [Mass ratio] 1.8 {ratio} Normal 1.1 - 2.2 [facility] ALP [Catalytic activity/Vol] 67 [iU]/d Normal 21 - 98 Int._Unit/ L [facility] ALT No additional P-5'-P [Catalytic activity/Vol] 15 [iU]/d Normal 6 - 46 Int._Unit/ L [facility] Anion gap [Moles/Vol] 12 mmol/L Normal 6 - 16 mEq/L [facility] AST [Catalytic activity/Vol] 16 [iU]/d Normal 5 - 43 Int._Unit/ L [facility] Bilirubin [Mass/Vol] 0.5 mg/dL Normal 0.0 - 1.1 mg/dL [facility] Bilirubin.direct [Mass/Vol] 0.1 mg/dL Normal 0.0 - 0.4 mg/dL [facility] Bilirubin.indirect [Mass or moles/Vol] 0.4 mg/dL Normal 0.1 - 0.9 mg/dL [facility] Calcium [Mass/Vol] 8.8 mg/dL Low 8.9 - 11. 1 mg/dL [facility] Chloride [Moles/Vol] 96 mmol/L Low 101 - 111 mmol/L [facility] CO2 [Moles/Vol] 25 mmol/L Normal 21 - 31 mmol/L [facility] Creatinine [Mass/Vol] 0.6 mg/dL Normal 0.5 - 1.3 mg/dL [facility] Ethanol Lvl mg/dL Normal <=11mg/dL [facility] GFR/1.73 sq M.predicted MDRD (S/P/Bld) [Vol rate/Area] 91 mL/min/1.73 m2 Normal >=59mL/min /1.73 m2 [facility] Globulin (S) [Mass/Vol] 2.5 g/dL Normal 1.4 - 4.0 gm/dL [facility] Glucose [Mass/Vol] 121 mg/dL Normal 55 - 199 mg/dL [facility] Lactate [Moles/Vol] 1.2 mmol/L Normal 0.5 - 2. 2 mmol/L [facility] Lipase [Catalytic activity/Vol] 29 U/L Normal 13 - 58 unit/L [facility] Magnesium [Mass/Vol] 1.9 mg/dL Normal 1.3 - 2.4 mg/dL [facility] Potassium [Moles/Vol] 3.9 mmol/L Normal 3.5 - 5.3 mmol/L [facility] Protein [Mass/Vol] 6.9 g/dL Normal 6.0 - 7.8 gm/dL [facility] Sodium [Moles/Vol] 129 mmol/L Low 135 - 145 mmol/L [facility] Troponin HS 3.00 pg/mL Low 10.10 - 27.10 pg/mL [facility] Comment on above: Interpretive Data: T he 95% CI (Confidence Interval) PPV (Positive Predictive Value) for myocardial infarction in females is 38 pg/mL, in males 51 pg/mL. The results should be used in conjunction with clinical conditions of myocardial infarction. (Access High Sensitivity Troponin I Instructions For Use, Vitaly Thomas, July 2018) Urea nitrogen [Mass/Vol] 18 mg/dL Normal 5 - 21 mg/dL [facility] Urea nitrogen/Creatinine [Mass ratio] 30 mg/mg High 10 - 20 [facility] COAGULATIONOrdered By: Jen rodriguez Von on 05-03-2025 aPTT Coag (PPP) [Time] 32.4 s Normal 25.1 - 36.5 second(s) [facility] Comment on above: Interpretive Data: P arameter 15 days - 4 weeks 1 - 5 months 6 - 11 months 1 - 5 years 6 - 10 years 11 - 17 years PTT Mean: 35.4 (27.6-45.6) Mean: 33.5 (24.8-40.7) Mean: 32.4 (25.1-40.7) Mean: 31.6 (24.0-39.2) Mean: 31.6 (26.9-38.7) Mean: 31.0 (24.6-38.4) Pediatric Reference ranges were obtained from a study by amber Patel al. prepared from 1437 samples obtained at 7 different centers using the same coagulation reagent and instrumentation as [facility]. Currently there are no coagulation studies available worldwide for children to 14 days, and no normal ranges. Heparin therapeutic range (represented by Anti-Factor Xa activity of 0.2 - 0.4 U/mL) corresponds to PTT of 56.6 - 109.0 sec. INR Coag (PPP) [Relative time] 0.98 {INR} Invalid Interpretation Code [facility] Comment on above: Interpretive Data: I NR results are specifically intended to assess patients stabilized on long-term Anticoagulation therapy suggested INR s Less Intensive Anticoagulation 2.0 3.0 Conventional Range 3.0 4.5 PT Coag (PPP) [Time] 11.0 s Normal 9.4 - 12.5 second(s) [facility] Comment on above: Interpretive Data: 1 5 days - 4 weeks 1 - 5 months 6 -11 months 1 5 years 6 10 years 11 -17 years Mean: 11.2 (9.5 12.6) Mean: 11.0 (9.7 12.8) Mean: 11.0 (9.8 13.0) Mean: 11.3 (9.9 13.4) Mean: 11.7 (10.0 14.6) Mean: 11.8 (10.0 - 14.1) Pediatric Reference ranges were obtained from a study by amber Patel al. prepared from 1437 samples obtained at 7 different centers using the same coagulation reagent and instrumentation as [facility]. Currently there are no coagulation studies available worldwide for children to 14 days, and no normal ranges. CT Abdomen/Pelvis w/ Contras ton 05-03-2025 CT Abdomen/Pelvis w/ Contrast Exam Date/Time: 05/03/2025 12:57 EDT Reason for Exam: ABDOMINAL TRAUMA;Trauma Report PLEASE SEE CT Chest w/ Contrast REPORT DATED: 05/03/2025. All CT scans at this facility use dose modulation, iterative reconstruction, and/or weight based dosing when appropriate to reduce radiation dose to as low as reasonably achievable. GFR (mL/min/1/73m2) na trauma stroke Contrast: Isovue 300 Contrast amount in ml's: 130.00 Ordering Provider: Malorie Hood FINAL REPORT Dictated: 05/03/2025 1:05 pm Giuseppe Munoz MD Signed (Electronic Signature): 05/03/2025 1:05 pm Signed by: Giuseppe Munoz MD Transcribed by: MICK Technologist: JILL Troncoso [facility] CT Chest w/ Contraston 05-03 CT Chest w/ Contrast Exam Date/Time: 05/03/2025 12:57 EDT Reason for Exam: CHEST TRAUMA, MOD-SEVERE;Trauma Report IMPRESSION: MILDLY DISPLACED LEFT HUMERAL HEAD AND NECK FRACTURES. NO OTHER SIGNIFICANT POSTTRAUMATIC COMPLICATION IDENTIFIED. EXAM: CT Chest w/ Contrast, CT Abdomen/Pelvis w/ Contrast, CT Spine Thoracic, CT Spine Lumbar DATE: 05/03/2025 12:29 PM CLINICAL HISTORY: Trauma, CHEST TRAUMA, MOD-SEVERE. Technologist Comments: spine recons rrs/ trauma/ hx of TIA, [place]/ ams/confusion syncope hematoma lt side of face on Plavix COMPARISON: None available. TECHNIQUE: Spiral imaging was obtained of the chest, abdomen and pelvis after the infusion of approximately 130 mL of Isovue 300 contrast. Routine multiplanar reformatted reconstructions were performed; including dedicated reconstructions of the thoracic and lumbar spine. All CT scans at this facility use dose modulation, iterative reconstruction, and/or weight based dosing when appropriate to reduce radiation dose to as low as reasonably achievable. Unless otherwise stated, incidental findings identified in this report do not require routine follow-up imaging. CHEST CT FINDINGS: Lungs and pleura: No focal consolidation, pleural effusion, or pneumothorax. Mediastinum and lymph nodes: No pathologically enlarged mediastinal, hilar, or axillary lymph nodes. Heart: Not enlarged. Coronary artery calcifications are present. No significant pericardial effusion. Thoracic aorta: Normal in caliber with mild atherosclerotic plaquing. There is no dissection. Pulmonary arteries: Normal in caliber without central filling defects identified to suggest significant pulmonary emboli. Thyroid: Unremarkable. Esophagus: Unremarkable. Musculoskeletal: Mildly displaced fractures of the left humeral neck, greater and lesser tuberosities left humeral head. No dislocation, sizable joint effusion, organized hematoma, or other displaced fractures identified. ABDOMEN AND PELVIS CT FINDINGS: Report Liver: Mild fatty infiltration. No enlargement, suspicious mass or lesion. Small nonenhancing fluid density cyst and hemangioma incidentally noted. Biliary: The gallbladder is unremarkable. No abnormal biliary ductal dilatation. Pancreas: No suspicious mass, organized fluid collection, surrounding inflammation, or abnormal pancreatic ductal dilatation. Spleen: Unremarkable. Adrenals: Unremarkable. Kidneys: No hydronephrosis, significant urinary tract calculi, or suspicious mass. Approximately 8mm nonenhancing fluid density left lower pole cyst. GI tract: No abnormal dilation, wall thickening, or suspicious mass. Normal appendix. Lymph nodes: No pathologically enlarged lymph nodes. Vasculature: No aneurysm or dissection. Mild to moderate calcified atherosclerotic plaquing. Mesentery/peritoneum/retroper itoneum: No ascites, organized fluid collection, inflammatory changes, or suspicious mass. Pelvis: The urinary bladder, uterus, and adnexa appear within normal limits. Musculoskeletal: No acute osseous findings identified. The visualized aspect of a total left hip arthroplasty is otherwise unremarkable. THORACIC SPINE CT FINDINGS: There is no fracture, dislocation, evidence of instability, acute paraspinal soft tissue abnormalities, or significant degenerative changes. LUMBAR SPINE CT FINDINGS: There is no fracture, dislocation, evidence of instability, or acute paraspinal soft tissue abnormalities identified. Mild levoscoliosis, right L5 spondylolysis and moderate degenerative changes are present, with approximately 2 mm of anterolisthesis of L4 over L5 and L5 over S1. GFR (mL/min/1/73m2) na stroke trauma Contrast: Isovue 300 Contrast amount in ml's: 130.00 Ordering Provider: Malorie Hood FINAL REPORT Dictated: 05/03/2025 1:19 pm Giuseppe Munoz MD Signed (Electronic Signature): 05/03/2025 1:19 pm Signed by: Giuseppe Munoz MD Transcribed by: MICK Technologist: JILL Troncoso [facility] CT Head or Brain w/o Contras ton 05-03-2025 CT Head or Brain w/o Contrast Exam Date/Time: 05/03/2025 12:35 EDT Reason for Exam: Neuro deficit, acute, stroke suspected;Stroke Report IMPRESSION: LEFT ORBITAL FLOOR AND LEFT MAXILLARY WALL FRACTURES. LEFT PERIORBITAL SOFT TISSUE SWELLING/HEMATOMA. NO ACUTE INTRACRANIAL PROCESS IDENTIFIED. EXAM: CT Head or Brain w/o Contrast, CT Maxillofacial w/o Contrast DATE: 05/03/2025 12:28 PM CLINICAL HISTORY: Stroke, Neuro deficit, acute, stroke suspected. COMPARISON: None available. TECHNIQUE: Spiral unenhanced images were obtained of the head and face, with routine reconstructions performed for each study. All CT scans at this facility use dose modulation, iterative reconstruction, and/or weight based dosing when appropriate to reduce radiation dose to as low as reasonably achievable. HEAD CT FINDINGS: There is no intracranial hemorrhage, mass effect, midline shift, extra-axial collection, evidence of hydrocephalus, other visualized facial or skull fracture, or a recent ischemic infarct identified. Mild generalized cerebral volume loss is present, with moderate supratentorial white matter changes most consistent with chronic small vessel ischemic disease. FACE CT FINDINGS: Nondisplaced displaced fracture of the left orbital floor and minimal to mildly displaced fractures of the anterior and posterior left maxillary fisher with near complete opacification of the left maxillary sinus. Left periorbital soft tissue swelling/hematoma. Mild fluid within the left side of a developmentally septated sphenoid sinus. The mastoid air cells and other visualized paranasal sinuses are essentially clear. There is no other displaced fracture, or other significant paranasal sinus opacification,, or other acute findings identified. Both optic globes, the orbital contents, temporomandibular joints and mandible are intact. Report Ordering Provider: Malorie Hood FINAL REPORT Dictated: 05/03/2025 12:51 pm Giuseppe Munoz MD Signed (Electronic Signature): 05/03/2025 12:51 pm Signed by: Giuseppe Munoz MD Transcribed by: MICK Technologist: JILL Cordoba [facility] CT Maxillofacial w/o Contras ton 05-03-2025 CT Maxillofacial w/o Contrast Exam Date/Time: 05/03/2025 12:48 EDT Reason for Exam: Trauma Report PLEASE SEE CT Head or Brain w/o Contrast REPORT DATED: 05/03/2025. All CT scans at this facility use dose modulation, iterative reconstruction, and/or weight based dosing when appropriate to reduce radiation dose to as low as reasonably achievable. Ordering Provider: Malorie Hood FINAL REPORT Dictated: 05/03/2025 12:52 pm Giuseppe Munoz MD Signed (Electronic Signature): 05/03/2025 12:52 pm Signed by: Giuseppe Munoz MD Transcribed by: MICK Technologist: JILL Cordoba [facility] CT Spine Cervical w/o Contrmichael [email or web address] 05-03-2025 CT Spine Cervical w/o Contrast Exam Date/Time: 05/03/2025 12:48 EDT Reason for Exam: NECK TRAUMA, DANGEROUS INJURY MECHANISM;Trauma Report IMPRESSION: NO FRACTURE OR EVIDENCE OF CERVICAL SPINE INJURY IDENTIFIED. EXAM: CT Spine Cervical w/o Contrast DATE: 05/03/2025 12:29 PM CLINICAL HISTORY: Trauma, NECK TRAUMA, DANGEROUS INJURY MECHANISM. COMPARISON: None available. TECHNIQUE: Spiral unenhanced imaging was obtained of the cervical spine, with routine reconstructions performed. All CT scans at this facility use dose modulation, iterative reconstruction, and/or weight based dosing when appropriate to reduce radiation dose to as low as reasonably achievable. FINDINGS: The spine is visualized from the craniovertebral junction through the T1-T2 level. There is no fracture, dislocation, or acute paraspinal soft tissue abnormalities identified. Moderate degenerative changes with multilevel mild to moderate central spinal stenosis and neural foraminal narrowing and mild calcific plaquing of the carotid bifurcations are noted. Ordering Provider: Malorie Hood FINAL REPORT Dictated: 05/03/2025 1:05 pm Giuseppe Munoz MD Signed (Electronic Signature): 05/03/2025 1:05 pm Signed by: Giuseppe Munoz MD Transcribed by: MICK Technologist: JILL Cordoba [facility] ED Clinical Summaryon 2024 ED Clinical Summary ED Clinical Summary [place] [id number] ED Clinical Summary Person Information Name: APRIL TAFOYA [place] Age: 79 Years : 1945 Sex: Female Language: Greenlandic PCP: MARLON ESPINOZA DO Marital Status: Phone: [phone] Visit Id: Visit Reason: Shoulder pain-swelling; Closed head injury with LOC; Syncope/Near syncope; Fall; FALL, SYCOPE Speciality: Acuity: 2 Enc Type: Inpatient Med Service: Surgery Arrival: 05/03/2025 12:25:32 Discharge: LOS: 000 04:10 Checkin: 05/03/2025 12:25:32 Checkout: 05/03/2025 16:35:46 Dispo Type: Admitted as IP to this [facility] EVENTS: Event Name Event Status Request Date/Time Start Date/Time Complete Date/Time Arrive Complete 05/03/2025 12:25:32 05/03/2025 12:25:32 05/03/2025 12:25:32 Document Home Meds Complete 05/03/2025 12:25:32 05/03/2025 14:47:22 05/03/2025 14:47:22 Triage Complete 05/03/2025 12:25:32 05/03/2025 12:44:14 05/03/2025 12:44:14 Bed Assign Complete 05/03/2025 12:25:32 05/03/2025 12:25:32 05/03/2025 12:25:32 Dr Exam Complete 05/03/2025 12:25:32 05/03/2025 12:29:41 05/03/2025 12:29:41 RN Exam Complete 05/03/2025 12:25:32 05/03/2025 13:31:05 05/03/2025 13:31:05 RR Stroke Request 05/03/2025 12:26:45 Trauma II Request 05/03/2025 12:27:00 EKG Complete 05/03/2025 12:28:04 05/03/2025 13:02:49 NPO Request 05/03/2025 12:28:04 Pending Labs Collected 05/03/2025 12:28:04 Blood Collect Request 05/03/2025 12:28:04 Lab Complete 05/03/2025 12:28:04 05/03/2025 16:30:02 Patient Care Request 05/03/2025 12:28:04 CT Complete 05/03/2025 12:28:04 05/03/2025 12:29:56 05/03/2025 12:57:53 X-Ray Cancel 05/03/2025 12:28:04 05/03/2025 12:29:05 RT Request 05/03/2025 12:28:04 Urine Collect Complete 05/03/2025 12:28:04 05/03/2025 16:30:02 Pending Labs Cancel 05/03/2025 12:28:57 05/03/2025 12:40:16 Lab Cancel 05/03/2025 12:28:57 05/03/2025 12:40:16 Registration Complete 05/03/2025 12:29:41 05/03/2025 14:37:26 05/03/2025 14:37:26 Dr Exam Complete 05/03/2025 12:30:07 05/03/2025 12:30:07 05/03/2025 12:30:07 Pending Labs Complete 05/03/2025 12:35:27 05/03/2025 12:35:27 05/03/2025 12:59:23 Lab Complete 05/03/2025 12:35:27 05/03/2025 12:35:27 05/03/2025 12:59:23 CT Complete 05/03/2025 12:35:57 05/03/2025 12:36:57 05/03/2025 12:48:35 Pending Labs Complete 05/03/2025 12:40:03 05/03/2025 12:40:03 05/03/2025 12:59:23 Lab Complete 05/03/2025 12:40:03 05/03/2025 12:40:03 05/03/2025 12:59:23 Pending Labs Complete 05/03/2025 12:40:50 05/03/2025 12:40:50 05/03/2025 12:59:33 Lab Complete 05/03/2025 12:40:50 05/03/2025 12:40:50 05/03/2025 12:59:33 X-Ray Complete 05/03/2025 13:04:49 05/03/2025 13:06:56 05/03/2025 13:33:04 Meds Admin Complete 05/03/2025 13:04:49 05/03/2025 13:35:44 Trauma II Request 05/03/2025 13:27:22 Fall Risk Request 05/03/2025 13:31:06 RR Stroke Request 05/03/2025 13:31:06 Wet Read Request 05/03/2025 13:33:04 Patient Care Complete 05/03/2025 13:47:40 05/03/2025 14:42:13 Reg Complete Request 05/03/2025 14:37:26 Reg Bed Request Complete 05/03/2025 14:37:26 05/03/2025 14:37:26 05/03/2025 14:37:26 Meds Admin Complete 05/03/2025 14:48:52 05/03/2025 15:08:04 Admit Request 05/03/2025 15:38:20 Patient Care Request 05/03/2025 15:38:21 Patient Care Request 05/03/2025 15:38:22 Patient Care Request 05/03/2025 15:38:22 Patient Care Request 05/03/2025 15:38:22 Medicare Form Complete 05/03/2025 15:38:23 05/03/2025 16:00:07 Patient Care Request 05/03/2025 15:38:23 Patient Care Request 05/03/2025 15:38:24 Patient Care Request 05/03/2025 15:49:18 Pending Labs Request 05/03/2025 15:49:18 Lab Request 05/03/2025 15:49:18 Meds Admin Request 05/03/2025 15:49:18 Blood Collect Request 05/03/2025 15:49:18 US Request 05/03/2025 15:50:28 Echo Request 05/03/2025 15:50:28 Meds Admin Request 05/03/2025 15:55:35 Meds Admin Request 05/03/2025 15:56:45 Patient Care Request 05/03/2025 16:33:35 ADDRESS: [address] [id number] PHYS DOC NOTES: MEDICAL INFORMATION: Prescriptions Given: Medications to Continue with No Changes Other Medications amitriptyline (amitriptyline 10 mg Tab) 1 Tablets By Mouth once a day (at bedtime) as needed Sleep. amlodipine (amLODIPine 2.5 mg Tab) 1 Tablets By Mouth every day. aspirin (aspirin 81 mg Oral EC Tab) 1 Tablets By Mouth every day as needed Headache. atorvastatin (atorvastatin 10 mg Tab) 1 Tablets By Mouth at bedtime. clopidogrel (clopidogrel 75 mg Tab) 1 Tablets By Mouth every day. famotidine (famotidine 20 mg Tab) 1 Tablets By Mouth every day as needed Indigestion. loratadine (loratadine 10 mg Tab) 1 Tablets By Mouth every day. multivitamin (Multi Vitamins oral tablet) 1 Tablets By Mouth every day. ubiquinone (CoQ10 100 mg oral capsule) 1 Capsules By Mouth at bedtime. PATIENT EDUCATION INFORMATION: Instructions: Follow up: DIAGNOSIS: Closed fracture of left maxillary sinus; Closed left humeral fracture; Fracture of left orbital floor; Laceration of lower lip; Periorbital hematoma of left eye; Syncope Normal [facility] ED Note-Physicianon 05-03-20 ED Note-Physician ED Note-Physician Basic Information Time Seen: Erwin ELDER, Malorie Garrett 05/03/2025 12:29 Chief Complaint Patient arrives following a witnessed syncopal event at the [facility] and confusion noted prior to syncopal event. [facility] verbalized patient repeating self. t2 called and stroke alert. 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 Per a cyber security consultant, patient was not acting right. It was reported by EMS that the cyber security consultant felt the patient was talking oddly to herself. She then had a witnessed syncope episode. It is unknown whether this was from ground-level. Patient states she believes that she was walking down steps and may have missed the last one. EMS states she did appear to be confused upon arrival to the scene. On arrival to the ED she is alert and oriented appropriately. She complains of left humeral pain, right knee pain, and left periorbital pain. She does also note some blurry vision out of the left eye. She denies any neck pain, chest pain, shortness of breath, back pain, abdominal pain or any other complaints. Patient is not up-to-date on her tetanus vaccine and is declining it today. Review of Systems A 10 point review of systems is negative except as noted above. Medical and Surgical History: Reviewed and noted Social history: Lives at home Family History: Reviewed. Tobacco: Denies Physical Exam Vitals & Measurements T: 36.6 ???C(Oral) HR: 87(Monitored) RR: 15 BP: 129/72 SpO2: 97% HT: 154.94 cm WT: 61.8 kg BMI: 25.74 Nurses note and vital signs reviewed and noted. General: The patient appears well and in no apparent distress. Patient is resting comfortably on cart. GCS = 15. Skin: Warm, dry, no pallor noted. Head: Normocephalic Neck: Supple, trachea mid-line, No cervical spinal tenderness. The patient has no step-offs or crepitus noted Eyes: PERRLA, EOMI, left periorbital hematoma. Visual field intact bilaterally ENT: No cabrera sign, no dental injuries, laceration to the intraoral mucosa of the left lower lip without active bleeding, laceration is superficial and not through and through. Vermilion border is not involved Cardiovascular: Regular Rate and Rhythm, normal peripheral perfusion Respiratory: Lungs clear to auscultation bilaterally, no distress, no accessory muscle use, no obvious wheezing Chest Wall: no tenderness, no flail chest Back: Back has no evidence of trauma. The patient had no evidence of step-offs or crepitus noted. No tenderness to palpation. Musculoskeletal: Limited movement of the left upper extremity due to pain. Tenderness to palpation of the left proximal humerus. Neurovascular intact. Moves right upper extremity and bilateral lower extremities in all modalities with 5 out of 5 strength. Flexion and extension of the right knee is intact without focal bony tenderness. GI: Soft, no tenderness to palpation, no masses appreciated. No rebound, guarding, or rigidity noted. Neurological: A&O, normal right pocket marker strength, normal speech, normal coordination, normal motor, normal sensory. No limb ataxia or motor drift to the right upper extremity or lower extremities bilaterally. Unable to assess left upper extremity motor drift/ataxia due to trauma Psychiatric: Cooperative Medical Decision Making Patient is a 79-year-old female with a history of TIA on aspirin and Plavix who presents to the ED following a syncope episode that occurred just prior to arrival. A level 2 trauma alert and stroke alert was called. Patient is hemodynamically stable and afebrile. She is alert and oriented appropriately. Motor drift and ataxia is unable to be assessed in the left upper extremity due to traumatic injuries, however there are no focal neurological deficits observed. NIH is 0. Patient is not a thrombolytic candidate due to low NIH stroke score. Cervical collar is in place. EKG shows sinus tachycardia without ischemic changes. Lab work is obtained and reviewed. CT head and maxillofacial are showing left orbital floor and left maxillary wall fractures. There is a left periorbital soft tissue hematoma. No acute intracranial processes identified. Visual witt are intact bilaterally along with extraocular movement. CT cervical spine is without traumatic findings. CT chest is showing a mildly displaced left humeral head and neck fractures. There are no other significant posttraumatic complications identified. Cervical collar is removed. Patient is given Dilaudid and Zofran. She is placed in a sling. Right knee x-ray does not show any acute osseous abnormalities. I discussed the case with trauma surgeon, Dr. Christianson, who evaluated the patient at bedside. I also discussed the case with orthopedic surgeon, Dr. Garza, who states the patient could be kept at our facility with nonoperable management as he does feel the fracture will heal appropriately. He did state if the patient el (more content not included)... Normal [facility] Comment on above: Result Comment: Elec tronically Signed By: Malorie Hood PA-C\.br\Date and Time Signed: 05/03/25 18:06 EDT\.br\Electronically Co-Signed By: Malorie Hood PA-C\.br\Date and Time Co-Signed: 05/03/25 18:07 EDT\.br\Electronically Co-Signed By: Malorie Hood PA-C\.br\Date and Time Co-Signed: 05/03/25 18:08 EDT\.br\Electronically Co-Signed By: Jai Gonzales DO\.br\Date and Time Co-Signed: 05/03/25 18:24 EDT ED Patient Education Noteon 05-03-2025 ED Patient Education Note ED Patient Education Note Normal [facility] ED Patient Summaryon 025 ED Patient Summary ED Patient Summary [place] [id number] Patient Discharge Instructions Person Information Name: APRIL TAFOYA Age: 79 Years Arrival Date: 05/03/2025 12:25:32 Discharge Diagnosis: Closed fracture of left maxillary sinus; Closed left humeral fracture; Fracture of left orbital floor; Laceration of lower lip; Periorbital hematoma of left eye; Syncope Primary Care Physician: MARLON ESPINOZA DO Provider Information Primary Provider: Jai Gonzales DO Advanced Appliance Worker:Malorie Hood PA-C The exam and treatment you received in the Emergency Department were for an urgent problem and are not intended as complete care. It is important that you follow up with a doctor, nurse practitioner, or physician???s early childhood assistant for ongoing care. If your symptoms become worse or you do not improve as expected and you are unable to reach your usual health care provider, you should return to the Emergency Department. We are available 24 hours a day. MICHELET APRIL Garrett has been given the following list of patient education materials, prescriptions and follow-up instructions: Follow-up Instructions: In the event that this physician does not participate in your insurance network, please consult with your insurance company to find a nearby participating provider. Patient Education Materials: A MESSAGE TO ALL PATIENTS REGARDING OPIOIDS PRESCRIPTION OPIOIDS: WHAT YOU NEED TO KNOW Prescription opioids can be used to help relieve [id number] pain and are often prescribed following a surgery or injury, or for certain health conditions. These medications can be an important part of the treatment but also come with serious risks. It is important to work with your healthcare provider to make sure you are getting the safest, most effective care. WHAT ARE THE RISKS AND SIDE EFFECTS OF OPIOID USE? Prescription opioids carry serious risks of addiction and overdose, especially with prolonged use. An opioid overdose, often marked by slowed breathing, can cause sudden . The use of prescription opioids can have a number of side effects as well, even when taken as directed: ??? Tolerance???meaning you might need to take more of the medication for the same pain relief ??? Physical dependence???meaning you have symptoms of withdrawal when a medication is stopped ??? Increased sensitivity to pain ??? Constipation ??? Nausea, vomiting, and dry mouth ??? Sleepiness and dizziness ??? Confusion ??? Depression ??? Low levels of testosterone that can result in lower sex drive, energy, and strength ??? Itching and sweating RISKS ARE GREATER WITH: ??? History of drug misuse, substance use disorder, or overdose ??? Mental health conditions (such as depression or anxiety) ??? Sleep apnea ??? Older age (65 years and older) ??? Avoid alcohol while taking prescription opioids. Also, unless specifically advised by your health care provider, medications to avoid include: ??? Benzodiazepines (such as Xanax or Valium) ??? Muscle relaxants (such as Soma or Flexeril) ??? Hypnotics (such as Ambien or Lunesta) ??? Other prescription opioids KNOW YOUR OPTIONS Talk to your health care provider about ways to manage your pain that don???t involve prescription opioids. Some of these options may actually work better and have fewer risks and side effects. Options may include: ??? Pain relievers such as acetaminophen, ibuprofen, and naproxen ??? Some medication that are also used for depression or seizures ??? Physical therapy and exercise ??? Cognitive behavioral therapy, a psychological, goal-directed approach, in which patients learn how to modify physical, behavioral, and emotional triggers of pain and stress. IF YOU ARE PRESCRIBED OPIOIDS FOR PAIN: ??? Never take opioids in greater amounts or more often than prescribed. ??? Follow up with your primary health care provider. o Work together to create a plan on how to manage your pain. o Talk about ways to help manage your pain that don???t involve prescription opioids. o Talk about any and all concerns and side effects. ??? Help prevent misuse and abuse o Never sell or share prescription opioids. o Never use another person???s prescription opioids. ??? Store prescription opioids in a secure place and out of reach of others (this may include visitors, children, friends, and family). ??? Safely dispose of unused prescription opioids: Find your community drug take-back program or your pharmacy mail-back program, or flush them down the toilet, following guidance from the Food and Drug Administration (www.fda.gov/Drugs/ResourcesF orYou). ??? Visit www.cdc.gov/drugoverdose to learn about the risks of opioids abuse and overdose. ??? If you believe you may be struggling with addiction, tell your health rn complex care and ask for (more content not included)... Normal [facility] Ethanolon 05-03-2025 Ethanol Lvl <10 Normal <=11 [facility] Comment on above: Performed By: #### 2 [id number] #### [facility] [address] [place] [address] HEMATOLOGYOrdered By: SYSTEM SYSTEM on 05-03-2025 Basophils/100 WBC (Bld) 1.2 % Normal 0.0 - 2.0 % Remisol Heme Basophils/Leukocyte s Auto (Bld) [Pure # fraction] 0.1 E9/L Normal 0.0 - 0.2 E9/L Remisol Heme Eosinophils (Bld) [#/Vol] 0.2 E9/L Normal 0.0 - 0.5 E9/L Remisol Heme Eosinophils/100 WBC (Bld) 3.2 % Normal 0.0 - 8.0 % Remisol Heme Erythrocyte distribution width (RBC) [Ratio] 13.7 % Normal 10.9 - 14.2 % Remisol Heme Hematocrit (Bld) [Volume fraction] 40.1 % Normal 34.0 - 46.0 % Remisol Heme Hemoglobin (Bld) [Mass/Vol] 13.9 g/dL Normal 12.0 - 16.0 gm/dL Remisol Heme Lymphocytes (Bld) [#/Vol] 1.0 E9/L Normal 1.0 - 4.0 E9/L Remisol Heme Lymphocytes/100 WBC (Bld) 15.1 % Normal 14.0 - 50.0 % Remisol Heme MCH (RBC) [Entitic mass] 31.8 pg Normal 27.0 - 34.0 pg Remisol Heme MCHC (RBC) [Mass/Vol] 34.5 g/dL Normal 31.4 - 36.0 gm/dL Remisol Heme MCV (RBC) [Entitic vol] 92.1 fL Normal 80.0 - 100.0 fL Remisol Heme Monocytes (Bld) [#/Vol] 0.6 E9/L Normal 0.2 - 1.0 E9/L Remisol Heme Monocytes/100 WBC (Bld) 9.4 % Normal 4.0 - 14.0 % Remisol Heme Neutrophils (Bld) [#/Vol] 4.6 E9/L Normal 2.0 - 7.5 E9/L Remisol Heme Neutrophils/100 WBC (Bld) 71.1 % Normal 36.0 - 75.0 % Remisol Heme Platelet mean volume (Bld) [Entitic vol] 7.6 fL Normal 6.4 - 10.8 fL Remisol Heme Platelets (Bld) [#/Vol] 382.0 E9/L Normal 150.0 - 500.0 E9/L Remisol Heme RBC (Bld) [#/Vol] 4.4 E12/L Normal 4.3 - 5.9 E12/L Remisol Heme WBC corrected for nucl RBC Auto (Bld) [#/Vol] 6.4 E9/L Normal 4.0 - 11.0 E9/L Remisol Heme Hep Func Panelon 05-03-2025 Albumin [Mass/Vol] 4.4 g/dL Normal 3.3-5.0 [facility] Comment on above: Performed By: #### [id number] #### [facility] [address] [place] [address] Albumin/Globulin [Mass ratio] 1.8 {ratio} Normal 1.1-2.2 [facility] Comment on above: Performed By: #### 2 [id number] #### [facility] [address] [place] [address] Alk Phos 67 Int._Unit/L Normal 21-98 [facility] Comment on above: Performed By: #### 2 [id number] #### [facility] [address] [place] [address] ALT 15 Int._Unit/L Normal 6-46 [facility] Comment on above: Performed By: #### 2 [id number] #### [facility] [address] [place] [address] AST 16 Int._Unit/L Normal 5-43 [facility] Comment on above: Performed By: #### 2 [id number] #### [facility] [address] [place] [address] Bili Direct 0.1 mg/dL Normal 0.0-0.4 [facility] Comment on above: Performed By: #### 2 [id number] #### [facility] [address] [place] [address] Bili Indirect 0.4 mg/dL Normal 0.1-0.9 [facility] Comment on above: Performed By: #### 2 [id number] #### [facility] [address] [place] [address] Bili Total 0.5 mg/dL Normal 0.0-1.1 [facility] Comment on above: Performed By: #### 2 [id number] #### [facility] [address] [place] [address] Globulin (S) [Mass/Vol] 2.5 g/dL Normal 1.4-4.0 [facility] Comment on above: Performed By: #### 2 [id number] #### [facility] [address] [place] [address] Protein [Mass/Vol] 6.9 g/dL Normal 6.0-7.8 [facility] Comment on above: Performed By: #### 2 [id number] #### [facility] [address] [place] [address] Inpatient Clinical Summaryon 05-03-2025 Inpatient Clinical Summary Inpatient Clinical Summary [address] [address] Clinical Summary Person Information: Name: APRIL TAFOYA Age: 79 Years : 1945 Sex: Female PCP: MARLON ESPINOZA DO Marital Status: Phone: [phone] Race: White Ethnicity: Non- or Language: Greenlandic Visit Id: Visit Reason: Shoulder pain-swelling; Closed head injury with LOC; Syncope/Near syncope; Fall; FALL, SYCOPE Speciality: Acuity: Enc Type: Inpatient Med Service: Medical Arrival: 05/03/2025 12:25:32 Discharge: Dispo Type: Admitted as IP to this [facility] Address: [address] [id number] Provider Notes: Diagnosis: Closed fracture of left maxillary sinus; Closed left humeral fracture; Fracture of left orbital floor; Laceration of lower lip; Periorbital hematoma of left eye; Syncope Problems No Problems Documented Smoking Status: Former Smoker Functional Status: Sensory Deficits: History of Falls: Immediately prior to hospitalization Mobility Assistance Prior to Admission: Independent ADLs: Independent Current Level of Assistance for Self-Care/Mobility: Cognitive Status: Oriented x 3 Allergies No Known Allergies Measurements: Height: 154.9 cm Weight: 55.6 kg Blood Pressure: 121 mmHg / 70 mmHg BMI: 23.17 kg/m2 Procedures No Procedures Documented Immunizations No Immunizations Documented This Visit Final Med List: amitriptyline (amitriptyline 10 mg Tab) 1 Tablets By Mouth once a day (at bedtime) as needed Sleep. amlodipine (amLODIPine 2.5 mg Tab) 1 Tablets By Mouth every day. aspirin (aspirin 81 mg Oral EC Tab) 1 Tablets By Mouth every day as needed Headache. atorvastatin (atorvastatin 10 mg Tab) 1 Tablets By Mouth at bedtime. clopidogrel (clopidogrel 75 mg Tab) 1 Tablets By Mouth every day. famotidine (famotidine 20 mg Tab) 1 Tablets By Mouth every day as needed Indigestion. loratadine (loratadine 10 mg Tab) 1 Tablets By Mouth every day. multivitamin (Multi Vitamins oral tablet) 1 Tablets By Mouth every day. ubiquinone (CoQ10 100 mg oral capsule) 1 Capsules By Mouth at bedtime. Care Team Members: Attending Physician: Yuliya Christianson MD Consulting Physician: Yuliya Garza DO Referring Physician: Follow up: With: Address: When: Yuliya Garza [address] [phone] Business (1) Comments: Call for followup appointment 2-3 weeks left shoulder With: Address: When: MARLON ESPINOZA [address] [place] [address] Business (1) Patient Education Information: Normal [facility] Inpatient Patient Summaryon 05-03-2025 Inpatient Patient Summary Inpatient Patient Summary [facility] [address] [id number] Patient Discharge Instructions PERSON INFORMATION Name: APRIL TAFOYA Date of : 1945 Current Date: 05/03/2025 17:45:18 PHYSICIANS Admitting Physician: Yuliya Christianson MD Primary Care Physician: MARLON ESPINOZA DO PCP Comment: Discharge Diagnosis: Closed fracture of left maxillary sinus; Closed left humeral fracture; Fracture of left orbital floor; Laceration of lower lip; Periorbital hematoma of left eye; Syncope Condition at Discharge: APRIL TAFOYA has been given the following list of follow-up instructions, prescriptions, and patient education materials: PATIENT FOLLOW-UP INFORMATION Diet: Regular Discharge Activity: Expect minimal amount of drainage and/or bleeding, No weight bearing Discharge Restrictions: No driving, Do not operate machinery or tools, Do not make important decisions for 24 hours Wound Care Instructions: Remove Your Dressing In Days Call Your Doctor For: Persistent or heavy bleeding, Temperature above 101.5 degrees, Redness, swelling, or pus at operative site, Severe pain at the operative site, Persistent vomiting IF UNABLE TO CONTACT YOUR PHYSICIAN AND YOU FEEL IT IS AN EMERGENCY, GO TO THE NEAREST EMERGENCY ROOM OR CALL 911 Home Treatment: Devices/Equipment: Walker Special Services: Additional Instructions: Sling for 4 weeks. Primary Care Physician to provide the following pending test results: Follow up: With: Address: When: Yulyia Garza [address] [place], [place] [id number] Business (1) Comments: Call for followup appointment 2-3 weeks left shoulder With: Address: When: MARLON ESPINOZA [address] [place] [address] Business (1) In the event that this physician does not participate in your insurance network, please consult with your insurance company to find a nearby participating provider. Comment: MICHELET Larson JANET F, have received the attached patient education materials/instructions and have verbalized understanding: Patient Signature Date Clinican/Nurse Signature Date HERE ARE THE MEDICATION CHANGES THAT OCCURRED DURING YOUR HOSPITAL STAY Medications to Continue with No Changes Other Medications amitriptyline (amitriptyline 10 mg Tab) 1 Tablets By Mouth once a day (at bedtime) as needed Sleep. Last Dose: Next Dose: amlodipine (amLODIPine 2.5 mg Tab) 1 Tablets By Mouth every day. Last Dose: Next Dose: aspirin (aspirin 81 mg Oral EC Tab) 1 Tablets By Mouth every day as needed Headache. Last Dose: Next Dose: atorvastatin (atorvastatin 10 mg Tab) 1 Tablets By Mouth at bedtime. Last Dose: Next Dose: clopidogrel (clopidogrel 75 mg Tab) 1 Tablets By Mouth every day. Last Dose: Next Dose: famotidine (famotidine 20 mg Tab) 1 Tablets By Mouth every day as needed Indigestion. Last Dose: Next Dose: loratadine (loratadine 10 mg Tab) 1 Tablets By Mouth every day. Last Dose: Next Dose: multivitamin (Multi Vitamins oral tablet) 1 Tablets By Mouth every day. Last Dose: Next Dose: ubiquinone (CoQ10 100 mg oral capsule) 1 Capsules By Mouth at bedtime. Last Dose: Next Dose: Comment: MEDICATION LIST PROVIDED FOR YOU IS A LIST OF YOUR CURRENT MEDICATIONS. PLEASE CARRY THIS WITH YOU AT ALL TIMES. amitriptyline (amitriptyline 10 mg Tab) 1 Tablets By Mouth once a day (at bedtime) as needed Sleep. amlodipine (amLODIPine 2.5 mg Tab) 1 Tablets By Mouth every day. aspirin (aspirin 81 mg Oral EC Tab) 1 Tablets By Mouth every day as needed Headache. atorvastatin (atorvastatin 10 mg Tab) 1 Tablets By Mouth at bedtime. clopidogrel (clopidogrel 75 mg Tab) 1 Tablets By Mouth every day. famotidine (famotidine 20 mg Tab) 1 Tablets By Mouth every day as needed Indigestion. loratadine (loratadine 10 mg Tab) 1 Tablets By Mouth every day. multivitamin (Multi Vitamins oral tablet) 1 Tablets By Mouth every day. ubiquinone (CoQ10 100 mg oral capsule) 1 Capsules By Mouth at bedtime. Pharmacy Information: Comment: PATIENT EDUCATION INFORMATION Instructions: Medication Leaflets: You may receive a survey from [employer] asking you to rate your care experience. Your feedback is important and will help us understand what we do well and how we can improve the quality of care we provide to you, your loved ones and our community. It???s an honor to serve you. (more content not included)... Normal [facility] Lactic Acidon 05-03-2025 Lactic Acid Lvl 1.2 mmol/L Normal 0.5-2.2 [facility] Comment on above: Performed By: #### 2 [id number] #### [facility] [address] [place] [address] Lipase Levelon 05-03-2025 Lipase Lvl 29 unit/L Normal 13-58 [facility] Comment on above: Performed By: #### 2 [id number] #### [facility] [address] [place] [address] Magnesiumon 05-03-2025 Magnesium [Mass/Vol] 1.9 mg/dL Normal 1.3-2.4 [facility] Comment on above: Performed By: #### 2 [id number] #### [facility] [address] [place] [address] PT & PTTon 05-03-2025 INR Coag (PPP) [Relative time] 0.98 {INR} Invalid Interpretation Code [facility] Comment on above: Result Comment: INR results are specifically intended to assess patients stabilized on long-term Anticoagulation therapy suggested INR???s ???Less Intensive Anticoagulation??? 2.0 ??? 3.0 Conventional Range 3.0 ??? 4.5 Performed By: #### 1 [id number] #### [facility] [address] [place] [address] PT 11.0 second(s) Normal 9.4-12.5 [facility] Comment on above: Result Comment: 15 d ays - 4 weeks 1 - 5 months 6 -11 months 1 ??? 5 years 6 ??? 10 years 11 -17 years Mean: 11.2 (9.5 ??? 12.6) Mean: 11.0 (9.7 ??? 12.8) Mean: 11.0 (9.8 ??? 13.0) Mean: 11.3 (9.9 ??? 13.4) Mean: 11.7 (10.0 ??? 14.6) Mean: 11.8 (10.0 - 14.1) Pediatric Reference ranges were obtained from a study by Golden Chen et al. prepared from 1437 samples obtained at 7 different centers using the same coagulation reagent and instrumentation as [facility]. Currently there are no coagulation studies available worldwide for children to 14 days, and no normal ranges. Performed By: #### 1 [id number] #### [facility] [address] [place] [address] PTT 32.4 second(s) Normal 25.1-36.5 [facility] Comment on above: Result Comment: Para meter 15 days - 4 weeks 1 - 5 months 6 - 11 months 1 - 5 years 6 - 10 years 11 - 17 years PTT Mean: 35.4 (27.6-45.6) Mean: 33.5 (24.8-40.7) Mean: 32.4 (25.1-40.7) Mean: 31.6 (24.0-39.2) Mean: 31.6 (26.9-38.7) Mean: 31.0 (24.6-38.4) Pediatric Reference ranges were obtained from a study by Golden Chen et al. prepared from 1437 samples obtained at 7 different centers using the same coagulation reagent and instrumentation as [facility]. Currently there are no coagulation studies available worldwide for children to 14 days, and no normal ranges. Heparin therapeutic range (represented by Anti-Factor Xa activity of 0.2 - 0.4 U/mL) corresponds to PTT of 56.6 - 109.0 sec. Performed By: #### 1 [id number] #### [facility] [address] [place] [address] Patient Education - Texton 0 05-03-2025 Patient Education - Text Patient Education - Text Normal [facility] Pre-Arrival Noteon Pre-Arrival Note Pre-Arrival Note Pre-Arrival Summary Name: , [facility] Current Date: 05/03/2025 12:26:09 EDT Gender: Date of : Age: Pre-Arrival Type: EMS ETA: 05/03/2025 12:51:00 EDT Primary Care Physician: Presenting Problem: syncope/fall/stroke? Pre-Arrival User: Tyrel Georges RN Referring Source: Location: [place] Completion Date/Time: 05/03/2025 12:21:00 [facility] Emergency Department Pre-Hospital Report Form Vital Signs: Pre-Hospital Report: Treatment in Route: Response to Treatment: Misc. Issues: Normal [facility] Troponin 0 Hr.on 05-03-2025 Troponin HS 3.00 pg/mL Low 10.10-27.1 0 [facility] Comment on above: Result Comment: The 95% CI (Confidence Interval) PPV (Positive Predictive Value) for myocardial infarction in females is 38 pg/mL, in males 51 pg/mL. The results should be used in conjunction with clinical conditions of myocardial infarction. (Access High Sensitivity Troponin I Instructions For Use, Vitaly Quincy, July 2018) Performed By: #### 1 [id number] #### [facility] [address] [place] [address] U Drug Screenon 05-03-2025 U Amph Scr Negative Normal NEGATIVE [facility] Comment on above: Result Comment: Nega tive Cutoff: <1000 ng/mL Performed By: #### 2 [id number] #### [facility] [address] [place] [address] U Gerda Scr Negative Normal NEGATIVE [facility] Comment on above: Result Comment: Nega tive Cutoff: <200 ng/mL Performed By: #### 2 [id number] #### [facility] [address] [place] [address] U Benzodia Scr Negative Normal NEGATIVE [facility] Comment on above: Result Comment: Nega tive Cutoff: <200 ng/mL Performed By: #### 2 [id number] #### [facility] [address] [place] [address] U Cannab Scr Negative Normal NEGATIVE [facility] Comment on above: Result Comment: Nega tive Cutoff: <50 ng/mL Performed By: #### 2 [id number] #### [facility] [address] [place] [address] U Cocaine Scr Negative Normal NEGATIVE [facility] Comment on above: Result Comment: Nega tive Cutoff: <300 ng/mL Performed By: #### 2 [id number] #### [facility] [address] [place] [address] U Fentanyl Negative Normal NEGATIVE [facility] Comment on above: Result Comment: Nega tive Cutoff: <5 ng/mL These drug screen results are to be used for medical (i.e., treatment) purposes only. Unconfirmed drug screening results must not be used for non-medical purposes (e.g., employment testing, legal testing). Performed By: #### 2 [id number] #### [facility] [address] [place] [address] U Opiate Scr Negative Normal NEGATIVE [facility] Comment on above: Result Comment: Nega tive Cutoff: <300 ng/mL Performed By: #### 2 [id number] #### [facility] [address] [place] [address] U PCP Scr Negative Normal NEGATIVE [facility] Comment on above: Result Comment: Nega tive Cutoff: <25 ng/mL These drug screen results are to be used for medical (i.e., treatment) purposes only. Unconfirmed drug screening results must not be used for non-medical purposes (e.g., employment testing, legal testing). Performed By: #### 2 [id number] #### [facility] [address] [place] [address] UA with Cult Rflxon 05-03-20 25 Color (U) Colorless Abnormal Yellow [facility] Comment on above: Result Comment: Micr oscopic readings are only performed on those samples that meet specific criteria set forth by [facility]. Performed By: #### 4 [id number] #### [facility] [address] [place] [address] Glucose (U) [Mass/Vol] Negative Normal Negative [facility] Comment on above: Performed By: #### 4 [id number] #### [facility] [address] [place] [address] Ketones Ql (U) 1+ mg/dL Abnormal Negative [facility] Comment on above: Performed By: #### 4 [id number] #### [facility] [address] [place] [address] UA Blood Negative Normal Negative [facility] Comment on above: Performed By: #### 4 [id number] #### [facility] [address] [place] [address] UA Clarity Clear Normal Clear [facility] Comment on above: Performed By: #### 4 [id number] #### [facility] [address] [place] [address] UA Leuk Est Negative Normal Negative [facility] Comment on above: Performed By: #### 4 [id number] #### [facility] [address] [place] [address] UA Nitrite Negative Normal Negative [facility] Comment on above: Performed By: #### 4 [id number] #### [facility] [address] [place] [address] UA pH 7.0 Invalid Interpretation Code 5.0-9.0 [facility] Comment on above: Performed By: #### 4 [id number] #### [facility] [address] [place] [address] UA Protein Negative Normal Negative [facility] Comment on above: Performed By: #### 4 [id number] #### [facility] [address] [place] [address] UA Spec Grav 1.041 Invalid Interpretation Code 1.005-1.03 0 [facility] Comment on above: Performed By: #### 4 [id number] #### [facility] [address] [place] [address] UA Urobilinogen Negative Normal Negative [facility] Comment on above: Performed By: #### 4 [id number] #### [facility] [address] [place] [address] Urobilinogen (U) [Mass/Vol] Negative Normal Negative [facility] Comment on above: Performed By: #### 4 [id number] #### [facility] [address] [place] [address] UA Spec Desc Clean Catch Normal [facility] Comment on above: Performed By: #### 4 [id number] #### [facility] [address] [place] [address] URINALYSISOrdered By: SYSTEM SYSTEM on 05-03-2025 Bilirubin Ql (U) Negative Normal Negativemg /dL FT UA Auto SS Clarity (U) Clear (05/03/25 3:24 PM) Normal Clear FT UA Auto SS Color (U) Colorless 3 *ABN* (05/03/25 3:24 PM) Invalid Interpretation Code Yellow FT UA Auto SS Comment on above: Interpretive Data: M icroscopic readings are only performed on those samples that meet specific criteria set forth by [facility]. Glucose Ql (U) Negative Normal Negativemg /dL [facility] UA Auto SS Hemoglobin Auto test strip (U) [Mass/Vol] Negative Normal Negativemg /dL [facility] UA Auto SS Ketones Auto test strip Ql (U) 1+ mg/dL Invalid Interpretation Code Negativemg /dL [facility] UA Auto SS Leukocyte esterase Auto test strip Ql (U) Negative Normal NegativeLe u/uL FT UA Auto SS Nitrite Auto test strip Ql (U) Negative Normal Negativemg /dL [facility] UA Auto SS pH (U) 7.0 *NA* (05/03/25 3:24 PM) Invalid Interpretation Code 5.0 - 9.0 [facility] UA Auto SS Protein Ql (U) Negative Normal Negativemg /dL [facility] UA Auto SS Specific gravity (U) [Rel density] 1.041 *NA* (05/03/25 3:24 PM) Invalid Interpretation Code 1.005 - 1.030 [facility] UA Auto SS Urobilinogen (U) [Mass/Vol] Negative Normal Negativemg /dL [facility] UA Auto SS URINALYSISOrdered By: Malorie Hood on 05-03-2025 UA Spec Desc Clean Catch (05/03/25 3:24 PM) Normal [facility] UA Auto SS Work Phone: XR Humerus Lefton 05-03-2025 XR Humerus Left Exam Date/Time: 05/03/2025 13:32 EDT Reason for Exam: Fall Report IMPRESSION: MILD TO MODERATELY DISPLACED LEFT HUMERAL HEAD AND NECK FRACTURES. EXAM: XR Humerus Left DATE: 05/03/2025 1:06 PM CLINICAL HISTORY: Fall. Technologist Comments: Patient arrives following a witnessed syncopal event at the [facility] and confusion noted prior to syncopal event. Pt fell down the stairs. Pt stated left shoulder hurts. COMPARISON: None available. TECHNIQUE: AP and lateral radiographs of the left humerus were obtained. FINDINGS: Mild to moderately displaced greater tuberosity and mildly displaced neck and lesser tuberosity fractures. There is no dislocation, evidence of acromioclavicular joint separation, worrisome bone destruction, or other posttraumatic complication identified elsewhere. Ordering Provider: Malorie Hood FINAL REPORT Dictated: 05/03/2025 2:27 pm Giuseppe Munoz MD Signed (Electronic Signature): 05/03/2025 2:27 pm Signed by: Giuseppe Munoz MD Transcribed by: MICK Technologist: DONNA Cordoba [facility] XR Knee Complete 4+ Views Toney caraballo 05-03-2025 XR Knee Complete 4+ Views Right Exam Date/Time: 05/03/2025 13:33 EDT Reason for Exam: Pain, Traumatic Report IMPRESSION: NO DISPLACED FRACTURE OR SIGNIFICANT POSTTRAUMATIC COMPLICATION IDENTIFIED. EXAM: XR Knee Complete 4+ Views Right DATE: 05/03/2025 1:06 PM CLINICAL HISTORY: Pain, Traumatic. COMPARISON: None available. TECHNIQUE: AP, lateral, internal and external oblique radiographs of the right knee were obtained. FINDINGS: There is no fracture, significant degenerative changes, dislocation, worrisome bone destruction, radiodense foreign bodies, or other posttraumatic complication identified. A small joint effusion and mild to moderate atherosclerotic plaquing are noted. Ordering Provider: Malorie Hood FINAL REPORT Dictated: 05/03/2025 2:29 pm Giuseppe Munoz MD Signed (Electronic Signature): 05/03/2025 2:29 pm Signed by: Giuseppe Munoz MD Transcribed by: MICK Technologist: DONNA Cordoba [facility] eGFRon 05-03-2025 eGFR 91 mL/min/1.73 m2 Normal >=59 [facility] Comment on above: Performed By: #### 1 [id number] #### [facility] [address] [place] [address] Optical coherence tomography study reporton 04-13-2025 [facility] Study observation (narrative) [facility] Optical coherence tomography study reporton 12-10-2024 [facility] Study observation (narrative) [facility] Estimated glomerular filtrat ion rate (GFR) non- Americanon 09-22-2024 GFR/1.73 sq M.predicted among non-blacks MDRD (S/P/Bld) [Vol rate/Area] Estimated glomerular filtration rate (GFR) non- >=60 mL/min/1.7 3m 2 [facility] Laboratory - Chemistry and C hemistry - challengeon 09-22-2024 Calcium [Mass/Vol] 8.6 mg/dL 8.5-10.1 [facility] Chloride [Moles/Vol] 99 mmol/L 98-107 [facility] CO2 [Moles/Vol] 27.7 mmol/L 21.0-32.0 [facility] Creatinine [Mass/Vol] 0.69 mg/dL 0.55-1.02 [facility] GFR/1.73 sq M.predicted MDRD (S/P/Bld) [Vol rate/Area] mL/min/{1.73_m2} >=60 mL/min/1.7 3m 2 [facility] Glucose [Mass/Vol] 75 mg/dL 74-106 [facility] Osmolality [Osmolality] 265 mosm/kg Abnormal 280-301 [facility] Comment on above: Performed at: [facility] [address] [id number] Director: Nicole Fowler MD, Phone: [phone] Potassium [Moles/Vol] 3.8 mmol/L 3.5-5.1 [facility] Sodium [Moles/Vol] 135 mmol/L Low 136-145 [facility] Urea nitrogen [Mass/Vol] 11.0 mg/dL 7.0-18.0 [facility] Urea nitrogen/Creatinine [Mass ratio] 15.9 mg/mg [facility] Sodium (U) [Moles/Vol] 38 mmol/L 30-90 [facility] No Panel Informationon 09-22 Urine Osmolality 219 mOsmol/kg . [facility] Comment on above: 24 hr : 300 - 900 Ra ndom: 50 - 1400 After 12hr fluid restriction: >850Performed at: [facility] [address] [id number] Director: Nicole Fowler MD, Phone: [phone] Serum or plasma anion gap de terminationon 09-22-2024 Anion gap [Moles/Vol] Serum or plasma anion gap determination [facility] Basophils Auto (Bld) [#/Vol] on 08-18-2024 Basophils (Bld) [#/Vol] Automated basophil count 0.0-0.1 [facility] Basophils/100 WBC Auto (Bld) on 08-18-2024 Basophils/100 WBC (Bld) Automated basophil % 0.2-2.0 [facility] Eosinophils/100 WBC Auto (Bl d)on 08-18-2024 Eosinophils/100 WBC (Bld) Automated eosinophil % 0.9-7.0 [facility] Erythrocyte distribution wid th Auto (RBC) [Ratio]on 08-18-2024 Erythrocyte distribution width (RBC) [Ratio] Erythrocyte distribution width [Ratio] by Automated count 11.0-15.0 [facility] Estimated glomerular filtrat ion rate (GFR) non- Americanon 08-18-2024 GFR/1.73 sq M.predicted among non-blacks MDRD (S/P/Bld) [Vol rate/Area] Estimated glomerular filtration rate (GFR) non- >=60 [facility] Hematocrit Auto (Bld) [Volum e fraction]on 08-18-2024 Hematocrit (Bld) [Volume fraction] Hematocrit [Volume Fraction] of Blood by Automated count 36.0-48.0 [facility] Hemoglobin [Mass/volume] in Bloodon 08-18-2024 Hemoglobin (Bld) [Mass/Vol] Hemoglobin [Mass/volume] in Blood 12.0-16.0 [facility] - Chemistry and C hemistry - challengeon 08-18-2024 Calcium [Mass/Vol] 8.8 mg/dL 8.5-10.1 [facility] Chloride [Moles/Vol] 96 mmol/L Low 98-107 [facility] CO2 [Moles/Vol] 31.9 mmol/L 21.0-32.0 [facility] Cobalamin (Vitamin B12) [Mass/Vol] 353 pg/mL 232-1245 [facility] Comment on above: Performed at: [facility] [address] [id number] Director: Hunetr Hoover PhD, Phone: [phone] Creatinine [Mass/Vol] 0.62 mg/dL 0.55-1.02 [facility] Ferritin [Mass/Vol] 79.0 ng/mL 8.0-252.0 [facility] GFR/1.73 sq M.predicted MDRD (S/P/Bld) [Vol rate/Area] mL/min/{1.73_m2} >=60 [facility] Glucose [Mass/Vol] 99 mg/dL 74-106 [facility] [facility] Potassium [Moles/Vol] 3.9 mmol/L 3.5-5.1 [facility] Sodium [Moles/Vol] 130 mmol/L Low 136-145 [facility] TSH Qn 1.387 m[IU]/L 0.358-3.74 0 [facility] Urea nitrogen [Mass/Vol] 11.0 mg/dL 7.0-18.0 [facility] Urea nitrogen/Creatinine [Mass ratio] 17.7 mg/mg [facility] Laboratory - Hematology and Cell countson 08-18-2024 Immature granulocytes/100 WBC (Bld) 0.3 % 0.0-0.5 [facility] Leukocytes [#/volume] correc jatin for nucleated erythrocytes in Blood by Automated counon 08-18-2024 WBC corrected for nucl RBC Auto (Bld) [#/Vol] Leukocytes [#/volume] corrected for nucleated erythrocytes in Blood by Automated coun 4.0-11.0 [facility] Lymphocytes Auto (Bld) [#/Vo l]on 08-18-2024 Lymphocytes (Bld) [#/Vol] Lymphocytes [#/volume] in Blood by Automated count Low 1.2-3.8 [facility] Lymphocytes/100 WBC Auto (Bl d)on 08-18-2024 Lymphocytes/100 WBC (Bld) Lymphocytes/100 leukocytes in Blood by Automated count Low 20.5-60.0 [facility] MCH Auto (RBC) [Entitic mass ]on 08-18-2024 MCH (RBC) [Entitic mass] MCH [Entitic mass] by Automated count 26.7-34.0 [facility] MCHC Auto (RBC) [Mass/Vol]on 08-18-2024 MCHC (RBC) [Mass/Vol] MCHC [Mass/volume] by Automated count 29.9-35.2 [facility] MCV Auto (RBC) [Entitic vol] on 08-18-2024 MCV (RBC) [Entitic vol] MCV [Entitic volume] by Automated count 81.0-99.0 [facility] Monocytes Auto (Bld) [#/Vol] on 08-18-2024 Monocytes (Bld) [#/Vol] Automated blood monocyte count 0.3-0.8 [facility] Monocytes/100 WBC Auto (Bld) on 08-18-2024 Monocytes/100 WBC (Bld) Automated monocyte % 1.7-12.0 [facility] Neutrophils Auto (Bld) [#/Vo l]on 08-18-2024 Neutrophils (Bld) [#/Vol] Neutrophils [#/volume] in Blood by Automated count 1.4-6.5 [facility] Neutrophils/100 WBC Auto (Bl d)on 08-18-2024 Neutrophils/100 WBC (Bld) Automated neutrophil % 43.0-75.0 [facility] No Panel Informationon 08-18 Eosinophils # (Auto) 0.2 10 3/uL 0.0-0.7 [facility] Immature Granulocyte # (Auto) 0.02 10 3/uL 0.00-0.03 [facility] Platelet mean volume Auto (B ld) [Entitic vol]on 08-18-2024 Platelet mean volume (Bld) [Entitic vol] Platelet mean volume [Entitic volume] in Blood by Automated count 9.5-13.5 [facility] Platelets Auto (Bld) [#/Vol] on 08-18-2024 Platelets (Bld) [#/Vol] Platelets [#/volume] in Blood by Automated count 150-450 [facility] RBC Auto (Bld) [#/Vol]on RBC (Bld) [#/Vol] Erythrocytes [#/volu me] in Blood by Automated count 4.20-5.40 [facility] Serum or plasma anion gap de terminationon 08-18-2024 Anion gap [Moles/Vol] Serum or plasma anion gap determination [facility] Optical coherence tomography study reporton 07-21-2024 [facility] Study observation (narrative) [facility] Estimated glomerular filtrat ion rate (GFR) non- Americanon 02-16-2024 GFR/1.73 sq M.predicted among non-blacks MDRD (S/P/Bld) [Vol rate/Area] mL/min/{1.73_m2} >=60 [facility] Globulin Calc (S) [Mass/Vol] on 02-16-2024 Globulin (S) [Mass/Vol] 3.0 g/dL [facility] Glucose mean value [Mass/vol ume] in Blood Estimated from glycated hemoglobinon 02-16-2024 Average glucose Estimated from glycated hemoglobin (Bld) [Mass/Vol] 105 mg/dL [facility] Laboratory - Chemistry and C hemistry - challengeon 02-16-2024 Albumin [Mass/Vol] 3.4 g/dL 3.4-5.0 [facility] ALP [Catalytic activity/Vol] 57 U/L 46-116 [facility] ALT [Catalytic activity/Vol] 19 U/L 14-59 [facility] AST [Catalytic activity/Vol] 16 U/L 15-37 [facility] Bilirubin [Mass/Vol] 0.4 mg/dL 0.2-1.0 [facility] Calcium [Mass/Vol] 8.7 mg/dL 8.5-10.1 [facility] Chloride [Moles/Vol] 101 mmol/L 98-107 [facility] CO2 [Moles/Vol] 27.8 mmol/L 21.0-32.0 [facility] Creatinine [Mass/Vol] 0.59 mg/dL 0.55-1.02 [facility] GFR/1.73 sq M.predicted MDRD (S/P/Bld) [Vol rate/Area] mL/min/{1.73_m2} >=60 [facility] Glucose [Mass/Vol] 88 mg/dL 74-106 [facility] Potassium [Moles/Vol] 3.8 mmol/L 3.5-5.1 [facility] Protein [Mass/Vol] 6.4 g/dL 6.4-8.2 [facility] Sodium [Moles/Vol] 136 mmol/L 136-145 [facility] Urea nitrogen [Mass/Vol] 11.0 mg/dL 7.0-18.0 [facility] Urea nitrogen/Creatinine [Mass ratio] 18.6 mg/mg [facility] Laboratory - Hematology and Cell countson 02-16-2024 HbA1c (Bld) [Mass fraction] 5.3 % 4.5-6.2 [facility] Comment on above: ADA RECOMMENDED LIMI T 4.0 - 6.0ADA THERAPEUTIC TARGET < 7.0ACTION SUGGESTED> 7.0 Serum or plasma albumin/glob ulin mass ratioon 02-16-2024 Albumin/Globulin [Mass ratio] 1.1 {ratio} [facility] Serum or plasma anion gap de terminationon 02-16-2024 Anion gap [Moles/Vol] 11.0 mmol/L [facility] Activated partial thrombopla stin time (aPTT) in platelet poor plasma by coagulation aon 02-15-2024 aPTT Coag (PPP) [Time] 28.4 s 22.3-36.2 [facility] Basophils Auto (Bld) [#/Vol] on 02-15-2024 Basophils (Bld) [#/Vol] 0.1 10 3/uL 0.0-0.1 [facility] Basophils/100 WBC Auto (Bld) on 02-15-2024 Basophils/100 WBC (Bld) 1.1 % 0.2-2.0 [facility] Eosinophils/100 WBC Auto (Bl d)on 02-15-2024 Eosinophils/100 WBC (Bld) 3.2 % 0.9-7.0 [facility] Erythrocyte distribution wid th Auto (RBC) [Ratio]on 02-15-2024 Erythrocyte distribution width (RBC) [Ratio] 12.9 % 11.0-15.0 [facility] Estimated glomerular filtrat ion rate (GFR) non- Americanon 02-15-2024 GFR/1.73 sq M.predicted among non-blacks MDRD (S/P/Bld) [Vol rate/Area] mL/min/{1.73_m2} >=60 [facility] Hematocrit Auto (Bld) [Volum e fraction]on 02-15-2024 Hematocrit (Bld) [Volume fraction] 41.1 % 36.0-48.0 [facility] Hemoglobin [Mass/volume] in Bloodon 02-15-2024 Hemoglobin (Bld) [Mass/Vol] 13.3 g/dL 12.0-16.0 [facility] INR in Platelet poor plasma by Coagulation assayon 02-15-2024 INR Coag (PPP) [Relative time] {INR} [facility] Comment on above: DESIRED INR:2.0-3.0 CONDITIONS NOT LISTED BELOW2.5-3.5 FOR PROSTHETIC HEART VALVE REPLACEMENT2.5-3.5 [facility] THROMBOSIS Laboratory - Chemistry and C hemistry - challengeon 02-15-2024 Calcium [Mass/Vol] 8.6 mg/dL 8.5-10.1 [facility] Chloride [Moles/Vol] 96 mmol/L 98-107 [facility] CO2 [Moles/Vol] 28.0 mmol/L 21.0-32.0 [facility] Creatinine [Mass/Vol] 0.64 mg/dL 0.55-1.02 [facility] GFR/1.73 sq M.predicted MDRD (S/P/Bld) [Vol rate/Area] mL/min/{1.73_m2} >=60 [facility] Glucose [Mass/Vol] 99 mg/dL 74-106 [facility] Potassium [Moles/Vol] 3.9 mmol/L 3.5-5.1 [facility] Sodium [Moles/Vol] 135 mmol/L 136-145 [facility] Urea nitrogen [Mass/Vol] 9.0 mg/dL 7.0-18.0 [facility] Urea nitrogen/Creatinine [Mass ratio] 14.1 mg/mg [facility] Laboratory - Hematology and Cell countson 02-15-2024 Immature granulocytes/100 WBC (Bld) 0.4 % 0.0-0.5 [facility] Leukocytes [#/volume] correc jatin for nucleated erythrocytes in Blood by Automated counon 02-15-2024 WBC corrected for nucl RBC Auto (Bld) [#/Vol] 5.3 10 3/uL 4.0-11.0 [facility] Lymphocytes Auto (Bld) [#/Vo l]on 02-15-2024 Lymphocytes (Bld) [#/Vol] 0.8 10 3/uL 1.2-3.8 [facility] Lymphocytes/100 WBC Auto (Bl d)on 02-15-2024 Lymphocytes/100 WBC (Bld) 14.2 % 20.5-60.0 [facility] MCH Auto (RBC) [Entitic mass ]on 02-15-2024 MCH (RBC) [Entitic mass] 31.4 pg 26.7-34.0 [facility] MCHC Auto (RBC) [Mass/Vol]on 02-15-2024 MCHC (RBC) [Mass/Vol] 32.4 g/dL 29.9-35.2 [facility] MCV Auto (RBC) [Entitic vol] on 02-15-2024 MCV (RBC) [Entitic vol] 96.9 fL 81.0-99.0 [facility] Monocytes Auto (Bld) [#/Vol] on 02-15-2024 Monocytes (Bld) [#/Vol] 0.5 10 3/uL 0.3-0.8 [facility] Monocytes/100 WBC Auto (Bld) on 02-15-2024 Monocytes/100 WBC (Bld) 9.5 % 1.7-12.0 [facility] Neutrophils Auto (Bld) [#/Vo l]on 02-15-2024 Neutrophils (Bld) [#/Vol] 3.8 10 3/uL 1.4-6.5 [facility] Neutrophils/100 WBC Auto (Bl d)on 02-15-2024 Neutrophils/100 WBC (Bld) 71.6 % 43.0-75.0 [facility] No Panel Informationon 02-14 Eosinophils # (Auto) 0.2 10 3/uL 0.0-0.7 [facility] Immature Granulocyte # (Auto) 0.02 10 3/uL 0.00-0.03 [facility] Platelet mean volume Auto (B ld) [Entitic vol]on 02-15-2024 Platelet mean volume (Bld) [Entitic vol] 10.0 fL 9.5-13.5 [facility] Platelets Auto (Bld) [#/Vol] on 02-15-2024 Platelets (Bld) [#/Vol] 334 10 3/uL 150-450 [facility] Prothrombin time (PT)on 01-29 PT Coag (PPP) [Time] 9.8 s 9.0-11.6 [facility] RBC Auto (Bld) [#/Vol]on RBC (Bld) [#/Vol] 4.24 10 6/uL 4.20-5.40 [facility] Serum or plasma anion gap de terminationon 02-15-2024 Anion gap [Moles/Vol] 14.9 mmol/L [facility] Basophils Auto (Bld) [#/Vol] on 02-02-2024 Basophils (Bld) [#/Vol] 0.0 10 3/uL 0.0-0.1 [facility] Basophils/100 WBC Auto (Bld) on 02-02-2024 Basophils/100 WBC (Bld) 0.8 % 0.2-2.0 [facility] Cholesterol in LDL Calc [Mas s/Vol]on 02-02-2024 Cholesterol in LDL [Mass/Vol] 57.0 mg/dL [facility] Comment on above: <100 mg/dl [id number] 0-129 mg/dl NEAR OR ABOVE [id number] mg/dl BORDERLINE [id number] mg/dl HIGH>190 mg/dl VERY HIGH Cholesterol in VLDL Calc [Ma ss/Vol]on 02-02-2024 Cholesterol in VLDL [Mass/Vol] 7.4 mg/dL [facility] Eosinophils/100 WBC Auto (Bl d)on 02-02-2024 Eosinophils/100 WBC (Bld) 4.8 % 0.9-7.0 [facility] Erythrocyte distribution wid th Auto (RBC) [Ratio]on 02-02-2024 Erythrocyte distribution width (RBC) [Ratio] 12.9 % 11.0-15.0 [facility] Estimated glomerular filtrat ion rate (GFR) non- Americanon 02-02-2024 GFR/1.73 sq M.predicted among non-blacks MDRD (S/P/Bld) [Vol rate/Area] mL/min/{1.73_m2} >=60 [facility] Globulin Calc (S) [Mass/Vol] on 02-02-2024 Globulin (S) [Mass/Vol] 3.5 g/dL [facility] Hematocrit Auto (Bld) [Volum e fraction]on 02-02-2024 Hematocrit (Bld) [Volume fraction] 40.4 % 36.0-48.0 [facility] Hemoglobin [Mass/volume] in Bloodon 02-02-2024 Hemoglobin (Bld) [Mass/Vol] 13.0 g/dL 12.0-16.0 [facility] Laboratory - Chemistry and C hemistry - challengeon 02-02-2024 Albumin [Mass/Vol] 3.8 g/dL 3.4-5.0 [facility] ALP [Catalytic activity/Vol] 63 U/L 46-116 [facility] ALT [Catalytic activity/Vol] 26 U/L 14-59 [facility] AST [Catalytic activity/Vol] 18 U/L 15-37 [facility] Bilirubin [Mass/Vol] 0.5 mg/dL 0.2-1.0 [facility] Calcium [Mass/Vol] 8.8 mg/dL 8.5-10.1 [facility] Chloride [Moles/Vol] 98 mmol/L 98-107 [facility] Cholesterol [Mass/Vol] 182 mg/dL <=200 [facility] Cholesterol in HDL [Mass/Vol] 118 mg/dL 40-60 [facility] Comment on above: > or =60 mg/dl - LOW CARDIOVASCULAR RISK<40 mg/dl - HIGH CARDIOVASCULAR RISK CO2 [Moles/Vol] 30.0 mmol/L 21.0-32.0 [facility] Creatinine [Mass/Vol] 0.72 mg/dL 0.55-1.02 [facility] GFR/1.73 sq M.predicted MDRD (S/P/Bld) [Vol rate/Area] mL/min/{1.73_m2} >=60 [facility] Glucose [Mass/Vol] 95 mg/dL 74-106 [facility] Potassium [Moles/Vol] 4.2 mmol/L 3.5-5.1 [facility] Protein [Mass/Vol] 7.3 g/dL 6.4-8.2 [facility] Sodium [Moles/Vol] 136 mmol/L 136-145 [facility] Triglyceride [Mass/Vol] 37 mg/dL <=150 [facility] Urea nitrogen [Mass/Vol] 11.0 mg/dL 7.0-18.0 [facility] Urea nitrogen/Creatinine [Mass ratio] 15.3 mg/mg [facility] Laboratory - Hematology and Cell countson 02-02-2024 Immature granulocytes/100 WBC (Bld) 0.4 % 0.0-0.5 [facility] Leukocytes [#/volume] correc jatin for nucleated erythrocytes in Blood by Automated counon 02-02-2024 WBC corrected for nucl RBC Auto (Bld) [#/Vol] 5.2 10 3/uL 4.0-11.0 [facility] Lymphocytes Auto (Bld) [#/Vo l]on 02-02-2024 Lymphocytes (Bld) [#/Vol] 0.8 10 3/uL 1.2-3.8 [facility] Lymphocytes/100 WBC Auto (Bl d)on 02-02-2024 Lymphocytes/100 WBC (Bld) 14.8 % 20.5-60.0 [facility] MCH Auto (RBC) [Entitic mass ]on 02-02-2024 MCH (RBC) [Entitic mass] 30.7 pg 26.7-34.0 [facility] MCHC Auto (RBC) [Mass/Vol]on 02-02-2024 MCHC (RBC) [Mass/Vol] 32.2 g/dL 29.9-35.2 [facility] MCV Auto (RBC) [Entitic vol] on 02-02-2024 MCV (RBC) [Entitic vol] 95.5 fL 81.0-99.0 [facility] Monocytes Auto (Bld) [#/Vol] on 02-02-2024 Monocytes (Bld) [#/Vol] 0.6 10 3/uL 0.3-0.8 [facility] Monocytes/100 WBC Auto (Bld) on 02-02-2024 Monocytes/100 WBC (Bld) 11.9 % 1.7-12.0 [facility] Neutrophils Auto (Bld) [#/Vo l]on 02-02-2024 Neutrophils (Bld) [#/Vol] 3.5 10 3/uL 1.4-6.5 [facility] Neutrophils/100 WBC Auto (Bl d)on 02-02-2024 Neutrophils/100 WBC (Bld) 67.3 % 43.0-75.0 [facility] No Panel Informationon 02-01 Eosinophils # (Auto) 0.3 10 3/uL 0.0-0.7 [facility] Immature Granulocyte # (Auto) 0.02 10 3/uL 0.00-0.03 [facility] Platelet mean volume Auto (B ld) [Entitic vol]on 02-02-2024 Platelet mean volume (Bld) [Entitic vol] 9.9 fL 9.5-13.5 [facility] Platelets Auto (Bld) [#/Vol] on 02-02-2024 Platelets (Bld) [#/Vol] 316 10 3/uL 150-450 [facility] RBC Auto (Bld) [#/Vol]on RBC (Bld) [#/Vol] 4.23 10 6/uL 4.20-5.40 [facility] Serum or plasma albumin/glob ulin mass ratioon 02-02-2024 Albumin/Globulin [Mass ratio] 1.1 {ratio} [facility] Serum or plasma anion gap de terminationon 02-02-2024 Anion gap [Moles/Vol] 12.2 mmol/L [facility] Serum or plasma total choles terol/high density lipoprotein (HDL) cholesterol mass olivia 02-02-2024 Cholesterol.total/C holesterol in HDL [Mass ratio] 1.5 {ratio} [facility] Comment on above: 3.3 - 4.4 LOW RISK4. 4 - 7.1 AVERAGE RISK7.1 - 11.0 MODERATE RISK>11.0 HIGH RISK CBC AUTO DIFFon 02-04-2023 BASO # 0.1 103/ul Normal 0.0-0.1 [facility] Comment on above: Performed By: #### D ATCBC #### [facility] [address] [address] [address] Yovana Funes Basophils/100 WBC (Bld) 1.0 % Normal 0.2-2.0 [facility] Comment on above: Performed By: #### D ATCBC #### [facility] [address] [place] [address] Dr. Yoavna Funes EO # 0.3 103/ul Normal 0.0-0.7 [facility] Comment on above: Performed By: #### D ATCBC #### [facility] [address] [place] [address] Dr. Yovana Funes Eosinophils/100 WBC (Bld) 5.5 % Normal 0.9-7.0 [facility] Comment on above: Performed By: #### D ATCBC #### [facility] [address] [place] [address] Dr. Yovana Funes Erythrocyte distribution width (RBC) [Ratio] 13.2 % Normal 11.0-15.0 [facility] Comment on above: Performed By: #### D ATCBC #### [facility] [address] [place] [address] Dr. Yovana Funes Hematocrit (Bld) [Volume fraction] 41.8 % Normal 36.0-48.0 [facility] Comment on above: Performed By: #### D ATCBC #### [facility] [address] [place] [address] Dr. Yovana Funes Hemoglobin (Bld) [Mass/Vol] 13.9 g/dL Normal 12.0-16.0 [facility] Comment on above: Performed By: #### D ATCBC #### [facility] [address] [place] [address] Dr. Yovana Funes IG # 0.02 10e3/ul Normal 0.00-0.03 [facility] Comment on above: Performed By: #### D ATCBC #### [facility] [address] [place] [address] Dr. Yovana Funes IG % 0.4 % Normal 0.0-0.5 [facility] Comment on above: Performed By: #### D ATCBC #### [facility] [address] [place] [address] Dr. Yovana Funes LYMPH # 0.9 103/ul Critically low 1.2-3.8 [facility] Comment on above: Performed By: #### D ATCBC #### [facility] [address] [place] [address] Dr. Yovana Funes Lymphocytes/100 WBC (Bld) 16.6 % Critically low 20.5-60.0 [facility] Comment on above: Performed By: #### D ATCBC #### [facility] [address] [place] [address] Dr. Yovana Funes MCH (RBC) [Entitic mass] 31.1 pg Normal 26.7-34.0 [facility] Comment on above: Performed By: #### D ATCBC #### [facility] [address] [place] [address] Dr. Yovana Funes MCHC (RBC) [Mass/Vol] 33.3 g/dL Normal 29.9-35.2 [facility] Comment on above: Performed By: #### D ATCBC #### [facility] [address] [place] [address] Dr. Yovana Funes MCV (RBC) [Entitic vol] 93.5 fL Normal 81.0-99.0 [facility] Comment on above: Performed By: #### D ATCBC #### [facility] [address] [place] [address] Dr. Yovana Funes MONO # 0.5 103/ul Normal 0.3-0.8 [facility] Comment on above: Performed By: #### D ATCBC #### [facility] [address] [place] [address] Dr. Yovana Funes Monocytes/100 WBC (Bld) 10.3 % Normal 1.7-12.0 [facility] Comment on above: Performed By: #### D ATCBC #### [facility] [address] [place] [address] Dr. Yovana Funes NEUT # 3.5 103/ul Normal 1.4-6.5 [facility] Comment on above: Performed By: #### D ATCBC #### [facility] [address] [place] [address] Dr. Yovana Funes Neutrophils/100 WBC (Bld) 66.2 % Normal 43.0-75.0 [facility] Comment on above: Performed By: #### D ATCBC #### [facility] [address] [place] [address] Dr. Yovana Funes Platelet mean volume (Bld) [Entitic vol] 9.9 fL Normal 9.5-13.5 [facility] Comment on above: Performed By: #### D ATCBC #### [facility] [address] [place] [address] Dr. Yovana Funes PLT 369 103/ul Normal 150-450 [facility] Comment on above: Performed By: #### D ATCBC #### [facility] [address] [place] [address] Dr. Yovana Funes RBC 4.47 106/ul Normal 4.20-5.40 [facility] Comment on above: Performed By: #### D ATCBC #### [facility] [address] [place] [address] Dr. Yovana Funes WBC 5.3 103/ul Normal 4.0-11.0 [facility] Comment on above: Performed By: #### D ATCBC #### [facility] [address] [place] [address] Dr. Yovana Funes MARLEY- BMP WITH LIPIDon 2022 Anion gap [Moles/Vol] 13.0 mmol/L Normal [facility] Comment on above: Performed By: #### D ATBMP #### [facility] [address] [place] [address] Dr. Yovana Funes Calcium [Mass/Vol] 9.1 mg/dL Normal 8.5-10.1 [facility] Comment on above: Performed By: #### D ATBMP #### [facility] [address] [place] [address] Dr. Yovana Funes Chloride [Moles/Vol] 102 mmol/L Normal 98-107 [facility] Comment on above: Performed By: #### D ATBMP #### [facility] [address] [address] [address] Yovana Funes Cholesterol [Mass/Vol] 211 mg/dL Critically high <=200 [facility] Comment on above: Performed By: #### D ATBMP #### [facility] [address] [address] [address] Yovana Funes Cholesterol in HDL [Mass/Vol] 114 mg/dL Critically high 40-60 [facility] Comment on above: Performed By: #### D ATBMP #### [facility] [address] [address] [address] Yovana Funes Cholesterol in LDL [Mass/Vol] 89.8 mg/dL Normal [facility] Comment on above: Performed By: #### D ATBMP #### [facility] [address] [address] [address] Yovana Funes CO2 [Moles/Vol] 29.2 mmol/L Normal 21.0-32.0 [facility] Comment on above: Performed By: #### D ATBMP #### [facility] [address] [address] [address] Yovana Funes Creatinine [Mass/Vol] 0.55 mg/dL Normal 0.55-1.02 [facility] Comment on above: Performed By: #### D ATBMP #### [facility] [address] [address] [address] Yovana Funes EGFR-AF SWEDISH >60 Normal >=60 [facility] Comment on above: Performed By: #### D ATBMP #### [facility] [address] [address] [address] Yovana Funes EGFR-NON AF SWEDISH >60 Normal >=60 [facility] Comment on above: Performed By: #### D ATBMP #### [facility] [address] [address] [address] Yovana Funes Glucose [Mass/Vol] 101 mg/dL Normal 74-106 [facility] Comment on above: Performed By: #### D ATBMP #### [facility] [address] [address] [address] Yovana Funes HDL NORMAL > or = 60 mg/dl - LO W CARDIOVASCULAR RISK <40 mg/dl - HIGH CARDIOVASCULAR RISK Normal [facility] Comment on above: Performed By: #### D ATBMP #### [facility] [address] [address] [address] Yovana Funes LDL CALC NORMAL SEE BELOW Normal [facility] Comment on above: Result Comment: <100 mg/dl OPTIMAL 100 - 129 mg/dl NEAR OR ABOVE OPTIMAL 130 - 159 mg/dl BORDERLINE HIGH 160 - 189 mg/dl HIGH >190 mg/dl VERY HIGH Performed By: #### D ATBMP #### [facility] [address] [address] [address] Yovana Funes Potassium [Moles/Vol] 4.2 mmol/L Normal 3.5-5.1 [facility] Comment on above: Performed By: #### D ATBMP #### [facility] [address] [address] [address] Yovana Funes Sodium [Moles/Vol] 140 mmol/L Normal 136-145 [facility] Comment on above: Performed By: #### D ATBMP #### [facility] [address] [address] [address] Yovana Funes Triglyceride [Mass/Vol] 36 mg/dL Normal <=150 [facility] Comment on above: Performed By: #### D ATBMP #### [facility] [address] [address] [address] Yovana Funes Urea nitrogen [Mass/Vol] 13.0 mg/dL Normal 7.0-18.0 [facility] Comment on above: Performed By: #### D ATBMP #### [facility] [address] [address] [address] Yovana Funes Urea nitrogen/Creatinine [Mass ratio] 23.6 mg/mg Normal [facility] Comment on above: Performed By: #### D ATBMP #### [facility] [address] [address] [address] Yovana Funes VLDL CALC 7.2 mg/dL Normal [facility] Comment on above: Performed By: #### D ATBMP #### [facility] [address] [place] [address] Dr. Yovana Funes DIRECT LDLon 05-07-2022 Cholesterol in LDL [Mass/Vol] 55 mg/dL Normal [facility] Comment on above: Performed By: #### A LT, DLDL #### [facility] [address] [place] [address] Dr. Yovana Funes DLDL NORMAL SEE BELOW Normal [facility] Comment on above: Result Comment: <100 mg/dl OPTIMAL 100 - 129 mg/dl NEAR OR ABOVE OPTIMAL 130 - 159 mg/dl BORDERLINE HIGH 160 - 189 mg/dl HIGH >190 mg/dl VERY HIGH Performed By: #### A LT, DLDL #### [facility] [address] [place] [address] Dr. Yovana Funes SGPTon 05-07-2022 ALT [Catalytic activity/Vol] 26 U/L Normal [facility] Comment on above: Performed By: #### A LT, DLDL #### [facility] [address] [place] [address] Dr. Yovana Funes DIRECT LDLon 03-15-2022 Cholesterol in LDL [Mass/Vol] 102 mg/dL Normal [facility] Comment on above: Performed By: #### D LDL, ALT #### [facility] [address] [place] [address] Dr. Yovana Funes DLDL NORMAL SEE BELOW Normal [facility] Comment on above: Result Comment: <100 mg/dl OPTIMAL 100 - 129 mg/dl NEAR OR ABOVE OPTIMAL 130 - 159 mg/dl BORDERLINE HIGH 160 - 189 mg/dl HIGH >190 mg/dl VERY HIGH Performed By: #### D LDL, ALT #### [facility] [address] [place] [address] Dr. Yovana Funes SGPTon 03-15-2022 ALT [Catalytic activity/Vol] 18 U/L Normal [facility] Comment on above: Performed By: #### D LDL, ALT #### [facility] [address] [place] [address] Dr. Yovana Funes CBC Without Differentialon 0 05-12-2021 Erythrocyte distribution width (RBC) [Ratio] 13.7 % Normal 11.9-15.3 [facility] Comment on above: Performed By: #### C BCNOOUTREACH, OUTREACH CMP, OUTREACH LIPID #### [facility] [address] [place] [address] Hematocrit (Bld) [Volume fraction] 42.3 % Normal 34.0-46.4 [facility] Comment on above: Performed By: #### C BCNOOUTREACH, OUTREACH CMP, OUTREACH LIPID #### [facility] [address] [place] [address] Hemoglobin (Bld) [Mass/Vol] 14.3 g/dL Normal 11.8-15.4 [facility] Comment on above: Performed By: #### C BCNOOUTREACH, OUTREACH CMP, OUTREACH LIPID #### [address] MCH (RBC) [Entitic mass] 32.0 pg Normal 24.7-34.3 [facility] Comment on above: Performed By: #### C BCNOOUTREACH, OUTREACH CMP, OUTREACH LIPID #### [facility] [address] [place] [address] MCV (RBC) [Entitic vol] 95.0 fL Normal 80-100 [facility] Comment on above: Performed By: #### C BCNOOUTREACH, OUTREACH CMP, OUTREACH LIPID #### [facility] [address] [place] [address] Mean Corpuscular HGB Conc 33.7 g/dL Normal 32.0-35.0 [facility] Comment on above: Performed By: #### C BCNOOUTREACH, OUTREACH CMP, OUTREACH LIPID #### [address] Platelet mean volume (Bld) [Entitic vol] 8.8 fL Normal 6.3-10.7 [facility] Comment on above: Result Comment: PERF ORMED BY: [place] [address] PATHOLOGIST [employer] GRAPH[employer] DESIGNER ADAM CROCKER M.D. Performed By: #### C BCNOOUTREACH, OUTREACH CMP, OUTREACH LIPID #### [facility] [address] [place] [address] [place] Platelets (Bld) [#/Vol] 298 10*3/uL Normal 150-450 [facility] Comment on above: Performed By: #### C BCNOOUTREACH, OUTREACH CMP, OUTREACH LIPID #### [facility] [address] [place] [address] [place] RBC (Bld) [#/Vol] 4.46 10*6/uL Normal 3.60-5.00 [facility] Comment on above: Performed By: #### C BCNOOUTREACH, OUTREACH CMP, OUTREACH LIPID #### [address] WBC (Bld) [#/Vol] 4.5 10*3/uL Normal 3.8-11.6 [facility] Comment on above: Performed By: #### C BCNOOUTREACH, OUTREACH CMP, OUTREACH LIPID #### [facility] [address] [place] [address] CMP Outreachon 05-12-2021 Albumin [Mass/Vol] 4.4 g/dL Normal 3.2-5.5 [facility] Comment on above: Performed By: #### C BCNOOUTREACH, OUTREACH CMP, OUTREACH LIPID #### [facility] [address] [place] [address] [place] ALP [Catalytic activity/Vol] 50 U/L Normal 32-92 [facility] Comment on above: Performed By: #### C BCNOOUTREACH, OUTREACH CMP, OUTREACH LIPID #### [facility] [address] [place] [address] [place] ALT [Catalytic activity/Vol] 26 U/L Normal 10-60 [facility] Comment on above: Performed By: #### C BCNOOUTREACH, OUTREACH CMP, OUTREACH LIPID #### [facility] [address] [place] [address] [place] AST [Catalytic activity/Vol] 27 U/L Normal 10-42 [facility] Comment on above: Performed By: #### C BCNOOUTREACH, OUTREACH CMP, OUTREACH LIPID #### [facility] [address] [place] [address] [place] Bilirubin [Mass/Vol] 0.6 mg/dL Normal 0.3-1.2 [facility] Comment on above: Performed By: #### C BCNOOUTREACH, OUTREACH CMP, OUTREACH LIPID #### [facility] [address] [place] [address] [place] Calcium [Mass/Vol] 9.1 mg/dL Normal 8.2-10.2 [facility] Comment on above: Performed By: #### C BCNOOUTREACH, OUTREACH CMP, OUTREACH LIPID #### [facility] [address] [place] [address] [place] Chloride [Moles/Vol] 99 mmol/L Normal 95-114 [facility] Comment on above: Performed By: #### C BCNOOUTREACH, OUTREACH CMP, OUTREACH LIPID #### [facility] [address] [place] [address] [place] CO2 [Moles/Vol] 25.1 mmol/L Normal 22.0-30.0 [facility] Comment on above: Performed By: #### C BCNOOUTREACH, OUTREACH CMP, OUTREACH LIPID #### [facility] [address] [place] [address] [place] Creatinine [Mass/Vol] 0.63 mg/dL Normal 0.44-1.03 [facility] Comment on above: Performed By: #### C BCNOOUTREACH, OUTREACH CMP, OUTREACH LIPID #### [facility] [address] [place] [address] [place] Estimated GFR ( Mary Ann > 60 [facility] Comment on above: Result Comment: GFR estimated reference range: According to KDOQI guidelines, <60 ml/min/1.73m2 is sufficient to diagnose a patient with chronic kidney disease. Performed By: #### C BCNOOUTREACH, OUTREACH CMP, OUTREACH LIPID #### [facility] [address] [place] [address] [place] Estimated GFR (Non- Am > 60 Normal [facility] Comment on above: Performed By: #### C BCNOOUTREACH, OUTREACH CMP, OUTREACH LIPID #### [facility] [address] [place] [address] [place] Glucose [Mass/Vol] 89 mg/dL Normal 70-100 [facility] Comment on above: Result Comment: [facility] Glucose Reference Range is dependent on time and content of last meal. Glucose of more than 200 mg/dL in a nonstressed, ambulatory subject supports the diagnosis of Diabetes Mellitus. ADA recommended reference range Performed By: #### C BCNOOUTREACH, OUTREACH CMP, OUTREACH LIPID #### [facility] [address] [place] [id number] [place] Potassium [Moles/Vol] 3.9 mmol/L Normal 3.5-5.1 [facility] Comment on above: Performed By: #### C BCNOOUTREACH, OUTREACH CMP, OUTREACH LIPID #### [facility] [address] [place] [address] [place] Protein [Mass/Vol] 6.9 g/dL Normal 6.1-7.9 [facility] Comment on above: Performed By: #### C BCNOOUTREACH, OUTREACH CMP, OUTREACH LIPID #### [facility] [address] [place] [id number] [place] Sodium [Moles/Vol] 135 mmol/L Low 136-146 [facility] Comment on above: Performed By: #### C BCNOOUTREACH, OUTREACH CMP, OUTREACH LIPID #### [facility] [address] [place] [id number] [place] Urea nitrogen [Mass/Vol] 7 mg/dL Low 9-23 [facility] Comment on above: Performed By: #### C BCNOOUTREACH, OUTREACH CMP, OUTREACH LIPID #### [facility] [address] [place] [id number] [place] Lipid Profile Outreachon Cholesterol [Mass/Vol] 229 mg/dL High 140-200 [facility] Comment on above: Result Comment: Chol less than 200 mg/dl low risk Chol 201-239 mg/dl borderline risk Chol 240 mg/dl and greater high risk Performed By: #### C BCNOOUTREACH, OUTREACH CMP, OUTREACH LIPID #### [facility] [address] [place] [address] [place] Cholesterol in HDL [Mass/Vol] 97 mg/dL High 35-85 [facility] Comment on above: Result Comment: HDL CHOL ATP-III CLASSIFICATION Cardiovascular Risk HDL > or equal to 60 mg/dL LOW HDL < 40 mg/dL HIGH Performed By: #### C BCNOOUTREACH, OUTREACH CMP, OUTREACH LIPID #### [facility] [address] Cholesterol.total/C holesterol in HDL [Mass ratio] 2.4 {ratio} Normal <5.0 [facility] Comment on above: Result Comment: PERF ORMED BY: [place] [address] PATHOLOGIST [employer] GRAPH[employer] DESIGNER ADAM CROCKER M.D. Performed By: #### C BCNOOUTREACH, OUTREACH CMP, OUTREACH LIPID #### [facility] [address] [place] [address] LDL Cholesterol,Calcula jatin 120 mg/dL High 0-100 [facility] Comment on above: Result Comment: LDL ATP III CLASSIFICATION LDL less than 100 mg/dL Optimal LDL 100-129 mg/dL Near or above optimal LDL 130-159 mg/dL Borderline high LDL 160-189 mg/dL High LDL greater than 189 mg/dL Very high Performed By: #### C BCNOOUTREACH, OUTREACH CMP, OUTREACH LIPID #### [facility] [address] [place] [address] Triglyceride w/Reflex 62 mg/dL Normal 35-149 [facility] Comment on above: Result Comment: TRIG ATP III CLASSIFICATION TRIG less than 150 mg/dL Normal TRIG 150-199 mg/dL Borderline high TRIG 200-500 mg/dL High TRIG greater than 500 mg/dL Very high Standard traceable to the Center for Disease Conrtrol and Prevention (CDC) test method. Performed By: #### C BCNOOUTREACH, OUTREACH CMP, OUTREACH LIPID #### [facility] [address] VLDL CHOLESTEROL 12 mg/dL Normal [facility] Comment on above: Performed By: #### C BCNOOUTREACH, OUTREACH CMP, OUTREACH LIPID #### [facility] [address] Trista 01-23-2021 JEVON Patient Outreach ([place] [facility]) MICHELETAPRIL ([id number]) 1945 F Date Time Provider Department 01/23/21 MARIKA GILES During your visit today, we recorded the following information about you: Allergies As of Date: 01/23/2021 (No Known Allergies) Date Reviewed: 03/09/2019 Reviewed by: Fantasma Mandujano) Sandeep - Fully Assessed Order(s):SARS-COVID VACCINE 1ST DOSE APPT [[id number]] Order #: [id number] FUTURE Prescriptions as of 01/23/2021 Sig: PANTOPRAZOLE [...] Status:Closed by EPIC, PRODUSER on 01/26/21 Normal [facility] XR HIP 3V PELV+ AP/LAT [...] on Mar 09 2019 6:15PM EST [id number] [facility] XR HIP 3V PELV+ AP/LAT LTon 07-24-2018 [...] on Jul 24 2018 11:17AM EST [id number] [facility] HISTORY PHYSICALon 8 HISTORY PHYSICAL HNO ID: [id number] thor: Tomasz Viveros) KeraService: (none)Author Type: Physician AssistantType: HANDPFiled: 12/16/2017 11:16 AMNote Text:HISTORY AND PHYSICAL EXAMINATIONSERVICE DATE: 12/15/2017SERVICE TIME: 10:[facility] ISRAEL KesslerEASON FOR VISIT:April Tafoya is a 72 year old female who is scheduled for arthroplastyacetabular and proximal femoral prosth total hip without autograft at [facility] of Dr. Yuliya Buckner for consultation. [...] chest pain at rest/with exertion; denies h/o GA cardiacsurgery or stents. Denies h/o DVT/PEGI: Positive [...] in office todayDate: 12/15/2017Preliminary Result: Normal Sinus RhythmAssessmentASSESSMENTPat ient has the following medical conditions which may [...] (lower)Airway History: No abnormal airway historySTOP BANG Score:Criteria:HypertensionAg e over 50 (72 year old)Score = 2PLANThis [...] and compliance.SIGNATURE: Tomasz Cote PA-C PATIENT NAME: April TafoyaDATE: December 15, 2017 : 10:41 AM PAGER/CONTACT #: [facility] HOSP 12-15-2017 [facility] ([facility] -APRIL TAFOYA ([id number]) 1945 FDate Time Provider Department12/15/17 11:00 AM PACC 1 [facility] During your visit today, we recorded the following information about you: Temperature Pulse Respiration Blood pressure 96.8 degrees 68/minute 16/minute 125/60 Weight Height 52.2 kg 1.549 Everardo Cote PA-C 12/16/2017 11:16 AM AddendumHISTORY AND PHYSICAL EXAMINATIONSERVICE DATE: 12/15/2017SERVICE TIME: 10:41 [facility] CARE PHYSICIAN: ANAHI Kessler FOR VISIT:April Tafoya is a 72 year old female who is scheduled for arthroplastyacetabular and proximal femoral prosth total hip without autograft at [facility] of Dr. Yuliya Buckner for consultation. [...] chest pain at rest/with exertion; denies h/o GA cardiac surgery orstents. Denies h/o DVT/PEGI: Positive [...] in office todayDate: 12/15/2017Preliminary Result: Normal Sinus RhythmAssessmentASSESSMENTPat ient has the following medical conditions which may affect ivory-operativecourse:H/O TIA- 2013HTN- well controlled with medication. BP today 12/15/2017: 125/60GERD- symptoms controlled with Omeprazole, takes prnH/O Breast cancer- s/p mastectomy, chemo and radiation ( and recurrence [id number])Osteoarthritis left hipMETS:Limited physical activity due to left [...] (lower)Airway History: No abnormal airway historySTOP BANG Score:Criteria:HypertensionAg e over 50 (72 year old)Score = 2PLANThis [...] comprehensionand compliance.SIGNATURE: Tomasz Cote PA-C PATIENT NAME: April TafoyaDATE: December 15, 2017 : 10:41 AM PAGER/CONTACT #:Tomasz Cote PA-C 12/15/2017 10:50 AM SignedPATIENT PREOPERATIVE INSTRUCTIONSBlYuliya sanchez, * has scheduled you for your procedure at this surgerycenter:[facility]: [phone] -- [address] [address].Please read below carefully for your personalized instructions.Blood [...] new medications after today's visit, please contact thergery center above.Important Reminders: - Candy, mints, gum and tobacco products are NOT permitted the morning ofsurgery.- Hearing aids, dentures and glasses may be worn the morning of surgery.- NO jewelry, body piercings, makeup, nail guyanese, hairpins or contacts are thanh worn the [...] Procedures: - YOU MUST HAVE A RESPONSIBLE ENGINEER OPERATIONS AND MAINTENANCE TAKE YOU HOME. A AIRCRAFT ASSEMBLER OR CABDRIVER CANNOT BE MADE A RESPONSIBLE ENGINEER OPERATIONS AND MAINTENANCE.- We recommend that a responsible person stays with you overnight to take careof you.- You cannot stay in a hotel alone after outpatient surgery. You will not bepermitted to have your surgery, if you do not have someone to take care of you. Arrival Time for Surgery: -You will receive a call from [facility] the afternoon beforesurgery after 2:30 pm (or Friday for Friday surgery) for a scheduled arrivaltime.- If you have not heard by 4 pm, please contact [facility] [phone].Please be aware that emergency situations arise, which may delay or change yoursurgical time. If this happens, we will notify you as soon as possible andregret any inconvenience.ARIANNA Mondragon-CReferring Provider: YULIYA BUCKNER [[id number]]Allergies As of Date: 12/15/2017(No Known Allergies)Date Reviewed: 12/15/2017Reviewed by: Tomasz (Edward) Kera - Fully AssessedReason for Visit: Pre-Op Exam [87]Primary Visit Diagnosis:Preoperative clearance [Z01.818] Other Visit Diagnoses:Primary osteoarthritis of left hip [M16.12] Contact with and (suspected) exposure to other bacterial communicable diseases [Z20.818] Benign essential HTN [I10] Gastroesophageal reflux disease without esophagitis [K21.9]Order(s):STAPH AUREUS PCR [SQSAPCR] Order #: [id number] FUTURE ECG COMPLETE W INTERPRETATION [ECG01] Order #: [id number] as of 12/15/2017 Sig: AMLODIPINE 5 MG [...] for your procedure at this surgery center: [facility]: [phone] -- [address] [place], [place] [address]. Please read below carefully for your personalized [...] - NO jewelry, body piercings, makeup, nail guyanese, hairpins or contacts are to be worn [...] Procedures: - YOU MUST HAVE A RESPONSIBLE ENGINEER OPERATIONS AND MAINTENANCE TAKE YOU HOME. A AIRCRAFT ASSEMBLER OR POTATO PICKER CANNOT BE MADE A RESPONSIBLE ENGINEER OPERATIONS AND MAINTENANCE. - We recommend that a responsible person stays with you overnight to take care of you. - You cannot stay in a hotel alone after outpatient surgery. You will not be permitted to have your surgery, if you do not have someone to take care of you. Arrival Time for Surgery: -You will receive a call from [facility] the afternoon before surgery after 2:30 pm (or Friday for Friday surgery) for a scheduled arrival time. - If you have not heard by 4 pm, please contact [facility] [place] at [phone]. Please be aware that emergency situations arise, which may delay or change your surgical time. If this happens, we will notify you as soon as possible and regret any inconvenience. NURA MondragonCEncounter Number: [id number] Status:Closed by TOMASZ COTE PA-C on 12/15/17 [facility] Staph aureus PCRon 8 MRSA PCR Negative [facility] Comment on above: Performed By: #### S APCR ####[id number] [place], [place] [phone] S aureus Spec Source Nasal [facility] Comment on above: Performed By: #### S APCR ####[facility] [address] [place], [place] [phone] Staph aureus PCR Negative [facility] Comment on above: Performed By: #### S APCR ####[facility] [place] [address] [phone] Vital Signs Date Time Vital Sign Value Performing Clinician Facility 06-23-2025 12:55-0400 Body height 152.4 cm Yuliya Garza DO Work Phone: [facility] 06-23-2025 12:55-0400 Body mass index (BMI) [Ratio] 23.44 kg/m2 Yuliya Garza DO Work Phone: [facility] 06-23-2025 12:55-0400 Body weight 54.43 kg Yuliya Garza DO Work Phone: [facility] 05-26-2025 14:40-0400 Body height 152.4 cm Yuliya Garza DO Work Phone: [facility] 05-26-2025 14:40-0400 Body mass index (BMI) [Ratio] 23.44 kg/m2 Yuliya Garza DO Work Phone: [facility] 05-26-2025 14:40-0400 Body weight 54.43 kg Yuliya Garza DO Work Phone: [facility] 01-31-2025 10:22-0500 Body height 157.48 cm [facility] 01-31-2025 10:22-0500 Body mass index (BMI) [Ratio] 22.4 kg/m2 [facility] 01-31-2025 10:22-0500 Body temperature 97.6 [degF] [facility] 01-31-2025 10:22-0500 Body weight 55.5 kg [facility] 01-31-2025 10:22-0500 Diastolic blood pressure 73 mm[Hg] [facility] 01-31-2025 10:22-0500 Heart rate 84 /min [facility] 01-31-2025 10:22-0500 Respiratory rate 16 /min [facility] 01-31-2025 10:22-0500 SaO2% (BldA) [Mass fraction] 97 % [facility] 01-31-2025 10:22-0500 Systolic blood pressure 121 mm[Hg] [facility] 10-19-2024 08:27-0500 Body height 157.48 cm [facility] 10-19-2024 08:27-0500 Body mass index (BMI) [Ratio] 22 kg/m2 [facility] 10-19-2024 08:27-0500 Body weight 54.6 kg [facility] 10-19-2024 08:27-0500 Diastolic blood pressure 81 mm[Hg] [facility] 10-19-2024 08:27-0500 Heart rate 81 /min [facility] 10-19-2024 08:27-0500 Respiratory rate 12 /min [facility] 10-19-2024 08:27-0500 Systolic blood pressure 135 mm[Hg] [facility] 08-17-2024 10:36-0400 Body height 157.48 cm [facility] 08-17-2024 10:36-0400 Body mass index (BMI) [Ratio] 21.9 kg/m2 [facility] 08-17-2024 10:36-0400 Body weight 54.43 kg [facility] 08-17-2024 10:36-0400 Diastolic blood pressure 74 mm[Hg] [facility] 08-17-2024 10:36-0400 Heart rate 71 /min [facility] 08-17-2024 10:36-0400 Respiratory rate 12 /min [facility] 08-17-2024 10:36-0400 Systolic blood pressure 130 mm[Hg] [facility] 02-24-2024 09:51-0400 Body height 157.48 cm [facility] 02-24-2024 09:51-0400 Body mass index (BMI) [Ratio] 22.6 kg/m2 [facility] 02-24-2024 09:51-0400 Body weight 56.01 kg [facility] 02-24-2024 09:51-0400 Diastolic blood pressure 76 mm[Hg] [facility] 02-24-2024 09:51-0400 Heart rate 90 /min [facility] 02-24-2024 09:51-0400 Respiratory rate 12 /min [facility] 02-24-2024 09:51-0400 Systolic blood pressure 125 mm[Hg] [facility] 01-30-2024 10:51-0500 Body height 157.48 cm [facility] 01-30-2024 10:51-0500 Body mass index (BMI) [Ratio] 22.6 kg/m2 [facility] 01-30-2024 10:51-0500 Body weight 56.3 kg [facility] 01-30-2024 10:51-0500 Diastolic blood pressure 75 mm[Hg] [facility] 01-30-2024 10:51-0500 Heart rate 83 /min [facility] 01-30-2024 10:51-0500 Respiratory rate 12 /min [facility] 01-30-2024 10:51-0500 Systolic blood pressure 135 mm[Hg] [facility] 08-01-2023 10:30-0400 Body height 157.48 cm Marlon Ball Other [facility] Other 08-01-2023 10:30-0400 Body mass index (BMI) [Ratio] 21.62 kg/m2 Marlon Ball Other [facility] Other 08-01-2023 10:30-0400 Body weight 53.62 kg Marlon Ball Other [facility] Other 08-01-2023 10:30-0400 Diastolic blood pressure 72 mm[Hg] Marlon Ball Other [facility] Other 08-01-2023 10:30-0400 Respiratory rate 12 /min Marlon Ball Other [facility] Other 08-01-2023 10:30-0400 Systolic blood pressure 118 mm[Hg] Marlon Ball Other [facility] Other 01-29-2023 10:30-0500 Body height 157.48 cm Marlon Ball Other [facility] Other 01-29-2023 10:30-0500 Body mass index (BMI) [Ratio] 21.87 kg/m2 Marlon Ball Other [facility] Other 01-29-2023 10:30-0500 Body weight 54.25 kg Marlon Ball Other [facility] Other 01-29-2023 10:30-0500 Diastolic blood pressure 70 mm[Hg] Marlon Ball Other [facility] Other 01-29-2023 10:30-0500 Respiratory rate 12 /min Marlon Ball Other [facility] Other 01-29-2023 10:30-0500 Systolic blood pressure 118 mm[Hg] Marlon Ball Other [facility] Other Encounters Encounter Date Encounter Type Care Provider Facility Start: 07-18-2025 End: 07-18-2025 Larsboo flowsheet Lupe Cody PT [facility] Start: 07-18-2025 End: 07-18-2025 Bamboo flowsheet Lupe Cody PT [facility] Start: 07-18-2025 End: 07-18-2025 ambulatory Lupe Cody PT [facility] Comment on above: Acute pain of left s houlder (Primary Dx); Other closed nondisplaced fracture of proximal end of left humerus, initial encounter Start: 07-13-2025 End: 07-13-2025 Bamboo flowsheet Tiffanie Borgesy TOY DESIGNER [facility] Start: 07-13-2025 End: 07-13-2025 Bamboo flowsheet Tiffanie Borgesy TOY DESIGNER [facility] Start: 07-13-2025 End: 07-13-2025 ambulatory Tiffanie Borgesy TOY DESIGNER [facility] Comment on above: Acute pain of left s houlder (Primary Dx); Other closed nondisplaced fracture of proximal end of left humerus, initial encounter Start: 07-11-2025 End: 07-11-2025 Bamboo flowsheet Tiffanie Borgesy TOY DESIGNER [facility] Start: 07-11-2025 End: 07-11-2025 Bamboo flowsheet Tiffanie Borgesy TOY DESIGNER [facility] Start: 07-11-2025 End: 07-11-2025 ambulatory Tiffanie Katerinay TOY DESIGNER [facility] Comment on above: Acute pain of left s houlder (Primary Dx); Other closed nondisplaced fracture of proximal end of left humerus, initial encounter Start: 07-07-2025 End: 07-07-2025 Bamboo flowsheet Lupe Cody PT [facility] Start: 07-07-2025 End: 07-07-2025 Bamboo flowsheet Lupe Cody PT [facility] Start: 07-07-2025 End: 07-07-2025 ambulatory Lupe Cody PT [facility] Comment on above: Acute pain of left s houlder (Primary Dx); Other closed nondisplaced fracture of proximal end of left humerus, initial encounter Start: 06-23-2025 End: 06-23-2025 Patient encounter procedure Yuliya Garza DO Work Phone: [facility] Comment on above: Other closed nondisp laced fracture of proximal end of left humerus, initial encounter (Primary Dx); Acute pain of left shoulder Start: 06-23-2025 End: 06-23-2025 ambulatory YULIYA GARZA Not Available Start: 06-23-2025 End: 06-23-2025 ambulatory YULIYA GARZA Not Available Start: 05-26-2025 End: 05-26-2025 Patient encounter procedure Yuliya Garza DO Work Phone: [facility] Comment on above: Acute pain of left s laurelulder (Primary Dx) Start: 05-26-2025 End: 05-26-2025 ambulatory YULIYA Madonna GARZA Not Available Start: 05-26-2025 End: 05-26-2025 ambulatory YULIYA GARZA Not Available Start: 05-12-2025 End: 05-13-2025 Office outpatient new 45 minutes Kiara Posada PA-C Work Phone: [facility] Comment on above: Closed fracture of f acial bone due to fall, initial encounter (HCC) (Primary Dx) Start: 05-12-2025 End: 05-13-2025 ambulatory UNKNOWN PROVIDER Facility:[facility] Start: 05-06-2025 End: 05-06-2025 Orders Only Janett VEGA Work Phone: [facility] Comment on above: Closed fracture of f acial bone due to fall, initial encounter (HCC) Start: 05-03-2025 End: 05-05-2025 Evaluation and management of inpatient Yuliya Christianson [place] Start: 05-03-2025 Emergency department patient visit Jai Gonzales [facility] Start: 05-03-2025 End: 05-05-2025 Evaluation and management of inpatient Yuliya Christianson [facility] Start: 04-13-2025 End: 04-13-2025 ambulatory TAL CONDE Not Available Start: 04-13-2025 End: 04-13-2025 Bamboo flowsheet Tal Conde DO Work Phone: [facility] Start: 04-13-2025 End: 04-13-2025 Bamboo flowsheet Tal Conde DO Work Phone: [facility] Start: 02-11-2025 End: 02-11-2025 ambulatory TAL CONDE Not Available Start: 01-31-2025 End: 01-31-2025 ambulatory [facility] Work Phone: Start: 01-31-2025 End: 01-31-2025 Patient encounter procedure [facility] Work Phone: Start: 12-10-2024 End: 12-10-2024 Bamboo flowsheet Tal Easoner DO Work Phone: [facility] Start: 12-10-2024 End: 12-10-2024 Bamboo flowsheet Tal Conde DO Work Phone: [facility] Start: 12-10-2024 End: 12-10-2024 ambulatory TAL CONDE Not Available Start: 10-19-2024 End: 10-19-2024 ambulatory [facility] Work Phone: Start: 10-19-2024 End: 10-19-2024 Patient encounter procedure [facility] Work Phone: Start: 09-22-2024 Non-patient / Non-visit [facility] Work Phone: Start: 08-18-2024 Non-patient / Non-visit [facility] Work Phone: Start: 08-17-2024 End: 08-17-2024 ambulatory [facility] Work Phone: Start: 08-17-2024 End: 08-17-2024 Patient encounter procedure [facility] Work Phone: Start: 07-21-2024 End: 07-21-2024 Bamboo flowsheet Tal Conde DO Work Phone: [facility] Start: 07-21-2024 End: 07-21-2024 Bamboo flowsheet Tal Conde DO Work Phone: [facility] Start: 07-21-2024 End: 07-21-2024 ambulatory TAL CONDE Not Available Start: 02-24-2024 End: 02-24-2024 ambulatory [facility] Work Phone: Start: 02-24-2024 End: 02-24-2024 Patient encounter procedure [facility] Work Phone: Start: 02-18-2024 Non-patient / Non-visit [facility] Work Phone: Start: 02-16-2024 ambulatory [facility] Start: 02-16-2024 Non-patient / Non-visit [facility] Work Phone: Start: 02-15-2024 End: 02-17-2024 Emergency department patient visit [facility] Start: 02-15-2024 Non-patient / Non-visit [facility] Work Phone: Start: 02-02-2024 Non-patient / Non-visit [facility] Work Phone: Start: 01-30-2024 End: 01-30-2024 Patient encounter procedure [facility] Work Phone: Start: 08-07-2023 End: 08-07-2023 ambulatory Marlon Espinoza Other [facility] [employer] Other Start: 08-07-2023 Telephone encounter Marlon Espinoza G [facility] Start: 08-01-2023 End: 08-01-2023 ambulatory Marlon Espnioza Other [facility] Other Start: 08-01-2023 Office outpatient vi sit 25 minutes Marlon Espinoza [facility] Start: 02-04-2023 End: 02-05-[address] NONE LISTED REQUEST Facility:[facility] Start: 01-29-2023 End: 01-29-2023 ambulatory Marlon Espinoza Other [facility] Other Start: 01-29-2023 Patient encounter procedure Marlon Espinoza [facility] Start: 05-07-2022 End: 05-08-2022 ambulatory MARLON ESPINOZA Facility:[facility] Start: 03-15-2022 End: 03-16-2022 ambulatory MARLON ESPINOZA Facility:[facility] Start: 03-09-2019 End: 03-09-2019 Patient encounter procedure FANTASMA (PA) [facility] Start: 07-24-2018 End: 07-25-2018 Patient encounter procedure CHARLENE (PAC) [facility] Start: 12-15-2017 Amb[facility] Procedures Date Procedure Procedure Detail Performing Clinician Start: 06-23-2025 Radex shoulder compl ete minimum 2 views Yuliya Garza DO Work Phone: Start: 05-26-2025 Radex shoulder compl ete minimum 2 views Yuliya Garza DO Work Phone: Start: 05-06-2025 Radiology Comparison study - date and time Janett Sukhi [employer] DIRECT[employer] Work Phone: Start: 04-13-2025 Computerized ophthal arik imaging retina Tal Conde DO Work Phone: Start: 04-13-2025 End: 04-13-2025 [facility]&eval comprhnsv estab pt 1/> 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 Tal Conde DO Work Phone: Comment on above: Advanced atrophic no nexudative age-related macular degeneration of both eyes without subfoveal involvement (Primary Dx); Dry eyes; 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; Blepharitis of upper and lower eyelids of both eyes, unspecified type; Left posterior capsular opacification Start: 12-10-2024 Computerized ophthal arik imaging retina Tal Conde DO Work Phone: Start: 12-10-2024 End: 12-10-2024 [facility] 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 Tal Storm Shivam DO Work Phone: Comment on above: Advanced atrophic no nexudative age-related macular degeneration of both eyes without subfoveal involvement (Primary Dx); Dry eyes; Blepharitis of upper and lower eyelids of both eyes, unspecified type Start: 07-21-2024 Computerized ophthal arik imaging retina Tal Conde DO Work Phone: Start: 07-21-2024 End: 07-21-2024 [facility]&eval comprhnsv estab pt 1/> 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 Tal Storm Shivam DO Work Phone: Comment on above: Advanced atrophic no nexudative age-related macular degeneration of both eyes without subfoveal involvement (Primary Dx); Dry eyes; Blepharitis of upper and lower eyelids of both eyes, unspecified type Start: 12-01-2003 Colonoscopy Yuliya alvarez Start: 12-12-2000 Basal cell carcinoma of chin (disorder) Yuliya Christianson Start: 01-02-1999 Radical mastectomy o f right breast Yuliya Christianson Start: 12-01-1998 Fine needle aspirati on of breast Yuliya Christianson Comment on above: right Start: 12-01-1989 skin lesion on upper chest Yuliya Christianson Start: 01-17-1987 Radical mastectomy o f left breast Yuliya Christianson Plan of Treatment Date Care Activity Detail Author Start: 08-25-2025 End: 08-25-2025 Patient encounter procedure 08/25/2025 10:30 AM EDT Office Visit [facility] [address] [place] [id number] Yuliya Garza, DO [address] [place] [address] [facility] Start: 08-17-2025 End: 08-17-2025 Patient encounter procedure [facility] Start: 07-29-2025 End: 07-29-2025 ambulatory 07/29/2025 1:30 PM EDT Treatment [facility] [address] [place] [address] Lance Silveira PTA [facility] Start: 07-29-2025 End: 07-29-2025 ambulatory 07/29/2025 10:30 AM EDT Treatment [facility] [address] [place] [address] Lupe Cody, PT [facility] Start: 07-27-2025 End: 07-27-2025 ambulatory 07/27/2025 10:30 AM EDT Treatment [facility] [address] [place] [address] Tiffanie Denton TOY DESIGNER [facility] Start: 07-25-2025 End: 07-25-2025 ambulatory 07/25/2025 10:30 AM EDT Treatment [facility] [address] [place] [address] Tiffanie Denton TOY DESIGNER [facility] Start: 07-22-2025 End: 07-22-2025 ambulatory 07/22/2025 10:30 AM EDT Treatment [facility] [address] [place] [address] Tiffanie Denton, TOY DESIGNER [facility] Start: 07-20-2025 End: 07-20-2025 ambulatory 07/20/2025 10:30 AM EDT Treatment [facility] [address] [place] [address] Tiffanie Denton PTA [facility] Start: 07-18-2025 End: 07-18-2025 ambulatory 07/18/2025 10:30 AM EDT Treatment [facility] [address] [place] [address] Lupe Cody PT [facility] Start: 07-13-2025 End: 07-13-2025 ambulatory [facility] Comment on above: Arrived Start: 07-11-2025 End: 07-11-2025 ambulatory 07/11/2025 10:30 AM EDT Treatment [facility] [address] [facility] [address] [place] [address] Tiffanie Denton PTA [facility] Start: 07-07-2025 End: 07-07-2025 ambulatory [facility] Comment on above: Acute pain of left s houlder; Other closed nondisplaced fracture of proximal end of left humerus, initial encounter Start: 06-23-2025 End: 06-23-2025 Patient encounter procedure 06/23/2025 1:00 PM EDT Office Visit [facility] [address] [place] [phone] Yuliya Garza DO [address] [place] [address] [facility] Start: 05-12-2025 End: 05-12-2025 Patient encounter procedure 05/12/2025 11:30 AM EDT Office Visit [facility] [address] [place] [id number] Kiara Posada PA-C [address] [place] [address] [facility] Start: 05-06-2025 Welcome to Medicare Visit (G0402) Welcome to Medicare Visit (G0402) [facility] Start: 04-13-2025 End: 04-13-2025 Patient encounter procedure 04/13/2025 2:30 PM EDT Office Visit [facility] [address] [place] [address] Tal Conde DO [address] [place] [address] Arrived [facility] Comment on above: Arrived Start: 12-10-2024 End: 12-10-2024 Patient encounter procedure 12/10/2024 11:00 AM EST Office Visit [facility] [address] [place] [address] Tal Conde DO [address] [place] [address] Arrived [facility] Comment on above: Arrived Start: 08-01-2024 COVID-19 Vaccine ( season) COVID-19 Vaccine ( season) [facility] Start: 08-01-2024 COVID-19 Vaccine ( season) COVID-19 Vaccine ( season) [facility] Start: 07-21-2024 End: 07-21-2024 Patient encounter procedure 07/21/2024 11:00 AM EDT Office Visit [facility] [address] [place] [address] Tal Conde DO [address] [place] [address] Arrived [facility] Comment on above: Arrived Start: 2020 RSV vaccine (adult) (1 - 1-dose 75+ series) RSV vaccine (adult) (1 - 1-dose 75+ series) [facility] Start: 2010 Screening for osteoporosis Bone Densitometry [facility] Start: 2005 Hepatitis B (HBV) Vaccine (optional start 60+ years) Hepatitis B (HBV) Vaccine (optional start 60+ years) [facility] Start: 1995 Pneumococcal vaccination Pneumococcal Vaccine(s) (50+ yrs) (1 of 1 - PCV) [facility] Start: 1995 Shingles (RZV) Vacci ne (1 of 2) Shingles (RZV) Vaccine (1 of 2) [facility] Start: 1964 Hepatitis A (HAV) Vaccine (optional start 19+ years) Hepatitis A (HAV) Vaccine (optional start 19+ years) [facility] Start: 1963 Hepatitis C screening Hepatitis C An tibody [facility] Start: 1963 Tdap Booster [facility] - left 2 Views XR shoulder 2+ views left Imaging Routine Acute pain of left shoulder 05/26/2025 11:33 AM EDT [facility] Work Phone: XR Shoulder - left 2 Views XR shoulder 2+ views left Imaging Routine Acute pain of left shoulder 06/23/2025 11:10 AM EDT [facility] Work Phone: [facility] Immunizations Immunization Date Immunization Notes Care Provider Massiel perez 10-08-2021 COVID-19 Vaccine Mod shailesh - Documentation Purposes Only Marlon Espinoza Other [facility] 01-31-2021 COVID-19 Vaccine Mod shailesh - Documentation Purposes Only Marlon Espinoza Other [facility] 01-03-2021 COVID-19 Vaccine Mod shailesh - Documentation Purposes Only Marlon Espinoza Other [facility] 2017 diphtheria, tetanus toxoids and acellular pertussis vaccine, unspecified formulation Marlon Espinoza Other [facility] Payers Date Payer Category Payer Medicare FFS MEDICARE [id number] 2025 Medicare [id number] 2023 Private Health Insurance [id number] 2010 Medicare [id number] 1959 Medicare [id number] 1959 Private Health Insurance [facility] [id number] 1959 Self-pay [id number] 1945 Unknown [id number] 2.16.840.1.600538.3.579. 2.593 1945 Unknown [id number] 2.16.840.1.488528.3.579. 2.593 1945 Unknown [id number] 2.16.840.1.743938.3.579. 2.1286 1945 Unknown [id number] 2.16.840.1.847409.3.579. 2.1286 1945 Unknown [id number] 2.16.840.1.241147.3.579. 2.1286 1945 Unknown [id number] 2.16.840.1.196248.3.579. 2.1286 1945 Unknown [id number] 2.16.840.1.393682.3.579. 2.1286 1945 Unknown [id number] 2.16.840.1.434713.3.579. 2.1286 1945 Unknown [id number] 2.16.840.1.990507.3.579. 2.727 1945 Unknown [id number] 2.16.840.1.041609.3.579. 2.727 1945 Unknown [id number] 2.16.840.1.207539.3.579. 2.727 1945 Unknown [id number] 2.16.840.1.380994.3.579. 2.727 1945 Unknown [id number] 2.16.840.1.916560.3.579. 2.72 1945 Unknown [id number] 2.16.840.1.146417.3.579. 2.72 1945 Unknown [id number] 2.16.840.1.093509.3.579. 2.727 1945 Unknown [id number] 2.16.840.1.125429.3.579. 2.732 1945 Unknown [id number] 2.16.840.1.252867.3.579. 2.732 1945 Unknown [id number] 2.16.840.1.806660.3.579. 2.727 1945 Unknown [id number] 2.16.840.1.625355.3.579. 2.1259 1945 Unknown [id number] 2.16840.1.839784.3.579. 2.1259 1945 Unknown [id number] 2.16.840.1.632619.3.579. 2.1259 1945 Unknown [id number] 2.16.840.1.121582.3.579. 2.1259 1945 Unknown [id number] 2.16.840.1.308018.3.579. 2.1259 1945 Unknown [id number] 2.16.840.1.333785.3.579. 2.1259 1945 Unknown [id number] 2.16.840.1.122013.3.579. 2.1259 1945 Unknown [id number] 2.16.840.1.328484.3.579. 2.9 1945 Unknown [id number] 2.16.840.1.539464.3.579. 2.1259 1945 Unknown [id number] 2.16.840.1.645245.3.579. 2.1259 1945 Unknown [id number] 2.16.840.1.074291.3.579. 2.1259 1945 Unknown [id number] 2.16.840.1.416849.3.579. 2.1259 Self-pay Self Pay [id number] Unknown [id number] 2.16.840.1.443950.3.579. 2.593 Unknown [facility] [id number] Social History Date Type Detail Facility Start: 07-02-2023 End: 06-23-2025 Sex Assigned At [facility] Start: 07-02-2023 End: 01-30-2024 Tobacco smoking status NHIS Never smoked tobacco (finding) [facility] Start: 1945 Sex Assigned At Female [facility] Start: 10-19-2024 End: 05-03-2025 Sex Female (finding) [facility] Start: 07-02-2023 Tobacco use and exposure Smokeless tobacco non-user [facility] Start: 07-02-2023 End: 06-23-2025 History of Social function [facility] Start: 1945 Sex assigned at Not on file [facility] Tobacco smoking status [facility] Tobacco smoking status NHIS Tobacco smoking consumption unknown [facility] Clinical Notes 01-29-2023 to 07-18-2025 Lupe Cody, PT - 07/18/2025 10:30 AM Deborah Haynes - 06/23/2025 1:00 PM Deborah Haynes - 05/26/2025 2:45 PM Kiara Rendon PA-C - 05/12/2025 12:20 PM EDTPatient Instructions Note Date & Type Note Facility 07-18-2025 History of Present illness Narrative Images from the original note were not included. Physical Therapy Treatment Visit Patient Name: April Cohn Today's Date: 07/18/2025 Encounter Diagnoses Name Primary? Acute pain of left shoulder Yes Other closed nondisplaced fracture of proximal end of left humerus, initial encounter Visit number: 4 Timed Code Treatment: 45 minutes Total Treatment Time: 60 minutes Time In: 10:30 AM Time Out: 11:35 AM History: Pt states she fell May 02 and broke left proximal humerus. Fell coming out of a building in [place]. Was in hospital for 3 days. Pt states she was not able to have surgery due to advanced osteoporosis. Pt states home health came to the home following surgery. Was just released from home health and use of sling. Now to begin out patient PT. Pt is right hand dominant. Pt states she is taking OTC meds as needed for pian. Precautions: Elton Subjective: Left shoulder shoulder is a little sore today. States she feels shoulder is staying about the same; still feels like she is not able to lift it. RTD 08/27/25 Pain: 3-4/10 Objective: PT Evaluation (07/07/2025) LEFT SHOULDER AROM: 62 degrees flexion, 55 degrees abduction, 8 degrees ER, PROM: 90 degrees flexion, 80 degrees abduction, Strength: grossly 3-/5 in all planes Palpation: moderate tenderness left proximal humerus Special Test: N/A Treatment: Manual Therapy: (17 minutes) delivered manual ther to L UE, shoulder STM, PROM with gentle end range stretching in all planes, gentle oscillation to improve L shoulder functional mobility Therapeutic Exercise: (28 minutes supervised) Guided pt though ther and flex ex per grid to improve left UE shoulder functional Strength, Endurance, Flexibility, ROM, HEP, Neural Mobilization, Power Therapeutic Activity: Exercises to improve dynamic activities, functional tasks, functional mobility to return to prior activity level as needed Neuromuscular re-education: Balance Training, Muscle Facilitation, Dynamic Stability, Core Stabilization, and Blood Flow Restriction Training (BFRT) as needed. Modalities:(10 minutes ) Post session pt supine with HP to L shoulder to decrease muscle soreness Assessment: Visit #4 female with recent left proximal humerus fracture D.O.I 05-02-25. PROM of left shoulder this date is 104 degrees flexion, 95 degrees abduction and 25 degrees ER. AROM left shoulder is 70 degrees elevation with mild compensation. Will continue. Outcome Measure: Upper Extremity Functional Index (UEFI): 32/80 Rehab Diagnosis: left shoulder pain and weakness, limited ROM and mobility Short Term Goal: To be met in 2 weeks Goal 1: Pt to be instructed in home exercise program. Alf Goals: To be met in 10 weeks Goal 1: Pt to report independence and compliance with home program. Goal 2: Pt to achieve 130 degrees of left shoulder flexion to assist with overhead reaching. Goal 3: Pt to achieve 110 degrees of left shoulder abduction to assist with grooming hair. Goal 4: Pt to achieve 4+ to 5/5 strength left shoulder in all planes to assist with functional tasks and lifting. Goal 5: Pt to score no less than 55/80 on UEFI indicating improved QOL. Pt will benefit from skilled PT for 3x/week from 07/07/2025 to 09/29/2025 to address the above impairments. I hereby deem this POC medically necessary. Please sign below. Date: documented in this encounter [facility] 06-23-2025 History of Present illness Narrative Images from the original note were not included. April Tafoya is a 79 y.o. female presents with chief complaint of FX < 90 days follow up left proximal humerus fracture. HPI: April is here for her second postoperative injury follow up. Her pain is getting better. She has been wearing the sling. No new falls, traumas or injuries reported. SUBJECTIVE: MEDICATIONS: Current Outpatient Medications Medication Instructions acetaminophen (Tylenol) 500 MG tablet Take by mouth amitriptyline (ELAVIL) 10 mg, Nightly amLODIPine (NORVASC) 2.5 mg, Daily Aspirin Low Dose 81 MG EC tablet atorvastatin (LIPITOR) 10 mg, Every evening clobetasol (Temovate) 0.05 % cream clopidogrel (PLAVIX) 75 mg, Daily fluocinonide (Lidex) 0.05 % ointment loratadine (CLARITIN) 10 mg, Daily RT pantoprazole (ProtoNix) 40 MG EC tablet ALLERGIES: No Known Allergies SURGICAL HISTORY: Past Surgical History: Procedure Laterality Date CATARACT EXTRACTION MASTECTOMY Bilateral REPLACEMENT TOTAL HIP LATERAL POSITION Left FAMILY HISTORY: Family History Problem Relation Name Age of Onset Stroke Mother Cancer Mother Cancer Father Stroke Sister Cancer Sister SOCIAL HISTORY: Social History Tobacco Use Smoking status: Never Smokeless tobacco: Never Depression: Not on file REVIEW OF SYMPTOMS: The review of systems, history and current medications list are all reviewed today. OBJECTIVE: Visit Vitals Ht 5' Wt 120 lb BMI 23.44 kg/m Smoking Status Never BSA 1.52 m Physical Exam On physical exam, the joint is reduced. There is a moderate amount of stiffness as expected. Pain is mild. Shoulder seems to be moving as a unit. She is neurovascularly intact distally. X-rays, permanently saved to the patient's record, are reviewed show advanced osteoporosis with degenerative changes. She has a three part comminuted impacted displaced proximal humerus fracture. It has not changed in position or migrated any further. Malpositioning and comminution as well as comorbidities were discussed with the patient. ASSESSMENT AND PLAN: Assessment/Plan Follow up left three part proximal humerus fracture with impaction. Advanced osteoporosis. Advanced degenerative changes. The nature of the findings were discussed at length. This is not an ideal situation. We discussed weaning out of the sling. Physical therapy is prescribed through the [facility] building two to three times a week for eight weeks, eval and treat, progressing as tolerated, utilizing pain as a guide. Ice, Tylenol and topicals were reviewed. We discussed group home if having continued pain or lack of functionality, DEXA scan, CT scan and further discussion of potential reverse arthroplasty. Considering her bone density, this would be most likely a problematic situation. She is aware we are stuck between a rock and a hard place here with difficult decision making because the fracture cannot be easily surgically stabilized due to the comminution and advanced osteoporosis. She seems to be hyper focused with the x-ray findings. These were reviewed several times today. She is having progressive healing, although they are not in the most acceptable position. Follow up will be in two months for repeat x-ray and exam, sooner if worse. She voices verbal understanding. She is discharged in stable condition. Cosigned by Yuliya Garza DO at 06/28/2025 7:32 AM EDT documented in this encounter [facility] 05-26-2025 History of Present illness Narrative Images from the original note were not included. April Tafoya is a 79 y.o. female presents with chief complaint of FX < 90 days follow up left comminuted impacted proximal humerus fracture, status post hospital consult Chang. HPI: April is here for her follow up. She missed a step at the local court house, landing on her shoulder, hitting her orbit and sustaining an orbital fracture. She did see [facility] and no surgery was indicated. No head bleed. She does have a history of TIA or stroke in the past. Her bone quality is poor and elected for nonsurgical management. SUBJECTIVE: MEDICATIONS: Current Outpatient Medications Medication Instructions amitriptyline (ELAVIL) 10 mg, Nightly amLODIPine (NORVASC) 2.5 mg, Daily Aspirin Low Dose 81 MG EC tablet atorvastatin (LIPITOR) 10 mg, Every evening clobetasol (Temovate) 0.05 % cream clopidogrel (PLAVIX) 75 mg, Daily fluocinonide (Lidex) 0.05 % ointment loratadine (CLARITIN) 10 mg, Daily RT pantoprazole (ProtoNix) 40 MG EC tablet traMADol (ULTRAM) 50 mg, 2 times daily ALLERGIES: No Known Allergies SURGICAL HISTORY: Past Surgical History: Procedure Laterality Date CATARACT EXTRACTION MASTECTOMY Bilateral REPLACEMENT TOTAL HIP LATERAL POSITION Left FAMILY HISTORY: Family History Problem Relation Name Age of Onset Stroke Mother Cancer Mother Cancer Father Stroke Sister Cancer Sister SOCIAL HISTORY: Social History Tobacco Use Smoking status: Never Smokeless tobacco: Never Depression: Not on file REVIEW OF SYMPTOMS: The review of systems, history and current medications list are all reviewed today. OBJECTIVE: Visit Vitals Ht 5' Wt 120 lb BMI 23.44 kg/m Smoking Status Never BSA 1.52 m Physical Exam On physical exam, she is alert and oriented. Vital signs are stable. The bruising is near resolved. Swelling is mild. The joint is concentrically reduced. She has minimal pain with motion at lower limits. Upper limits produce a moderate amount of pain. Fracture tenderness is mild. She is neurovascularly intact distally without sign of deficit. X-rays, permanently saved to the patient's record, are reviewed show a comminuted four part plus fracture. There is moderate to severe impaction. Mild pseudosubluxation. No obvious sign of tumor or infection seen. Osteoporotic changes are noted. ASSESSMENT AND PLAN: Assessment/Plan Follow up left comminuted impacted displaced proximal humerus fracture. Advanced osteoporotic changes. History of stroke on blood thinner management. The nature of the findings were discussed at length. Ice, Tylenol and analgesia were reviewed. Sling will be utilized for an additional three to four weeks and follow up at that time. We will consider physical therapy. She seems to be doing fairly well with this. We discussed the potential of reverse shoulder replacement at a later date. Given her bone quality, this most likely would require tertiary referral. It still will be a challenging situation. She has elected for non surgical care and this was reviewed at length in the hospital with the patient and son. Any increasing pain, problems or issues will be reported. Fall precautions. Tylenol as needed for pain. She is doing home physical therapy for balance, legs and her other areas. No motion of the left shoulder until next visit. Cosigned by Yuliya Garza DO at 05/31/2025 7:55 AM EDT documented in this encounter [facility] 05-12-2025 History of Present illness Narrative New Patient - Face Trauma Ms Tafoya sustained a fall after missing the last step on stairs. She was transported to ED at [facility] via EMS. She fell overall on there left side resulting in left sided facial pain, swelling, and UE pain (shoulder vs arm fx/dislocation). She was admitted to hospital for 2 days following accident and was discharged home with instructions to follow up for further evaluation of facial injuries. Today Mrs. Tafoya presents for further evaluation of facial injuries. She reports improvement in swelling, but notes that the bruising has remained overall consistent. 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 She reports some tenderness at her upper jaw on the left with some foods that require more chewing or are hard. Endorses tenderness to palpation just below her nose. Endorses using cool compresses for swelling and discomfort. Arm is currently in sling and reports that she does not need surgery for this, but is unsure how long she will be in sling. Denies any fever, chills, MUELLER, SOB/ difficulty in breathing, Visual changes, nausea or vomiting. Medical History[1] Surgical History[2] Problem List[3] Social Drivers of Health Tobacco Use: Low Risk (04/13/2025) Received from [facility] Healthcare Patient History Smoking Tobacco Use: Never Smokeless Tobacco Use: Never Passive Exposure: Not on file Alcohol Use: Not on file Financial Resource Strain: Not on file Food Insecurity: Not on file Transportation Needs: Not on file Physical Activity: Not on file Stress: Not on file Social Connections: Not on file Intimate Partner Violence: Unknown (01/22/2024) Received from [facility] Safety & Environment Fear of Current or Ex-Partner: Not on file Emotionally Abused: Not on file Physically Abused: Not on file Sexually Abused: Not on file Physically or Sexually Abused: Not on file Depression: Not on file Housing Stability: Not on file Utilities: Not on file Physical Exam: Gen- Well appearing, NAD Head- NC/AT Face- No abrasions or lacerations. + Mid face stability. Forehead- No lacerations or abrasions. + Diffuse Ecchymosis, minimal edema. Small hematoma at the left lateral brow cecilia. 2 cm x 1 cm. No depressions or palpable step offs. Eye- Symmetric in position without enophthalmos and proptosis. No subconjunctival hemorrhage. Clear sclera. No telecanthus. Pupils reactive bilaterally. EOMI bilaterally. + periorbital edema. + periorbital ecchymosis. No discharge, bleeding or excessive tearing. No palpable step offs or crepitus. Minimal tenderness on palpation. Nose - Nares patent bilaterally. No septal hematoma or visible FB. No septal deviation. Nasal dorsum positioned midline without obvious displacement/deviation. No ecchymosis or edema. No active bleeding or drainage from nostrils. tenderness at the nasal bridge or dorsum. No palpable crepitus. Ears - No ecchymosis in the pre- and post auricular region. No drainage or bleeding from ear canal. Mouth- No external abrasions, lacerations or lesions in perioral region. Moist oral mucosa. No intraoral lesions or alveolar ridge ecchymosis. Minor tenderness at the left maxilla. Mandible - No palpable fractures or step offs. No mobile fragments. No Malocclusion. TMJ ROM intact. No tenderness to palpation at TMJ. No Tenderness to palpation along the mandibular angle, body and submental region. No shift at opening of jaw. Neuro- Facial nerve grossly intact. Sensation to light touch intact in V1, V2 and V3. Neck - ROM intact Assessment: Facial fractures and CT reviewed with patient. It was explained to patient that facial fractures can be treated both conservatively (without surgery) and operatively. Based on the fracture pattern and clinical symptoms, each option can be considered. Based on fractures pt sustained, the fractures are minimally displaced and positioned in a way that healing will occur appropriately. Risks with conservative management without operative intervention in this setting could result in asymmetry or aesthetic differences. Pt overall states that if surgery could be avoided that would be her preference. Plan: - No acute surgical intervention needed. - Reviewed sinus precautions - 2 more weeks - HOB Elevation for decreased swelling - OK to use ice for pain and comfort. - Soft diet for comfort - advance as tolerated. Kiara Posada PA-C [1] No past medical history on file. [2] No past surgical history on file. [3] There is no problem list on file for this patient. Patient was identified by name and date of . Adriana Gregg MA Chief Complaint Patient presents with New patient, to establish relationship documented in this encounter [facility] 05-12-2025 Instructions Kiara Posada PA-C - 05/12/2025 12:20 PM EDT NASAL/SINUS PRECAUTIONS - AVOID: Blowing your nose: It is best to wipe away nasal secretions carefully. After 2 weeks, if you must blow your nose, blow gently through both sides at the same time. Do not pinch your nose: do not blow just one side at a time. Sneezing: If you must sneeze, keep your mouth open and do not pinch your nose closed. Sucking: Do not drink though a straw (using a syringe is okay). Do not smoke (this will also impair your body's ability to heal). Blowing: Do not play a wind instrument. Do not blow up balloons. Pushing or lifting: Do not lift or push objects weighing more than 20 pounds. Bending over: Keep your head above the level of your heart. Sleep with your head slightly raised documented in this encounter [facility] 05-06-2025 Note Progress Note-Saloni barnett GENERAL INFORMATION ACUTE CARE SURGERY - STAFF PROGRESS NOTE Patient Name: APRIL TAFOYA Admission Date: 05/03/2025 12:25:32 Patient seen and examined on 05/04/2025 10:46:39 INTERVAL HISTORY/EVENTS Background: April Tafoya is a 79 year old female with PMH significant for TIA (on Plavix daily), HTN, GERD, breast CA s/p bilateral mastectomy, basal cell CA of the chin who presented to the ED via EMS as a CAT 2 trauma s/p fall. Unclear circumstances surrounding the injury as patient reports she was walking down the stairs at [facility] when she missed a step, causing her to fall forward but bystanders reported she was walking, talking to herself, seemingly confused, when she had syncopal episode which caused her to fall. (+) headstrike, (+) LOC. On Plavix 75mg daily and Aspirin 81mg PRN Trauma workup found L orbital floor fracture, L maxillary sinus fracture through the anterior and posterior fisher, opacification of the L maxillary sinus and L humeral head/neck fx. Orthopedics was consulted at who recommended non-op management for the L humerus fx and Plastic Surgery (design verification engineer for Face) at [facility], Dr. Vanessa, was contacted regarding facial fractures who recommends non-op management and outpatient follow up. Patient was admitted to the [facility] for PT/OT/pain control and syncopal work up. Hospital Course: 05/03/2025: Admitted to trauma s/p syncopal fall. Ortho consulted. Syncopal workup ordered 24 Hour Events: Admitted to our trauma service as above. Cartoid US completed. Awaiting echo and PT/OT. Ortho with rec's for nonop management. This visit (24 hour periods starting at 07:00 EDT) 05/04/25 * 05/03/25 05/02/25 Total Summary Intake mL -- 243.5 -- Output mL -- -- -- Fluid Balance -- 243.5 -- Intake (3) Oral Intake mL -- 240 -- hydromorphone mL -- 1.5 -- ondansetron mL -- 2 -- Total -- 243.5 -- Output (0) Counts (2) Stool Count 1 -- -- Urine Count 1 2 -- * This column has not completed the indicated time period. ---- PHYSICAL EXAM ---- Vital Signs: Vital Signs (last 24 hrs) Last Charted Temp Oral 37.1 DegC (MAY 04 07:52) Heart Rate Monitored 93 bpm (MAY 04 07:53) Resp Rate 14 br/min (MAY 03 16:26) SBP 121 mmHg (MAY 04 07:52) DBP 67 mmHg (MAY 04 07:52) Weight 53.7 kg (MAY 04 05:52) BMI 23.17 (MAY 03 16:52) Constitutional: Pt is oriented to person, place, and time. Pt appears well-developed and well-nourished. No distress. Head: Normocephalic and atraumatic. Mouth/Throat: Oropharynx is clear and moist. Eyes: Pupils are equal, round, and reactive to light. Conjunctivae and EOM are normal. Left orbit with sewlling and eccymosis Neck: Normal range of motion. Neck supple. Cardiovascular: Normal rate, regular rhythm, normal heart sounds and intact distal pulses. Exam reveals no gallop and no friction rub. No murmur heard. Pulmonary/Chest: Effort normal and breath sounds normal. No respiratory distress. Pt has no wheezes. Pt has no rales. Pt exhibits no tenderness. Abdominal: Soft. Bowel sounds are normal. Pt exhibits no distension and no mass. There is no tenderness. There is no rebound and no guarding. No hernia. Musculoskeletal: LUE in sling. Neurological: Pt is alert and oriented to person, place, and time. Coordination normal. Skin: Skin is warm and dry. Capillary refill takes less than 2 seconds. No rash noted. pt is not diaphoretic. No erythema. No pallor. Psychiatric: Pt has a normal mood and affect. LABORATORY RESULTS (LAST 24 HOURS) WBC: 11 E9/L (05/04/25 06:17:00) RBC: 3.9 E12/L Low (05/04/25 06:17:00) HGB: 12.4 gm/dL (05/04/25 06:17:00) Hct: 35.9 % (05/04/25 06:17:00) MCV: 91.7 fL (05/04/25 06:17:00) MCH: 31.7 pg (05/04/25 06:17:00) MCHC: 34.6 gm/dL (05/04/25 06:17:00) RDW: 13.7 % (05/04/25 06:17:00) Platelet: 374 E9/L (05/04/25 06:17:00) MPV: 8.4 fL (05/04/25 06:17:00) Neutro Auto: 86.1 % High (05/04/25 06:17:00) Lymph Auto: 3.9 % Low (05/04/25 06:17:00) [place] Auto: 9.9 % (05/04/25 06:17:00) Eos Auto: 0 % (05/04/25 06:17:00) Basophil Auto: 0.1 % (05/04/25 06:17:00) Neutro Absolute: 9.4 E9/L High (05/04/25 06:17:00) Lymph Absolute: 0.4 E9/L Low (05/04/25 06:17:00) [place] Absolute: 1.1 E9/L High (05/04/25 06:17:00) Eos Absolute: 0 E9/L (05/04/25 06:17:00) Basophil Absolute: 0 E9/L (05/04/25 06:17:00) PT: 10.5 second(s) (05/04/25 06:17:00) INR: 0.94 (05/04/25 06:17:00) PTT: 30 second(s) (05/04/25 06:17:00) Glucose Lvl: 113 mg/dL (05/04/25 06:17:00) BUN: 18 mg/dL (05/04/25 06:17:00) Creatinine: 0.6 mg/dL (05/04/25 06:17:00) eGFR: 91 mL/min/1.73 m2 (05/04/25 06:17:00) BUN/Creat Ratio: 30 High ( (more content not included)... [facility] Comment on above: Result Comment: Elec tronically Signed By: Sarai Parks PA-C\.br\Date and Time Signed: 05/04/25 10:51 EDT\.br\Electronically Co-Signed By: Meghan LIN, Yuliya Healy\.br\Date and Time Co-Signed: 05/06/25 09:55 EDT 05-06-2025 Note Discharge Summary [place] [address] APRIL TAFOYA Date of : 1945 79 Years Female AttendingMeghan ILN, Yuliya Healy Date of Admission05/03/2025 15:38:21 Date of Discharge 05/05/2025 13:31:34 DIAGNOSES: 1) s/p fall 2) L orbital floor fracture 3) L maxillary sinus fracture through the anterior and posterior fisher 4) L humeral head/neck fx 5) Acute pain to to traumatic injury PROCEDURES: Procedures No Procedures Performed or Documented DISCHARGE MEDICATIONS: DISCHARGE MEDICATIONS Medication List Active Medications Ordered acetaminophen: 650 mg, 2 tab(s), Oral, q6hr. amitriptyline: 10 mg, 1 tab(s), Oral, Once a day (at bedtime), PRN: Sleep. amlodipine: 2.5 mg, 1 tab(s), Oral, Daily. atorvastatin: 10 mg, 0.5 tab(s), Oral, Bedtime. bisacodyl: 10 mg, 1 supp, Rectal, Daily, PRN: Constipation. enoxaparin: 30 mg, 0.3 mL, SubCutaneous, BID. famotidine: 20 mg, 1 tab(s), Oral, Daily, PRN: Indigestion. HYDROmorphone: 0.5 mg, 0.5 mL, IV Push, q4hr, PRN: Breakthrough Pain. loratadine: 10 mg, 1 tab(s), Oral, Daily. ondansetron: 4 mg, 2 mL, IV Push, q6hr, PRN: Nausea/Vomiting. oxycodone: 2.5 mg, 0.5 tab(s), Oral, q4hr, PRN: Pain 4-7. oxycodone: 5 mg, 1 tab(s), Oral, q4hr, PRN: Pain 8-10. polyethylene glycol 3350: 17 gram, 1 EA, Oral, Daily. senna: 8.6 mg, 1 tab(s), Oral, Once a day (at bedtime). Prescribed tramadol: 50 mg, 1 tab(s), Oral, q6hr, PRN: Pain 8-10, 16 tab(s), 0 Refill(s). Documented acetaminophen: 650 mg, 2 tab(s), Oral, q6hr, 112, 0 Refill(s). amitriptyline: 10 mg, 1 tab(s), Oral, Once a day (at bedtime), PRN: Sleep, 0 Refill(s). amlodipine: 2.5 mg, 1 tab(s), Oral, Daily, 30 tab(s), 0 Refill(s). aspirin: 81 mg, 1 tab(s), Oral, Daily, PRN: Headache, 30 tab(s), 0 Refill(s). atorvastatin: 10 mg, 1 tab(s), Oral, Bedtime, 30 tab(s), 0 Refill(s). clopidogrel: 75 mg, 1 tab(s), Oral, Daily, 30 tab(s), 0 Refill(s). famotidine: 20 mg, 1 tab(s), Oral, Daily, PRN: Indigestion, 30 tab(s), 0 Refill(s). loratadine: 10 mg, 1 tab(s), Oral, Daily, 90 tab(s), 0 Refill(s). multivitamin: 1 tab(s), Oral, Daily, 30 tab(s), 0 Refill(s). ubiquinone: 1 cap(s), Oral, Bedtime, 0 Refill(s). Medications Inactivated in the Last 72 Hours amlodipine: 10 mg, 1 tab(s), Oral, Daily, 0 Refill(s). aspirin: mg, tab(s), Oral, Daily, 0 Refill(s). calcium carbonate: mg, Chewed, Daily, 0 Refill(s). diphenhydrAMINE: mg, Oral, TID, 0 Refill(s). HYDROmorphone: 0.5 mg, 0.5 mL, IV Push, Once. HYDROmorphone: 0.5 mg, 0.5 mL, IV Push, Once. iopamidol: Misc, Once. iopamidol: Misc, Once. omega-3 polyunsaturated fatty acids: Oral, 0 Refill(s). omeprazole: Oral, Daily, 0 Refill(s). ondansetron: 4 mg, 2 mL, IV Push, Once. Sodium Chloride 0.9% intravenous solution: Misc, Once. REASON FOR HOSPITALIZATION: April Tafoya is a 79 year old female with PMH significant for TIA (on Plavix daily), HTN, GERD, breast CA s/p bilateral mastectomy, basal cell CA of the chin who presented to the ED via EMS as a CAT 2 trauma s/p fall. Unclear circumstances surrounding the injury as patient reports she was walking down the stairs at [employer] when she missed a step, causing her to fall forward but bystanders reported she was walking, talking to herself, seemingly confused, when she had syncopal episode which caused her to fall. (+) headstrike, (+) LOC. On Plavix 75mg daily and Aspirin 81mg PRN Trauma workup found L orbital floor fracture, L maxillary sinus fracture through the anterior and posterior fisher, opacification of the L maxillary sinus and L humeral head/neck fx. Orthopedics was consulted at who recommended non-op management for the L humerus fx and Plastic Surgery (design verification engineer for Face) at [facility], Dr. Vanessa, was contacted regarding facial fractures who recommends non-op management and outpatient follow up. Patient was admitted to the [facility] for PT/OT/pain control and syncopal work up. SIGNIFICANT FINDINGS: Catalog of Injuries 1) s/p fall 2) L orbital floor fracture 3) L maxillary sinus fracture through the anterior and posterior fisher 4) L humeral head/neck fx 5) Acute pain to to traumatic injury HOSPITAL COURSE: 05/03/2025: Admitted to trauma s/p syncopal fall. Ortho consulted. Syncopal workup ordered 05/04/2025: Ortho with recs for non-op management. PT/OT eval and recs for HHC. The patient was seen and examined on the day of discharge with the following findings: Constitutional: Pt is oriented to person, place, and time. Pt appears well-developed and well-nourished. No distress. Head: Normocephalic and atraumatic. Mouth/Throat: Oropharynx is clear and moist. Eyes: Pupils are equal, round, and reactive to light. Conjunctivae and EOM are normal. Left orbit with sewlling and eccymosis Neck: Normal range of motion. Neck supple. Cardiovascular: Normal rate, regular rhythm, normal heart s (more content not included)... [facility] Comment on above: Result Comment: Elec tronically Signed By: Sarai Parks PA-C\.br\Date and Time Signed: 05/05/25 13:34 EDT\.br\Electronically Co-Signed By: Meghan LIN, Yuliya Healy\.br\Date and Time Co-Signed: 05/06/25 09:55 EDT 05-06-2025 History of Present illness Narrative Orders encounter created to obtain images from [employer] for outpatient follow up with Plastic Surgery. documented in this encounter [facility] 05-05-2025 Hospital Discharge instructions Patient Education 05/05/2025 08:32:13 Humerus Fracture Treated With Immobilization, [id number] Humerus Fracture Treated With Immobilization The humerus is the large bone in the upper arm. A broken (fractured) humerus is often treated by wearing a cast, splint, or sling. This holds the broken pieces in place (immobilization) so they can heal. What are the causes? This condition may be caused by: A fall. A hard, direct hit to the arm. A car accident. What increases the risk? You are more likely to develop this condition if: You have a disease that makes the bones thin and weak. You are elderly. What are the signs or symptoms? Pain. Swelling. Bruising. Not being able to move your arm normally. How is this treated? Treatment involves wearing a cast, splint, or sling until your arm heals enough for you to begin [id number] exercises. You may also be prescribed pain medicine. Follow these instructions at home: If you have a cast or splint that cannot be taken off: Do not put pressure on any part of the cast or splint until it is fully hardened. This may take several hours. Do not stick anything inside the cast or splint to scratch your skin. Check the skin around the cast or splint every day. Tell your doctor if you see problems. You may put lotion on dry skin around the cast or splint. Do not put lotion on the skin under the cast or splint. Keep the cast clean and dry. If you have a splint or sling that can be taken off: Wear the splint or sling as told by your doctor. Remove it only as told by your doctor. Loosen the splint or sling if your fingers: ?Tingle. ?Become numb. ?Turn cold and blue. Keep the splint or sling clean and dry. Bathing Do not take baths, swim, or use a hot tub. Ask your doctor about taking showers or sponge baths. If your cast, splint, or sling is not waterproof: ?Do not let it get wet. ?Cover it with a watertight covering when you take a bath or shower. Managing pain, stiffness, and swelling If told, put ice on the injured area. To do this: ?If you have a removable splint or sling, take it off as told by your doctor. ?Put ice in a plastic bag. ?Place a towel between your skin and the bag or between your cast or splint that you cannot take off and the bag. ?Leave the ice on for 20 minutes, 2 3 times a day. ?Take off the ice if your skin turns bright red. This is very important. If you cannot feel pain, heat, or cold, you have a greater risk of damage to the area. Move your fingers often. Raise the injured area above the level of your heart while you are sitting or lying down. Driving Do not drive or use machines while taking prescription pain medicine. Ask your doctor when it is safe to drive if you have a cast, splint, or sling on your arm. Activity Do not lift anything until your doctor says that it is safe. Return to your normal activities when your doctor says that it is safe. Do [id number] exercises only as told by your doctor. General instructions Do not smoke or use any products that contain nicotine or tobacco. These can make it take longer for your bones to heal. If you need help quitting, ask your doctor. Take [id number] and prescription medicines only as told by your doctor. If told, take steps to prevent problems with pooping (constipation). You may need to: ?Drink enough fluid to keep your pee (urine) pale yellow. ?Take medicines. You will be told what medicines to take. ?Eat foods that are high in fiber. These include beans, whole grains, and fresh fruits and vegetables. ?Limit foods that are high in fat and sugar. These include fried or sweet foods. Keep all follow-up visits. Contact a doctor if: You have any new pain, swelling, or bruising. Your pain, swelling, and bruising do not get better. Your cast, splint, or sling becomes loose or damaged. Get help right away if: Your skin or fingers on your injured arm turn blue or drummond. Your arm is cold or numb. You have very bad pain in your injured arm. Summary The humerus is the large bone in the upper arm. A broken humerus is often treated by wearing a cast, splint, or sling. Wear a splint or sling as told by your doctor. Remove it only as told by your doctor. Move your fingers often. This information is not intended to replace advice given to you by your health care provider. Make sure you discuss any questions you have with your health care provider. Document Revised: 12/31/2021 Document Reviewed: 12/31/2021 [facility] Patient Education 2023 [employer]. Follow Up Care 05/03/2025 12:26:07 With:Yuliya Garza Address: [address] [place] [phone] Business (1) When:05/26/2025 14:45:00 With:MARLON ESPINOZA Address: [address] [place] [phone] Business (1) When: Unknown Comments:Doctor's office will call patient to make hospital follow up appointment. With:[facility] will be in place for patient upon discharged from the hospital. Address:Unknown When: Unknown [facility] 05-05-2025 Note Patient Education - Text Orthoped[facility] Humerus Fracture Treated With Immobilization The humerus is the large bone in the upper arm. A broken (fractured) humerus is often treated by wearing a cast, splint, or sling. This holds the broken pieces in place (immobilization) so they can heal. What are the causes? This condition may be caused by: ??? A fall. ??? A hard, direct hit to the arm. ??? A car accident. What increases the risk? You are more likely to develop this condition if: ??? You have a disease that makes the bones thin and weak. ??? You are elderly. What are the signs or symptoms? Pain. ??? Swelling. ??? Bruising. ??? Not being able to move your arm normally. How is this treated? Treatment involves wearing a cast, splint, or sling until your arm heals enough for you to begin eewwq-mw-awethg exercises. You may also be prescribed pain medicine. Follow these instructions at home: If you have a cast or splint that cannot be taken off: ??? Do not put pressure on any part of the cast or splint until it is fully hardened. This may take several hours. ??? Do not stick anything inside the cast or splint to scratch your skin. ??? Check the skin around the cast or splint every day. Tell your doctor if you see problems. ??? You may put lotion on dry skin around the cast or splint. Do not put lotion on the skin under the cast or splint. ??? Keep the cast clean and dry. If you have a splint or sling that can be taken off: ??? Wear the splint or sling as told by your doctor. Remove it only as told by your doctor. ??? Loosen the splint or sling if your fingers: ? Tingle. ? Become numb. ? Turn cold and blue. ??? Keep the splint or sling clean and dry. Bathing ??? Do not take baths, swim, or use a hot tub. Ask your doctor about taking showers or sponge baths. ??? If your cast, splint, or sling is not waterproof: ? Do not let it get wet. ? Cover it with a watertight covering when you take a bath or shower. Managing pain, stiffness, and swelling ??? If told, put ice on the injured area. To do this: ? If you have a removable splint or sling, take it off as told by your doctor. ? Put ice in a plastic bag. ? Place a towel between your skin and the bag or between your cast or splint that you cannot take off and the bag. ? Leave the ice on for 20 minutes, 2?3 times a day. ? Take off the ice if your skin turns bright red. This is very important. If you cannot feel pain, heat, or cold, you have a greater risk of damage to the area. ??? Move your fingers often. ??? Raise the injured area above the level of your heart while you are sitting or lying down. Driving ??? Do not drive or use machines while taking prescription pain medicine. ??? Ask your doctor when it is safe to drive if you have a cast, splint, or sling on your arm. Activity ??? Do not lift anything until your doctor says that it is safe. ??? Return to your normal activities when your doctor says that it is safe. ??? Do ffiwd-mh-xkqlhr exercises only as told by your doctor. General instructions ??? Do not smoke or use any products that contain nicotine or tobacco. These can make it take longer for your bones to heal. If you need help quitting, ask your doctor. ??? Take zqpz-cjg-tmangla and prescription medicines only as told by your doctor. ??? If told, take steps to prevent problems with pooping (constipation). You may need to: ? Drink enough fluid to keep your pee (urine) pale yellow. ? Take medicines. You will be told what medicines to take. ? Eat foods that are high in fiber. These include beans, whole grains, and fresh fruits and vegetables. ? Limit foods that are high in fat and sugar. These include fried or sweet foods. ??? Keep all follow-up visits. Contact a doctor if: ??? You have any new pain, swelling, or bruising. ??? Your pain, swelling, and bruising do not get better. ??? Your cast, splint, or sling becomes loose or damaged. Get help right away if: ??? Your skin or fingers on your injured arm turn blue or drummond. ??? Your arm is cold or numb. ??? You have very bad pain in your injured arm. Summary ??? The humerus is the large bone in the upper arm. ??? A broken humerus is often treated by wearing a cast, splint, or sling. ??? Wear a splint or sling as told by your doctor. Remove it only as told by your doctor. ??? Move your fingers often. This information is not intended to replace advice given to you by your health care provider. Make sure you discuss any questions you have with your health care provider. Document Revised: 12/31/2021 Document Reviewed: 12/31/2021 [employer] Patient Education ? 2023 [employer]. [facility] 05-04-2025 Note Consultation Note HOSPITAL REGULATIONS: All Positive and Important Negative Findings Shall Be Recorded Date of Consultation: 05/03/2025 Attending Physician: Deb Narvaez Consulting Physician: Yuliya Garza D.O. ORTHOPEDIC CONSULTATION PLACE OF CONSULTATION: Room 322 REASON FOR CONSULTATION: Left shoulder pain status post fall. HISTORY OF PRESENT ILLNESS: April is a 79-year-old fvzoy-wjtv-ilaqazuh female who was at the [employer] trying to update her passport this morning. She thought maybe she missed a step but was confused. She denied any chest pain, shortness of breath, or any palpitations. Subsequently remembers going down and was very vague with the events thereafter, cannot really recall how she hit. She is unable to declare whether she was knocked out or lost consciousness. She was a category II trauma admitted to the trauma program. She is aware that there is deformity of the four bony fragments of the shoulder, and she was offered tertiary referral for consideration of replacement surgery. She elects for nonoperative care and was admitted here for syncopal workup. Her pain is controlled at rest. She also sustained a contusion to the right knee, left maxillary sinus and lower orbital fracture with periorbital hematoma as well as a left lip abrasion/laceration. PAST MEDICAL HISTORY: Consistent with: 1. Blood thinner with Plavix with a history of transient ischemic attack 2. Breast cancer. 3. Hypertension. 4. Gastroesophageal reflux disease. 5. Basal cell carcinoma of the chin. PAST SURGICAL HISTORY: 1. Colonoscopy. 2. Chin basal cell excision. 3. Bilateral mastectomy. 4. Upper chest wall lesion removal. HOME MEDICATIONS: 1. Norvasc. 2. Aspirin. 3. Plavix. 4. Calcium. 5. Fish oil. 6. Omeprazole. ALLERGIES: She has no known drug allergies. PHYSICAL EXAMINATION: Vital Signs: 36.5, 84, 121/70. She is 94% on room air. Body mass index is 23.16. She is alert and oriented. She has a large periorbital hematoma with swelling along the left eye. There is abrasion to the left lower lip. Her right upper extremity is intact. Her left arm is in a sling. The left shoulder has moderate swelling with a moderate amount of tenderness. Joint appears to be concentrically reduced. She is neurovascularly intact distally. Her right knee has some vague achiness; there is no abrasion, effusion, or deformity to the knee. Her left hip replacement is stable. IMAGING: X-rays are reviewed of the humerus including shoulder in multiple views. Show a four-part comminuted moderately displaced proximal humerus fracture. Osteoporotic changes are noted. Advanced degenerative changes that are moderate are noted as well. CT scan reports are correlated and reviewed. ASSESSMENT: 1. Status post fall with syncopal episode with history of transient ischemic attack with left four-part comminuted, impacted, moderately displaced proximal humerus fracture. 2. Osteoporosis. 3. Remote history of transient ischemic attack with Plavix therapy. TREATMENT PLAN: The nature of the findings was discussed at length through phone conversation with physician early childhood assistant Malorie in the Emergency Room. She was given the option to try to improve her alignment and position of the fragments with tertiary referral. This is a very significant surgery given her blood-thinner management and her history of transient ischemic attack as well as her advanced osteoporosis and age. This would be in the form of a reverse shoulder arthroplasty. Given her fracture fragments and bone quality, this is not amenable to open reduction and internal fixation. She is aware there is a moderate amount of displacement. We discussed attempting to try to let this heal. If she does have continued pain later on, nonunion, or poor function, a tertiary referral would potentially be considered at a later date for a later consideration of reverse arthroplasty. Sling will be continued, ice, analgesia. She is on Lovenox deep venous thrombosis prevention per admitting service. Physical therapy with nonweightbearing to left upper extremity, and followup will be in the office in two to three weeks for repeat x-ray and exam. Her son was present at the bedside. She has numerous questions that are not pertinent in my field. I instructed her when the traumatologist rounds she can further discuss her maxillary and orbital fractures as well as periorbital hematoma. They voiced verbal understanding. Orthopedics to sign off and follow up in the office. Yuliya Garza D.O. deni Dictated: 05/03/2025 [id number] Transcribed: 05/03/2025 cc:*Deb Narvaez [facility] Comment on above: Result Comment: Elec tronically Signed By: Yuliya Garza DO.emily\Date and Time Signed: 05/04/25 12:24 EDT 05-04-2025 Note Interdisciplinary No te - PT PT evaluation completed. Pt assisted to bedside commode with close supervision assist without device. Pt ambulated x 20 feet without device without loss of balance in room with close supervision. Pt [facility] and will benefit from HHPT. [facility] 05-03-2025 Note History and Physical TRAUMA CONSULT / H&P Patient Name: APRIL TAFOYA Admission Date: 05/03/2025 Patient seen and examined on 05/03/2025 15:09:21 -------- BASIC INJURY INFORMATION: Level of activation: Category 2 Trauma Mode of transport: [facility] Mechanism of injury: Fall Complicating features: Not applicable Protective measures: Not applicable HISTORY OF PRESENT INJURY: APRIL TAFOYA is a 79 year old female with PMH significant for TIA (on Plavix daily), HTN, GERD, breast CA s/p bilateral mastectomy, basal cell CA of the chin who presented to the ED via [facility] as a CAT 2 trauma s/p fall. There are mixed stories about the events surrounding her fall. It is reported that patient was at the [employer] today, to gain necessary info for her passport, she reports she was walking down the stairs, when she reports she lost her footing and fell down 1 stair landing on her face. (+) headstrike, (+) LOC. Patient on ASA 81 mg intermittently for headaches, and Plavix 75 mg daily for history of TIA. Per bystanders at the scene is reported that she appeared confused and mumbling then fell with positive LOC. Patient reports she was not dizzy or lightheaded prior to the fall, that she can recall. Upon EMS arrival she was noted to be perseverating. In the ED, she is awake alert and oriented x 3. She is reporting left shoulder pain on evaluation. She does also endorse lightheadedness/dizziness with position changes. PRIMARY SURVEY: Airway: Intact Breathing: Normal Breath Sounds: Breath sounds equal bilaterally. Circulation: Pulses: Normal Skin: Warm, Dry Normal skin color, texture, and turgor. No rashes or lesions. Disability: Pupils: PEERL GCS: Best Eyes: 4 Best Verbal: 5 Best Motor: 6 Total: 15 SECONDARY SURVEY: Vital Signs (last 24 hrs) Last Charted Temp Oral 36.6 DegC (MAY 03 13:00) Heart Rate Monitored 87 bpm (MAY 03 14:33) Resp Rate 15 br/min (MAY 03 14:33) SBP 129 mmHg (MAY 03 14:19) DBP 72 mmHg (MAY 03 14:19) Weight 61.8 kg (MAY 03 12:25) BMI 25.74 (MAY 03 12:25) Neurologic: Alert and oriented, appropriate, moves all extremities. Strength symmetrical, no sensory deficits. HEENT: Head: No lacerations, bony step-offs, or abrasions; midface stable to palpation. Eyes: PERRL. EOM intact. There is periorbital ecchymosis and edema on the left. Ears: No hemotympanum, no ivory-auricular ecchymosis, no drainage. Nose: Septum midline, no crepitus with motion. No bloody drainage. Mouth/Throat: There is swelling and ecchymosis to the lower lip with small abrasion noted on the outer, lower lip. There is no intraoral laceration. No malocclusion. Neck: No midline tenderness. No step off or deformities. No lacerations/wounds. Pulmonary: External exam: No crepitus or pain with palpation; no abrasions or contusions. Lung exam: Breath sounds clear, symmetrical; no wheezes, rales or consolidation. Cardiovascular: Pulses: Bilateral radial, femoral, DP and PT pulses are normal Abdomen: Appearance: Non-distended, no scars, lacerations, contusions. Palpation: No tenderness. No peritonitis. Rectal: Rectal tone not examined. No gross blood noted. Pelvis/Perineum: Pelvis is stable to palpation. Normal appearing genitalia No blood noted at urethra meatus Musculoskeletal: Back/Spine: Thoracolumbar spinal column non tender. No step off or deformity noted. Extremities: RUE: No obvious deformities. No tenderness to palpation. No lacerations, contusions or abrasions. Normal ROM. LUE: Obvious deformity of the R anterior shoulder. There is associated tenderness to palpation in this region. No lacerations, contusions or abrasions. There is decreased ROM in the shoulder, limited by pain/injury. RLE: No obvious deformities. No tenderness to palpation. No lacerations, contusions or abrasions. Normal ROM. LLE: No obvious deformities. Tenderness to palpation over the knee. No lacerations, contusions or abrasions. Normal ROM. PAST MEDICAL HISTORY: TIA (on Plavix daily), HTN, GERD, breast CA s/p bilateral mastectomy, basal cell CA of the chin PAST SURGICAL HISTORY: Colonoscopy: 2003 Cancer of chin, basal cell: 12/12/00 Radical mastectomy of right breast: 01/02/99 Fine needle aspiration of breast: 12/1998 skin lesion on upper chest: 1989 Radical mastectomy of left breast: 01/17/87 PRE-ADMISSION MEDICATIONS: amitriptyline: 10 mg = 1 tab(s), Oral, Once a day (at bedtime), PRN (Sleep) amlodipine: 2.5 mg = 1 tab(s), Oral, Daily aspirin: 81 mg = 1 tab(s), Oral, Daily, PRN (Headache) atorvastatin: 10 mg = 1 tab(s), Oral, Bedtime clopidogrel: 75 mg = 1 tab(s), Oral, Daily famotidine: 20 mg = 1 tab(s), Oral, Daily, PRN (Indigestion) loratadine: 10 mg = 1 tab(s), Oral, Daily multivit (more content not included)... [facility] Comment on above: Result Comment: Elec tronically Signed By: Sukhi AGOSTO, Janett St\.br\Date and Time Signed: 05/03/25 16:45 EDT\.br\Electronically Co-Signed By: Meghan LIN, Yuliya Healy\.br\Date and Time Co-Signed: 05/03/25 19:43 EDT 05-03-2025 Note Progress Note-Physic ericka Patient: APRIL TAFOYA Age: 79 years Sex: Female : 1945 Associated Diagnoses: None Author: Yuliya Garza DO Basic Information Pt seen and examined. Son Altaf present. Pt elects for trial of non-op care. Continue sling, ice, elevation, NWB left UE OK to resume blood thinners and DVTp per admitting service. F/U 2-3 weeks for repeat xray and exam Health Status Allergies: Allergic Reactions (All) No Known Allergies [facility] Comment on above: Result Comment: Elec tronically Signed By: Yuliya Garza DO\.br\Date and Time Signed: 05/03/25 17:44 EDT 05-03-2025 Evaluation + Plan note Extrac jatin from: Title:ED Note Author:Erwin ELDER, Malorie Corona te:05/03/25 Closed fracture of left maxi llary sinus (S02.40DA: Maxillary fracture, left side, initial encounter for closed fracture) Closed left humeral fracture (S42.302A: Unspecified fracture of shaft of humerus, left arm, initial encounter for closed fracture) Fracture of left orbital floor (S02.32XA: Fracture of orbital floor, left side, initial encounter for closed fracture) Laceration of lower lip (S01.511A: Laceration without foreign body of lip, initial encounter) Periorbital hematoma of left eye (H05.232: Hemorrhage of left orbit) Syncope (R55: Syncope and collapse) Orders: HYDROmorphone, 0.5 mg = 0.5 mL, Injection, IV Push, Once, Stop date 05/03/25 13:04:00 EDT, STAT, Start date 05/03/25 13:04:00 EDT, 05/03/25 13:04:00 EDT Basic Metabolic Panel BB Draw & Hold Cardiac Monitoring CBC w/ Auto Diff Communication Order Communication Order Continuous Pulse Oximetry CT Abdomen/Pelvis w/ Contrast CT Chest w/ Contrast CT Head or Brain w/o Contrast CT Maxillofacial w/o Contrast CT Spine Cervical w/o Contrast Drug Screen Urine Dysphagia Screen ECG 12 Lead Adult ED Cardiac Monitoring eGFR Ethanol Level Hepatic Function Panel Lactic Acid Lipase Level Magnesium Level Neurological Assessment NPO Diet Oxygen Protocol Oxygen Therapy PT & PTT Pulse Oximetry Continuous Rapid Response Form Routine Capillary Glucose POC Saline Lock Insert Sling Apply Stroke Quality Measures Troponin 0 Hr. UA with Cult Rflx XR Humerus Left XR Knee Complete 4+ Views Right [facility] [id number] NoteRight Eye Quality was good. Scan locations included subfoveal. Progression has been stable. Findings include abnormal foveal contour, subretinal scarring. Left Eye Quality was good. Scan locations included subfoveal. Progression has been stable. Findings include pigment epithelial detachment.[facility] [id number] History of Present illness Narrative* Tal Conde DO - 04/13/2025 2:30 PM EDT Images from the original note were not included. Subjective Patient ID: April Tafoya is a 79 y.o. female. Chief Complaint Follow-up; Macular Degeneration; Blurred Vision HPI Macular Degeneration In both eyes. This started years ago. Vision is stable. Blurred Vision In both eyes. Onset was gradual. Severity is moderate. Occurring constantly. Since onset it is gradually worsening. Comments 2 mo FU with OCT mac for management of age-related macular degeneration (ARMD) both eyes (OU). Using OTC drops PRN Last edited by Tal Conde DO on 04/13/2025 3:17 PM. No current outpatient medications on file. (Ophthalmic Agents) No current facility-administered medications for this visit. (Ophthalmic Agents) Current Outpatient Medications (Other) Medication Sig Dispense Refill amitriptyline (Elavil) 10 MG tablet Take 10 mg by mouth at bedtime amLODIPine (Norvasc) 2.5 MG tablet Take 2.5 mg by mouth in the morning. Aspirin Low Dose 81 MG EC tablet PLEASE SEE ATTACHED FOR DETAILED DIRECTIONS atorvastatin (Lipitor) 10 MG tablet Take 10 mg by mouth in the evening. clobetasol (Temovate) 0.05 % cream APPLY TO AFFECTED AREAS ON EXTREMITIES TWICE DAILY FRIDAY THRU FRIDAY,OFF ON WEEKENDS clopidogrel (Plavix) 75 MG tablet Take 75 mg by mouth in the morning. fluocinonide (Lidex) 0.05 % ointment APPLY TO AFFECTED AREAS ON LEG TWICE A DAY FOR 3 WEEKS THEN ASNEEDED FOR FLARE loratadine (Claritin) 10 MG tablet Take 10 mg by mouth in the morning. pantoprazole (ProtoNix) 40 MG EC tablet TAKE 1 TABLET BY MOUTH DAILY ON AN EMPTY STOMACH FOLLOWED BY BREAKFAST IN 30 MINUTES No current facility-administered medications for this visit. (Other) Past Medical History: Diagnosis Date Dry eyes Hypercholesteremia (CMS/HCC) Hypertension (CMS/HCC) Macular degeneration No Known Allergies Review of Systems Constitutional: Negative. HENT: Negative. Eyes: Negative. Respiratory: Negative. Cardiovascular: Negative. Gastrointestinal: Negative. Genitourinary: Negative. Musculoskeletal: Negative. Skin: Negative. Neurological: Negative. Psychiatric/Behavioral: Negative. Hematological: Negative. Endocrine: Negative. Allergic/Immunologic: Negative. Objective Base Eye Exam Visual Acuity (Snellen - Linear) Right Left Dist cc 20/70 20/100 Correction: Glasses Tonometry (Applanation, 3:21 PM) Right Left Pressure 16 17 Pupils Pupils Right PERRL Left PERRL Visual Witt Left Right Full Full Extraocular Movement Right Left Full, Ortho Full, Ortho Neuro/Psych Oriented x3: Yes Dilation Both eyes: 1.0% Mydriacyl @ 2:36 PM Slit Lamp and Fundus Exam External Exam Right Left External Brow ptosis, Rosacea Rosacea, Brow ptosis Slit Lamp Exam Right Left Lids/Lashes Blepharitis, Dermatochalasis - upper lid, Ptosis Blepharitis, Dermatochalasis - upper lid, Ptosis Conjunctiva/Sclera White and quiet White and quiet Cornea Decreased tear film/oily, 1+ SPK, ABMD Decreased tear film/oily, 1+ SPK, ABMD Anterior Chamber Deep and quiet Deep and quiet Iris Round and reactive Round and reactive Lens Posterior chamber intraocular lens, Open posterior capsule Posterior chamber intraocular lens,2+ Posterior capsular opacification Anterior Vitreous Normal Normal Fundus Exam Right Left Disc Normal Normal Macula Hard drusen, Soft drusen, Retinal pigment epithelial atrophy, Retinal pigment epithelial mottling Hard drusen, Soft drusen, Retinal pigment epithelial atrophy, Retinal pigment epithelial mottling Vessels Normal Normal Periphery Normal Normal Assessment/Plan Diagnoses and all orders for this visit: 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 - ARMD OU, dry. Importance of smoking cessation, blood pressure control, and healthy diet were emphasized. Patient was advised to consider ultraviolet-B blocking sunglasses. In accordance with the AREDS study, appropriate antioxidant and mineral supplements were prescribed. Patient was instructed to self monitor their monocular vision (reading/Amsler Grid) at least weekly. Patient should immediately report any new onset of decreased vision or metamorphopsia. Dry eyes - Dry Eyes OU -- Environmental changes to minimize dryness and exposure and the use of artificial tears were recommended. 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 Warm compresses, lid massage and lid scrubs were recommended. Left posterior capsular opacification - PCO OS: (Posterior Capsule Opacification) Can be observed without intervention if PCO is not visually significant. Nd:YAG laser capsulotomy may be considered if impairment of vision rises to a level that dose not meet the patient's functional needs or interferes with activities of daily living. Risks, benefits and alternatives to the procedure will be reviewed. If the patient has undergone Nd:YAG laser capsulotomy, they are to notify their publicity writer promptly if they have a significant change in symptoms, such as flashes of light (photopsia), an increase in floaters, loss of visual field or decrease in visual acuity. documented in this encounterCox Walnut [id number] NoteRight Eye Quality was good. Scan locations included subfoveal. Progression has been stable. Findings include pigment epithelial detachment. Left Eye Quality was good. Scan locations included subfoveal. Progression has been stable. Findings include pigment epithelial detachment.[facility] [id number] History of Present illness Narrative* Tal Conde DO - 12/10/2024 11:00 AM EST Images from the original note were not included. Assessment/Plan Assessment/Plan Diagnoses and all orders for this visit: 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 - ARMD OU, dry. Importance of smoking cessation, blood pressure control, and healthy diet were emphasized. Patient was advised to consider ultraviolet-B blocking sunglasses. In accordance with the AREDS study, appropriate antioxidant and mineral supplements were prescribed. Patient was instructed to self monitor their monocular vision (reading/Amsler Grid) at least weekly. Patient should immediately report any new onset of decreased vision or metamorphopsia. Dry eyes - Dry Eyes OU -- Environmental changes to minimize dryness and exposure and the use of artificial tears were recommended. - Currently using OTC artificial tears (Systane) but only 2-3xs/day. Given a sample of Meibo to try. However, she understands that she could greatly increase the usage/quantity of any type of gtt to improve dry eye symptoms. Blepharitis of upper and lower eyelids of both eyes, unspecified type - Blepharitis, posterior type OU - The patient exhibits inspissated meibomian glands. Warm compresses, lid massage and lid scrubs were recommended. documented in this encounterCox Walnut [id number] Evaluation note* Diagnosis Onset Date Resolution Status Admit Date Age-related osteoporosis wit hout current pathological fracture acute Se pt2023 10:24am Cerebral atherosclerosis acute August 17, 2024 10:24am Cervical spondylosis with radiculopathy acute August 17, 2024 10:24am Essential hypertension acute Se pt2023 10:24am Gastroesophageal reflux dise ase with esophagitis without hemorrhage acute August 17, 2024 10:24am H/O TIA (transient ischemic attack) and stroke acute August 10:24am Hypercholesterolemia acute Aug emb2023 10:24am Insomnia acute August 10:24am Cerebral atherosclerosis acute October 19, 2024 8:23am H/O TIA (transient ischemic attack) and stroke acute October 8:23am Hypercholesterolemia acute Nov mb2023 8:23am Right temporal headache acute N ovember 2023 8:23am [facility] [place] [facility] Work Phone: 1(635) 830-526408-21-2024 NoteRight Eye Quality was good. Scan locations included subfoveal. Progression has been stable. Findings include abnormal foveal contour, pigment epithelial detachment. Left Eye Quality was good. Scan locations included subfoveal. Progression has been stable. Findings include abnormal foveal contour, pigment epithelial detachment.Cox Walnut [id number] History of Present illness Narrative* Tal Conde DO - 07/21/2024 11:00 AM EDT Images from the original note were not included. Assessment/Plan Assessment/Plan Diagnoses and all orders for this visit: 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 - ARMD OU, dry. Importance of smoking cessation, blood pressure control, and healthy diet were emphasized. Patient was advised to consider ultraviolet-B blocking sunglasses. In accordance with the AREDS study, appropriate antioxidant and mineral supplements were prescribed. Patient was instructed to self monitor their monocular vision (reading/[employer] Grid) at least weekly. Patient should immediately report any new onset of decreased vision or metamorphopsia. Dry eyes - Dry Eyes OU -- Environmental changes to minimize dryness and exposure and the use of artificial tears were recommended. Blepharitis of upper and lower eyelids of both eyes, unspecified type - Blepharitis, posterior type OU - The patient exhibits inspissated meibomian glands. Warm compresses, lid massage and lid scrubs were recommended. documented in this encounterCox Walnut [id number] Evaluation note* Encounter Date Diagnosis Assessment Notes Treatment Notes Treatment Clinical Notes Aug, Essential hypertensi on (ICD-10 - I10) This patient is instructed to consume a healthy, low-fat, low-salt diet. They are also encouraged to continue exercise to achieve/maintain a normal BMI. Aug, Pure hypercholestero lemia (ICD-10 - E78.00) Instructed on diet and exercise with continued statin therapy.Discussed the beneficial effects of lowering cholesterol in reducing the risk for cerebrovascular and cardiovascular disease. Aug, Gastroesophageal ref lux disease with esophagitis without hemorrhage (ICD-10 - K21.00) Diet instructions: Smaller portions, avoid eating and laying flat, avoid eating or drinking prior to bedtime. Weight loss. Aug, Cerebral atheroscler osis (ICD-10 - I67.2) Continue secondary prevention measures. Continue ASA/PLavix No bleeding complications noted No focal neurologic deficits, aware to have emergent evaluation if new symptoms occur Aug, Nicotine dependence, cigarettes, in remission (ICD-10 - F17.211) Continue abstinence Aug, H/O TIA (transient ischemic attack) and stroke (ICD-10 - Z86.73) Continue secondary prevention Aug, History of breast ca ncer (ICD-10 - Z85.3) Continue self monitoring, s/p mastectomy Aug, Fatigue, unspecified type (ICD-10 - R53.83) Check labs: r/o diabetes, anemia and thyroid disease [facility] Other 03-01-2023 Evaluation note* Encounter Date Diagnosis Assessment Notes Treatment Notes Treatment Clinical Notes Jan, Medicare annual well ness visit, subsequent (ICD-10 - Z00.00) Personalized health [...] amended by provider signed below. Jan, Essential hypertensi on (ICD-10 - I10) This patient is instructed to consume a healthy, low-fat, low-salt diet. They are also encouraged to continue exercise to achieve/maintain a normal BMI. Jan, Pure hypercholestero lemia (ICD-10 - E78.00) Diet and exercise with continued statin therapy. Jan, Gastroesophageal ref lux disease with esophagitis without hemorrhage (ICD-10 - K21.00) Diet instructions: Smaller portions, avoid eating and laying flat, avoid eating or drinking prior to bedtime. Weight loss. Continue PPI If her symptoms continue Jan, Cerebral atheroscler osis (ICD-10 - I67.2) Diet instructions: Smaller portions, [...] along w/ Plavix Jan, History of breast ca ncer (ICD-10 - Z85.3) b/l mastectomy [facility] [employer] Other Evaluation noteNo InformationNortMoses Taylor Hospital [employer] Other Evaluation note* Diagnosis Onset Date Resolution Status Age-related osteoporosis wit hout current pathological fracture [...] cancer acu te Hyperlipidemia type II acute [facility] [place] [facility] Work Phone: Evaluation note* Diagnosis Onset Date Resolution Status Age-related osteoporosis wit hout current pathological fracture acute Cerebral atherosclerosis acu te Cervical spondylosis with radiculopathy acute Essential hypertension acute Gastroesophageal reflux dise ase with esophagitis without hemorrhage acute H/O TIA (transient ischemic attack) and stroke acute Hypercholesterolemia acute Insomnia acute [facility] Work Phone: Evaluation note* Diagnosis 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- Primary Dry eyes Unspecified tear film insufficiency Blepharitis of upper and lower eyelids of both eyes, unspecified type [facility] encounter [facility]* Diagnosis 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- Primary Dry eyes Unspecified tear film insufficiency Blepharitis of upper and lower eyelids of both eyes, unspecified type [facility] this encounter [facility]* Diagnosis Onset Date Resolution Status Admit Date Age-related osteoporosis wit hout current pathological fracture acute [facility] 2024 10:16am Cerebral atherosclerosis acute January 31, 2025 10:16am Cervical spondylosis with radiculopathy acute January 31, 2025 10:16am Essential hypertension acute [facility] 2024 10:16am Gastroesophageal reflux dise ase with esophagitis without hemorrhage acute January 31, 2025 10:16am H/O TIA (transient ischemic attack) and stroke acute January 31 10:16am History of breast cancer acute January 31, 2025 10:16am Hypercholesterolemia acute [facility] 2024 10:16am Insomnia acute January 31 10:16am Medicare annual wellness vis it, subsequent noneactive January 31, 2025 10:16am [facility] Work Phone: Evaluation note* Diagnosis 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- Primary Dry eyes Unspecified tear film insufficiency 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 Blepharitis of upper and lower eyelids of both eyes, unspecified type Left posterior capsular opacification Unspecified after-cataract documented [facility] this encounter [facility]* Diagnosis Closed fracture of facial bone due to fall, initial encounter (HCC)- [facility] Closed fracture of facial bone due to fall, initial encounter ([facility]) [facility]* Diagnosis Closed fracture of facial bone due to fall, initial encounter ([facility])- Primary [facility]* Diagnosis Acute pain of left shoulder- Primary [facility]* Diagnosis Other closed nondisplaced fracture of proximal end of left humerus, initial encounter- Primary Acute pain of left shoulder [facility]* Diagnosis Acute pain of left shoulder- Primary Other closed nondisplaced fracture of proximal end of left humerus, initial encounter [facility] Diagnosis Acute pain of left shoulder- Primary Other closed nondisplaced fracture of proximal end of left humerus, initial encounter [facility] Diagnosis Acute pain of left shoulder- Primary Other closed nondisplaced fracture of proximal end of left humerus, initial encounter [facility]* Diagnosis Acute pain of left shoulder- Primary Other closed nondisplaced fracture of proximal end of left humerus, initial encounter documented in this encounter [facility] HealthcareHistory general Narrative - Reported* Type Description Date Medical History Cerebral atherosclerosis Medical History H/O TIA (transient ischemic jaelyn ck) and stroke Medical History History of breast cancer Medical History Age-related osteopor osis without current pathological fracture Medical History Hyperlipidemia type II Medical History Gastroesophageal ref lux disease with esophagitis without hemorrhage Medical History Essential hypertension Medical History Pure hypercholesterolemia Medical History Situational anxiety Medical History Hearing loss of both ears due to cerumen impaction Medical History Allergic contact dermatitis due to plant Medical History Atypical chest pain Medical History Cellulitis of right forearm Medical History Shingles (herpes zoster) polyneu ropathy Medical History Nicotine dependence, cigarettes, in remission Medical History Acute recurrent maxillary sinusi tis Surgical History colonoscopy 2003 Surgical History bilateral mastectomy 1986 Surgical History cataract OD 1998 Hospitalization History see surgical history [facility] Other Hospital course Narrative No data available for this section [facility] Progress note No data available for this section [facility] Reason for visit Narrative* Diagnostic X-Ray (Routine) - Closed Specialty Diagnoses / Procedures Referred By Gwendolyn maldonado Referred To Contact Radiology Diagnoses Closed fracture of facial bone due to fall, initial encounter (HCC) Procedures CT NEURO IMAGE IMPORT(MARCUS) DOWNLOAD [employer] IMAGES TO Janett Olvera APRN-CNP [address] [place] [address] Phone: tel: fax: [facility] DIAGNOSTIC RADIOLOGY [address] [place] [address] [place] [address] Phone: tel: Referral ID Status Reason Start Date Expiration Date Visits Re quested Visits Authorized [id number] Closed 05/06/2025 05/06/2026 [facility] Rehabilitation - Outpatient (Routine) - Authorized Specialty Diagnoses / Procedures Referred By Gwendolyn maldonado Referred To Contact Physical Therapy Diagnoses Acute pain of left shoulder Other closed nondisplaced fracture of proximal end of left humerus, initial encounter Procedures [place] OFFICE/OUTPATIENT [facility] 60 MINUTES Yuliya Garza, DO [address] [place] [address] Phone: tel: fax: Lupe Cody, EMMA Referral ID Status Reason Start Date Expiration Date Visits Requested Visits Authorized [id number] Authorized Consult and Treat 07/07/2025 12/20/2025 30 30 [facility]* Rehabilitation - Outpatient (Routine) - Authorized Specialty Diagnoses / Procedures Referred By Gwendolyn maldonado Referred To Contact Physical Therapy Diagnoses Acute pain of left shoulder Other closed nondisplaced fracture of proximal end of left humerus, initial encounter Procedures [place] OFFICE/OUTPATIENT NEW [facility] 60 MINUTES Yuliya Garza, DO [address] [place] [address] Phone: tel: fax: Lupe Cody, EMMA Referral ID Status Reason Start Date Expiration Date Visits Requested Visits Authorized [id number] Authorized Consult and Treat 07/07/2025 11/30/2025 30 30 [facility] Summary Purpose Family History No Family History [...] History Records FoundNo Family History Records Found No data available for this section No Family History Records FoundNo Family History Records FoundNo Family History Records Found Advance Directives No Advanced Directives Records Found Advance Directive Response Recorded Date/ Time Advance Directives No April 16 3:34pm Advance Directive Response Recorded Date/ Time Advance Directives No April 16 2:34pm Chief Complaint and Reason for Visit Chief Complaint [facility] Documentation [facility] Follow Up Reason [...] reschedule 07/23August 17, 2024 10:24am pain by latter day October 19, 2024 8:23am Reason for Visit [...] 19, 2024 8:23am Right temporal headache October 19, 024 8:23am Chief Complaint Admit Date Wellness January 31, 2025 10:1 6am Reason for Visit Admit Date Age-related osteoporosis wit hout current pathological fracture January 31, 2025 10:16am Cerebral atherosclerosis January 31, 2025 10:16am Cervical spondylosis with radiculopathy January 31, 2025 10:16am Essential hypertension January 31, 2025 1 0:16am Gastroesophageal reflux dise ase with esophagitis without hemorrhage January 31, 2025 10:16am H/O TIA (transient ischemic attack) and stroke January 31, 2025 10:16am History of breast cancer January 31, 2025 10:16am Hypercholesterolemia January 31, 2025 10: 16am Insomnia January 31, 2025 10:1 6am Medicare annual wellness visit, mauroe nt January 31, 2025 10:16am Additional Source Comments INFORMATION SOURCE (unrecogn ized section and content) DATE CREATED AUTHOR 05/26/2018 [facility] DATE CREATED AUTHOR AUTHOR'S ORGANIZ ATION 03/10/2019 [facility] DATE CREATED AUTHOR AUTHOR'S ORGANIZ ATION 01/27/2021 [facility] DATE CREATED AUTHOR AUTHOR'S ORGANIZ ATION 12/21/2021 [facility] DATE CREATED AUTHOR AUTHOR'S ORGANIZ ATION 02/05/2023 [facility] DATE CREATED AUTHOR AUTHOR'S ORGANIZ ATION 02/22/2024 [facility] DATE CREATED AUTHOR AUTHOR'S ORGANIZ ATION 05/04/2025 [facility] DATE CREATED AUTHOR AUTHOR'S ORGANIZ ATION 05/05/2025 [facility] DATE CREATED AUTHOR AUTHOR'S ORGANIZ ATION 05/15/2025 [facility] DATE CREATED AUTHOR AUTHOR'S ORGANIZ ATION 06/09/2025 [facility] DATE CREATED AUTHOR AUTHOR'S ORGANIZ ATION 07/19/2025 [facility] EPIC REASON FOR VISIT (unrecogniz ed section and content) Reason Comments Eye Exam Macular Degeneration Reason Comments Macular Degeneration Reason Comments Follow-up Macular Degeneration Blurred Vision Reason Comments New patient, to establish relationship Reason Comments Fracture Proximal humerus fx 05/03/25 Reason Comments Fracture Prox humerus fx Care Teams (unrecognized sec tion and content) Team Status: Active Member Role Status Dates Marlon Espinoza DO Primary Care Provider Active Team Status: Inactive Member Role Status Dates Marlon Espinoza DO Primary Care Provide r, Attending Provider Active Start: January 30, 2024 End: January 30, 2024 Team Status: Active Member Role Status Dates Marlon Espinoza DO Primary Care Provide r, Attending Provider Active Start: February 02, 2024 Team Status: Active Member Role Status Dates Marlon Espinoza DO Primary Care Provide r, Attending Provider Active Start: February 15, 2024 Team Status: Active Member Role Status Dates Marlon Espinoza DO Primary Care Provide r, Attending Provider Active Start: February 16, 2024 Team Status: Active Member Role Status Dates Marlon Espinoza DO Primary Care Provider Active Start: February 18, 2024 BING Caro Attending Provider Active St art: February 18, 2024 Team Status: Inactive Member Role Status Dates Marlon Espinoza DO Primary Care Provide r, Attending Provider Active Start: February 24, 2024 End: February 24, 2024 Team Status: Inactive Member Role Status Dates Marlon Espinoza DO Primary Care Provide r, Attending Provider Active Start: August 17, 2024 End: August 17, 2024 Team Status: Active Member Role Status Dates Marlon Espinoza DO Primary Care Provide r, Attending Provider Active Start: August 18, 2024 Team Status: Active Member Role Status Dates Marlon Espinoza DO Primary Care Provide r, Attending Provider Active Start: September 22, 2024 Team Status: Inactive Member Role Status Dates Marlon Espinoza DO Primary Care Provide r, Attending Provider Active Start: October 19, 2024 End: October 19, 2024 Fold Skiver Relationship Specialty Start Date End Date Marlon Espinoza MD PCP - General Internal Medicine 07/02/23 Fold Skiver Relationship Specialty Start Date End Date Marlon Espinoza MD PCP - General Internal Medicine 07/02/23 Team Status: Inactive Member Role Status Dates Marlon Espinoza DO Primary Care Provide r, Attending Provider Active Start: January 31, 2025 End: January 31, 2025 Fold Skiver Relationship Specialty Start Date End Date Marlon Espinoza DO PCP - General Internal Medicine 07/02/23 Fold Skiver Relationship Specialty Start Date End Date Marlon Espinoza DO PCP - General Internal Medicine 07/02/23 Fold Skiver Relationship Specialty Start Date End Date Marlon Espinoza DO [address] [place] [id number] PCP - General Internal Medicine 05/26/25 Fold Skiver Relationship Specialty Start Date End Date Marlon Espinoza DO [address] [facility] [place] [id number] PCP - General Internal Medicine 05/26/25 Fold Skiver Relationship Specialty Start Date End Date Marlon Espinoza DO [address] [facility] [place] [id number] PCP - General Internal Medicine 05/26/25 Fold Skiver Relationship Specialty Start Date End Date Marlon Espinoza DO [address] [facility] [place] [facility] [place] [id number] PCP - General Internal Medicine 05/26/25 Fold Skiver Relationship Specialty Start Date End Date Marlon Espinoza DO [address] [facility] [place] [id number] PCP - General Internal Medicine 05/26/25 Fold Skiver Relationship Specialty Start Date End Date Marlon Espinoza DO [address] [facility] [place] [facility] [place] [address] PCP - General Internal Medicine 05/26/25 Fold Skiver Relationship Specialty Start Date End Date Marlon Espinoza DO [address] [facility] [place] [id number] PCP - General Internal Medicine 05/26/25 Fold Skiver Relationship Specialty Start Date End Date Marlon Espinoza DO [address] [facility] [place] [address] PCP - General Internal Medicine 05/26/25 Goals (unrecognized section and content) Goals may [...] BE BASED ON THE PRIMARY CLINICAL RECORDS. [email or web address] provides no warranty or guarantee of the accuracy or completeness of information in this document.
--- NOTE | 2025-07-20 20:56 | ECG_ITS ---
The [facility] Test Date: 2025-07-20 Pat Name: DYLAN TAFOYA Department: Room: - Gender: Female Water Server: : 1945 Requested By: [id number] Order Number: [id number] Reading MD: EZEKIEL AMANDA Measurements Intervals [place] Rate: 98 P: 60 MN: 176 QRS: 49 QRSD: 80 T: 69 QT: 340 QTc: 396 Interpretive Statements 1100 Sinus rhythm 9110 normal ECG Compared to ECG 02/15/2024 10:55:17 No significant changes Electronically Signed On 07-21-2025 16:38:18 EDT by EZEKIEL AMANDA
--- NOTE | 2025-07-20 20:56 | CT_ITS ---
The [address] [address] Patient Name: DYLAN TAFOYA MRN: [id number] date: 1945 Sex: F Assigned Patient Location: ER Current Patient Location: ER Accession/Order Number: [id number] Exam Date: 07/20/2025 21:29 Report Date: 07/20/2025 21:31 At the request of: JUAN CARLOS GUDINO Procedure: CT head/brain wo con Unenhanced head CT TECHNIQUE: Contiguous axial imaging of the head. The CT exam was performed using one or more the following dose reduction techniques: Automated exposure control, adjustment of the MA and/or Kv according to patient size, or use of the iterative reconstruction technique. COMPARISON: 02/05/2024 HISTORY: Confusion. VENTRICLES: Within normal limits ATROPHY: Similar atrophy BRAIN PARENCHYMA: Decreased density of the white matter is most consistent with chronic small vessel disease. HEMORRHAGE: None HERNIATION: No mass effect or herniation INFARCTION: No recent vascular distribution infarction is seen. EXTRA-AXIAL FLUID COLLECTIONS None MIDBRAIN: Unremarkable DAREN: Unremarkable MEDULLA: Unremarkable SINUSES: Unremarkable ORBITS: Grossly unremarkable MASTOIDS: Unremarkable BONY STRUCTURES Intact ADDITIONAL FINDINGS: CT/CT head/brain wo con IMPRESSION: No acute findings. Impression dictated by: Dc Chapa M.D. 07/20/2025 9:31 PM Dictation Location: [place] [address] Electronically authenticated by: [id number] Y Date: 07/20/2025 21:31
--- NOTE | 2025-07-20 20:56 | XR_ITS ---
The [address] [address] Patient Name: DYLAN TAFOYA MRN: [id number] date: 1945 Sex: F Assigned Patient Location: ED.MAIN Current Patient Location: ER Accession/Order Number: [id number] Exam Date: 07/20/2025 21:27 Report Date: 07/20/2025 21:29 At the request of: JUAN CARLOS GUDINO Procedure: XR chest 1V Plain film chest Single view HISTORY: Confusion. Weakness. COMPARISON: 02/15/2024 FINDINGS: SUPPORT DEVICES: None POSTSURGICAL CHANGES: Left surgical clips HEART: Within normal limits PULMONARY BEN: Within normal limits MEDIASTINUM: Unremarkable LUNGS AND PLEURA: No acute lung process, pleural effusion or pneumothorax identified. Stable granulomatous changes BONY STRUCTURES: Left proximal humerus fracture ADDITIONAL FINDINGS None XR/XR chest 1V IMPRESSION: No acute cardiopulmonary disease. Development of proximal left humerus fracture. Age-indeterminate. Impression dictated by: Dc Chapa M.D. 07/20/2025 9:29 PM Dictation Location: [employer] Electronically authenticated by: [id number] Y Date: 07/20/2025 21:29
--- NOTE | 2025-07-20 21:04 | ED.GENADUL1 ---
Documented by User: Rand Payne 07/20/25 21:50 HPI HPI - General Adult General Chief complaint: Altered Mental Status Stated complaint: Weakness UTI Time Seen by Provider: 07/20/25 20:46 Source: patient Mode of arrival: walk-in Limitations: altered mental status Limitations comment: at times- patient knows that she is confused History of Present Illness HPI narrative: 79-year-old female presents here with a chief complaint of confusion earlier today. Patient states she has a history of TIAs. Patient is alert and oriented x 3 at this time. She states she was with friends around lunchtime today and became confused. She states she was saying things that did not make sense and she was well aware of it. She states she has happened to her in the past. She states she then had several episodes at home this evening where she was confused. She called her son to have her brought here to the emergency room. She denies any weakness. She has no focal neurological deficits upon arrival. She is alert and oriented as stated. She does take Plavix due to her history of TIAs. She states that she has a neurologist she sees in [place] but cannot currently recall his name. Related Data Home Medications ?Medication ?Instructions ?Recorded ?Confirmed amlodipine 2.5 mg tablet 2.5 mg PO QDAY 11/03/23 07/20/25 atorvastatin 10 mg tablet 10 mg PO .QHS 11/03/23 07/20/25 clopidogrel 75 mg tablet 75 mg PO QDAY 11/03/23 07/20/25 pantoprazole 40 mg tablet,delayed 40 mg PO QDAY 11/03/23 07/20/25 release Previous Rx's ?Medication ?Instructions ?Recorded aspirin 81 mg capsule 81 mg PO DAILY 21 days #21 caps 02/16/24 Allergies Allergy/AdvReac Type Severity Reaction Status Date / Time No Known Drug Allergies Allergy Verified 07/20/25 20:47 Opioid HPI Opioid Management Most Recent Opioid Data: Last Pain Scale 0 02/16/24, 11:19 Last Pain Intensity 0 02/16/24, 11:19 Last ORT Total Score 0 02/15/24, 14:13 Last ORT Risk Category Low Risk 02/15/24, 14:13 Review of Systems ROS Status of ROS 10 or more systems reviewed and unremarkable except as noted in history and below [facility] Medical History (Updated 07/21/25 @ 00:20 by Anuj Arana MD) High cholesterol ?E78.00 - Pure hypercholesterolemia, unspecified (ICD-10) Hypertension ?I10 - Essential (primary) hypertension (ICD-10) Insect bite ?W57.XXXA - Bitten or stung by nonvenomous insect and other nonvenomous arthropods, initial encounter (ICD-10) Macular degeneration ?H35.30 - Unspecified macular degeneration (ICD-10) Breast cancer ?C50.919 - Malignant neoplasm of unspecified site of unspecified female breast (ICD-10) History of TIAs ?Z86.73 - Personal history of transient ischemic attack (TIA), and cerebral infarction without residual deficits (ICD-10) GERD (gastroesophageal reflux disease) ?K21.9 - Gastro-esophageal reflux disease without esophagitis (ICD-10) Cataracts, bilateral ?H26.9 - Unspecified cataract (ICD-10) Surgical History (Updated 11/03/23 @ 12:53 by Luna Li RN) History of hip replacement ?Z96.649 - Presence of unspecified artificial hip joint (ICD-10) H/O bilateral mastectomy ?Z90.13 - Acquired absence of bilateral breasts and nipples (ICD-10) Family History (Updated 11/03/23 @ 12:54 by Luna Li, MABEL) Other Family history of COPD (chronic obstructive pulmonary disease) Family history of cancer Family history of hypertension Family history of stroke Social History (Updated 11/03/23 @ 12:54 by Luna Li, MABEL) Within the past year, how often did you have a drink containing alcohol: never Score interpretation: A score less than 3 is consistent with normal alcohol consumption. Smoking status: Never smoker Second hand tobacco smoke exposure: No Non-prescribed substance use: denies use Previous occupational history: retired Exam Narrative Exam Narrative: All Systems are negative except as noted/marked.All systems reviewed and otherwise negative Nurses note and vital signs reviewed and patient is not hypoxic. General: The patient appears well and in no apparent distress. Patient is resting comfortably on cart. Skin: Warm, dry, no pallor noted. There is no rash noted. Head: Normocephalic, atraumatic Eye: Normal conjunctiva, no drainage, EOMI. PERRL Ears, Nose, Mouth, and Throat: oral mucosa is moist. Nares patent. Mouth without vesicles. Ear canals patent. Tm's without Erythema Cardiovascular: Regular Rate and Rhythm Respiratory: Patient is in no distress, no accessory muscle use, lungs are clear to auscultation, no wheezing, rales or rhonchi Back: non-tender, no CVA tenderness bilaterally to percussion. GI: Normal bowel sounds, no tenderness to palpation, no masses appreciated. No rebound, guarding, or rigidity noted. Musculoskeletal: The patient has no evidence of calf tenderness, no pitting edema, symmetrical pulses noted bilaterally Neurological: A&O x4, normal speech Psychiatric: Cooperative Constitutional Vital Signs, click to edit/add: Last Vital Signs Temp 98.8 F 07/20/25 20:55 Pulse 88 07/21/25 00:07 Resp 18 07/21/25 00:07 BP 152/92 H 07/21/25 00:07 Pulse Ox 98 07/21/25 00:07 O2 Del Method Room Air 07/20/25 20:55 Course Vital Signs Vital signs: Vital Signs Pulse Oximetry 96 07/20/25 20:50 Temperature 98.8 F 07/20/25 20:55 Pulse Rate 88 07/21/25 00:07 Respiratory Rate 18 07/21/25 00:07 Blood Pressure 152/92 H 07/21/25 00:07 Pulse Oximetry 98 07/21/25 00:07 Oxygen Delivery Method Room Air 07/20/25 20:55 Medical Decision Making MDM Narrative Medical decision making narrative: Patient remains alert and oriented. CT scan of the head is negative. Urinalysis is currently pending. Dr. arana was in and evaluated patient agrees patient needs a CTA ordered. Patient has been alert and oriented during her stay here transition of care to Dr. Arana Differential Diagnosis Differential Diagnosis: tia, uti, confusion Medical Records Medical records reviewed: Yes I reviewed the patient's medical records Lab Data Lab results reviewed: Yes I reviewed the patient's lab results Labs: Lab Results 07/20/25 07/20/25 07/20/25 Range/Units 21:09 21:13 22:26 WBC 6.4 (4.0-11.0) 10^3/uL RBC 4.15 L (4.20-5.40) 10^6/uL Hgb 13.1 (12.0-16.0) g/dL Hct 39.0 (36.0-48.0) % MCV 94.0 (81.0-99.0) fL MCH 31.6 (26.7-34.0) pg MCHC 33.6 (29.9-35.2) g/dL RDW 13.2 (11.0-15.0) % Plt Count 329 (150-450) 10^3/uL MPV 9.6 (9.5-13.5) fL Neut % (Auto) 69.1 (43.0-75.0) % Lymph % (Auto) 14.1 L (20.5-60.0) % Newton % (Auto) 12.4 H (1.7-12.0) % Eos % (Auto) 2.8 (0.9-7.0) % Baso % (Auto) 1.1 (0.2-2.0) % Neut # (Auto) 4.4 (1.4-6.5) 10^3/uL Lymph # (Auto) 0.9 L (1.2-3.8) 10^3/uL Newton # (Auto) 0.8 (0.3-0.8) 10^3/uL Eos # (Auto) 0.2 (0.0-0.7) 10^3/uL Baso # (Auto) 0.1 (0.0-0.1) 10^3/uL Abs Immat Gran (auto) 0.03 (0.00-0.03) 10^3/uL Imm/Tot Granulo (auto) 0.5 (0.0-0.5) % ESR 10 (<=30) mm/hr PT 10.2 (9.0-11.6) sec INR 0.96 Sodium 137 (136-145) mmol/L Potassium 4.2 (3.5-5.1) mmol/L Chloride 98 (98-107) mmol/L Carbon Dioxide 29.5 (21.0-32.0) mmol/L Anion Gap 13.7 BUN 10.0 (7.0-18.0) mg/dL Creatinine 0.87 (0.55-1.02) mg/dL Est GFR ( Amer) >60 (>=60 mL/min/1.73m^2) Est GFR (Non-Af Amer) >60 (>=60 mL/min/1.73m^2) BUN/Creatinine Ratio 11.5 Glucose 132 H (74-106) mg/dL Calcium 9.1 (8.5-10.1) mg/dL Ammonia <10 L (11-32) umol/L Troponin I High Sens 5.6 (4.0-51.3) pg/mL C-Reactive Protein <0.50 (<=0.50) mg/dL TSH 2.475 (0.358-3.740) uIU/mL Urine Color Lt. yellow (YELLOW) Urine Clarity Clear (CLEAR) Urine pH 6.0 (5.0-9.0) Ur Specific [place] <=1.005 A (1.005-1.025) Urine Protein Negative (NEG/TRACE) mg/dL Urine Glucose (UA) Negative (NEGATIVE) mg/dL Urine Ketones Negative (NEGATIVE) mg/dL Urine Occult Blood Negative (NEGATIVE) Urine Nitrite Negative (NEGATIVE) Urine Bilirubin Negative (NEGATIVE) Urine Urobilinogen 0.2 (0.2-1.0) EU/dL Ur Leukocyte Esterase Negative (NEGATIVE) Urine RBC None seen (0-2) #/HPF Urine WBC None seen (NONE SEEN) #/HPF Ur Squamous Epith Cells None seen (NONE/RARE) #/LPF Urine Crystals None seen (None Seen) #/HPF Urine Bacteria None seen (NONE SEEN) #/HPF Urine Casts None seen (NONE SEEN) #/LPF Urine Mucus None seen (NONE SEEN) Ur Culture Indicated? No POC Glucose 125 H (74-106) mg/dL Imaging Data CT scan - head: Radiologist's impression: ITS Impressions Chest X-Ray 07/20/25 20:56 IMPRESSION: No acute cardiopulmonary disease. Development of proximal left humerus fracture. Age-indeterminate. Impression dictated by: Dc Chapa M.D. 07/20/2025 9:29 PM Dictation Location: [employer] Electronically authenticated by: [id number] Y Date: 07/20/2025 21:[address] 07/20/25 20:56 IMPRESSION: No acute findings. Impression dictated by: Dc Chapa M.D. 07/20/2025 9:31 PM Dictation Location: [employer] [facility] Electronically authenticated by: [id number] Y Date: 07/20/2025 21:31 Neck CTA 07/20/25 21:47 IMPRESSION: No occlusion, critical stenosis or dissection of the extracranial or intracranial circulation. Impression dictated by: Dc Chapa M.D. 07/20/2025 11:56 PM Dictation Location: [facility] Electronically authenticated by: [id number] Y Date: 07/20/2025 23:56 CTA head and neck: Radiologist's impression: ITS Impressions Chest X-Ray 07/20/25 20:56 IMPRESSION: No acute cardiopulmonary disease. Development of proximal left humerus fracture. Age-indeterminate. Impression dictated by: Dc Chapa M.D. 07/20/2025 9:29 PM Dictation Location: [facility] Electronically authenticated by: [id number] Y Date: 07/20/2025 21:[address] 07/20/25 20:56 IMPRESSION: No acute findings. Impression dictated by: Dc Chapa M.D. 07/20/2025 9:31 PM Dictation Location: [facility] Electronically authenticated by: [id number] Y Date: 07/20/2025 21:31 Neck CTA 07/20/25 21:47 IMPRESSION: No occlusion, critical stenosis or dissection of the extracranial or intracranial circulation. Impression dictated by: Dc Chapa M.D. 07/20/2025 11:56 PM Dictation Location: [facility] Electronically authenticated by: [id number] Y Date: 07/20/2025 23:56 ECG Data Interpretation: 2052 normal sinus rhythm with a rate of 98 bpm, OR interval 176 ms QRS duration 80 ms, no ST elevation or depression, no STEMI, mild artifact noted Discharge Plan Discharge Chief Complaint: Altered Mental Status Clinical Impression: TIA (transient ischemic attack) Patient Disposition: Admitted As Inpatient Time of Disposition Decision: 00:20 Condition: Good Documented by User: Anuj Arana MD 07/21/25 00:21 HPI HPI - General Adult General Chief complaint: Altered Mental Status Stated complaint: Weakness UTI Time Seen by Provider: 07/20/25 20:46 Related Data Home Medications ?Medication ?Instructions ?Recorded ?Confirmed amlodipine 2.5 mg tablet 2.5 mg PO QDAY 11/03/23 07/20/25 atorvastatin 10 mg tablet 10 mg PO .QHS 11/03/23 07/20/25 clopidogrel 75 mg tablet 75 mg PO QDAY 11/03/23 07/20/25 pantoprazole 40 mg tablet,delayed 40 mg PO QDAY 11/03/23 07/20/25 release Previous Rx's ?Medication ?Instructions ?Recorded aspirin 81 mg capsule 81 mg PO DAILY 21 days #21 caps 02/16/24 Allergies Allergy/AdvReac Type Severity Reaction Status Date / Time No Known Drug Allergies Allergy Verified 07/20/25 20:47 Opioid HPI Opioid Management Most Recent Opioid Data: Last Pain Scale 0 02/16/24, 11:19 Last Pain Intensity 0 02/16/24, 11:19 Last ORT Total Score 0 02/15/24, 14:13 Last ORT Risk Category Low Risk 02/15/24, 14:13 [facility] Medical History (Updated 07/21/25 @ 00:20 by Anuj Arana MD) High cholesterol ?E78.00 - Pure hypercholesterolemia, unspecified (ICD-10) Hypertension ?I10 - Essential (primary) hypertension (ICD-10) Insect bite ?W57.XXXA - Bitten or stung by nonvenomous insect and other nonvenomous arthropods, initial encounter (ICD-10) Macular degeneration ?H35.30 - Unspecified macular degeneration (ICD-10) Breast cancer ?C50.919 - Malignant neoplasm of unspecified site of unspecified female breast (ICD-10) History of TIAs ?Z86.73 - Personal history of transient ischemic attack (TIA), and cerebral infarction without residual deficits (ICD-10) GERD (gastroesophageal reflux disease) ?K21.9 - Gastro-esophageal reflux disease without esophagitis (ICD-10) Cataracts, bilateral ?H26.9 - Unspecified cataract (ICD-10) Surgical History (Updated 11/03/23 @ 12:53 by Luna Li RN) History of hip replacement ?Z96.649 - Presence of unspecified artificial hip joint (ICD-10) H/O bilateral mastectomy ?Z90.13 - Acquired absence of bilateral breasts and nipples (ICD-10) Family History (Updated 11/03/23 @ 12:54 by Luna Li RN) Other Family history of COPD (chronic obstructive pulmonary disease) Family history of cancer Family history of hypertension Family history of stroke Social History (Updated 11/03/23 @ 12:54 by Luna Li RN) Within the past year, how often did you have a drink containing alcohol: never Score interpretation: A score less than 3 is consistent with normal alcohol consumption. Smoking status: Never smoker Second hand tobacco smoke exposure: No Non-prescribed substance use: denies use Previous occupational history: retired Exam Constitutional Vital Signs, click to edit/add: Last Vital Signs Temp 98.8 F 07/20/25 20:55 Pulse 88 07/21/25 00:07 Resp 18 07/21/25 00:07 BP 152/92 H 07/21/25 00:07 Pulse Ox 98 07/21/25 00:07 O2 Del Method Room Air 07/20/25 20:55 Course Vital Signs Vital signs: Vital Signs Pulse Oximetry 96 07/20/25 20:50 Temperature 98.8 F 07/20/25 20:55 Pulse Rate 88 07/21/25 00:07 Respiratory Rate 18 07/21/25 00:07 Blood Pressure 152/92 H 07/21/25 00:07 Pulse Oximetry 98 07/21/25 00:07 Oxygen Delivery Method Room Air 07/20/25 20:55 Medical Decision Making [facility] Narrative Medical decision making narrative: Patient remains alert and oriented. CT scan of the head is negative. Urinalysis is currently pending. Dr. arana was in and evaluated patient agrees patient needs a CTA ordered. Patient has been alert and oriented during her stay here transition of care to Dr. Franklin Trujillo 12:20am CTA brain was negative and CTA head and neck are performed and showed no significant occlusion. I spoke to the neuro interventionalists at [facility] who recommends admitting the patient here for observation and MRI later today. She is already on aspirin and Plavix. The patient is agreeable to this plan. Treatment diagnosis and disposition were discussed with the patient and her family. Lab Data Labs: Lab Results 07/20/25 07/20/25 07/20/25 Range/Units 21:09 21:13 22:26 WBC 6.4 (4.0-11.0) 10^3/uL RBC 4.15 L (4.20-5.40) 10^6/uL Hgb 13.1 (12.0-16.0) g/dL Hct 39.0 (36.0-48.0) % MCV 94.0 (81.0-99.0) fL MCH 31.6 (26.7-34.0) pg MCHC 33.6 (29.9-35.2) g/dL RDW 13.2 (11.0-15.0) % Plt Count 329 (150-450) 10^3/uL MPV 9.6 (9.5-13.5) fL Neut % (Auto) 69.1 (43.0-75.0) % Lymph % (Auto) 14.1 L (20.5-60.0) % [place] % (Auto) 12.4 H (1.7-12.0) % Eos % (Auto) 2.8 (0.9-7.0) % Baso % (Auto) 1.1 (0.2-2.0) % Neut # (Auto) 4.4 (1.4-6.5) 10^3/uL Lymph # (Auto) 0.9 L (1.2-3.8) 10^3/uL [place] # (Auto) 0.8 (0.3-0.8) 10^3/uL Eos # (Auto) 0.2 (0.0-0.7) 10^3/uL Baso # (Auto) 0.1 (0.0-0.1) 10^3/uL Abs Immat Gran (auto) 0.03 (0.00-0.03) 10^3/uL Imm/Tot Granulo (auto) 0.5 (0.0-0.5) % ESR 10 (<=30) mm/hr PT 10.2 (9.0-11.6) sec INR 0.96 Sodium 137 (136-145) mmol/L Potassium 4.2 (3.5-5.1) mmol/L Chloride 98 (98-107) mmol/L Carbon Dioxide 29.5 (21.0-32.0) mmol/L Anion Gap 13.7 BUN 10.0 (7.0-18.0) mg/dL Creatinine 0.87 (0.55-1.02) mg/dL Est GFR ( Amer) >60 (>=60 mL/min/1.73m^2) Est GFR (Non-Af Amer) >60 (>=60 mL/min/1.73m^2) BUN/Creatinine Ratio 11.5 Glucose 132 H (74-106) mg/dL Calcium 9.1 (8.5-10.1) mg/dL Ammonia <10 L (11-32) umol/L Troponin I High Sens 5.6 (4.0-51.3) pg/mL C-Reactive Protein <0.50 (<=0.50) mg/dL TSH 2.475 (0.358-3.740) uIU/mL Urine Color Lt. yellow (YELLOW) Urine Clarity Clear (CLEAR) Urine pH 6.0 (5.0-9.0) Ur Specific [place] <=1.005 A (1.005-1.025) Urine Protein Negative (NEG/TRACE) mg/dL Urine Glucose (UA) Negative (NEGATIVE) mg/dL Urine Ketones Negative (NEGATIVE) mg/dL Urine Occult Blood Negative (NEGATIVE) Urine Nitrite Negative (NEGATIVE) Urine Bilirubin Negative (NEGATIVE) Urine Urobilinogen 0.2 (0.2-1.0) EU/dL Ur Leukocyte Esterase Negative (NEGATIVE) Urine RBC None seen (0-2) #/HPF Urine WBC None seen (NONE SEEN) #/HPF Ur Squamous Epith Cells None seen (NONE/RARE) #/LPF Urine Crystals None seen (None Seen) #/HPF Urine Bacteria None seen (NONE SEEN) #/HPF Urine Casts None seen (NONE SEEN) #/LPF Urine Mucus None seen (NONE SEEN) Ur Culture Indicated? No POC Glucose 125 H (74-106) mg/dL Imaging Data CT scan - head: Radiologist's impression: ITS Impressions Chest X-Ray 07/20/25 20:56 IMPRESSION: No acute cardiopulmonary disease. Development of proximal left humerus fracture. Age-indeterminate. Impression dictated by: Dc Chapa M.D. 07/20/2025 9:29 PM Dictation Location: [facility] Electronically authenticated by: [id number] Y Date: 07/20/2025 21:[address] 07/20/25 20:56 IMPRESSION: No acute findings. Impression dictated by: Dc Chapa M.D. 07/20/2025 9:31 PM Dictation Location: [facility] Electronically authenticated by: [id number] Y Date: 07/20/2025 21:31 Neck CTA 07/20/25 21:47 IMPRESSION: No occlusion, critical stenosis or dissection of the extracranial or intracranial circulation. Impression dictated by: Dc Chapa M.D. 07/20/2025 11:56 PM Dictation Location: [facility] Electronically authenticated by: [id number] Y Date: 07/20/2025 23:56 CTA head and neck: Radiologist's impression: ITS Impressions Chest X-Ray 07/20/25 20:56 IMPRESSION: No acute cardiopulmonary disease. Development of proximal left humerus fracture. Age-indeterminate. Impression dictated by: Dc Chapa M.D. 07/20/2025 9:29 PM Dictation Location: [facility] Electronically authenticated by: [id number] Y Date: 07/20/2025 21:[address] 07/20/25 20:56 IMPRESSION: No acute findings. Impression dictated by: Dc Chapa M.D. 07/20/2025 9:31 PM Dictation Location: [facility] Electronically authenticated by: [id number] Y Date: 07/20/2025 21:31 Neck CTA 07/20/25 21:47 IMPRESSION: No occlusion, critical stenosis or dissection of the extracranial or intracranial circulation. Impression dictated by: Dc Chapa M.D. 07/20/2025 11:56 PM Dictation Location: [facility] Electronically authenticated by: [id number] Y Date: 07/20/2025 23:56 Discharge Plan Discharge Chief Complaint: Altered Mental Status Clinical Impression: TIA (transient ischemic attack) Patient Disposition: Admitted As Inpatient Time of Disposition Decision: 00:20 Condition: Good
[2025-07-20 21:16] LABS: Hematocrit 39.0 % (36.0-48.0); Hemoglobin 13.1 g/dL (12.0-16.0); Immature Granulocytes Abs Auto 0.03 10^3/uL (0.00-0.03); Immature Granulocytes Pct Auto 0.5 % (0.0-0.5); Lymphocytes Absolute Auto 0.9 10^3/uL (1.2-3.8); Mean Corpuscular HGB Conc 33.6 g/dL (29.9-35.2); Mean Corpuscular Hemoglobin 31.6 pg (26.7-34.0); Mean Corpuscular Volume 94.0 fL (81.0-99.0); Platelet Count 329 10^3/uL (150-450); Red Blood Count 4.15 10^6/uL (4.20-5.40); White Blood Count 6.4 10^3/uL (4.0-11.0)
[2025-07-20 21:25] LABS: Ammonia <10 umol/L (11-32)
[2025-07-20 21:30] LABS: INR 0.96; Prothrombin Time 10.2 sec (9.0-11.6)
[2025-07-20 21:38] LABS: Thyroid Stimulating Hormone 2.475 uIU/mL (0.358-3.740)
--- NOTE | 2025-07-20 21:47 | CT_ITS ---
The [address] [address] Patient Name: DYLAN TAFOYA MRN: [id number] date: 1945 Sex: F Assigned Patient Location: ER Current Patient Location: Accession/Order Number: [id number] Exam Date: 07/20/2025 23:51 Report Date: 07/20/2025 23:56 At the request of: JOE TORRES MD Procedure: CT angio head CTA Head and Neck TECHNIQUE: Axial imaging of the head and neck with 2-D and 3-D reconstruction 100 cc of Omni [address] exam was performed using one or more the following dose reduction techniques: Automated exposure control, adjustment of the MA and/or Kv according to patient size, or use of the iterative reconstruction technique. Stenoses were measured using the NASCET criteria. COMPARISON: None HISTORY: TIA The visualized aortic arch and great vessels are unremarkable. Subclavian arteries are patent No carotid dissection, critical stenosis or occlusion identified. Mild plaquing of carotid bifurcations No vertebral dissection, occlusion or abrupt cut off identified. The carotid siphons and vertebral basilar systems are patent. No intracranial aneurysm, dissection, abrupt cut off or critical stenosis identified.. . CT/CT angio neck IMPRESSION: No occlusion, critical stenosis or dissection of the extracranial or intracranial circulation. Impression dictated by: Dc Chapa M.D. 07/20/2025 11:56 PM Dictation Location: [place] [address] Electronically authenticated by: [id number] Y Date: 07/20/2025 23:56
--- NOTE | 2025-07-20 22:11 | PC.NURSE ---
this patient awake and alert sitting upright on the bed. i informed this patient of the new orders for CTA of her head and neck. this patient voices no concerns, needs and shows no signs of distress
[2025-07-20 22:33] LABS: Glucose Urine UA NEGATIVE (NEGATIVE)
[2025-07-20 22:40] LABS: Cast Seen? NONE SEEN #/LPF (NONE SEEN); Crystals Seen? None Seen #/HPF (None Seen); Urine Culture Indicated NO
[2025-07-20 22:49] LABS: Anion Gap 13.7; Blood Urea Nitrogen 10.0 mg/dL (7.0-18.0); Calcium 9.1 mg/dL (8.5-10.1); Carbon Dioxide 29.5 mmol/L (21.0-32.0); Chloride 98 mmol/L (98-107); Estimated GFR (African America >60 (>=60 mL/min/1.73m^2); Estimated GFR (Non-African Ame >60 (>=60 mL/min/1.73m^2); Glucose 132 mg/dL (74-106); Potassium 4.2 mmol/L (3.5-5.1); Sodium 137 mmol/L (136-145)
[2025-07-21] VITALS (56 sets, daily range): BP systolic 137–176; BP diastolic 51–93; PULSE 69–106; TEMP 36.3–36.5; O2SAT 89–99; BMI 23.2
--- NOTE | 2025-07-21 00:33 | PC.NURSE ---
this patient has been updated about her admission her at this hospital but will stay in this er room until early this morning. the dye house helper is bring down a hospital bed for you. this patient's son has left the hospital this patient voices no concerns, needs and shows no signs of distress
--- NOTE | 2025-07-21 01:00 | PC.NURSE ---
the fun house operator brought down the hospital bed and this patient is lying in this bed
[2025-07-21] MEDS: ACETAMINOPHEN 500 MG TABLET PO (01:17)
--- NOTE | 2025-07-21 02:09 | PC.NURSE ---
this patient is back in bed after ambulating to the restroom without any problems. this patient voices no concerns, needs and shows no signs of distress
--- NOTE | 2025-07-21 04:03 | PC.NURSE ---
this patient is now awake, this patient voices no needs, concerns and shows no signs of distress
[2025-07-21] MEDS: ACETAMINOPHEN 325 MG TABLET 650 MG PO ×2 (07:29→21:29)
--- OUTSIDE RECORDS SUMMARY | 2025-07-21 09:30 | XMS_ITS | CCD ---
Author Organization [facility] Care Team Providers Care Advertising Assistant Manager Name Role Phone YULIYA BUCKNER Unavailable Unavailabl [...] MARLON Attending Unavailable OLGA, MARLON Admitting Unavailable Olga, Marlon Unavailable Marlon [...] Consulting Unavailable MARLON ESPINOZA Primary Care Physician Aubrie Scott Unavailable Unavailable Unavailable Primary Care [...] ZAHLER, TAL Inman Attending Unavailable ZAHLNANO, TAL Inman Attending Unavailable GARZA, YULIYA T Referring Unavailable GARZA, YULIYA T Attending Unavailable GARZA, YULIYA T Referring Unavailable GARZA, YULIYA T Referring Unavailable GARZA, YULIYA T Attending Unavailable GARZA, YULIYA T Referring Unavailable OCDY, LUPE Attending Unavailable GARZA, YULIYA T Referring [...] (3 sources) Bisphosphonate (substance) Drug allergy Unknown [facility] Other (2 sources) Alendronate Drug Allergy Comment:Oral Bisphosphonates [facility] Other (2 sources) ORAL BISPHOSPHONATES Propensity to adverse reactions Unknown [facility] Other (4 sources) Alendronate Drug Allergy Comment:Oral Bisphosphonates [facility] (4 sources) Bisphosphonates Allergy to substance Unknown Reaction [facility] Medications Current Medications Medication Drug Class(es) Dates [...] 8-10, # 16 tab(s), Refills(s) 0, Pharmacy: [facility]/pharmacy #[id number], 154.9, cm, 05/03/25 12:59:00 EDT, Height/Length [...] Interpretation Reference Range Facility Patient Instructionson 05-12 Field Sales Agent Authentication Interface Message Text NASAL/SINUS PRECAUTIONS - [...] with your head slightly raised [facility] 05-12-2025 Field Sales Agent Authentication Interface Message Text New Patient - Face Trauma Ms Tafoya sustained a fall after missing the last step on stairs. She was transported to ED at [facility] via EMS. She fell overall on there [...] Tobacco Use: Low Risk (04/13/2025) Received from [facility] Patient History Smoking Tobacco Use: Never Smokeless Tobacco Use: Never Passive Exposure: Not on file Alcohol Use: Not on file Financial Resource Strain: Not on file Food Insecurity: Not on file Transportation Needs: Not on file Physical Activity: Not on file Stress: Not on file Social Connections: Not on file Intimate Partner Violence: Unknown (01/22/2024) Received from [facility] Safety AND Environment Fear of Current or [...] on file for this patient. Normal [facility] Sales Agent Authentication Interface Message Text Patient was identified by name and date of . Adriana Gregg MA Chief Complaint Patient presents with New patient, to establish relationship Normal [facility] Progress Noteson 05-06-2025 Field Sales Agent Authentication Interface Message Text Orders encounter created to obtain images from i[employer]Meter for outpatient follow up with Plastic Surgery. Normal [facility] Discharge Note-Nursingon Discharge Note-Nursing Discharge Note-Nursing [...] hospital follow up appointment. Where: [address] [place] [address]- Business (1) Follow Up with [facility] will be in place for patient upon discharged from the hospital. When: Follow Up with Yuliya Garza When: Comments: Call for followup appointment 2-3 weeks left shoulder Where: [address] [place] [phone]- Business (1) The Following Services Have Been [...] as needed for Pain 8-10 Pickup at [facility]/pharmacy #[id number] 6/5 @ 2pm Unchanged amitriptyline (amitriptyline [...] At bedtime /5 @ 9pm Pharmacy Information [facility]/pharmacy #[id number]: [address], [place] [phone] Test Results CBC BMP WBC: 11 E9/L [...] Low ( (more content not included)... Normal [facility] Inpatient Clinical Summaryon 05-05-2025 Inpatient Clinical Summary Inpatient Clinical Summary [place] [id number] Clinical Summary Person Information: Name: APRIL TAFOYA Age: 79 Years : 1945 Sex: Female PCP: MARLON ESPINOZA DO Marital Status: Phone: [phone] Race: White Ethnicity: Non- or Language: Zambian Visit Id: Visit Reason: Shoulder pain-swelling; Closed head injury with LOC; Syncope/Near syncope; Fall; FALL, SYCOPE Speciality: Acuity: Enc Type: Inpatient Med Service: Medical Arrival: 05/03/2025 12:25:32 Discharge: Dispo Type: Admitted as IP to this [facility] Address: [address] [id number] Provider Notes: Diagnosis: Closed fracture of left [...] Follow up: With: Address: When: Yuliya Garza [address] [place] [address] Business (1) 05/26/2025 2:45 PM With: Address: When: MARLON ESPINOZA [address] [place] [address] Business (1) Comments: Doctor's office will call patient to make hospital follow up appointment. With: Address: When: [facility] will be in place for patient upon discharged from the hospital. Patient Education Information: Humerus Fracture Treated With Immobilization, [id number] Normal [facility] Inpatient Patient Summaryon 05-05-2025 Inpatient Patient Summary Inpatient Patient Summary [facility] [address] [place], [place] [address] Patient Discharge Instructions PERSON INFORMATION Name: APRIL TAFOYA Date of : 1945 Current Date: 05/05/2025 14:11:04 PHYSICIANS Admitting Physician: Meghan LIN, Yuliya Healy Primary Care Physician: MARLON [...] up: With: Address: When: Yuliya Garza [address] [place] [address] Business (1) 05/26/2025 2:45 PM With: Address: Ros: MARLON ESPINOZA [address] [place] [address] Business (1) Comments: Doctor's office [...] STAY New Medications [id number], [address], [place] [phone], [phone] tramadol (Ultram 50 mg Tab) 1 Tablets [...] Mouth ever (more content not included)... Normal [facility] Interdisciplinary Note - Ubaldo e Manageron 05-05-2025 Interdisciplinary Note - Arborist Representative Interdisciplinary Note - Arborist Representative CM followed up with patient and sister at bedside. Patient denies any additional discharge needs at this time and son will transport home at discharge. Plan is home with supportive family and [facility]. IMM reviewed and copy in room. All in agreement with discharge plan. Normal [facility] Comment on above: Result Comment: Elec tronically Signed By: Eugenia Allen I\.br\Date and Time Signed: 05/05/25 09:44 EDT BMPon 05-04-2025 Anion gap [Moles/Vol] 13 mmol/L Normal 6-16 [facility] Comment on above: Performed By: #### 2 [id number] #### [facility] [address] [place] [address] BUN/Creat Ratio 30 No Units High 10-20 [facility] Comment on above: Performed By: #### 2 [id number] #### [facility] [address] [place] [address] Calcium [Mass/Vol] 8.8 mg/dL Low 8.9-11.1 [facility] Comment on above: Performed By: #### 2 [id number] #### [facility] [address] [place] [address] Chloride [Moles/Vol] 94 mmol/L Low 101-111 [facility] Comment on above: Performed By: #### 2 [id number] #### [facility] [address] [place] [address] CO2 [Moles/Vol] 25 mmol/L Normal 21-31 [facility] Comment on above: Performed By: #### 2 [id number] #### [facility] [address] [place] [address] Creatinine [Mass/Vol] 0.6 mg/dL Normal 0.5-1.3 [facility] Comment on above: Performed By: #### 2 [id number] #### [facility] [address] [place] [address] Glucose [Mass/Vol] 113 mg/dL Normal 55-199 [facility] Comment on above: Performed By: #### 2 [id number] #### [facility] [address] [place] [address] Potassium [Moles/Vol] 4.0 mmol/L Normal 3.5-5.3 [facility] Comment on above: Performed By: #### 2 690355 #### [facility] [address] [place] [address] Sodium [Moles/Vol] 128 mmol/L Low 135-145 [facility] Comment on above: Performed By: #### 2 [id number] #### [facility] [address] [place] [address] Urea nitrogen [Mass/Vol] 18 mg/dL Normal 5-21 [facility] Comment on above: Performed By: #### 2 [id number] #### [facility] [address] [place] [address] CBC w/ Auto Diffon 5 Basophil Absolute 0.0 E9/L Normal 0.0-0.2 [facility] Comment on above: Performed By: #### 2 [id number] #### [facility] [address] [place] [address] Basophils/100 WBC (Bld) 0.1 % Normal 0.0-2.0 [facility] Comment on above: Performed By: #### 2 932375 #### [facility] [address] [place] [address] Eos Absolute 0.0 E9/L Normal 0.0-0.5 [facility] Comment on above: Performed By: #### 2 [id number] #### [facility] [address] [place] [address] Eosinophils/100 WBC (Bld) 0.0 % Normal 0.0-8.0 [facility] Comment on above: Performed By: #### 2 610365 #### [facility] [address] [place] [address] Erythrocyte distribution width (RBC) [Ratio] 13.7 % Normal 10.9-14.2 [facility] Comment on above: Performed By: #### 2 [id number] #### [facility] [address] [place] [address] Hematocrit (Bld) [Volume fraction] 35.9 % Normal 34.0-46.0 [facility] Comment on above: Performed By: #### 2 758018 #### [facility] [address] [place] [address] Hemoglobin (Bld) [Mass/Vol] 12.4 g/dL Normal 12.0-16.0 [facility] Comment on above: Performed By: #### 2 472921 #### [facility] [address] [place] [address] Lymph Absolute 0.4 E9/L Low 1.0-4.0 [facility] Comment on above: Performed By: #### 2 814901 #### [facility] [address] [place] [address] Lymphocytes/100 WBC (Bld) 3.9 % Low 14.0-50.0 [facility] Comment on above: Performed By: #### 2 712226 #### [facility] [address] [place] [address] MCH (RBC) [Entitic mass] 31.7 pg Normal 27.0-34.0 [facility] Comment on above: Performed By: #### 2 392889 #### [facility] [address] [place] [address] MCHC (RBC) [Mass/Vol] 34.6 g/dL Normal 31.4-36.0 [facility] Comment on above: Performed By: #### 2 287012 #### [facility] [address] [place] [address] MCV (RBC) [Entitic vol] 91.7 fL Normal 80.0-100.0 [facility] Comment on above: Performed By: #### 2 335194 #### [facility] [address] [place] [address] Klamath Absolute 1.1 E9/L High 0.2-1.0 [facility] Comment on above: Performed By: #### 2 435519 #### [facility] [address] [place] [address] Monocytes/100 WBC (Bld) 9.9 % Normal 4.0-14.0 [facility] Comment on above: Performed By: #### 2 184690 #### [facility] [address] [place] [address] Neutro Absolute 9.4 E9/L High 2.0-7.5 [facility] Comment on above: Performed By: #### 2 726487 #### [facility] [address] [place] [address] Neutro Auto 86.1 % High 36.0-75.0 [facility] Comment on above: Performed By: #### 2 525405 #### [facility] [address] [place] [address] Platelet 374.0 E9/L Normal 150.0-500. 0 [facility] Comment on above: Performed By: #### 2 222460 #### [facility] [address] [place] [address] Platelet mean volume (Bld) [Entitic vol] 8.4 fL Normal 6.4-10.8 [facility] Comment on above: Performed By: #### 2 254870 #### [facility] [address] [place] [address] RBC 3.9 E12/L Low 4.3-5.9 [facility] Comment on above: Performed By: #### 2 744265 #### [facility] [address] [place] [address] WBC 11.0 E9/L Normal 4.0-11.0 [facility] Comment on above: Performed By: #### 2 504866 #### [facility] [address] [place] [address] CHEMISTRYOrdered By: SYSTEM SYSTEM on 05-04-2025 Anion [...] 30.0 s Normal 25.1 - 36.5 second(s) [facility] Auto Coag Comment on above: Interpretive Data: [...] the same coagulation reagent and instrumentation as [facility]. Currently there are no coagulation studies available worldwide for children to 14 days, and no normal ranges. Heparin therapeutic range (represented by Anti-Factor Xa activity of 0.2 - 0.4 U/mL) corresponds to PTT of 56.6 - 109.0 sec. INR Coag (PPP) [Relative time] 0.94 {INR} Invalid Interpretation Code [facility] Auto Coag Comment on above: Interpretive Data: I NR results are specifically intended to assess patients stabilized on long-term Anticoagulation therapy suggested INR s Less Intensive Anticoagulation 2.0 3.0 Conventional Range 3.0 4.5 PT Coag (PPP) [Time] 10.5 s Normal 9.4 - 12.5 second(s) [facility] Auto Coag Comment on above: Interpretive Data: [...] the same coagulation reagent and instrumentation as [facility]. Currently there are no coagulation studies available [...] - Ubaldo Tavera 05-04-2025 Interdisciplinary Note - Arborist Representative Interdisciplinary Note - Arborist Representative CM met with patient, son and sister [...] in ER on 05/03 and reviewed at [email or web address]. CM followed up with patient at bedside and PT /OT recs are for C at [facility]. CM reviewed recommendations for HHC with patient and provided MCR choices and patient states all her neighbors have [facility] and that is who she wants. CM made referral to [facility] for RN PT OT AIDE services. Normal [facility] Comment on above: Result Comment: Elec tronically Signed By: Eugenia Allen I\.emily\Date and Time Signed: 05/04/25 13:10 EDT Interdisciplinary Note - Brett n 05-04-2025 Interdisciplinary Note - OT Interdisciplinary Note - OT OT [facility] six clicks score 18/24 = HH services. Patient requires min - mod A w/ UE self care d/t fx/immobilization. Pt completes transfers with SBA. Pt is limited by pain and LUE immobilization. INpatient OT services to follow daily with focus on adapted techniques to maximize safety and Ind w/ adls/transfers. Normal [facility] Magnesiumon 05-04-2025 Magnesium [Mass/Vol] 2.0 mg/dL Normal 1.3-2.4 [facility] Comment on above: Performed By: #### 2 [id number] #### [facility] [address] [place] [address] PT & PTTon 05-04-2025 INR Coag (PPP) [Relative time] 0.94 {INR} Invalid Interpretation Code [facility] Comment on above: Result Comment: INR results are specifically intended to assess patients stabilized on long-term Anticoagulation therapy suggested INR???s ???Less Intensive Anticoagulation??? 2.0 ??? 3.0 Conventional Range 3.0 ??? 4.5 Performed By: #### 1 [id number] #### [facility] [address] [place] [address] PT 10.5 second(s) Normal 9.4-12.5 [facility] Comment on above: Result Comment: 15 d [...] the same coagulation reagent and instrumentation as [facility]. Currently there are no coagulation studies available worldwide for children to 14 days, and no normal ranges. Performed By: #### 1 [id number] #### [facility] [address] [place] [address] PTT 30.0 second(s) Normal 25.1-36.5 [facility] Comment on above: Result Comment: Para meter [...] the same coagulation reagent and instrumentation as [facility]. Currently there are no coagulation studies available worldwide for children to 14 days, and no normal ranges. Heparin therapeutic range (represented by Anti-Factor Xa activity of 0.2 - 0.4 U/mL) corresponds to PTT of 56.6 - 109.0 sec. Performed By: #### 1 [id number] #### [facility] [address] [place] [address] Phosphoruson 05-04-2025 Phosphate [Mass/Vol] 3.8 mg/dL Normal 1.9-4.6 [facility] Comment on above: Performed By: #### 2 [id number] ####[facility] [id number] [place] [address] US Carotid Duplex Bilateralo n 05-04-2025 US [...] Carotid Diagnostic Criteria Committee. Vascular Medicine 2020; [email or web address].Overture Servicespub.com/ doi/full/10.1177/5954259A7951 43747 Report Ordering Provider: Janett Jaramillo FINAL REPORT Dictated: 05/04/2025 8:48 am Marlon Corley MD Signed (Electronic Signature): 05/04/2025 8:48 am Signed by: Marlon Corley MD Transcribed by: MICK Technologist: JULIAN Normal [facility] eGFRon 05-04-2025 eGFR 91 mL/min/1.73 m2 Normal >=59 [facility] Comment on above: Performed By: #### 1 [id number] #### [facility] [address] [place] [address] ABO/Rhon 05-03-2025 ABO/Rh Positive Invalid Interpretation Code [facility] Comment on above: Performed By: #### 2 [id number] #### [facility] [address] [place] [address] ABO/Rh History Checkon 05-03 ABO/Rh History Check Type verified by second s Normal [facility] Comment on above: Performed By: #### 1 [id number] #### [facility] [address] [place] [address] ABO/Rh Retypeon 05-03-2025 ABO/Rh Retype Interp Positive Invalid Interpretation Code [facility] Comment on above: Performed By: #### 1 [id number] #### [facility] [address] [place] [address] ABSCon 05-03-2025 ABSC Gel Interp Negative Normal [facility] Comment on above: Performed By: #### 1 [id number] #### [facility] [address] [place] [address] BB Draw & Holdon 05-03-2025 BB D&H Sample drawn for Blood Ba Normal [facility] Comment on above: Performed By: #### 1 [id number] #### [facility] [address] [place] [address] BLOOD BANKOrdered By: Joseph Bowman on 05-03-2025 ABO/Rh Interp Positive Invalid Interpretation Code [facility] BB Subsection ABSC Gel Interp Negative (05/03/25 4:06 PM) Normal [facility] BB Subsection ABO/Rh Retype Interp Positive Invalid Interpretation Code [facility] BB Subsection BMPon 05-03-2025 Anion gap [Moles/Vol] 12 mmol/L Normal 6-16 [facility] Comment on above: Performed By: #### 2 [id number] #### [facility] [address] [place] [address] BUN/Creat Ratio 30 No Units High 10-20 [facility] Comment on above: Performed By: #### 2 [id number] #### [facility] [address] [place] [address] Calcium [Mass/Vol] 8.8 mg/dL Low 8.9-11.1 [facility] Comment on above: Performed By: #### 2 836221 #### [facility] [address] [place] [address] Chloride [Moles/Vol] 96 mmol/L Low 101-111 [facility] Comment on above: Performed By: #### 2 230472 #### [facility] [address] [place] [address] CO2 [Moles/Vol] 25 mmol/L Normal 21-31 [facility] Comment on above: Performed By: #### 2 [id number] #### [facility] [address] [place] [address] Creatinine [Mass/Vol] 0.6 mg/dL Normal 0.5-1.3 [facility] Comment on above: Performed By: #### 2 446295 #### [facility] [address] [place] [address] Glucose [Mass/Vol] 121 mg/dL Normal 55-199 [facility] Comment on above: Performed By: #### 2 692542 #### [facility] [address] [place] [address] Potassium [Moles/Vol] 3.9 mmol/L Normal 3.5-5.3 [facility] Comment on above: Performed By: #### 2 [id number] #### [facility] [address] [place] [address] Sodium [Moles/Vol] 129 mmol/L Low 135-145 [facility] Comment on above: Performed By: #### 2 [id number] #### [facility] [address] [place] [address] Urea nitrogen [Mass/Vol] 18 mg/dL Normal 5-21 [facility] Comment on above: Performed By: #### 2 [id number] #### [facility] [address] [place] [address] Blood Bank ID#on 05-03-2025 BBID# [id number] Invalid Interpretation Code [facility] Comment on above: Performed By: #### 1 [id number] #### [facility] [address] [place] [address] CBC w/ Auto Diffon 5 Basophil Absolute 0.1 E9/L Normal 0.0-0.2 [facility] Comment on above: Performed By: #### 2 584209 #### [facility] [address] [place] [address] Basophils/100 WBC (Bld) 1.2 % Normal 0.0-2.0 [facility] Comment on above: Performed By: #### 2 700345 #### [facility] [address] [place] [address] Eos Absolute 0.2 E9/L Normal 0.0-0.5 [facility] Comment on above: Performed By: #### 2 [id number] #### [facility] [address] [place] [address] Eosinophils/100 WBC (Bld) 3.2 % Normal 0.0-8.0 [facility] Comment on above: Performed By: #### 2 899043 #### [facility] [address] [place] [address] Erythrocyte distribution width (RBC) [Ratio] 13.7 % Normal 10.9-14.2 [facility] Comment on above: Performed By: #### 2 466298 #### [facility] [address] [place] [address] Hematocrit (Bld) [Volume fraction] 40.1 % Normal 34.0-46.0 [facility] Comment on above: Performed By: #### 2 099185 #### [facility] [address] [place] [address] Hemoglobin (Bld) [Mass/Vol] 13.9 g/dL Normal 12.0-16.0 [facility] Comment on above: Performed By: #### 2 115430 #### [facility] [address] [place] [address] Lymph Absolute 1.0 E9/L Normal 1.0-4.0 [facility] Comment on above: Performed By: #### 2 808645 #### [facility] [address] [place] [address] Lymphocytes/100 WBC (Bld) 15.1 % Normal 14.0-50.0 [facility] Comment on above: Performed By: #### 2 837259 #### [facility] [address] [place] [address] MCH (RBC) [Entitic mass] 31.8 pg Normal 27.0-34.0 [facility] Comment on above: Performed By: #### 2 631504 #### [facility] [address] [place] [address] MCHC (RBC) [Mass/Vol] 34.5 g/dL Normal 31.4-36.0 [facility] Comment on above: Performed By: #### 2 280502 #### [facility] [address] [place] [address] MCV (RBC) [Entitic vol] 92.1 fL Normal 80.0-100.0 [facility] Comment on above: Performed By: #### 2 [id number] #### [facility] [address] [place] [address] Klamath Absolute 0.6 E9/L Normal 0.2-1.0 [facility] Comment on above: Performed By: #### 2 924447 #### [facility] [address] [place] [address] Monocytes/100 WBC (Bld) 9.4 % Normal 4.0-14.0 [facility] Comment on above: Performed By: #### 2 [id number] #### [facility] [address] [place] [address] Neutro Absolute 4.6 E9/L Normal 2.0-7.5 [facility] Comment on above: Performed By: #### 2 757930 #### [facility] [address] [place] [address] Neutro Auto 71.1 % Normal 36.0-75.0 [facility] Comment on above: Performed By: #### 2 306440 #### [facility] [address] [place] [address] Platelet 382.0 E9/L Normal 150.0-500. 0 [facility] Comment on above: Performed By: #### 2 308179 #### [facility] [address] [place] [address] Platelet mean volume (Bld) [Entitic vol] 7.6 fL Normal 6.4-10.8 [facility] Comment on above: Performed By: #### 2 580226 #### [facility] [facility] [address] [place] [address] RBC 4.4 E12/L Normal 4.3-5.9 [facility] Comment on above: Performed By: #### 2 [id number] #### [facility] [address] [place] [address] WBC 6.4 E9/L Normal 4.0-11.0 [facility] Comment on above: Performed By: #### 2 [id number] #### [facility] [address] [place] [address] CHEMISTRYOrdered By: SYSTEM SYSTEM on 05-03-2025 Amphetamines [...] 32.4 s Normal 25.1 - 36.5 second(s) [facility] Comment on above: Interpretive Data: [...] the same coagulation reagent and instrumentation as [facility]. Currently there are no coagulation studies available worldwide for children to 14 days, and no normal ranges. Heparin therapeutic range (represented by Anti-Factor Xa activity of 0.2 - 0.4 U/mL) corresponds to PTT of 56.6 - 109.0 sec. INR Coag (PPP) [Relative time] 0.98 {INR} Invalid Interpretation Code [facility] Comment on above: Interpretive Data: I NR results are specifically intended to assess patients stabilized on long-term Anticoagulation therapy suggested INR s Less Intensive Anticoagulation 2.0 3.0 Conventional Range 3.0 4.5 PT Coag (PPP) [Time] 11.0 s Normal 9.4 - 12.5 second(s) [facility] Comment on above: Interpretive Data: [...] the same coagulation reagent and instrumentation as [facility]. Currently there are no coagulation studies available [...] MD Transcribed by: MICK Technologist: JILL Tron[facility] CT Chest w/ Contraston 05-03 CT [...] MD Transcribed by: MICK Technologist: JILL Troncos[facility] CT Head or Brain w/o Contras [...] MD Transcribed by: MICK Technologist: JILL Cordoba [facility] CT Maxillofacial w/o Contras ton 05-03-2025 CT [...] MD Transcribed by: MICK Technologist: JILL Cordoba [facility] CT Spine Cervical w/o Contrmichael randlekasandra 05-03-2025 [...] MD Transcribed by: MICK Technologist: JILL Cordoba [facility] ED Clinical Summaryon 2024 ED Clinical Summary ED Clinical Summary [place] [id number] ED Clinical Summary Person Information Name: APRIL TAFOYA [place] Age: 79 Years : 1945 Sex: Female Language: Zambian PCP: MARLON ESPINOZA DO Marital Status: Phone: [phone] Visit Id: Visit Reason: Shoulder pain-swelling; Closed head injury with LOC; Syncope/Near syncope; Fall; FALL, SYCOPE Speciality: Acuity: 2 Enc Type: Inpatient Med Service: Surgery Arrival: 05/03/2025 12:25:32 Discharge: LOS: 000 04:10 Checkin: 05/03/2025 12:25:32 Checkout: 05/03/2025 16:35:46 Dispo Type: Admitted as IP to this [facility] EVENTS: Event Name Event Status Request [...] 15:56:45 Patient Care Request 05/03/2025 16:33:35 ADDRESS: [address] [id number] PHYS DOC NOTES: MEDICAL INFORMATION: Prescriptions Given: [...] Periorbital hematoma of left eye; Syncope Normal [facility] ED Note-Physicianon 05-03-20 ED Note-Physician ED Note-Physician Basic Information Time Seen: Erwin ELDER, Malorie Garrett 05/03/2025 12:29 Chief Complaint Patient arrives following a witnessed syncopal event at the [facility] and confusion noted prior to syncopal event. [facility] verbalized patient repeating self. t2 called and stroke alert. 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 Per a information security director, patient was not acting right. It was reported by EMS that the information security director felt the patient was talking oddly to [...] or rigidity noted. Neurological: A&O, normal right pier runner strength, normal speech, normal coordination, normal motor, [...] patient el (more content not included)... Normal [facility] Comment on above: Result Comment: Elec tronically [...] Education Note ED Patient Education Note Normal [facility] ED Patient Summaryon 025 ED Patient Summary ED Patient Summary [place] [id number] Patient Discharge Instructions Person Information Name: APRIL TAFOYA Age: 79 Years Arrival Date: 05/03/2025 12:25:32 Discharge Diagnosis: Closed fracture of left maxillary sinus; Closed left humeral fracture; Fracture of left orbital floor; Laceration of lower lip; Periorbital hematoma of left eye; Syncope Primary Care Physician: MARLON ESPINOZA DO Provider Information Primary Provider: Jai Gonzales DO Advanced Floor Surfacer:Malorie Hood PA-C The exam and treatment you received in the Emergency Department were for an urgent problem and are not intended as complete care. It is important that you follow up with a doctor, nurse practitioner, or physician???s acquisitions assistant for ongoing care. If your symptoms [...] opioids can be used to help relieve xscthkls-oz-iosmcd pain and are often prescribed following a [...] be struggling with addiction, tell your health intensive care ambulance paramedic and ask for (more content not included)... Normal [facility] Ethanolon 05-03-2025 Ethanol Lvl <10 Normal <=11 [facility] Comment on above: Performed By: #### 2 [id number] #### [facility] [address] [place] [address] HEMATOLOGYOrdered By: SYSTEM SYSTEM on 05-03-2025 Basophils/100 [...] 05-03-2025 Albumin [Mass/Vol] 4.4 g/dL Normal 3.3-5.0 [facility] Comment on above: Performed By: #### 2 [id number] #### [facility] [address] [place] [address] Albumin/Globulin [Mass ratio] 1.8 {ratio} Normal 1.1-2.2 [facility] Comment on above: Performed By: #### 2 [id number] #### [facility] [address] [place] [address] Alk Phos 67 Int._Unit/L Normal 21-98 [facility] Comment on above: Performed By: #### 2 [id number] #### [facility] [address] [place] [address] ALT 15 Int._Unit/L Normal 6-46 [facility] Comment on above: Performed By: #### 2 [id number] #### [facility] [address] [place] [address] AST 16 Int._Unit/L Normal 5-43 [facility] Comment on above: Performed By: #### 2 [id number] #### [facility] [address] [place] [address] Bili Direct 0.1 mg/dL Normal 0.0-0.4 [facility] Comment on above: Performed By: #### 2 [id number] #### [facility] [address] [place] [address] Bili Indirect 0.4 mg/dL Normal 0.1-0.9 [facility] Comment on above: Performed By: #### 2 [id number] #### [facility] [address] [place] [address] Bili Total 0.5 mg/dL Normal 0.0-1.1 [facility] Comment on above: Performed By: #### 2 [id number] #### [facility] [address] [place] [address] Globulin (S) [Mass/Vol] 2.5 g/dL Normal 1.4-4.0 [facility] Comment on above: Performed By: #### 2 [id number] #### [facility] [address] [place] [address] Protein [Mass/Vol] 6.9 g/dL Normal 6.0-7.8 [facility] Comment on above: Performed By: #### 2 [id number] #### [facility] [address] [place] [address] Inpatient Clinical Summaryon 05-03-2025 Inpatient Clinical Summary Inpatient Clinical Summary [address] [address] Clinical Summary Person Information: Name: APRIL TAFOYA Age: 79 Years : 1945 Sex: Female PCP: MARLON ESPINOZA DO Marital Status: Phone: [phone] Race: White Ethnicity: Non- or Language: Zambian Visit Id: Visit Reason: Shoulder pain-swelling; Closed head injury with LOC; Syncope/Near syncope; Fall; FALL, SYCOPE Speciality: Acuity: Enc Type: Inpatient Med Service: Medical Arrival: 05/03/2025 12:25:32 Discharge: Dispo Type: Admitted as IP to this [facility] Address: [address] [id number] Provider Notes: Diagnosis: Closed fracture of left [...] up: With: Address: When: Yuliya Garza [address] [place] [phone] Business (1) Comments: Call for followup appointment 2-3 weeks left shoulder With: Address: When: MARLON ESPINOZA [address] [place] [address] Business (1) Patient Education Information: Normal [facility] Inpatient Patient Summaryon 05-03-2025 Inpatient Patient Summary Inpatient Patient Summary [facility] [address] [place] [id number] Patient Discharge Instructions PERSON INFORMATION Name: APRIL [...] Follow up: With: Address: When: Yuliya Garza [address] [place], [place] [phone] Business (1) Comments: Call for followup appointment 2-3 weeks left shoulder With: Address: When: MARLON ESPINOZA [address] [place] [address] Business (1) In the event that this [...] Leaflets: You may receive a survey from Shiarz [employer] asking you to rate your care experience. Your feedback is important and will help us understand what we do well and how we can improve the quality of care we provide to you, your loved ones and our community. It???s an honor to serve you. (more content not included)... Normal [facility] Lactic Acidon 05-03-2025 Lactic Acid Lvl 1.2 mmol/L Normal 0.5-2.2 [facility] Comment on above: Performed By: #### 2 [id number] #### [facility] [address] [place] [address] Lipase Levelon 05-03-2025 Lipase Lvl 29 unit/L Normal 13-58 [facility] Comment on above: Performed By: #### 2 [id number] #### [facility] [address] [place] [address] Magnesiumon 05-03-2025 Magnesium [Mass/Vol] 1.9 mg/dL Normal 1.3-2.4 [facility] Comment on above: Performed By: #### 2 [id number] #### [facility] [address] [place] [address] PT & PTTon 05-03-2025 INR Coag (PPP) [Relative time] 0.98 {INR} Invalid Interpretation Code [facility] Comment on above: Result Comment: INR results are specifically intended to assess patients stabilized on long-term Anticoagulation therapy suggested INR???s ???Less Intensive Anticoagulation??? 2.0 ??? 3.0 Conventional Range 3.0 ??? 4.5 Performed By: #### 1 [id number] #### [facility] [address] [place] [address] PT 11.0 second(s) Normal 9.4-12.5 [facility] Comment on above: Result Comment: 15 d [...] the same coagulation reagent and instrumentation as [facility]. Currently there are no coagulation studies available worldwide for children to 14 days, and no normal ranges. Performed By: #### 1 [id number] #### [facility] [address] [place] [address] PTT 32.4 second(s) Normal 25.1-36.5 [facility] Comment on above: Result Comment: Para meter [...] the same coagulation reagent and instrumentation as [facility]. Currently there are no coagulation studies available worldwide for children to 14 days, and no normal ranges. Heparin therapeutic range (represented by Anti-Factor Xa activity of 0.2 - 0.4 U/mL) corresponds to PTT of 56.6 - 109.0 sec. Performed By: #### 1 [id number] #### [facility] [address] [place] [address] Patient Education - Texton 0 05-03-2025 Patient Education - Text Patient Education - Text Normal [facility] Pre-Arrival Noteon Pre-Arrival Note Pre-Arrival Note Pre-Arrival Summary Name: , [facility] Current Date: 05/03/2025 12:26:09 EDT Gender: Date of : Age: Pre-Arrival Type: EMS ETA: 05/03/2025 12:51:00 EDT Primary Care Physician: Presenting Problem: syncope/fall/stroke? Pre-Arrival User: Tyrel Georges RN Referring Source: Location: [place] Completion Date/Time: 05/03/2025 12:21:00 [facility] Emergency Department Pre-Hospital Report Form Vital Signs: Pre-Hospital Report: Treatment in Route: Response to Treatment: Misc. Issues: Normal [facility] Troponin 0 Hr.on 05-03-2025 Troponin HS 3.00 pg/mL Low 10.10-27.1 0 [facility] Comment on above: Result Comment: The 95% CI (Confidence Interval) PPV (Positive Predictive Value) for myocardial infarction in females is 38 pg/mL, in males 51 pg/mL. The results should be used in conjunction with clinical conditions of myocardial infarction. (Access High Sensitivity Troponin I Instructions For Use, Vitaly [place], July 2018) Performed By: #### 1 [id number] #### [facility] [address] [place] [address] U Drug Screenon 05-03-2025 U Amph Scr Negative Normal NEGATIVE [facility] Comment on above: Result Comment: Nega tive Cutoff: <1000 ng/mL Performed By: #### 2 [id number] #### [facility] [address] [place] [address] U Gerda Scr Negative Normal NEGATIVE [facility] Comment on above: Result Comment: Nega tive Cutoff: <200 ng/mL Performed By: #### 2 [id number] #### [facility] [address] [place] [address] U Benzodia Scr Negative Normal NEGATIVE [facility] Comment on above: Result Comment: Nega tive Cutoff: <200 ng/mL Performed By: #### 2 [id number] #### [facility] [address] [place] [address] U Cannab Scr Negative Normal NEGATIVE [facility] Comment on above: Result Comment: Nega tive Cutoff: <50 ng/mL Performed By: #### 2 [id number] #### [facility] [address] [place] [address] U Cocaine Scr Negative Normal NEGATIVE [facility] Comment on above: Result Comment: Nega tive Cutoff: <300 ng/mL Performed By: #### 2 [id number] #### [facility] [address] [place] [address] U Fentanyl Negative Normal NEGATIVE [facility] Comment on above: Result Comment: Nega tive Cutoff: <5 ng/mL These drug screen results are to be used for medical (i.e., treatment) purposes only. Unconfirmed drug screening results must not be used for non-medical purposes (e.g., employment testing, legal testing). Performed By: #### 2 [id number] #### [facility] [address] [place] [address] U Opiate Scr Negative Normal NEGATIVE [facility] Comment on above: Result Comment: Nega tive Cutoff: <300 ng/mL Performed By: #### 2 [id number] #### [facility] [address] [place] [address] U PCP Scr Negative Normal NEGATIVE [facility] Comment on above: Result Comment: Nega tive Cutoff: <25 ng/mL These drug screen results are to be used for medical (i.e., treatment) purposes only. Unconfirmed drug screening results must not be used for non-medical purposes (e.g., employment testing, legal testing). Performed By: #### 2 [id number] #### [facility] [address] [place] [address] UA with Cult Rflxon 05-03-20 25 Color (U) Colorless Abnormal Yellow [facility] Comment on above: Result Comment: Micr oscopic readings are only performed on those samples that meet specific criteria set forth by [facility]. Performed By: #### 4 [id number] #### [facility] [address] [place] [address] Glucose (U) [Mass/Vol] Negative Normal Negative [facility] Comment on above: Performed By: #### 4 [id number] #### [facility] [address] [place] [address] Ketones Ql (U) 1+ mg/dL Abnormal Negative [facility] Comment on above: Performed By: #### 4 [id number] #### [facility] [address] [place] [address] UA Blood Negative Normal Negative [facility] Comment on above: Performed By: #### 4 [id number] #### [facility] [address] [place] [address] UA Clarity Clear Normal Clear [facility] Comment on above: Performed By: #### 4 [id number] #### [facility] [address] [place] [address] UA Leuk Est Negative Normal Negative [facility] Comment on above: Performed By: #### 4 [id number] #### [facility] [address] [place] [address] UA Nitrite Negative Normal Negative [facility] Comment on above: Performed By: #### 4 [id number] #### [facility] [address] [place] [address] UA pH 7.0 Invalid Interpretation Code 5.0-9.0 [facility] Comment on above: Performed By: #### 4 [id number] #### [facility] [address] [place] [address] UA Protein Negative Normal Negative [facility] Comment on above: Performed By: #### 4 [id number] #### [facility] [address] [place] [address] UA Spec Grav 1.041 Invalid Interpretation Code 1.005-1.03 0 [facility] Comment on above: Performed By: #### 4 [id number] #### [facility] [address] [place] [address] UA Urobilinogen Negative Normal Negative [facility] Comment on above: Performed By: #### 4 [id number] #### [facility] [address] [place] [address] Urobilinogen (U) [Mass/Vol] Negative Normal Negative [facility] Comment on above: Performed By: #### 4 [id number] #### [facility] [address] [place] [address] UA Spec Desc Clean Catch Normal [facility] Comment on above: Performed By: #### 4 [id number] #### [facility] [address] [place] [address] URINALYSISOrdered By: SYSTEM SYSTEM on 05-03-2025 Bilirubin [...] that meet specific criteria set forth by [facility]. Glucose Ql (U) Negative Normal Negativemg /dL [facility] UA Auto SS Hemoglobin Auto test strip (U) [Mass/Vol] Negative Normal Negativemg /dL [facility] UA Auto SS Ketones Auto test strip Ql (U) 1+ mg/dL Invalid Interpretation Code Negativemg /dL [facility] UA Auto SS Leukocyte esterase Auto test strip Ql (U) Negative Normal NegativeLe u/uL FT UA Auto SS Nitrite Auto test strip Ql (U) Negative Normal Negativemg /dL [facility] UA Auto SS pH (U) 7.0 *NA* (05/03/25 3:24 PM) Invalid Interpretation Code 5.0 - 9.0 [facility] UA Auto SS Protein Ql (U) Negative Normal Negativemg /dL [facility] UA Auto SS Specific gravity (U) [Rel density] 1.041 *NA* (05/03/25 3:24 PM) Invalid Interpretation Code 1.005 - 1.030 [facility] UA Auto SS Urobilinogen (U) [Mass/Vol] Negative Normal Negativemg /dL [facility] UA Auto SS URINALYSISOrdered By: Malorie Hood on 05-03-2025 UA Spec Desc Clean Catch (05/03/25 3:24 PM) Normal [facility] UA Auto SS Work Phone: XR Humerus Lefton 05-03-2025 XR Humerus Left Exam Date/Time: 05/03/2025 13:32 EDT Reason for Exam: Fall Report IMPRESSION: MILD TO MODERATELY DISPLACED LEFT HUMERAL HEAD AND NECK FRACTURES. EXAM: XR Humerus Left DATE: 05/03/2025 1:06 PM CLINICAL HISTORY: Fall. Technologist Comments: Patient arrives following a witnessed syncopal event at the [facility] and confusion noted prior to syncopal [...] MD Transcribed by: MICK Technologist: DONNA Cordoba [facility] XR Knee Complete 4+ Views Toney caraballo [...] MD Transcribed by: MICK Technologist: DONNA Cordoba [facility] eGFRon 05-03-2025 eGFR 91 mL/min/1.73 m2 Normal >=59 [facility] Comment on above: Performed By: #### 1 [id number] #### [facility] [address] [place] [address] Optical coherence tomography study reporton 04-13-2025 [facility] Radiology Study observation (narrative) [facility]le Optical coherence tomography study reporton 12-10-2024 [facility] Radiology Study observation (narrative) [facility] Estimated glomerular filtrat ion rate (GFR) non- Americanon 09-22-2024 GFR/1.73 sq M.predicted among non-blacks MDRD (S/P/Bld) [Vol rate/Area] Estimated glomerular filtration rate (GFR) non- >=60 mL/min/1.7 3m 2 [facility] Laboratory - Chemistry and C hemistry - challengeon 09-22-2024 Calcium [Mass/Vol] 8.6 mg/dL 8.5-10.1 [facility] Chloride [Moles/Vol] 99 mmol/L 98-107 [facility] CO2 [Moles/Vol] 27.7 mmol/L 21.0-32.0 [facility] Creatinine [Mass/Vol] 0.69 mg/dL 0.55-1.02 [facility] GFR/1.73 sq M.predicted MDRD (S/P/Bld) [Vol rate/Area] mL/min/{1.73_m2} >=60 mL/min/1.7 3m 2 [facility] Glucose [Mass/Vol] 75 mg/dL 74-106 [facility] Osmolality [Osmolality] 265 mosm/kg Abnormal 280-301 [facility] Comment on above: Performed at: [facility] [address] [id number] Director: Nicole Fowler MD, Phone: [phone] Potassium [Moles/Vol] 3.8 mmol/L 3.5-5.1 [facility] Sodium [Moles/Vol] 135 mmol/L Low 136-145 [facility] Urea nitrogen [Mass/Vol] 11.0 mg/dL 7.0-18.0 [facility] Urea nitrogen/Creatinine [Mass ratio] 15.9 mg/mg [facility] Sodium (U) [Moles/Vol] 38 mmol/L 30-90 [facility] No Panel Informationon 09-22 Urine Osmolality 219 mOsmol/kg . [facility] Comment on above: 24 hr : 300 - 900 Ra ndom: 50 - 1400 After 12hr fluid restriction: >850Performed at: [facility] [address] [id number] Director: Nicole Fowler MD, Phone: [phone] Serum or plasma anion gap de terminationon 09-22-2024 Anion gap [Moles/Vol] Serum or plasma anion gap determination [facility] Basophils Auto (Bld) [#/Vol] on 08-18-2024 Basophils (Bld) [#/Vol] Automated basophil count 0.0-0.1 [facility] Basophils/100 WBC Auto (Bld) on 08-18-2024 Basophils/100 WBC (Bld) Automated basophil % 0.2-2.0 [facility] Eosinophils/100 WBC Auto (Bl d)on 08-18-2024 Eosinophils/100 WBC (Bld) Automated eosinophil % 0.9-7.0 [facility] Erythrocyte distribution wid th Auto (RBC) [Ratio]on 08-18-2024 Erythrocyte distribution width (RBC) [Ratio] Erythrocyte distribution width [Ratio] by Automated count 11.0-15.0 [facility] Estimated glomerular filtrat ion rate (GFR) non- Americanon 08-18-2024 GFR/1.73 sq M.predicted among non-blacks MDRD (S/P/Bld) [Vol rate/Area] Estimated glomerular filtration rate (GFR) non- >=60 [facility] Hematocrit Auto (Bld) [Volum e fraction]on 08-18-2024 Hematocrit (Bld) [Volume fraction] Hematocrit [Volume Fraction] of Blood by Automated count 36.0-48.0 [facility] Hemoglobin [Mass/volume] in Bloodon 08-18-2024 Hemoglobin (Bld) [Mass/Vol] Hemoglobin [Mass/volume] in Blood 12.0-16.0 [facility] Laboratory - Chemistry and C hemistry - challengeon 08-18-2024 Calcium [Mass/Vol] 8.8 mg/dL 8.5-10.1 [facility] Chloride [Moles/Vol] 96 mmol/L Low 98-107 [facility] CO2 [Moles/Vol] 31.9 mmol/L 21.0-32.0 [facility] Cobalamin (Vitamin B12) [Mass/Vol] 353 pg/mL 232-1245 [facility] Comment on above: Performed at: [facility] [address] [id number] Director: Hunter Hoover PhD, Phone: [phone] Creatinine [Mass/Vol] 0.62 mg/dL 0.55-1.02 [facility] Ferritin [Mass/Vol] 79.0 ng/mL 8.0-252.0 [facility] GFR/1.73 sq M.predicted MDRD (S/P/Bld) [Vol rate/Area] mL/min/{1.73_m2} >=60 [facility] Glucose [Mass/Vol] 99 mg/dL 74-106 [facility] Potassium [Moles/Vol] 3.9 mmol/L 3.5-5.1 [facility] Sodium [Moles/Vol] 130 mmol/L Low 136-145 [facility] TSH Qn 1.387 m[IU]/L 0.358-3.74 0 [facility] Urea nitrogen [Mass/Vol] 11.0 mg/dL 7.0-18.0 [facility] Urea nitrogen/Creatinine [Mass ratio] 17.7 mg/mg [facility] - Hematology and Cell countson 08-18-2024 Immature granulocytes/100 WBC (Bld) 0.3 % 0.0-0.5 [facility] Leukocytes [#/volume] correc jatin for nucleated erythrocytes in Blood by Automated counon 08-18-2024 WBC corrected for nucl RBC Auto (Bld) [#/Vol] Leukocytes [#/volume] corrected for nucleated erythrocytes in Blood by Automated coun 4.0-11.0 [facility] Lymphocytes Auto (Bld) [#/Vo l]on 08-18-2024 Lymphocytes (Bld) [#/Vol] Lymphocytes [#/volume] in Blood by Automated count Low 1.2-3.8 [facility] Lymphocytes/100 WBC Auto (Bl d)on 08-18-2024 Lymphocytes/100 WBC (Bld) Lymphocytes/100 leukocytes in Blood by Automated count Low 20.5-60.0 [facility] MCH Auto (RBC) [Entitic mass ]on 08-18-2024 MCH (RBC) [Entitic mass] MCH [Entitic mass] by Automated count 26.7-34.0 [facility] MCHC Auto (RBC) [Mass/Vol]on 08-18-2024 MCHC (RBC) [Mass/Vol] MCHC [Mass/volume] by Automated count 29.9-35.2 [facility] MCV Auto (RBC) [Entitic vol] on 08-18-2024 MCV (RBC) [Entitic vol] MCV [Entitic volume] by Automated count 81.0-99.0 [facility] Monocytes Auto (Bld) [#/Vol] on 08-18-2024 Monocytes (Bld) [#/Vol] Automated blood monocyte count 0.3-0.8 [facility] Monocytes/100 WBC Auto (Bld) on 08-18-2024 Monocytes/100 WBC (Bld) Automated monocyte % 1.7-12.0 [facility] Neutrophils Auto (Bld) [#/Vo l]on 08-18-2024 Neutrophils (Bld) [#/Vol] Neutrophils [#/volume] in Blood by Automated count 1.4-6.5 [facility] Neutrophils/100 WBC Auto (Bl d)on 08-18-2024 Neutrophils/100 WBC (Bld) Automated neutrophil % 43.0-75.0 [facility] No Panel Informationon 08-18 Eosinophils # (Auto) 0.2 10 3/uL 0.0-0.7 [facility] Immature Granulocyte # (Auto) 0.02 10 3/uL 0.00-0.03 [facility] Platelet mean volume Auto (B ld) [Entitic vol]on 08-18-2024 Platelet mean volume (Bld) [Entitic vol] Platelet mean volume [Entitic volume] in Blood by Automated count 9.5-13.5 [facility] Platelets Auto (Bld) [#/Vol] on 08-18-2024 Platelets (Bld) [#/Vol] Platelets [#/volume] in Blood by Automated count 150-450 [facility] RBC Auto (Bld) [#/Vol]on RBC (Bld) [#/Vol] Erythrocytes [#/volu me] in Blood by Automated count 4.20-5.40 [facility] Serum or plasma anion gap de terminationon 08-18-2024 Anion gap [Moles/Vol] Serum or plasma anion gap determination [facility] Optical coherence tomography study reporton 07-21-2024 [facility] Study observation (narrative) [facility] Estimated glomerular filtrat ion rate (GFR) non- Americanon 02-16-2024 GFR/1.73 sq M.predicted among non-blacks MDRD (S/P/Bld) [Vol rate/Area] mL/min/{1.73_m2} >=60 [facility] Globulin Calc (S) [Mass/Vol] on 02-16-2024 Globulin (S) [Mass/Vol] 3.0 g/dL [facility] Glucose mean value [Mass/vol ume] in Blood Estimated from glycated hemoglobinon 02-16-2024 Average glucose Estimated from glycated hemoglobin (Bld) [Mass/Vol] 105 mg/dL [facility] - Chemistry and C hemistry - challengeon 02-16-2024 Albumin [Mass/Vol] 3.4 g/dL 3.4-5.0 [facility] ALP [Catalytic activity/Vol] 57 U/L 46-116 [facility] ALT [Catalytic activity/Vol] 19 U/L 14-59 [facility] AST [Catalytic activity/Vol] 16 U/L 15-37 [facility] Bilirubin [Mass/Vol] 0.4 mg/dL 0.2-1.0 [facility] Calcium [Mass/Vol] 8.7 mg/dL 8.5-10.1 [facility] Chloride [Moles/Vol] 101 mmol/L 98-107 [facility] CO2 [Moles/Vol] 27.8 mmol/L 21.0-32.0 [facility] Creatinine [Mass/Vol] 0.59 mg/dL 0.55-1.02 [facility] GFR/1.73 sq M.predicted MDRD (S/P/Bld) [Vol rate/Area] mL/min/{1.73_m2} >=60 [facility] Glucose [Mass/Vol] 88 mg/dL 74-106 [facility] Potassium [Moles/Vol] 3.8 mmol/L 3.5-5.1 [facility] Protein [Mass/Vol] 6.4 g/dL 6.4-8.2 [facility] Sodium [Moles/Vol] 136 mmol/L 136-145 [facility] Urea nitrogen [Mass/Vol] 11.0 mg/dL 7.0-18.0 [facility] Urea nitrogen/Creatinine [Mass ratio] 18.6 mg/mg [facility] Laboratory - Hematology and Cell countson 02-16-2024 HbA1c (Bld) [Mass fraction] 5.3 % 4.5-6.2 [facility] Comment on above: ADA RECOMMENDED LIMI T 4.0 - 6.0ADA THERAPEUTIC TARGET < 7.0ACTION SUGGESTED> 7.0 Serum or plasma albumin/glob ulin mass ratioon 02-16-2024 Albumin/Globulin [Mass ratio] 1.1 {ratio} [facility] Serum or plasma anion gap de terminationon 02-16-2024 Anion gap [Moles/Vol] 11.0 mmol/L [facility] Activated partial thrombopla stin time (aPTT) in platelet poor plasma by coagulation aon 02-15-2024 aPTT Coag (PPP) [Time] 28.4 s 22.3-36.2 [facility] Basophils Auto (Bld) [#/Vol] on 02-15-2024 Basophils (Bld) [#/Vol] 0.1 10 3/uL 0.0-0.1 [facility] Basophils/100 WBC Auto (Bld) on 02-15-2024 Basophils/100 WBC (Bld) 1.1 % 0.2-2.0 [facility] Eosinophils/100 WBC Auto (Bl d)on 02-15-2024 Eosinophils/100 WBC (Bld) 3.2 % 0.9-7.0 [facility] Erythrocyte distribution wid th Auto (RBC) [Ratio]on 02-15-2024 Erythrocyte distribution width (RBC) [Ratio] 12.9 % 11.0-15.0 [facility] Estimated glomerular filtrat ion rate (GFR) non- Americanon 02-15-2024 GFR/1.73 sq M.predicted among non-blacks MDRD (S/P/Bld) [Vol rate/Area] mL/min/{1.73_m2} >=60 [facility] Hematocrit Auto (Bld) [Volum e fraction]on 02-15-2024 Hematocrit (Bld) [Volume fraction] 41.1 % 36.0-48.0 [facility] Hemoglobin [Mass/volume] in Bloodon 02-15-2024 Hemoglobin (Bld) [Mass/Vol] 13.3 g/dL 12.0-16.0 [facility] INR in Platelet poor plasma by Coagulation assayon 02-15-2024 INR Coag (PPP) [Relative time] {INR} [facility] Comment on above: DESIRED INR:2.0-3.0 CONDITIONS NOT LISTED BELOW2.5-3.5 FOR PROSTHETIC HEART VALVE REPLACEMENT2.5-3.5 [facility] THROMBOSIS Laboratory - Chemistry and C hemistry - challengeon 02-15-2024 Calcium [Mass/Vol] 8.6 mg/dL 8.5-10.1 [facility] Chloride [Moles/Vol] 96 mmol/L 98-107 [facility] CO2 [Moles/Vol] 28.0 mmol/L 21.0-32.0 [facility] Creatinine [Mass/Vol] 0.64 mg/dL 0.55-1.02 [facility] GFR/1.73 sq M.predicted MDRD (S/P/Bld) [Vol rate/Area] mL/min/{1.73_m2} >=60 [facility] Glucose [Mass/Vol] 99 mg/dL 74-106 [facility] Potassium [Moles/Vol] 3.9 mmol/L 3.5-5.1 [facility] Sodium [Moles/Vol] 135 mmol/L 136-145 [facility] Urea nitrogen [Mass/Vol] 9.0 mg/dL 7.0-18.0 [facility] Urea nitrogen/Creatinine [Mass ratio] 14.1 mg/mg [facility] - Hematology and Cell countson 02-15-2024 Immature granulocytes/100 WBC (Bld) 0.4 % 0.0-0.5 [facility] Leukocytes [#/volume] correc jatin for nucleated erythrocytes in Blood by Automated counon 02-15-2024 WBC corrected for nucl RBC Auto (Bld) [#/Vol] 5.3 10 3/uL 4.0-11.0 [facility] Lymphocytes Auto (Bld) [#/Vo l]on 02-15-2024 Lymphocytes (Bld) [#/Vol] 0.8 10 3/uL 1.2-3.8 [facility] Lymphocytes/100 WBC Auto (Bl d)on 02-15-2024 Lymphocytes/100 WBC (Bld) 14.2 % 20.5-60.0 [facility] MCH Auto (RBC) [Entitic mass ]on 02-15-2024 MCH (RBC) [Entitic mass] 31.4 pg 26.7-34.0 [facility] MCHC Auto (RBC) [Mass/Vol]on 02-15-2024 MCHC (RBC) [Mass/Vol] 32.4 g/dL 29.9-35.2 [facility] MCV Auto (RBC) [Entitic vol] on 02-15-2024 MCV (RBC) [Entitic vol] 96.9 fL 81.0-99.0 [facility] Monocytes Auto (Bld) [#/Vol] on 02-15-2024 Monocytes (Bld) [#/Vol] 0.5 10 3/uL 0.3-0.8 [facility] Monocytes/100 WBC Auto (Bld) on 02-15-2024 Monocytes/100 WBC (Bld) 9.5 % 1.7-12.0 [facility] Neutrophils Auto (Bld) [#/Vo l]on 02-15-2024 Neutrophils (Bld) [#/Vol] 3.8 10 3/uL 1.4-6.5 [facility] Neutrophils/100 WBC Auto (Bl d)on 02-15-2024 Neutrophils/100 WBC (Bld) 71.6 % 43.0-75.0 [facility] No Panel Informationon 02-14 Eosinophils # (Auto) 0.2 10 3/uL 0.0-0.7 [facility] Immature Granulocyte # (Auto) 0.02 10 3/uL 0.00-0.03 [facility] Platelet mean volume Auto (B ld) [Entitic vol]on 02-15-2024 Platelet mean volume (Bld) [Entitic vol] 10.0 fL 9.5-13.5 [facility] Platelets Auto (Bld) [#/Vol] on 02-15-2024 Platelets (Bld) [#/Vol] 334 10 3/uL 150-450 [facility] Prothrombin time (PT)on 01-29 PT Coag (PPP) [Time] 9.8 s 9.0-11.6 [facility] RBC Auto (Bld) [#/Vol]on RBC (Bld) [#/Vol] 4.24 10 6/uL 4.20-5.40 [facility] Serum or plasma anion gap de terminationon 02-15-2024 Anion gap [Moles/Vol] 14.9 mmol/L [facility] Basophils Auto (Bld) [#/Vol] on 02-02-2024 Basophils (Bld) [#/Vol] 0.0 10 3/uL 0.0-0.1 [facility] Basophils/100 WBC Auto (Bld) on 02-02-2024 Basophils/100 WBC (Bld) 0.8 % 0.2-2.0 [facility] Cholesterol in LDL Calc [Mas s/Vol]on 02-02-2024 Cholesterol in LDL [Mass/Vol] 57.0 mg/dL [facility] Comment on above: <100 mg/dl [id number] 0-129 mg/dl NEAR OR ABOVE [id number] mg/dl BORDERLINE [id number] mg/dl HIGH>190 mg/dl VERY HIGH Cholesterol in VLDL Calc [Ma ss/Vol]on 02-02-2024 Cholesterol in VLDL [Mass/Vol] 7.4 mg/dL [facility] Eosinophils/100 WBC Auto (Bl d)on 02-02-2024 Eosinophils/100 WBC (Bld) 4.8 % 0.9-7.0 [facility] Erythrocyte distribution wid th Auto (RBC) [Ratio]on 02-02-2024 Erythrocyte distribution width (RBC) [Ratio] 12.9 % 11.0-15.0 [facility] Estimated glomerular filtrat ion rate (GFR) non- Americanon 02-02-2024 GFR/1.73 sq M.predicted among non-blacks MDRD (S/P/Bld) [Vol rate/Area] mL/min/{1.73_m2} >=60 [facility] Globulin Calc (S) [Mass/Vol] on 02-02-2024 Globulin (S) [Mass/Vol] 3.5 g/dL [facility] Hematocrit Auto (Bld) [Volum e fraction]on 02-02-2024 Hematocrit (Bld) [Volume fraction] 40.4 % 36.0-48.0 [facility] Hemoglobin [Mass/volume] in Bloodon 02-02-2024 Hemoglobin (Bld) [Mass/Vol] 13.0 g/dL 12.0-16.0 [facility] - Chemistry and C hemistry - challengeon 02-02-2024 Albumin [Mass/Vol] 3.8 g/dL 3.4-5.0 [facility] ALP [Catalytic activity/Vol] 63 U/L 46-116 [facility] ALT [Catalytic activity/Vol] 26 U/L 14-59 [facility] AST [Catalytic activity/Vol] 18 U/L 15-37 [facility] Bilirubin [Mass/Vol] 0.5 mg/dL 0.2-1.0 [facility] Calcium [Mass/Vol] 8.8 mg/dL 8.5-10.1 [facility] Chloride [Moles/Vol] 98 mmol/L 98-107 [facility] Cholesterol [Mass/Vol] 182 mg/dL <=200 [facility] Cholesterol in HDL [Mass/Vol] 118 mg/dL 40-60 [facility] Comment on above: > or =60 mg/dl - LOW CARDIOVASCULAR RISK<40 mg/dl - HIGH CARDIOVASCULAR RISK CO2 [Moles/Vol] 30.0 mmol/L 21.0-32.0 [facility] Creatinine [Mass/Vol] 0.72 mg/dL 0.55-1.02 [facility] GFR/1.73 sq M.predicted MDRD (S/P/Bld) [Vol rate/Area] mL/min/{1.73_m2} >=60 [facility] Glucose [Mass/Vol] 95 mg/dL 74-106 [facility] Potassium [Moles/Vol] 4.2 mmol/L 3.5-5.1 [facility] Protein [Mass/Vol] 7.3 g/dL 6.4-8.2 [facility] Sodium [Moles/Vol] 136 mmol/L 136-145 [facility] Triglyceride [Mass/Vol] 37 mg/dL <=150 [facility] Urea nitrogen [Mass/Vol] 11.0 mg/dL 7.0-18.0 [facility] Urea nitrogen/Creatinine [Mass ratio] 15.3 mg/mg [facility] Laboratory - Hematology and Cell countson 02-02-2024 Immature granulocytes/100 WBC (Bld) 0.4 % 0.0-0.5 [facility] Leukocytes [#/volume] correc jatin for nucleated erythrocytes in Blood by Automated counon 02-02-2024 WBC corrected for nucl RBC Auto (Bld) [#/Vol] 5.2 10 3/uL 4.0-11.0 [facility] Lymphocytes Auto (Bld) [#/Vo l]on 02-02-2024 Lymphocytes (Bld) [#/Vol] 0.8 10 3/uL 1.2-3.8 [facility] Lymphocytes/100 WBC Auto (Bl d)on 02-02-2024 Lymphocytes/100 WBC (Bld) 14.8 % 20.5-60.0 [facility] MCH Auto (RBC) [Entitic mass ]on 02-02-2024 MCH (RBC) [Entitic mass] 30.7 pg 26.7-34.0 [facility] MCHC Auto (RBC) [Mass/Vol]on 02-02-2024 MCHC (RBC) [Mass/Vol] 32.2 g/dL 29.9-35.2 [facility] MCV Auto (RBC) [Entitic vol] on 02-02-2024 MCV (RBC) [Entitic vol] 95.5 fL 81.0-99.0 [facility] Monocytes Auto (Bld) [#/Vol] on 02-02-2024 Monocytes (Bld) [#/Vol] 0.6 10 3/uL 0.3-0.8 [facility] Monocytes/100 WBC Auto (Bld) on 02-02-2024 Monocytes/100 WBC (Bld) 11.9 % 1.7-12.0 [facility] Neutrophils Auto (Bld) [#/Vo l]on 02-02-2024 Neutrophils (Bld) [#/Vol] 3.5 10 3/uL 1.4-6.5 [facility] Neutrophils/100 WBC Auto (Bl d)on 02-02-2024 Neutrophils/100 WBC (Bld) 67.3 % 43.0-75.0 [facility] No Panel Informationon 02-01 Eosinophils # (Auto) 0.3 10 3/uL 0.0-0.7 [facility] Immature Granulocyte # (Auto) 0.02 10 3/uL 0.00-0.03 [facility] Platelet mean volume Auto (B ld) [Entitic vol]on 02-02-2024 Platelet mean volume (Bld) [Entitic vol] 9.9 fL 9.5-13.5 [facility] Platelets Auto (Bld) [#/Vol] on 02-02-2024 Platelets (Bld) [#/Vol] 316 10 3/uL 150-450 [facility] RBC Auto (Bld) [#/Vol]on RBC (Bld) [#/Vol] 4.23 10 6/uL 4.20-5.40 [facility] Serum or plasma albumin/glob ulin mass ratioon 02-02-2024 Albumin/Globulin [Mass ratio] 1.1 {ratio} [facility] Serum or plasma anion gap de terminationon 02-02-2024 Anion gap [Moles/Vol] 12.2 mmol/L [facility] Serum or plasma total choles terol/high density lipoprotein (HDL) cholesterol mass olivia 02-02-2024 Cholesterol.total/C holesterol in HDL [Mass ratio] 1.5 {ratio} [facility] Comment on above: 3.3 - 4.4 LOW RISK4. 4 - 7.1 AVERAGE RISK7.1 - 11.0 MODERATE RISK>11.0 HIGH RISK CBC AUTO DIFFon 02-04-2023 BASO # 0.1 103/ul Normal 0.0-0.1 [facility] Comment on above: Performed By: #### D ATCBC #### [facility] [address] [address] [address] Yovana Funes Basophils/100 WBC (Bld) 1.0 % Normal 0.2-2.0 [facility] Comment on above: Performed By: #### D ATCBC #### [facility] [address] [place] [address] Dr. Yovana Funes EO # 0.3 103/ul Normal 0.0-0.7 [facility] Comment on above: Performed By: #### D ATCBC #### [facility] [address] [place] [address] Dr. Yovana Funes Eosinophils/100 WBC (Bld) 5.5 % Normal 0.9-7.0 [facility] Comment on above: Performed By: #### D ATCBC #### [facility] [address] [place] [address] Dr. Yovana Funes Erythrocyte distribution width (RBC) [Ratio] 13.2 % Normal 11.0-15.0 [facility] Comment on above: Performed By: #### D ATCBC #### [facility] [address] [place] [address] Dr. Yovana Funes Hematocrit (Bld) [Volume fraction] 41.8 % Normal 36.0-48.0 [facility] Comment on above: Performed By: #### D ATCBC #### [facility] [address] [place] [address] Dr. Yovana Funes Hemoglobin (Bld) [Mass/Vol] 13.9 g/dL Normal 12.0-16.0 [facility] Comment on above: Performed By: #### D ATCBC #### [facility] [address] [place] [address] Dr. Yovana Funes IG # 0.02 10e3/ul Normal 0.00-0.03 [facility] Comment on above: Performed By: #### D ATCBC #### [facility] [address] [place] [address] Dr. Yovana Funes IG % 0.4 % Normal 0.0-0.5 [facility] Comment on above: Performed By: #### D ATCBC #### [facility] [address] [place] [address] Dr. Yovana Funes LYMPH # 0.9 103/ul Critically low 1.2-3.8 [facility] Comment on above: Performed By: #### D ATCBC #### [facility] [address] [place] [address] Dr. Yovana Funes Lymphocytes/100 WBC (Bld) 16.6 % Critically low 20.5-60.0 [facility] Comment on above: Performed By: #### D ATCBC #### [facility] [address] [place] [address] Dr. Yovana Funes MCH (RBC) [Entitic mass] 31.1 pg Normal 26.7-34.0 [facility] Comment on above: Performed By: #### D ATCBC #### [facility] [address] [place] [address] Dr. Yovana Funes MCHC (RBC) [Mass/Vol] 33.3 g/dL Normal 29.9-35.2 [facility] Comment on above: Performed By: #### D ATCBC #### [facility] [address] [place] [address] Dr. Yovana Funes MCV (RBC) [Entitic vol] 93.5 fL Normal 81.0-99.0 [facility] Comment on above: Performed By: #### D ATCBC #### [facility] [address] [place] [address] Dr. Yovana Funes MONO # 0.5 103/ul Normal 0.3-0.8 [facility] Comment on above: Performed By: #### D ATCBC #### [facility] [address] [place] [address] Dr. Yovana Funes Monocytes/100 WBC (Bld) 10.3 % Normal 1.7-12.0 [facility] Comment on above: Performed By: #### D ATCBC #### [facility] [address] [place] [address] Dr. Yovana Funes NEUT # 3.5 103/ul Normal 1.4-6.5 [facility] Comment on above: Performed By: #### D ATCBC #### [facility] [address] [place] [address] Dr. Yovana Funes Neutrophils/100 WBC (Bld) 66.2 % Normal 43.0-75.0 [facility] Comment on above: Performed By: #### D ATCBC #### [facility] [address] [place] [address] Dr. Yovana Funes Platelet mean volume (Bld) [Entitic vol] 9.9 fL Normal 9.5-13.5 [facility] Comment on above: Performed By: #### D ATCBC #### [facility] [address] [place] [address] Dr. Yovana Funes PLT 369 103/ul Normal 150-450 [facility] Comment on above: Performed By: #### D ATCBC #### [facility] [address] [place] [address] Dr. Yovana Funes RBC 4.47 106/ul Normal 4.20-5.40 [facility] Comment on above: Performed By: #### D ATCBC #### [facility] [address] [place] [address] Dr. Yovana Funes WBC 5.3 103/ul Normal 4.0-11.0 [facility] Comment on above: Performed By: #### D ATCBC #### [facility] [address] [place] [address] Dr. Yovana Funes MARLEY- BMP WITH LIPIDon 2022 Anion gap [Moles/Vol] 13.0 mmol/L Normal [facility] Comment on above: Performed By: #### D ATBMP #### [facility] [address] [place] [address] Dr. Yovana Funes Calcium [Mass/Vol] 9.1 mg/dL Normal 8.5-10.1 [facility] Comment on above: Performed By: #### D ATBMP #### [facility] [address] [place] [address] Dr. Yovana Funes Chloride [Moles/Vol] 102 mmol/L Normal 98-107 [facility] Comment on above: Performed By: #### D ATBMP #### [facility] [address] [address] [address] Yovana Funes Cholesterol [Mass/Vol] 211 mg/dL Critically high <=200 [facility] Comment on above: Performed By: #### D ATBMP #### [facility] [address] [address] [address] Yovana Funes Cholesterol in HDL [Mass/Vol] 114 mg/dL Critically high 40-60 [facility] Comment on above: Performed By: #### D ATBMP #### [facility] [address] [address] [address] Yovana Funes Cholesterol in LDL [Mass/Vol] 89.8 mg/dL Normal [facility] Comment on above: Performed By: #### D ATBMP #### [facility] [address] [address] [address] Yovana Funes CO2 [Moles/Vol] 29.2 mmol/L Normal 21.0-32.0 [facility] Comment on above: Performed By: #### D ATBMP #### [facility] [address] [address] [address] Yovana Funes Creatinine [Mass/Vol] 0.55 mg/dL Normal 0.55-1.02 [facility] Comment on above: Performed By: #### D ATBMP #### [facility] [address] [address] [address] Yovana Funes EGFR-AF BOLIVIAN >60 Normal >=60 [facility] Comment on above: Performed By: #### D ATBMP #### [facility] [address] [address] [address] Yovana Funes EGFR-NON AF BOLIVIAN >60 Normal >=60 [facility] Comment on above: Performed By: #### D ATBMP #### [facility] [address] [address] [address] Yovana Funes Glucose [Mass/Vol] 101 mg/dL Normal 74-106 [facility] Comment on above: Performed By: #### D ATBMP #### [facility] [address] [address] [address] Yovana Funes HDL NORMAL > or = 60 mg/dl - LO W CARDIOVASCULAR RISK <40 mg/dl - HIGH CARDIOVASCULAR RISK Normal [facility] Comment on above: Performed By: #### D ATBMP #### [facility] [address] [address] [address] Yovana Funes LDL CALC NORMAL SEE BELOW Normal [facility] Comment on above: Result Comment: <100 mg/dl OPTIMAL 100 - 129 mg/dl NEAR OR ABOVE OPTIMAL 130 - 159 mg/dl BORDERLINE HIGH 160 - 189 mg/dl HIGH >190 mg/dl VERY HIGH Performed By: #### D ATBMP #### [facility] [address] [address] [address] Yovana Funes Potassium [Moles/Vol] 4.2 mmol/L Normal 3.5-5.1 [facility] Comment on above: Performed By: #### D ATBMP #### [facility] [address] [address] [address] Yovana Funes Sodium [Moles/Vol] 140 mmol/L Normal 136-145 [facility] Comment on above: Performed By: #### D ATBMP #### [facility] [address] [address] [address] Yovana Funes Triglyceride [Mass/Vol] 36 mg/dL Normal <=150 [facility] Comment on above: Performed By: #### D ATBMP #### [facility] [address] [address] [address] Yovana Funes Urea nitrogen [Mass/Vol] 13.0 mg/dL Normal 7.0-18.0 [facility] Comment on above: Performed By: #### D ATBMP #### [facility] [address] [address] [address] Yovana Funes Urea nitrogen/Creatinine [Mass ratio] 23.6 mg/mg Normal [facility] Comment on above: Performed By: #### D ATBMP #### [facility] [address] [address] [address] Yovana Funes VLDL CALC 7.2 mg/dL Normal [facility] Comment on above: Performed By: #### D ATBMP #### [facility] [address] [place] [address] Dr. Yovana Funes DIRECT LDLon 05-07-2022 Cholesterol in LDL [Mass/Vol] 55 mg/dL Normal [facility] Comment on above: Performed By: #### A LT, DLDL #### [facility] [address] [place] [address] Dr. Yovana Funes DLDL NORMAL SEE BELOW Normal [facility] Comment on above: Result Comment: <100 mg/dl OPTIMAL 100 - 129 mg/dl NEAR OR ABOVE OPTIMAL 130 - 159 mg/dl BORDERLINE HIGH 160 - 189 mg/dl HIGH >190 mg/dl VERY HIGH Performed By: #### A LT, DLDL #### [facility] [address] [place] [address] Dr. Yovana Funes SGPTon 05-07-2022 ALT [Catalytic activity/Vol] 26 U/L Normal [facility] Comment on above: Performed By: #### A LT, DLDL #### [facility] [address] [place] [address] Dr. Yovana Funes DIRECT LDLon 03-15-2022 Cholesterol in LDL [Mass/Vol] 102 mg/dL Normal [facility] Comment on above: Performed By: #### D LDL, ALT #### [facility] [address] [place] [address] Dr. Yovana Funes DLDL NORMAL SEE BELOW Normal [facility] Comment on above: Result Comment: <100 mg/dl OPTIMAL 100 - 129 mg/dl NEAR OR ABOVE OPTIMAL 130 - 159 mg/dl BORDERLINE HIGH 160 - 189 mg/dl HIGH >190 mg/dl VERY HIGH Performed By: #### D LDL, ALT #### [facility] [address] [place] [address] Dr. Yovana Funes SGPTon 03-15-2022 ALT [Catalytic activity/Vol] 18 U/L Normal [facility] Comment on above: Performed By: #### D LDL, ALT #### [facility] [address] [place] [address] Dr. Yovana Funes CBC Without Differentialon 0 05-12-2021 Erythrocyte distribution width (RBC) [Ratio] 13.7 % Normal 11.9-15.3 [facility] Comment on above: Performed By: #### C BCNOOUTREACH, OUTREACH CMP, OUTREACH LIPID #### [facility] [address] [place] [address] Hematocrit (Bld) [Volume fraction] 42.3 % Normal 34.0-46.4 [facility] Comment on above: Performed By: #### C BCNOOUTREACH, OUTREACH CMP, OUTREACH LIPID #### [facility] [address] [place] [address] Hemoglobin (Bld) [Mass/Vol] 14.3 g/dL Normal 11.8-15.4 [facility] Comment on above: Performed By: #### C BCNOOUTREACH, OUTREACH CMP, OUTREACH LIPID #### [address] MCH (RBC) [Entitic mass] 32.0 pg Normal 24.7-34.3 [facility] Comment on above: Performed By: #### C BCNOOUTREACH, OUTREACH CMP, OUTREACH LIPID #### [facility] [address] [place] [address] MCV (RBC) [Entitic vol] 95.0 fL Normal 80-100 [facility] Comment on above: Performed By: #### C BCNOOUTREACH, OUTREACH CMP, OUTREACH LIPID #### [facility] [address] [place] [address] Mean Corpuscular HGB Conc 33.7 g/dL Normal 32.0-35.0 [facility] Comment on above: Performed By: #### C BCNOOUTREACH, OUTREACH CMP, OUTREACH LIPID #### [address] Platelet mean volume (Bld) [Entitic vol] 8.8 fL Normal 6.3-10.7 [facility] Comment on above: Result Comment: PERF ORMED BY: [place] [address] PATHOLOGIST ORTHO ASSISTANT ADAM CROCKER M.D. Performed By: #### C BCNOOUTREACH, OUTREACH CMP, OUTREACH LIPID #### [facility] [address] [place] [address] [place] Platelets (Bld) [#/Vol] 298 10*3/uL Normal 150-450 [facility] Comment on above: Performed By: #### C BCNOOUTREACH, OUTREACH CMP, OUTREACH LIPID #### [facility] [address] [place] [address] [place] RBC (Bld) [#/Vol] 4.46 10*6/uL Normal 3.60-5.00 [facility] Comment on above: Performed By: #### C BCNOOUTREACH, OUTREACH CMP, OUTREACH LIPID #### [address] WBC (Bld) [#/Vol] 4.5 10*3/uL Normal 3.8-11.6 [facility] Comment on above: Performed By: #### C BCNOOUTREACH, OUTREACH CMP, OUTREACH LIPID #### [facility] [address] [place] [address] CMP Outreachon 05-12-2021 Albumin [Mass/Vol] 4.4 g/dL Normal 3.2-5.5 [facility] Comment on above: Performed By: #### C BCNOOUTREACH, OUTREACH CMP, OUTREACH LIPID #### [facility] [address] [place] [address] [place] ALP [Catalytic activity/Vol] 50 U/L Normal 32-92 [facility] Comment on above: Performed By: #### C BCNOOUTREACH, OUTREACH CMP, OUTREACH LIPID #### [facility] [address] [place] [address] [place] ALT [Catalytic activity/Vol] 26 U/L Normal 10-60 [facility] Comment on above: Performed By: #### C BCNOOUTREACH, OUTREACH CMP, OUTREACH LIPID #### [facility] [address] [place] [address] [place] AST [Catalytic activity/Vol] 27 U/L Normal 10-42 [facility] Comment on above: Performed By: #### C BCNOOUTREACH, OUTREACH CMP, OUTREACH LIPID #### [facility] [address] [place] [address] [place] Bilirubin [Mass/Vol] 0.6 mg/dL Normal 0.3-1.2 [facility] Comment on above: Performed By: #### C BCNOOUTREACH, OUTREACH CMP, OUTREACH LIPID #### [facility] [address] [place] [address] [place] Calcium [Mass/Vol] 9.1 mg/dL Normal 8.2-10.2 [facility] Comment on above: Performed By: #### C BCNOOUTREACH, OUTREACH CMP, OUTREACH LIPID #### [facility] [address] [place] [address] [place] Chloride [Moles/Vol] 99 mmol/L Normal 95-114 [facility] Comment on above: Performed By: #### C BCNOOUTREACH, OUTREACH CMP, OUTREACH LIPID #### [facility] [address] [place] [address] [place] CO2 [Moles/Vol] 25.1 mmol/L Normal 22.0-30.0 [facility] Comment on above: Performed By: #### C BCNOOUTREACH, OUTREACH CMP, OUTREACH LIPID #### [facility] [address] [place] [address] [place] Creatinine [Mass/Vol] 0.63 mg/dL Normal 0.44-1.03 [facility] Comment on above: Performed By: #### C BCNOOUTREACH, OUTREACH CMP, OUTREACH LIPID #### [facility] [address] [place] [address] [place] Estimated GFR ( Mary Ann > 60 [facility] Comment on above: Result Comment: GFR estimated reference range: According to KDOQI guidelines, <60 ml/min/1.73m2 is sufficient to diagnose a patient with chronic kidney disease. Performed By: #### C BCNOOUTREACH, OUTREACH CMP, OUTREACH LIPID #### [facility] [address] [place] [address] [place] Estimated GFR (Non- Am > 60 Normal [facility] Comment on above: Performed By: #### C BCNOOUTREACH, OUTREACH CMP, OUTREACH LIPID #### [facility] [address] [place] [address] [place] Glucose [Mass/Vol] 89 mg/dL Normal 70-100 [facility] Comment on above: Result Comment: [facility] Glucose Reference Range is dependent on time and content of last meal. Glucose of more than 200 mg/dL in a nonstressed, ambulatory subject supports the diagnosis of Diabetes Mellitus. ADA recommended reference range Performed By: #### C BCNOOUTREACH, OUTREACH CMP, OUTREACH LIPID #### [facility] [address] [place] [id number] [place] Potassium [Moles/Vol] 3.9 mmol/L Normal 3.5-5.1 [facility] Comment on above: Performed By: #### C BCNOOUTREACH, OUTREACH CMP, OUTREACH LIPID #### [facility] [address] [place] [address] [place] Protein [Mass/Vol] 6.9 g/dL Normal 6.1-7.9 [facility] Comment on above: Performed By: #### C BCNOOUTREACH, OUTREACH CMP, OUTREACH LIPID #### [facility] [address] [place] [id number] [place] Sodium [Moles/Vol] 135 mmol/L Low 136-146 [facility] Comment on above: Performed By: #### C BCNOOUTREACH, OUTREACH CMP, OUTREACH LIPID #### [facility] [address] [place] [id number] [place] Urea nitrogen [Mass/Vol] 7 mg/dL Low 9-23 [facility] Comment on above: Performed By: #### C BCNOOUTREACH, OUTREACH CMP, OUTREACH LIPID #### [facility] [address] [place] [id number] [place] Lipid Profile Outreachon Cholesterol [Mass/Vol] 229 mg/dL High 140-200 [facility] Comment on above: Result Comment: Chol less than 200 mg/dl low risk Chol 201-239 mg/dl borderline risk Chol 240 mg/dl and greater high risk Performed By: #### C BCNOOUTREACH, OUTREACH CMP, OUTREACH LIPID #### [facility] [address] [place] [address] [place] Cholesterol in HDL [Mass/Vol] 97 mg/dL High 35-85 [facility] Comment on above: Result Comment: HDL CHOL ATP-III CLASSIFICATION Cardiovascular Risk HDL > or equal to 60 mg/dL LOW HDL < 40 mg/dL HIGH Performed By: #### C BCNOOUTREACH, OUTREACH CMP, OUTREACH LIPID #### [facility] [address] Cholesterol.total/C holesterol in HDL [Mass ratio] 2.4 {ratio} Normal <5.0 [facility] Comment on above: Result Comment: PERF ORMED BY: [place] [address] PATHOLOGIST ORTHO ASSISTANT ADAM CROCKER M.D. Performed By: #### C BCNOOUTREACH, OUTREACH CMP, OUTREACH LIPID #### [facility] [address] [place] [address] LDL Cholesterol,Calcula jatin 120 mg/dL High 0-100 [facility] Comment on above: Result Comment: LDL ATP III CLASSIFICATION LDL less than 100 mg/dL Optimal LDL 100-129 mg/dL Near or above optimal LDL 130-159 mg/dL Borderline high LDL 160-189 mg/dL High LDL greater than 189 mg/dL Very high Performed By: #### C BCNOOUTREACH, OUTREACH CMP, OUTREACH LIPID #### [facility] [address] [place] [address] Triglyceride w/Reflex 62 mg/dL Normal 35-149 [facility] Comment on above: Result Comment: TRIG ATP III CLASSIFICATION TRIG less than 150 mg/dL Normal TRIG 150-199 mg/dL Borderline high TRIG 200-500 mg/dL High TRIG greater than 500 mg/dL Very high Standard traceable to the Center for Disease Conrtrol and Prevention (CDC) test method. Performed By: #### C BCNOOUTREACH, OUTREACH CMP, OUTREACH LIPID #### [facility] [address] VLDL CHOLESTEROL 12 mg/dL Normal [facility] Comment on above: Performed By: #### C BCNOOUTREACH, OUTREACH CMP, OUTREACH LIPID #### [facility] [address] Trista 01-23-2021 JEVON Patient Outreach ([place] [facility]) MICHELETAPRIL ([id number]) 1945 F Date Time Provider Department 01/23/21 MARIKA GILES During your visit today, we recorded the following information about you: Allergies As of Date: 01/23/2021 (No Known Allergies) Date Reviewed: 03/09/2019 Reviewed by: Fantasma Mandujano) Sandeep - Fully Assessed Order(s):SARS-COVID VACCINE 1ST DOSE APPT [34960YRL] Order #: [id number] FUTURE Prescriptions as of 01/23/2021 Sig: PANTOPRAZOLE [...] Status:Closed by EPIC, PRODUSER on 01/26/21 Normal [facility] XR HIP 3V PELV+ AP/LAT LTon [...] on Mar 09 2019 6:15PM EST [id number] [facility] XR HIP 3V PELV+ AP/LAT LTon 07-24-2018 [...] on Jul 24 2018 11:17AM EST [id number] [facility] HISTORY PHYSICALon 8 HISTORY PHYSICAL HNO ID: [id number] thor: Tomasz Viveros) KeraService: (none)Author Type: Physician AssistantType: HANDPFiled: 12/16/2017 11:16 AMNote Text:HISTORY AND PHYSICAL EXAMINATIONSERVICE DATE: 12/15/2017SERVICE TIME: 10:41 [facility]: ISRAEL KesslerEASON FOR VISIT:April Tafoya is a 72 year old female who is scheduled for arthroplastyacetabular and proximal femoral prosth total hip without autograft at [facility] Dr. Yuliya Buckner for consultation. [...] chest pain at rest/with exertion; denies h/o NM cardiacsurgery or stents. Denies h/o DVT/PEGI: Positive [...] 2017 : 10:41 AM PAGER/CONTACT #: [facility] HOSP 12-15-2017 [facility] -APRIL TAFOYA ([id number]) 1945 FDate Time Provider Department12/15/17 11:00 AM PACC 1 [facility] During your visit today, we recorded the following information about you: Temperature Pulse Respiration Blood pressure 96.8 degrees 68/minute 16/minute 125/60 Weight Height 52.2 kg 1.549 Everardo Cote PA-C 12/16/2017 11:16 AM AddendumHISTORY AND PHYSICAL EXAMINATIONSERVICE DATE: 12/15/2017SERVICE TIME: 10:41 [facility] CARE PHYSICIAN: ANAHI Kessler FOR VISIT:April Tafoya is a 72 year old female who is scheduled for arthroplastyacetabular and proximal femoral prosth total hip without autograft at [facility] Dr. Yuliya Buckner for consultation. [...] chest pain at rest/with exertion; denies h/o NM cardiac surgery orstents. Denies h/o DVT/PEGI: Positive [...] mastectomy, chemo and radiation ( and recurrence [id number])Osteoarthritis left hipMETS:Limited physical activity due to left [...] scheduled you for your procedure at this surgerycenter:[facility]: [phone] -- [address] [place] [address].Please read below carefully for your personalized instructions.Blood [...] surgery.- NO jewelry, body piercings, makeup, nail cayman islander, hairpins or contacts are thanh worn the [...] Procedures: - YOU MUST HAVE A RESPONSIBLE CAR STORER TAKE YOU HOME. A PROCESS SUPERVISOR OR CABDRIVER CANNOT BE MADE A RESPONSIBLE CAR STORER.- We recommend that a responsible person stays with you overnight to take careof you.- You cannot stay in a hotel alone after outpatient surgery. You will not bepermitted to have your surgery, if you do not have someone to take care of you. Arrival Time for Surgery: -You will receive a call from [facility] the afternoon beforesurgery after 2:30 pm (or Friday for Friday surgery) for a scheduled arrivaltime.- If you have not heard by 4 pm, please contact [facility] [phone].Please be aware that emergency situations arise, which may delay or change yoursurgical time. If this happens, we will notify you as soon as possible andregret any inconvenience.ARIANNA Mondragon-CReferring Provider: YULIYA BUCKNER [[id number]]Allergies As of Date: 12/15/2017(No Known Allergies)Date Reviewed: 12/15/2017Reviewed by: Tomasz (Edward) Kera - Fully AssessedReason for Visit: Pre-Op Exam [87]Primary Visit Diagnosis:Preoperative clearance [Z01.818] Other Visit Diagnoses:Primary osteoarthritis of left hip [M16.12] Contact with and (suspected) exposure to other bacterial communicable diseases [Z20.818] Benign essential HTN [I10] Gastroesophageal reflux disease without esophagitis [K21.9]Order(s):STAPH AUREUS PCR [SQSAPCR] Order #: [id number] FUTURE ECG COMPLETE W INTERPRETATION [ECG01] Order #: [id number] as of 12/15/2017 Sig: AMLODIPINE 5 MG [...] for your procedure at this surgery center: [facility]: [phone] -- [address] [place], [place] [address]. Please read below carefully for your personalized [...] - NO jewelry, body piercings, makeup, nail cayman islander, hairpins or contacts are to be worn [...] Procedures: - YOU MUST HAVE A RESPONSIBLE CAR STORER TAKE YOU HOME. A PROCESS SUPERVISOR OR ENERGY DIRECTOR CANNOT BE MADE A RESPONSIBLE CAR STORER. - We recommend that a responsible person stays with you overnight to take care of you. - You cannot stay in a hotel alone after outpatient surgery. You will not be permitted to have your surgery, if you do not have someone to take care of you. Arrival Time for Surgery: -You will receive a call from [facility] the afternoon before surgery after 2:30 pm (or Friday for Friday surgery) for a scheduled arrival time. - If you have not heard by 4 pm, please contact [facility] [place] at [phone]. Please be aware that emergency situations arise, which may delay or change your surgical time. If this happens, we will notify you as soon as possible and regret any inconvenience. NURA MondragonCEncounter Number: [id number] Status:Closed by TOMASZ COTE PA-C on 12/15/17 [facility] Staph aureus PCRon 8 MRSA PCR Negative [facility] Comment on above: Performed By: #### S APCR ####[id number] [place], [place] [phone] S aureus Spec Source Nasal [facility] Comment on above: Performed By: #### S APCR ####[facility] [address] [place], [place] [phone] Staph aureus PCR Negative [facility] Comment on above: Performed By: #### S APCR ####[facility] [place] [address] [phone] Vital Signs Date Time Vital Sign Value Performing Clinician Facility 06-23-2025 12:55-0400 Body height 152.4 cm Yuliya Garza DO Work Phone: [facility] 06-23-2025 12:55-0400 Body mass index (BMI) [Ratio] 23.44 kg/m2 Yuliya Garza DO Work Phone: [facility] 06-23-2025 12:55-0400 Body weight 54.43 kg Yuliya Garza DO Work Phone: [facility] 05-26-2025 14:40-0400 Body height 152.4 cm Yuliya Garza DO Work Phone: [facility] 05-26-2025 14:40-0400 Body mass index (BMI) [Ratio] 23.44 kg/m2 Yuliya Garza DO Work Phone: [facility] 05-26-2025 14:40-0400 Body weight 54.43 kg Yuliya Garza DO Work Phone: [facility] 01-31-2025 10:22-0500 Body height 157.48 cm [facility] 01-31-2025 10:22-0500 Body mass index (BMI) [Ratio] 22.4 kg/m2 [facility] 01-31-2025 10:22-0500 Body temperature 97.6 [degF] [facility] 01-31-2025 10:22-0500 Body weight 55.5 kg [facility] 01-31-2025 10:22-0500 Diastolic blood pressure 73 mm[Hg] [facility] 01-31-2025 10:22-0500 Heart rate 84 /min [facility] 01-31-2025 10:22-0500 Respiratory rate 16 /min [facility] 01-31-2025 10:22-0500 SaO2% (BldA) [Mass fraction] 97 % [facility] 01-31-2025 10:22-0500 Systolic blood pressure 121 mm[Hg] [facility] 10-19-2024 08:27-0500 Body height 157.48 cm [facility] 10-19-2024 08:27-0500 Body mass index (BMI) [Ratio] 22 kg/m2 [facility] 10-19-2024 08:27-0500 Body weight 54.6 kg [facility] 10-19-2024 08:27-0500 Diastolic blood pressure 81 mm[Hg] [facility] 10-19-2024 08:27-0500 Heart rate 81 /min [facility] 10-19-2024 08:27-0500 Respiratory rate 12 /min [facility] 10-19-2024 08:27-0500 Systolic blood pressure 135 mm[Hg] [facility] 08-17-2024 10:36-0400 Body height 157.48 cm [facility] 08-17-2024 10:36-0400 Body mass index (BMI) [Ratio] 21.9 kg/m2 [facility] 08-17-2024 10:36-0400 Body weight 54.43 kg [facility] 08-17-2024 10:36-0400 Diastolic blood pressure 74 mm[Hg] [facility] 08-17-2024 10:36-0400 Heart rate 71 /min [facility] 08-17-2024 10:36-0400 Respiratory rate 12 /min [facility] 08-17-2024 10:36-0400 Systolic blood pressure 130 mm[Hg] [facility] 02-24-2024 09:51-0400 Body height 157.48 cm [facility] 02-24-2024 09:51-0400 Body mass index (BMI) [Ratio] 22.6 kg/m2 [facility] 02-24-2024 09:51-0400 Body weight 56.01 kg [facility] 02-24-2024 09:51-0400 Diastolic blood pressure 76 mm[Hg] [facility] 02-24-2024 09:51-0400 Heart rate 90 /min [facility] 02-24-2024 09:51-0400 Respiratory rate 12 /min [facility] 02-24-2024 09:51-0400 Systolic blood pressure 125 mm[Hg] [facility] 01-30-2024 10:51-0500 Body height 157.48 cm [facility] 01-30-2024 10:51-0500 Body mass index (BMI) [Ratio] 22.6 kg/m2 [facility] 01-30-2024 10:51-0500 Body weight 56.3 kg [facility] 01-30-2024 10:51-0500 Diastolic blood pressure 75 mm[Hg] [facility] 01-30-2024 10:51-0500 Heart rate 83 /min [facility] 01-30-2024 10:51-0500 Respiratory rate 12 /min [facility] 01-30-2024 10:51-0500 Systolic blood pressure 135 mm[Hg] [facility] 08-01-2023 10:30-0400 Body height 157.48 cm Marlon Ball Other [facility] Other 08-01-2023 10:30-0400 Body mass index (BMI) [Ratio] 21.62 kg/m2 Marlon Ball Other [facility] Other 08-01-2023 10:30-0400 Body weight 53.62 kg Marlon Ball Other [facility] Other 08-01-2023 10:30-0400 Diastolic blood pressure 72 mm[Hg] Marlon Ball Other [facility] Other 08-01-2023 10:30-0400 Respiratory rate 12 /min Marlon Ball Other [facility] Other 08-01-2023 10:30-0400 Systolic blood pressure 118 mm[Hg] Marlon Ball Other [facility] Other 01-29-2023 10:30-0500 Body height 157.48 cm Marlon Ball Other [facility] Other 01-29-2023 10:30-0500 Body mass index (BMI) [Ratio] 21.87 kg/m2 Marlon Ball Other [facility] Other 01-29-2023 10:30-0500 Body weight 54.25 kg Marlon Ball Other [facility] Other 01-29-2023 10:30-0500 Diastolic blood pressure 70 mm[Hg] Marlon Ball Other [facility] Other 01-29-2023 10:30-0500 Respiratory rate 12 /min Marlon Ball Other [facility] Other 01-29-2023 10:30-0500 Systolic blood pressure 118 mm[Hg] Marlon Ball Other [facility] Other Encounters Encounter Date Encounter Type Care [...] 07-13-2025 End: 07-13-2025 Bamboo flowsheet Tiffanie Borgesy VICE PRESIDENT OF SOFTWARE DEVELOPMENT [facility] Start: 07-13-2025 End: 07-13-2025 Bamboo flowsheet Tiffanie Borgesy VICE PRESIDENT OF SOFTWARE DEVELOPMENT [facility] Start: 07-13-2025 End: 07-13-2025 ambulatory Tiffanie Borgesy VICE PRESIDENT OF [employer] DEVELOP[employer] [facility] Comment on above: Acute pain of left s houlder (Primary Dx); Other closed nondisplaced fracture of proximal end of left humerus, initial encounter Start: 07-11-2025 End: 07-11-2025 Bamboo flowsheet Tiffanie Borgesy VICE PRESIDENT OF SOFTWARE DEVELOPMENT [facility] Start: 07-11-2025 End: 07-11-2025 Bamboo flowsheet Tiffanie Borgesy VICE PRESIDENT OF SOFTWARE DEVELOPMENT [facility] Start: 07-11-2025 End: 07-11-2025 ambulatory Tiffanie Katerinay VICE PRESIDENT OF SOFTWARE DEVELOPMENT [facility] Comment on above: [...] encounter procedure Yuliya Garza DO Work Phone: [facility] Comment on above: Other closed nondisp laced fracture of proximal end of left humerus, initial encounter (Primary Dx); Acute pain of left shoulder Start: 06-23-2025 End: 06-23-2025 ambulatory YULIYA GARZA Not Available Start: 06-23-2025 End: 06-23-2025 ambulatory YULIYA GARZA Not Available Start: 05-26-2025 End: 05-26-2025 Patient encounter procedure Yuliya Garza DO Work Phone: [facility] Comment on above: Acute pain of left s laurelulder (Primary Dx) Start: 05-26-2025 End: 05-26-2025 ambulatory YULIYA Madonna GARZA Not Available Start: 05-26-2025 End: 05-26-2025 ambulatory YULIYA GARZA Not Available Start: 05-12-2025 End: 05-13-2025 Office outpatient new 45 minutes Kiara Posada PA-C Work Phone: [facility] Comment on above: Closed fracture of f acial bone due to fall, initial encounter (HCC) (Primary Dx) Start: 05-12-2025 End: 05-13-2025 ambulatory UNKNOWN PROVIDER Facility:[facility] Start: 05-06-2025 End: 05-06-2025 Orders Only Janett VEGA Work Phone: [facility] Comment on above: Closed fracture of f acial bone due to fall, initial encounter (HCC) Start: 05-03-2025 End: 05-05-2025 Evaluation and management of inpatient Yuliya Christianson Facility:[facility] Start: 05-03-2025 Emergency department patient visit Jai Gonzales Facility:[facility] [place] Start: 05-03-2025 End: 05-05-2025 Evaluation and management of inpatient Yuliya Christianson [facility] Start: 04-13-2025 End: 04-13-2025 ambulatory TAL CONDE Not Available Start: 04-13-2025 End: 04-13-2025 Bamboo flowsheet Tal Conde DO Work Phone: [facility] Start: 04-13-2025 End: 04-13-2025 Bamboo flowsheet Tal Conde DO Work Phone: [facility] Start: 02-11-2025 End: 02-11-2025 ambulatory TAL CONDE Not Available Start: 01-31-2025 End: 01-31-2025 ambulatory [facility] Work Phone: Start: 01-31-2025 End: 01-31-2025 Patient encounter procedure [facility] Work Phone: Start: 12-10-2024 End: 12-10-2024 Bamboo flowsheet Tal Easoner DO Work Phone: [facility] Start: 12-10-2024 End: 12-10-2024 Bamboo flowsheet Tal Conde DO Work Phone: [facility] Start: 12-10-2024 End: 12-10-2024 ambulatory TAL CONED Not Available Start: 10-19-2024 End: 10-19-2024 ambulatory [facility] Work Phone: Start: 10-19-2024 End: 10-19-2024 Patient encounter procedure [facility] Work Phone: Start: 09-22-2024 Non-patient / Non-visit [facility] Work Phone: Start: 08-18-2024 Non-patient / Non-visit [facility] Work Phone: Start: 08-17-2024 End: 08-17-2024 ambulatory [facility] Work Phone: Start: 08-17-2024 End: 08-17-2024 Patient encounter procedure [facility] Work Phone: Start: 07-21-2024 End: 07-21-2024 Bamboo flowsheet Tal Conde DO Work Phone: [facility] Start: 07-21-2024 End: 07-21-2024 Bamboo flowsheet Tal Conde DO Work Phone: [facility] Start: 07-21-2024 End: 07-21-2024 ambulatory TAL CONDE Not Available Start: 02-24-2024 End: 02-24-2024 ambulatory [facility] Work Phone: Start: 02-24-2024 End: 02-24-2024 Patient encounter procedure [facility] Work Phone: Start: 02-18-2024 Non-patient / Non-visit [facility] Work Phone: Start: 02-16-2024 ambulatory [facility] Start: 02-16-2024 Non-patient / Non-visit [facility] Work Phone: Start: 02-15-2024 End: 02-17-2024 Emergency department patient visit [facility] Start: 02-15-2024 Non-patient / Non-visit [facility] Work Phone: Start: 02-02-2024 Non-patient / Non-visit [facility] Work Phone: Start: 01-30-2024 End: 01-30-2024 Patient encounter procedure [facility] Work Phone: Start: 08-07-2023 End: 08-07-2023 ambulatory Marlon Espinoza Other [facility] [employer] Other Start: 08-07-2023 Telephone encounter Marlon Espinoza [facility] Start: 08-01-2023 End: 08-01-2023 ambulatory Marlon Espinoza Other [facility] Other Start: 08-01-2023 Office outpatient vi sit 25 minutes Marlon Espinoza [facility] Start: 02-04-2023 End: 02-05-[address] NONE LISTED REQUEST Facility:[facility] Start: 01-29-2023 End: 01-29-2023 ambulatory Marlon Espinoza Other [facility] Other Start: 01-29-2023 Patient encounter procedure Marlon Espinoza [facility] Start: 05-07-2022 End: 05-08-2022 ambulatory MARLON ESPINOZA Facility:[facility] Start: 03-15-2022 End: 03-16-2022 ambulatory MARLON ESPINOZA Facility:[facility] Start: 03-09-2019 End: 03-09-2019 Patient encounter procedure FANTASMA (PA) [facility] Start: 07-24-2018 End: 07-25-2018 Patient encounter procedure CHARLENE (PAC) [facility] Start: 12-15-2017 [address] [facility] Procedures Date Procedure Procedure Detail Performing Clinician Start: 06-23-2025 Radex shoulder compl ete minimum 2 views Yuliya Garza DO Work Phone: Start: 05-26-2025 Radex shoulder compl ete minimum 2 views Yuliya Garza DO Work Phone: Start: 05-06-2025 Radiology Comparison study - date and time Janett Sukhi [employer] Work Phone: Start: 04-13-2025 Computerized ophthal arik [...] DO Work Phone: Start: 12-10-2024 End: 12-10-2024 [facility] pt 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 [...] DO Work Phone: Start: 07-21-2024 End: 07-21-2024 [facility]&eval comprhnsv estab pt 1/> Advanced atrophic [...] 08/25/2025 10:30 AM EDT Office Visit [facility] [address] [place] [phone] Yuliya Garza, DO [address] [place] [address] [facility] Start: 08-17-2025 End: 08-17-2025 Patient encounter procedure [facility] Start: 07-29-2025 End: 07-29-2025 ambulatory 07/29/2025 1:30 PM EDT Treatment [facility] [address] [place] [address] Lance Silveira PTA [facility] Start: 07-29-2025 End: 07-29-2025 ambulatory 07/29/2025 10:30 AM EDT Treatment [facility] [address] [place] [address] Lupe Cody, PT [facility] Start: 07-27-2025 End: 07-27-2025 ambulatory 07/27/2025 10:30 AM EDT Treatment [facility] [address] [place] [address] Tiffanie Denton VICE PRESIDENT OF SOFTWARE DEVELOPMENT [facility] Start: 07-25-2025 End: 07-25-2025 ambulatory 07/25/2025 10:30 AM EDT Treatment [facility] [address] [place] [address] Tiffanie Denton VICE PRESIDENT OF SOFTWARE DEVELOPMENT [facility] Start: 07-22-2025 End: 07-22-2025 ambulatory 07/22/2025 10:30 AM EDT Treatment [facility] [address] [place] [address] Tiffanie Denton, VICE PRESIDENT OF SOFTWARE DEVELOPMENT [facility] Start: 07-20-2025 End: 07-20-2025 ambulatory 07/20/2025 10:30 AM EDT Treatment [facility] [address] [place] [address] Tiffanie Denton PTA [facility] Start: 07-18-2025 End: 07-18-2025 ambulatory 07/18/2025 10:30 AM EDT Treatment [facility] [address] [place] [address] Lupe Cody PT [facility] Start: 07-13-2025 End: 07-13-2025 ambulatory [facility] Comment on above: Arrived Start: 07-11-2025 End: 07-11-2025 ambulatory 07/11/2025 10:30 AM EDT Treatment [facility] [address] [place] [address] Tiffanie Denton PTA [facility] Start: 07-07-2025 End: 07-07-2025 ambulatory [facility] Comment on above: Acute pain of left s houlder; Other closed nondisplaced fracture of proximal end of left humerus, initial encounter Start: 06-23-2025 End: 06-23-2025 Patient encounter procedure 06/23/2025 1:00 PM EDT Office Visit [facility] [address] [place] [phone] Yuliya Garza DO [address] [place] [address] [facility] Start: 05-12-2025 End: 05-12-2025 Patient encounter procedure 05/12/2025 11:30 AM EDT Office Visit [facility] [address] [place] [address] Kiara Posada PA-C [address] [place] [address] [facility] Start: 05-06-2025 Welcome to Medicare Visit (G0402) Welcome to Medicare Visit (G0402) [facility] Start: 04-13-2025 End: 04-13-2025 Patient encounter procedure 04/13/2025 2:30 PM EDT Office Visit [facility] [address] [place] [address] Tal Conde DO [address] [place] [address] Arrived [facility] Comment on above: Arrived Start: 12-10-2024 End: 12-10-2024 Patient encounter procedure 12/10/2024 11:00 AM EST Office Visit [facility] [address] [place] [address] Tal Conde DO [address] [place] [address] Arrived [facility] Comment on above: Arrived Start: 08-01-2024 COVID-19 Vaccine ( season) COVID-19 Vaccine ( season) [facility] Start: 08-01-2024 COVID-19 Vaccine ( season) COVID-19 Vaccine ( season) [facility] Start: 07-21-2024 End: 07-21-2024 Patient encounter procedure 07/21/2024 11:00 AM EDT Office Visit [facility] [address] [place] [address] Tal Conde DO [address] [place] [address] Arrived [facility] Comment on above: Arrived Start: 2020 RSV vaccine (adult) (1 - 1-dose 75+ series) RSV vaccine (adult) (1 - 1-dose 75+ series) [facility] Start: 2010 Screening for osteoporosis Bone Densitometry [facility] Start: 2005 Hepatitis B (HBV) Vaccine (optional [...] A (HAV) Vaccine (optional start 19+ years) [facility] Start: 1963 Hepatitis C screening Hepatitis C An tibody [facility] Start: 1963 [facility] - left 2 Views XR shoulder 2+ views left Imaging Routine Acute pain of left shoulder 05/26/2025 11:33 AM EDT [facility] Work Phone: XR Shoulder - left 2 Views XR shoulder 2+ views left Imaging Routine Acute pain of left shoulder 06/23/2025 11:10 AM EDT [facility] Work Phone: [facility] Immunizations Immunization Date Immunization Notes Care Provider Massiel perez 10-08-2021 COVID-19 Vaccine Mod shailesh - Documentation Purposes Only Marlon Espinoza Other [facility] 01-31-2021 COVID-19 Vaccine Mod shailesh - Documentation Purposes Only Marlon Espinoza Other [facility] 01-03-2021 COVID-19 Vaccine Mod shailesh - Documentation Purposes Only Marlon Espinoza Other [facility] 2017 diphtheria, tetanus toxoids and acellular pertussis vaccine, unspecified formulation Marlon Espinoza Other [facility] Payers Date Payer Category Payer Medicare FFS MEDICARE [id number] 2025 Medicare [id number] 2023 Private Health Insurance [id number] 2010 Medicare [id number] 1959 Medicare [id number] 1959 Private Health Insurance [facility] [id number] 1959 Self-pay [id number] 1945 Unknown [id number] 2.16.840.1.951223.3.579. 2.593 1945 Unknown [id number] 2.16.840.1.487976.3.579. 2.593 1945 Unknown [id number] 2.16.840.1.954288.3.579. 2.1286 1945 Unknown [id number] 2.16.840.1.132098.3.579. 2.1286 1945 Unknown [id number] 2.16.840.1.282034.3.579. 2.1286 1945 Unknown [id number] 2.16.840.1.546176.3.579. 2.1286 1945 Unknown [id number] 2.16.840.1.121905.3.579. 2.1286 1945 Unknown [id number] 2.16.840.1.374514.3.579. 2.1286 1945 Unknown [id number] 2.16.840.1.237002.3.579. 2.727 1945 Unknown [id number] 2.16.840.1.975208.3.579. 2.727 1945 Unknown [id number] 2.16.840.1.219019.3.579. 2.727 1945 Unknown [id number] 2.16.840.1.621605.3.579. 2.727 1945 Unknown [id number] 2.16.840.1.209454.3.579. 2.72 1945 Unknown [id number] 2.16.840.1.991244.3.579. 2.72 1945 Unknown [id number] 2.16.840.1.898101.3.579. 2.727 1945 Unknown [id number] 2.16.840.1.331970.3.579. 2.732 1945 Unknown [id number] 2.16.840.1.531535.3.579. 2.732 1945 Unknown [id number] 2.16.840.1.869097.3.579. 2.727 1945 Unknown [id number] 2.16.840.1.488572.3.579. 2.1259 1945 Unknown [id number] 2.16840.1.632589.3.579. 2.1259 1945 Unknown [id number] 2.16.840.1.987042.3.579. 2.1259 1945 Unknown [id number] 2.16.840.1.304663.3.579. 2.1259 1945 Unknown [id number] 2.16.840.1.774164.3.579. 2.1259 1945 Unknown [id number] 2.16.840.1.542247.3.579. 2.1259 1945 Unknown [id number] 2.16.840.1.206826.3.579. 2.1259 1945 Unknown [id number] 2.16.840.1.616500.3.579. 2.9 1945 Unknown [id number] 2.16.840.1.731271.3.579. 2.1259 1945 Unknown [id number] 2.16.840.1.577758.3.579. 2.1259 1945 Unknown [id number] 2.16.840.1.333923.3.579. 2.1259 1945 Unknown [id number] 2.16.840.1.596297.3.579. 2.1259 Self-pay Self Pay [id number] Unknown [id number] 2.16.840.1.228791.3.579. 2.593 Unknown [place] [facility] [place] [id number] Social History Date Type Detail Facility Start: 07-02-2023 End: 06-23-2025 Sex Assigned At [facility] Start: 07-02-2023 End: 01-30-2024 Tobacco smoking status NHIS Never smoked tobacco (finding) [facility] Start: 1945 Sex Assigned At Female F [facility] Start: 10-19-2024 End: 05-03-2025 Sex Female (finding) [facility] Start: 07-02-2023 Tobacco use and exposure Smokeless tobacco non-user [facility] Start: 07-02-2023 End: 06-23-2025 History of Social function [facility] Start: 1945 Sex assigned at Not on file [facility] Tobacco smoking status [facility] Tobacco smoking status NHIS Tobacco smoking consumption unknown [facility] Clinical Notes 01-29-2023 to 07-18-2025 Lupe [...] Fell coming out of a building in [place]. Was in hospital for 3 days. Pt states she was not able to have surgery due to advanced osteoporosis. Pt states home health came to the home following surgery. Was just released from home health and use of sling. Now to begin out patient PT. Pt is right hand dominant. Pt states she is taking OTC meds as needed for pian. Precautions: [place] Subjective: Left shoulder shoulder is a little [...] to be instructed in home exercise program. Longterm Goals: To be met in 10 weeks [...] sign below. Date: documented in this encounter [facility] 06-23-2025 History of Present illness Narrative Images [...] sling. Physical therapy is prescribed through the [facility] building two to three times a week for eight weeks, eval and treat, progressing as tolerated, utilizing pain as a guide. Ice, Tylenol and topicals were reviewed. We discussed chcf if having continued pain or lack of [...] 7:32 AM EDT documented in this encounter [facility] 05-26-2025 History of Present illness Narrative Images [...] 7:55 AM EDT documented in this encounter [facility] 05-12-2025 History of Present illness Narrative New Patient - Face Trauma Ms Tafoya sustained a fall after missing the last step on stairs. She was transported to ED at [facility] via EMS. She fell overall on there [...] Tobacco Use: Low Risk (04/13/2025) Received from [facility] Patient History Smoking Tobacco Use: Never Smokeless Tobacco Use: Never Passive Exposure: Not on file Alcohol Use: Not on file Financial Resource Strain: Not on file Food Insecurity: Not on file Transportation Needs: Not on file Physical Activity: Not on file Stress: Not on file Social Connections: Not on file Intimate Partner Violence: Unknown (01/22/2024) Received from [facility] Safety & Environment Fear of Current or [...] to establish relationship documented in this encounter [facility] 05-12-2025 Instructions Kiara Posada PA-C - [...] head slightly raised documented in this encounter [facility] 05-06-2025 Note Progress Note-Saloni barnett GENERAL [...] she was walking down the stairs at [facility] when she missed a step, causing her [...] the L humerus fx and Plastic Surgery (fabrication engineer for Face) at [facility], Dr. Vanessa, was contacted regarding facial fractures who recommends non-op management and outpatient follow up. Patient was admitted to the [facility] for PT/OT/pain control and syncopal work up. [...] Lymph Auto: 3.9 % Low (05/04/25 06:17:00) [place] Auto: 9.9 % (05/04/25 06:17:00) Eos Auto: 0 % (05/04/25 06:17:00) Basophil Auto: 0.1 % (05/04/25 06:17:00) Neutro Absolute: 9.4 E9/L High (05/04/25 06:17:00) Lymph Absolute: 0.4 E9/L Low (05/04/25 06:17:00) [place] Absolute: 1.1 E9/L High (05/04/25 06:17:00) Eos Absolute: 0 E9/L (05/04/25 06:17:00) Basophil Absolute: 0 E9/L (05/04/25 06:17:00) PT: 10.5 second(s) (05/04/25 06:17:00) INR: 0.94 (05/04/25 06:17:00) PTT: 30 second(s) (05/04/25 06:17:00) Glucose Lvl: 113 mg/dL (05/04/25 06:17:00) BUN: 18 mg/dL (05/04/25 06:17:00) Creatinine: 0.6 mg/dL (05/04/25 06:17:00) eGFR: 91 mL/min/1.73 m2 (05/04/25 06:17:00) BUN/Creat Ratio: 30 High ( (more content not included)... [facility] Comment on above: Result Comment: Elec tronically Signed By: Sarai Parks PA-C\.br\Date and Time Signed: 05/04/25 10:51 EDT\.br\Electronically Co-Signed By: Meghan LIN, Yuliya Healy\.br\Date and Time Co-Signed: 05/06/25 09:55 EDT 05-06-2025 Note Discharge Summary [place] [address] APRIL TAFOYA Date of : 1945 79 Years Female AttendingMeghan LIN, Yuliya Healy Date of Admission05/03/2025 15:38:21 Date [...] the L humerus fx and Plastic Surgery (fabrication engineer for Face) at [facility], Dr. Vanessa, was contacted regarding facial fractures who recommends non-op management and outpatient follow up. Patient was admitted to the [facility] for PT/OT/pain control and syncopal work up. [...] normal heart s (more content not included)... [facility] Comment on above: Result Comment: Elec tronically Signed By: Sarai Parks PA-C\.br\Date and Time Signed: 05/05/25 13:34 EDT\.br\Electronically Co-Signed By: Meghan LIN, Yuliya Healy\.br\Date and Time Co-Signed: 05/06/25 09:55 EDT 05-06-2025 History of Present illness Narrative Orders encounter created to obtain images from i[employer]Meter for outpatient follow up with Plastic Surgery. documented in this encounter [facility] 05-05-2025 Hospital Discharge instructions Patient Education 05/05/2025 08:32:13 Humerus Fracture Treated With Immobilization, Yazf-qy-Xncb Humerus Fracture Treated With Immobilization The humerus [...] arm heals enough for you to begin gtjyy-pw-egawaa exercises. You may also be prescribed pain [...] doctor says that it is safe. Do fwtfw-hi-ipqkbz exercises only as told by your doctor. General instructions Do not smoke or use any products that contain nicotine or tobacco. These can make it take longer for your bones to heal. If you need help quitting, ask your doctor. Take fcib-hhq-jzmezov and prescription medicines only as told by [...] provider. Document Revised: 12/31/2021 Document Reviewed: 12/31/2021 [employer] Patient Education 2023 [employer]. Follow Up Care 05/03/2025 12:26:07 With:Yuliya Garza Address: [address] [place] [phone] Business (1) When:05/26/2025 14:45:00 With:MARLON ESPINOZA Address: [address] [place] [phone] Business (1) When: Unknown Comments:Doctor's office will call patient to make hospital follow up appointment. [facility] will be in place for patient upon discharged from the hospital. Address:Unknown When: Unknown [facility] 05-05-2025 Note Patient Education - Text Orthopedics [...] arm heals enough for you to begin hgzrp-xc-vvxxvd exercises. You may also be prescribed pain [...] says that it is safe. ??? Do vbnzg-sx-sxyhrw exercises only as told by your doctor. General instructions ??? Do not smoke or use any products that contain nicotine or tobacco. These can make it take longer for your bones to heal. If you need help quitting, ask your doctor. ??? Take fcli-dht-xtdiguq and prescription medicines only as told by [...] provider. Document Revised: 12/31/2021 Document Reviewed: 12/31/2021 [employer] Patient Education ? 2023 Airu. [facility] 05-04-2025 Note Consultation Note HOSPITAL REGULATIONS: All Positive and Important Negative Findings Shall Be Recorded Date of Consultation: 05/03/2025 Attending Physician: Deb Narvaez Consulting Physician: Yuliya Garza D.O. ORTHOPEDIC CONSULTATION PLACE OF CONSULTATION: Room 322 REASON FOR CONSULTATION: Left shoulder pain status post fall. HISTORY OF PRESENT ILLNESS: April is a 79-year-old oghgt-titw-drqhbufx female who was at the [employer] trying to update her passport this morning. [...] at length through phone conversation with physician acquisitions assistant Malorie in the Emergency Room. She [...] office. Yuliya Garza D.O. deni Dictated: 05/03/2025 [id number] Transcribed: 05/03/2025 cc:*Deb Narvaez [facility] Comment on above: Result Comment: Elec tronically Signed By: Yuliya Garza DO.emily\Date and Time Signed: 05/04/25 12:24 EDT 05-04-2025 Note Interdisciplinary No te - PT PT evaluation completed. Pt assisted to bedside commode with close supervision assist without device. Pt ambulated x 20 feet without device without loss of balance in room with close supervision. Pt [facility] and will benefit from HHPT. [facility] 05-03-2025 Note History and Physical TRAUMA CONSULT / H&P Patient Name: APRIL TAFOYA Admission Date: 05/03/2025 Patient seen and examined on 05/03/2025 15:09:21 -------- BASIC INJURY INFORMATION: Level of activation: Category 2 Trauma Mode of transport: [facility] Mechanism of injury: Fall Complicating features: Not applicable Protective measures: Not applicable HISTORY OF PRESENT INJURY: APRIL TAFOYA is a 79 year old female with PMH significant for TIA (on Plavix daily), HTN, GERD, breast CA s/p bilateral mastectomy, basal cell CA of the chin who presented to the ED via [facility] as a CAT 2 trauma s/p fall. There are mixed stories about the events surrounding her fall. It is reported that patient was at the [employer] today, to gain necessary info for her [...] Oral, Daily multivit (more content not included)... [facility] Comment on above: Result Comment: Elec tronically [...] Allergies: Allergic Reactions (All) No Known Allergies [facility] Comment on above: Result Comment: Elec tronically [...] Left XR Knee Complete 4+ Views Right [facility] [id number] NoteRight Eye Quality was good. Scan locations included subfoveal. Progression has been stable. Findings include abnormal foveal contour, subretinal scarring. Left Eye Quality was good. Scan locations included subfoveal. Progression has been stable. Findings include pigment epithelial detachment.[facility] [id number] History of Present illness Narrative* Tal Conde [...] laser capsulotomy, they are to notify their manager training and development promptly if they have a significant change in symptoms, such as flashes of light (photopsia), an increase in floaters, loss of visual field or decrease in visual acuity. documented in this encounterMiss[facility] Medical CenterBzuinjarvd10-30-7207 NoteRight Eye Quality was good. Scan locations included subfoveal. Progression has been stable. Findings include pigment epithelial detachment. Left Eye Quality was good. Scan locations included subfoveal. Progression has been stable. Findings include pigment epithelial detachment.[facility] [id number] History of Present illness Narrative* Tal Conde [...] lid scrubs were recommended. documented in this encounterMissouri Baptist Medical [id number] Evaluation note* Diagnosis Onset Date Resolution Status [...] temporal headache acute N ovember 2023 8:23am [facility] Work Phone: 1(685) 347-651408-21-2024 NoteRight Eye Quality was good. Scan locations included subfoveal. Progression has been stable. Findings include abnormal foveal contour, pigment epithelial detachment. Left Eye Quality was good. Scan locations included subfoveal. Progression has been stable. Findings include abnormal foveal contour, pigment epithelial detachment.[facility] [id number] History of Present illness Narrative* Tal Conde [...] lid scrubs were recommended. documented in this encounterMiss[facility] [id number] Evaluation note* Encounter Date Diagnosis Assessment Notes [...] labs: r/o diabetes, anemia and thyroid disease [facility] Other 03-01-2023 Evaluation note* Encounter Date Diagnosis [...] ca ncer (ICD-10 - Z85.3) b/l mastectomy [facility] Other Evaluation noteNo InformationNortWil[facility] Other Evaluation note* Diagnosis Onset Date Resolution [...] cancer acu te Hyperlipidemia type II acute [facility] Work Phone: Evaluation note* Diagnosis Onset Date Resolution Status Age-related osteoporosis wit hout current pathological fracture acute Cerebral atherosclerosis acu te Cervical spondylosis with radiculopathy acute Essential hypertension acute Gastroesophageal reflux dise ase with esophagitis without hemorrhage acute H/O TIA (transient ischemic attack) and stroke acute Hypercholesterolemia acute Insomnia acute [facility] Work Phone: Evaluation note* Diagnosis Advanced atrophic [...] osteoporosis wit hout current pathological fracture acute [facility] 2024 10:16am Cerebral atherosclerosis acute January 31, 2025 10:16am Cervical spondylosis with radiculopathy acute January 31, 2025 10:16am Essential hypertension acute [facility] 2024 10:16am Gastroesophageal reflux dise ase with esophagitis without hemorrhage acute January 31, 2025 10:16am H/O TIA (transient ischemic attack) and stroke acute January 31 10:16am History of breast cancer acute January 31, 2025 10:16am Hypercholesterolemia acute [facility] 2024 10:16am Insomnia acute January 31 10:16am Medicare annual wellness vis it, subsequent noneactive January 31, 2025 10:16am [facility] Work Phone: Evaluation note* Diagnosis Advanced atrophic [...] facial bone due to fall, initial encounter ([facility]) [facility] Closed fracture of facial bone due to fall, initial encounter ([facility])- Primary [facility]* [...] OD 1998 Hospitalization History see surgical history [facility] Other Hospital course Narrative No data available for this section [facility] Progress note No data available for this section [facility] Reason for visit Narrative* Diagnostic X-Ray (Routine) - Closed Specialty Diagnoses / Procedures Referred By Gwendolyn maldonado Referred To Contact Radiology Diagnoses Closed fracture of facial bone due to fall, initial encounter (HCC) Procedures CT NEURO IMAGE IMPORT(MARCUS) DOWNLOAD mii IMAGES TO Janett Olvera APRN-CNP [address] [place] [address] Phone: tel: fax: [facility] DIAGNOSTIC [facility]IOLOGY [address] [place] [address] [place] [address] Phone: tel: Referral ID Status Reason Start Date Expiration Date Visits Re quested Visits Authorized [id number] Closed 05/06/2025 05/06/2026 1 [facility] N[facility]* Rehabilitation - Outpatient (Routine) - Authorized Specialty Diagnoses / Procedures Referred By Gwendolyn maldonado Referred To Contact Physical Therapy Diagnoses Acute pain of left shoulder Other closed nondisplaced fracture of proximal end of left humerus, initial encounter Procedures [place] OFFICE/OUTPATIENT [facility] 60 MINUTES Yuliya Garza, DO [address] [place] [address] Phone: tel: fax: Lupe Cody, EMMA Referral ID Status Reason Start Date Expiration Date Visits Requested Visits Authorized [id number] Authorized Consult and Treat 07/07/2025 12/20/2025 30 30 [facility]* Rehabilitation - Outpatient (Routine) - Authorized Specialty Diagnoses / Procedures Referred By Gwendolyn maldonado Referred To Contact Physical Therapy Diagnoses Acute pain of left shoulder Other closed nondisplaced fracture of proximal end of left humerus, initial encounter Procedures [place] OFFICE/OUTPATIENT [facility] 60 MINUTES Yuliya Garza, DO [address] [place] [address] Phone: tel: fax: Lupe Cody, EMMA Referral ID Status Reason Start Date Expiration Date Visits Requested Visits Authorized [id number] Authorized Consult and Treat 07/07/2025 11/30/2025 30 [...] reschedule 07/23August 17, 2024 10:24am pain by bapt[facility] October 19, 2024 8:23am Reason for Visit [...] section and content) DATE CREATED AUTHOR 05/26/2018 [facility] DATE CREATED AUTHOR AUTHOR'S ORGANIZ ATION 03/10/2019 [facility] DATE CREATED AUTHOR AUTHOR'S ORGANIZ ATION 01/27/2021 [facility] DATE CREATED AUTHOR AUTHOR'S ORGANIZ ATION 12/21/2021 [facility] DATE CREATED AUTHOR AUTHOR'S ORGANIZ ATION 02/05/2023 [facility] DATE CREATED AUTHOR AUTHOR'S ORGANIZ ATION 02/22/2024 [facility] DATE CREATED AUTHOR AUTHOR'S ORGANIZ ATION 05/04/2025 [facility] DATE CREATED AUTHOR AUTHOR'S ORGANIZ ATION 05/05/2025 [facility] DATE CREATED AUTHOR AUTHOR'S ORGANIZ ATION 05/15/2025 [facility] DATE CREATED AUTHOR AUTHOR'S ORGANIZ ATION 06/09/2025 [facility] DATE CREATED AUTHOR AUTHOR'S ORGANIZ ATION 07/19/2025 [facility] EPIC REASON FOR VISIT [...] October 19, 2024 End: October 19, 2024 Advertising Assistant Manager Relationship Specialty Start Date End Date Marlon Espinoza MD PCP - General Internal Medicine 07/02/23 Advertising Assistant Manager Relationship Specialty Start Date End Date Marlon Espinoza MD PCP - General Internal Medicine 07/02/23 Team Status: Inactive Member Role Status Dates Marlon Espinoza DO Primary Care Provide r, Attending Provider Active Start: January 31, 2025 End: January 31, 2025 Advertising Assistant Manager Relationship Specialty Start Date End Date Marlon Espinoza DO PCP - General Internal Medicine 07/02/23 Advertising Assistant Manager Relationship Specialty Start Date End Date Marlon Espinoza DO PCP - General Internal Medicine 07/02/23 Advertising Assistant Manager Relationship Specialty Start Date End Date Marlon Espinoza DO [address] [place] [id number] PCP - General Internal Medicine 05/26/25 Advertising Assistant Manager Relationship Specialty Start Date End Date Marlon Espinoza DO [address] [place] [facility] [place] [id number] PCP - General Internal Medicine 05/26/25 Advertising Assistant Manager Relationship Specialty Start Date End Date Mralon Espinoza DO [address] [place] [facility] [place] [address] PCP - General Internal Medicine 05/26/25 Advertising Assistant Manager Relationship Specialty Start Date End Date Marlon Espinoza DO [address] [place] [facility] [place] [address] PCP - General Internal Medicine 05/26/25 Advertising Assistant Manager Relationship Specialty Start Date End Date Marlon Espinoza DO [address] [place] [facility] [id number] PCP - General Internal Medicine 05/26/25 Advertising Assistant Manager Relationship Specialty Start Date End Date Marlon Espinoza DO [address] [place] [facility] [address] PCP - General Internal Medicine 05/26/25 Advertising Assistant Manager Relationship Specialty Start Date End Date Marlon Espinoza DO [address] [place] [facility] [id number] PCP - General Internal Medicine 05/26/25 Advertising Assistant Manager Relationship Specialty Start Date End Date Marlon Espinoza DO [address] [place] [facility] [address] PCP - General Internal Medicine 05/26/25 Goals [...] BE BASED ON THE PRIMARY CLINICAL RECORDS. [facility]. provides no warranty or guarantee of the accuracy or completeness of information in this document.
--- NOTE | 2025-07-21 12:13 | CA_ITS ---
Patient Name: DYLAN TAFOYA MR#: [id number] : 1945 Exam Date: 07/21/2025 Ordering Doctor: AYSE GREENE ECHOCARDIOGRAM REPORT PROCEDURE: CA ECHO DOPPLER COMPLETE INDICATIONS: TIA, R/O Cardiomyopathy and valvular disease COMPARISON: None. DESCRIPTION: COMPLETE ECHOCARDIOGRAM Real-time transthoracic echocardiography with 2D, M-mode, spectral and color flow Doppler performed. QUALITY: Technical quality was good. LEFT VENTRICLE: Normal chamber size. Left ventricular wall thickness is normal. LV EF: Global left ventricular systolic function is normal; visually estimated ejection fraction 60-65%. No significant wall motion abnormalities. DIASTOLIC: Normal diastolic function. ATRIAL SEPTUM: Inadequately seen. LEFT ATRIUM: Normal chamber size. RIGHT ATRIUM: Normal chamber size. RIGHT VENTRICLE: Normal chamber size. Normal right ventricular systolic function. TRICUSPID VALVE: Normal mobility and thickness. No stenosis with trivial regurgitation. No evidence of pulmonary hypertension. RVSP 28mmHg. MITRAL VALVE: Normal mobility and thickness. No evidence of mitral valve stenosis. Mild mitral annular calcification. Mild mitral regurgitation. AORTIC VALVE: Normal trileaflet appearance. Thickened aortic valve. Normal leaflet mobility. No evidence of aortic valve stenosis. Trivial aortic regurgitation. AORTIC ROOT: Normal diameter and appearance. PULMONIC VALVE: Normal thickness and mobility. No stenosis. Trivial regurgitation. PERICARDIUM: No evidence of pericardial effusion. IVC: Collapses with inspiration. Normal size. CONCLUSION: 1. Global left ventricular systolic function is normal; visually estimated ejection fraction is 60 to 65% 2. Normal right ventricular size and systolic function 3. The left atrium is normal in size 4. Normal diastolic function 5. Mild mitral regurgitation Adult Echocardiography Procedure Report Left Ventricle LVEDD (3.7 - 5.6 cm): 3.54 cm LVESD (2.2 - 4.0 cm): 2.45 cm LVIVS thickness (0.6 - 1.2 cm): 1.09 cm LVPW thickness (0.5 - 1.0 cm): 9.27 mm LVOT Max Gradient: 3 mm[Hg] Peak Velocity (LVOT): 93.20 cm/s Mean Velocity (LVOT): 58.40 cm/s LVOT Diameter 2.00 cm Left Ventricular Ejection Fraction: 59.50 % Left Atrium LA Volume Index (2D A2C): 42626 mm3 Left Atrium Systolic Dimension: 3.70 cm Mitral Valve MV E to A Ratio: 0.90 Mitral Valve A-Wave Peak Velocity: 70.60 cm/s Mitral Valve E-Wave Peak Velocity: 66.60 cm/s Right Ventricle Aorta AO Root Diam: 3.10 cm Aortic Valve AoV Area (Peak Chucho): 2.84 cm2 AoV Area (VTI): 2.76 cm2 Peak Velocity(Antegrade Flow): 103.00 cm/s Peak Gradient(Antegrade Flow): 4 mm[Hg] Mean Velocity(Antegrade Flow): 67.50 cm/s Mean Gradient(Antegrade Flow): 2 mm[Hg] Velocity Time Integral: 18.40 cm Tricuspid Valve Peak Velocity (Regurgitant Flow): 249.00 cm/s Pulmonic Valve Peak Velocity: 73.00 cm/s, 78.20 cm/s Peak Gradient: 2 mm[Hg] Right Atrium Dictated by: Jenn Stout M.D. on 07/21/2025 at 16:12 Approved by: Jenn Stout M.D. on 07/21/2025 at 16:17
--- NOTE | 2025-07-21 12:15 | ECG_ITS ---
The [facility] Test Date: 2025-07-21 Pat Name: DYLAN TAFOYA Department: Room: [facility] Gender: Female Slag Worker: : 1945 Requested By: [id number] Order Number: [id number] Reading MD: EZEKIEL AMANDA Measurements Intervals [place] Rate: 77 P: 56 [place]: 185 QRS: 15 QRSD: 81 T: 50 QT: 367 QTc: 416 Interpretive Statements SINUS RHYTHM Compared to ECG 07/20/2025 20:53:32 No significant changes Electronically Signed On 07-21-2025 16:40:58 EDT by EZEKIEL AMANDA
--- NOTE | 2025-07-21 12:16 | PM.HP ---
HPI H&P: HPI History of Present Illness Chief complaint: Weakness, TIA Narrative: Mrs. Colunga is a 79-year-old female with a history of hypertension and previous TIA. Patient has had 4 TIAs over the last 10 years. Yesterday while patient visiting with her friend she started talking nonsense. She did not have any slurred speech but the content of her speech was off. This lasted about 15 minutes. Symptoms resolved. Patient was able to drive home. When she got home she did not feel well therefore she called her son who brought her to the emergency room. Patient supposed to be on aspirin and Plavix. She admitted that she has not been taking aspirin for 40. She has been taking it faithfully over the last 2 weeks but not prior to that. Patient denies any weakness or numbness. No slurred speech. No bladder or bowel retention or incontinence. She denies any chest pain. No fever or chills. She denies taking any unusual medication. She denies any alcohol consumption. Opioid HPI Opioid Management Most Recent Pain and Opioid Data: Last Pain Scale 5 Today, 11:00 Last Pain Intensity 0 02/16/24, 11:19 Last Pain Assessment Today, 10:00 Last MAR Pain Assessment Today, 01:17 Last ORT Total Score 0 Today, 09:27 Last ORT Risk Category Low Risk Today, 09:27 Review of Systems ROS Status of ROS 10 or more systems reviewed and unremarkable except as noted in history and below [facility] Medical History (Updated 07/21/25 @ 12:19 by Marbella Blackman MD) High cholesterol ?E78.00 - Pure hypercholesterolemia, unspecified (ICD-10) Hypertension ?I10 - Essential (primary) hypertension (ICD-10) Insect bite ?W57.XXXA - Bitten or stung by nonvenomous insect and other nonvenomous arthropods, initial encounter (ICD-10) Macular degeneration ?H35.30 - Unspecified macular degeneration (ICD-10) Breast cancer ?C50.919 - Malignant neoplasm of unspecified site of unspecified female breast (ICD-10) History of TIAs ?Z86.73 - Personal history of transient ischemic attack (TIA), and cerebral infarction without residual deficits (ICD-10) GERD (gastroesophageal reflux disease) ?K21.9 - Gastro-esophageal reflux disease without esophagitis (ICD-10) Cataracts, bilateral ?H26.9 - Unspecified cataract (ICD-10) Surgical History (Updated 11/03/23 @ 12:53 by Luna Li RN) History of hip replacement ?Z96.649 - Presence of unspecified artificial hip joint (ICD-10) H/O bilateral mastectomy ?Z90.13 - Acquired absence of bilateral breasts and nipples (ICD-10) Family History (Updated 11/03/23 @ 12:54 by Luna Li RN) Other Family history of COPD (chronic obstructive pulmonary disease) Family history of cancer Family history of hypertension Family history of stroke Social History (Updated 11/03/23 @ 12:54 by Luna Li RN) Within the past year, how often did you have a drink containing alcohol: never Score interpretation: A score less than 3 is consistent with normal alcohol consumption. Smoking status: Never smoker Second hand tobacco smoke exposure: No Non-prescribed substance use: denies use Previous occupational history: retired Highest level of school completed/degree received: Associate degree: academic program Little interest or pleasure in doing things: not at all Feeling down, depressed, or hopeless: not at all Meds Home Medications and Allergies Home Medications ?Medication ?Instructions ?Recorded ?Confirmed ?Type amlodipine 2.5 mg tablet 2.5 mg PO QDAY 11/03/23 07/20/25 History atorvastatin 10 mg tablet 10 mg PO .QHS 11/03/23 07/20/25 History clopidogrel 75 mg tablet 75 mg PO QDAY 11/03/23 07/20/25 History pantoprazole 40 mg tablet,delayed 40 mg PO QDAY 11/03/23 07/20/25 History release aspirin 81 mg capsule 81 mg PO DAILY 21 days #21 caps 02/16/24 07/20/25 Rx Allergies Allergy/AdvReac Type Severity Reaction Status Date / Time No Known Drug Allergies Allergy Verified 07/20/25 20:47 Exam Narrative Exam Narrative: [pt is awake and alert. oriented to place, time and person HEENT: [place] conjunctiva and NL buccal mucosa Neck: Supple, no tenderness no carotid bruit. Endocrine: No Thyromegaly. Vascular: No JVD or carotid bruit. Lymphatic: No cervical lymphadenopathy. Chest: CTA no DTP. Heart RRR, no extra sound or murmur. Abd: Soft, no tenderness, no rebound and no rigidity. Increase abd girth therefore clinically I could not exclude the possibility of intra abd mass or organomegaly. LE: No cyanosis or clubbing, no varices or edema. Neuro: A A O. Nl speech, comprehension and attention. Nl and symetrical motor and tone examination through out. Normal ocular movement. Normal speech. Normal comprehension. Normal attention. Normal articulation. Normal facial symmetry. Normal symmetrical motor and tone throughout. No ataxia. No nystagmus. NIH is 0. []] Constitutional Vital Signs, click to edit/add: Last Vital Signs Temp 98.8 F 07/20/25 20:55 Pulse 97 H 07/21/25 07:20 Resp 18 07/21/25 02:00 BP 146/85 H 07/21/25 07:00 Pulse Ox 96 07/21/25 07:10 O2 Del Method Room Air 07/21/25 09:27 Results Labs Labs: Short CBC 07/20/25 Range/Units 21:09 WBC 6.4 (4.0-11.0) 10^3/uL Hgb 13.1 (12.0-16.0) g/dL Hct 39.0 (36.0-48.0) % Plt Count 329 (150-450) 10^3/uL BMP 07/20/25 21:09 Sodium 137 Potassium 4.2 Chloride 98 Carbon Dioxide 29.5 BUN 10.0 Creatinine 0.87 Glucose 132 H Calcium 9.1 Urine 07/20/25 Range/Units 22:26 Urine Color Lt. yellow (YELLOW) Urine Clarity Clear (CLEAR) Urine pH 6.0 (5.0-9.0) Ur Specific [place] <=1.005 A (1.005-1.025) Urine Protein Negative (NEG/TRACE) mg/dL Urine Glucose (UA) Negative (NEGATIVE) mg/dL Assessment and Plan Assessment and Plan (1) TIA (transient ischemic attack): (2) Hyperlipidemia: Plan Transient expressive status. Patient was avoid was going on but the content of her speech was off. Suspected transient cerebral dysfunction, probable transient ischemic attack. Patient has had a history of TIA. She is on aspirin and Plavix. She admitted that she has not been taking aspirin faithfully in the recent past but she has been taking it daily within the last 2 weeks. Patient is also on a statin. Her NIH stroke is 0 No clinical evidence of a metabolic encephalopathy I accepted to admit the patient under observation Requested MRI of the brain. Continue dual antiplatelet therapy Telemetry monitoring rule out cardiac dysrhythmia or A-fib Echocardiogram rule out cardiomyopathy or valvular disease Check lipid profile. Check A1c. Recommend outpatient Holter monitor to rule out the possibility of intermittent A-fib not seen on current monitoring. Neuroconsultation. Defer further needed diagnostic and therapeutic intervention to neurology team Hypertension, hyperlipidemia, stable
[2025-07-21] MEDS: HEPARIN SODIUM (PORCINE) 5,000 UNIT/ML VIAL 5000 UNIT SUBQ (13:12)
[2025-07-21] MEDS: CLOPIDOGREL BISULFATE 75 MG TABLET PO (13:12)
[2025-07-21] MEDS: AMLODIPINE BESYLATE 5 MG TABLET 2.5 MG PO (13:12)
--- NOTE | 2025-07-21 19:20 | PC.NURSE ---
at approximately 1905 patient walked into the hallway saying i feel weird, somethings not right , staff got patient back into bed. Last known well was at 1830 well RN was doing final round of shift. Patient was very flushed, anxious and confused. vitals were obtained and sbp was reading in the 180's. Stroke alert was called at 1907. Flight Mechanic called time motion analyst hospitalist Dr. Blackman at 1908. He was notified of situation and patients change of condition. NIH being performed by another staff nurse, at this time we were still waiting on the ER physician to respond to the stroke alert. Patient is also sinus tachy with heart rate in the 120's. ER provider at the bedside at 191. patient left for CT at 192. Son Altaf was notified at 1920 and he arrived to the room at 192. Orders for EKG, blood work, labetalol and CT scan received from ER provider. Care transferred to the Night nurse Janie.
--- NOTE | 2025-07-21 19:21 | CT_ITS ---
The [address] [address] Patient Name: DYLAN TAFOYA MRN: [id number] date: 1945 Sex: F Assigned Patient Location: [place] Current Patient Location: [place] Accession/Order Number: [id number] Exam Date: 07/21/2025 19:20 Report Date: 07/21/2025 19:38 At the request of: AYSE GREENE MD Procedure: CT stroke head/brain wo con Unenhanced head CTstroke alert TECHNIQUE: Contiguous axial imaging of the head. The CT exam was performed using one or more the following dose reduction techniques: Automated exposure control, adjustment of the MA and/or Kv according to patient size, or use of the iterative reconstruction technique. COMPARISON: March 2025 HISTORY: Progressive neuro symptoms. VENTRICLES: Within normal limits ATROPHY: Diffuse atrophy BRAIN PARENCHYMA: Decreased density of the white matter is most consistent with chronic small vessel disease. HEMORRHAGE: None HERNIATION: No mass effect or herniation INFARCTION: No recent vascular distribution infarction is seen. EXTRA-AXIAL FLUID COLLECTIONS None MIDBRAIN: Unremarkable DAREN: Unremarkable MEDULLA: Unremarkable SINUSES: Unremarkable ORBITS: Grossly unremarkable MASTOIDS: Unremarkable BONY STRUCTURES Intact ADDITIONAL FINDINGS: CT/CT stroke head/brain wo con IMPRESSION: No acute findings. 7:35 PM 07/21/2025 Impression dictated by: Dc Chapa M.D. 07/21/2025 7:38 PM Dictation Location: [place] [address] Electronically authenticated by: [id number] Y Date: 07/21/2025 19:38
--- NOTE | 2025-07-21 19:29 | ECG_ITS ---
The [facility] Test Date: 2025-07-21 Pat Name: DYLAN TAFOYA Department: Room: 2151 Gender: Female Physical Education Instructor: : 1945 Requested By: [id number] Order Number: [id number] Reading MD: EZEKIEL AMANDA Measurements Intervals [place] Rate: 84 P: 44 [place]: 189 QRS: 24 QRSD: 86 T: 55 QT: 349 QTc: 414 Interpretive Statements SINUS RHYTHM POOR R WAVE PROGRESSION; CANNOT RULE OUR SEPTAL INFACRT AGE INDETERMINATE ABNORMAL ECG Compared to ECG 07/21/2025 13:30:32 POOR R WAVE PROGRESSION; CANNOT RULE OUR SEPTAL INFACRT AGE INDETERMINATE now present Electronically Signed On 07-22-2025 17:53:05 EDT by EZEKIEL AMANDA
--- NOTE | 2025-07-21 19:38 | PC.NURSE ---
Dr. Blackman notified of NIH score of 5
[2025-07-21 19:48] LABS: Hematocrit 41.4 % (36.0-48.0); Hemoglobin 14.0 g/dL (12.0-16.0); Immature Granulocytes Abs Auto 0.03 10^3/uL (0.00-0.03); Immature Granulocytes Pct Auto 0.4 % (0.0-0.5); Lymphocytes Absolute Auto 1.6 10^3/uL (1.2-3.8); Mean Corpuscular HGB Conc 33.8 g/dL (29.9-35.2); Mean Corpuscular Hemoglobin 31.5 pg (26.7-34.0); Mean Corpuscular Volume 93.0 fL (81.0-99.0); Platelet Count 382 10^3/uL (150-450); Red Blood Count 4.45 10^6/uL (4.20-5.40); White Blood Count 7.5 10^3/uL (4.0-11.0)
[2025-07-21 19:56] LABS: INR 0.96; Partial Thromboplastin Time 28.7 sec (22.3-36.2); Prothrombin Time 10.2 sec (9.0-11.6)
[2025-07-21] MEDS: LABETALOL HCL 20 MG/4 ML SYRINGE 10 MG IVP (20:05)
[2025-07-21 20:07] LABS: Anion Gap 10.1; Blood Urea Nitrogen 10.0 mg/dL (7.0-18.0); Calcium 9.2 mg/dL (8.5-10.1); Carbon Dioxide 29.8 mmol/L (21.0-32.0); Chloride 97 mmol/L (98-107); Estimated GFR (African America >60 (>=60 mL/min/1.73m^2); Estimated GFR (Non-African Ame >60 (>=60 mL/min/1.73m^2); Glucose 108 mg/dL (74-106); Potassium 3.9 mmol/L (3.5-5.1); Sodium 133 mmol/L (136-145); Thyroid Stimulating Hormone 2.774 uIU/mL (0.358-3.740)
[2025-07-21] MEDS: ENOXAPARIN SODIUM 60 MG/0.6 ML SYRINGE 55 MG SUBQ (20:10)
--- NOTE | 2025-07-21 20:43 | PC.NURSE ---
190 - STROKE ALERT called to RM 215. 1909 - Breed To Wean Production Technician to bedside. Pt noted to be hypertensive, with impending doom feeling, stating help me , repeatedly, and c/o not feeling right. No tongue deviation noted, slight weakness noted to RUE with hand grasp, and slight flattening of nasal labial folds on right side of face with smiling. C/O numbness and tingling in RUE and on right jawline. NIH - 3 1914 - Noted inability to perform the Finger to Nose test, increased confusion with simple commands, increased agitation, and increased thickening of speech. NIH - 5, RACE Score - 2, FSBS 107, GCS - 14. Reported to ER staff at bedside.
[2025-07-21] MEDS: ATORVASTATIN CALCIUM 10 MG TABLET PO (21:29)
[2025-07-22] VITALS (18 sets, daily range): BP systolic 123–170; BP diastolic 71–93; PULSE 72–94; TEMP 36.3–37.1; O2SAT 93–96
--- NOTE | 2025-07-22 | MR_ITS ---
The [address] [address] Patient Name: DYLAN TAFOYA MRN: [id number] date: 1945 Sex: F Assigned Patient Location: [place] Current Patient Location: [place] Accession/Order Number: [id number] Exam Date: 07/22/2025 11:00 Report Date: 07/22/2025 12:03 At the request of: AYSE GREENE MD Procedure: MR head/brain wo con EXAMINATION: MRI OF THE BRAIN WITHOUT CONTRAST CLINICAL HISTORY: TIA COMPARISON: MRI brain 02/15/2024 TECHNIQUE: Multiecho, multiplanar imaging of the brain was performed without contrast. FINDINGS: No restricted diffusion. Mild generalized involutional changes identified without hydronephrosis or moderate periventricular, subcortical T2 prolongation suggestive of chronic small vessel ischemic disease. Remote lacunar strokes both lentiform nuclei. Remote lacunar strokes both frontoparietal deep white matter. Gliosis identified genu corpus callosum and anterior body the mid body. Major intracranial arterial vascular flow was preserved. Scattered foci of abnormal GRE signal possibly sequelae of amyloid angiopathy versus long-standing hypertension MR/MR head/brain wo con IMPRESSION: Moderate chronic small vessel changes with scattered foci of remote lacunar strokes. Negative acute intracranial process by MRI. Multifocal abnormal GRE signal possibly related to cerebral amyloid angiopathy versus long-standing hypertension Impression dictated by: Sukhdeep Barrow M.D. 07/22/2025 12:03 PM Dictation Location: [place] [address] Electronically authenticated by: [id number] Y Date: 07/22/2025 12:03
[2025-07-22 04:08] LABS: Vitamin B12 377 pg/mL (232-1245)
[2025-07-22 05:34] LABS: Hematocrit 38.6 % (36.0-48.0); Hemoglobin 13.1 g/dL (12.0-16.0); Mean Corpuscular HGB Conc 33.9 g/dL (29.9-35.2); Mean Corpuscular Hemoglobin 31.3 pg (26.7-34.0); Mean Corpuscular Volume 92.1 fL (81.0-99.0); Platelet Count 336 10^3/uL (150-450); Red Blood Count 4.19 10^6/uL (4.20-5.40); White Blood Count 7.7 10^3/uL (4.0-11.0)
[2025-07-22] MEDS: PANTOPRAZOLE SODIUM 40 MG TABLET.DR PO (05:51)
[2025-07-22 05:54] LABS: Alanine Aminotransferase 38 U/L (14-59); Albumin Globulin Ratio 1.0; Albumin Level 3.7 g/dL (3.4-5.0); Alkaline Phosphatase 86 U/L (46-116); Anion Gap 14.5; Aspartate Amino Transferase 26 U/L (15-37); Blood Urea Nitrogen 11.0 mg/dL (7.0-18.0); Calcium 8.9 mg/dL (8.5-10.1); Carbon Dioxide 25.8 mmol/L (21.0-32.0); Chloride 94 mmol/L (98-107); Estimated GFR (African America >60 (>=60 mL/min/1.73m^2); Estimated GFR (Non-African Ame >60 (>=60 mL/min/1.73m^2); Globulin 3.6 g/dL; Glucose 110 mg/dL (74-106); Potassium 4.3 mmol/L (3.5-5.1); Sodium 130 mmol/L (136-145); Total Protein 7.3 g/dL (6.4-8.2)
[2025-07-22 05:55] LABS: Cholesterol 189 mg/dL (<=200); HDL Cholesterol 90 mg/dL (40-60); Triglycerides 82 mg/dL (<=150); VLDL CHOLESTEROL 16.4 mg/dL
--- NOTE | 2025-07-22 08:03 | CM.NOTE ---
Xanax 1mg P.O entered for 1 hour prior to MRI. MABEL Ortez notified of order and reason
[2025-07-22] MEDS: CLOPIDOGREL BISULFATE 75 MG TABLET PO (08:22)
[2025-07-22] MEDS: ASPIRIN 81 MG TAB.CHEW PO (08:22)
[2025-07-22] MEDS: AMLODIPINE BESYLATE 5 MG TABLET 2.5 MG PO (08:22)
--- NOTE | 2025-07-22 09:05 | CM.NOTE ---
Rounds made with Dr. Blackman, pt awaiting MRI today. Pt will also have teleneuro consult. Discussed plan of care. Verified status with Dr. Blackman, pt will remain OBS status at this time.
--- NOTE | 2025-07-22 09:29 | SWNOTE1 ---
SW met with pt and pt's son in room to discuss dc needs. Pt lives at home by herself. She voiced she does not use any DME at home, usually drives. Has not been feeling well past few days. SW did ask pt if she is feeling better? Pt voiced she is not, at times she does and other times she feels off. She stated she is getting MRI today. SW asked if she was going to outpt therapy currently? She stated she is. Pt did work with therapy here and that was recommendation to continue outpt at this time. SW let pt and son know that SW will return later today and follow up in regards to discharge needs. SW also reviewed LIGHT form with pt and son. Pt did ask what that meant and difference between IP and OBS. SW attempted to explain to best of ability. SW then let pt and son know that SW will return later as well once speaking with case management to determine if LIGHT or IMM form needs signed.
[2025-07-22] MEDS: ALPRAZOLAM 1 MG TABLET PO (10:31)
--- NOTE | 2025-07-22 12:59 | PM.PN ---
Progress Note: Subjective Subjective Interval history: Patient had another episode of inability to speak coherently last evening. This lasted for short period of time and patient was back to baseline after that. Overnight the patient did well. This morning the patient did not have any new neurological symptoms or deficit. Exam Narrative Exam Narrative: [pt is awake and alert. oriented to place, time and person HEENT: [place] conjunctiva and NL buccal mucosa Neck: Supple, no tenderness no carotid bruit. Endocrine: No Thyromegaly. Vascular: No JVD or carotid bruit. Lymphatic: No cervical lymphadenopathy. Chest: CTA no DTP. Heart RRR, no extra sound or murmur. Abd: Soft, no tenderness, no rebound and no rigidity. Increase abd girth therefore clinically I could not exclude the possibility of intra abd mass or organomegaly. LE: No cyanosis or clubbing, no varices or edema. Neuro: A A O. Nl speech, comprehension and attention. Nl and symetrical motor and tone examination through out. Normal ocular movement. Normal speech. Normal comprehension. Normal attention. Normal articulation. Normal facial symmetry. Normal symmetrical motor and tone throughout. No ataxia. No nystagmus. NIH is 0. []] Constitutional Vital Signs, click to edit/add: Last Vital Signs Temp 98.2 F 07/22/25 07:54 Pulse 81 07/22/25 10:00 Resp 16 07/22/25 07:54 BP 148/80 H 07/22/25 07:54 Pulse Ox 94 L 07/22/25 07:54 O2 Del Method Room Air 07/22/25 07:54 Progress Note: Objective Labs Labs: Short CBC 07/21/25 07/22/25 Range/Units 19:15 04:49 WBC 7.5 7.7 (4.0-11.0) 10^3/uL Hgb 14.0 13.1 (12.0-16.0) g/dL Hct 41.4 38.6 (36.0-48.0) % Plt Count 382 336 (150-450) 10^3/uL BMP 07/21/25 07/22/25 19:15 04:49 Sodium 133 L 130 L Potassium 3.9 4.3 Chloride 97 L 94 L Carbon Dioxide 29.8 25.8 BUN 10.0 11.0 Creatinine 0.66 0.47 L Glucose 108 H 110 H Calcium 9.2 8.9 Liver Function 07/22/25 Range/Units 04:49 Total Bilirubin 0.4 (0.2-1.0) mg/dL AST 26 (15-37) U/L ALT 38 (14-59) U/L Alkaline Phosphatase 86 (46-116) U/L Albumin 3.7 (3.4-5.0) g/dL Progress Note: A&P Assessment and Plan (1) TIA (transient ischemic attack): (2) Hyperlipidemia: Plan Transient expressive status. Transient incoherent speech but no slurred speech Suspected transient cerebral dysfunction, probable transient ischemic attack. Patient has had a history of TIA. She is on aspirin and Plavix. She admitted that she has not been taking aspirin faithfully in the recent past but she has been taking it daily within the last 2 weeks. Patient is also on a statin. Her NIH stroke is 0 Patient had another episode last evening, resolved spontaneously. Repeat CAT scan is negative No clinical evidence of a metabolic encephalopathy MRI of the brain does not show any acute stroke but positive for multiple old strokes Continue dual antiplatelet therapy Telemetry monitoring rule out cardiac dysrhythmia or A-fib Echocardiogram rule out cardiomyopathy or valvular disease. Echo cardiogram came back unremarkable Check lipid profile. Check A1c. Recommend outpatient Holter monitor to rule out the possibility of intermittent A-fib not seen on current monitoring. Neuro consultation. Patient is on dual antiplatelet therapy. Defer further needed diagnostic and therapeutic intervention to neurology team Hypertension, hyperlipidemia, stable I discussed her case with her son at the bedside.
--- NOTE | 2025-07-22 13:41 | CM.NOTE ---
Called and spoke with Evita from [facility] transfer line. Initiated transfer for pt. Updated Leslie ALCANTAR pathology secretary to call in one hour if they don't hear back from transfer line.
[2025-07-22] MEDS: ACETAMINOPHEN 325 MG TABLET 650 MG PO (13:55)
--- NOTE | 2025-07-22 14:01 | PC.NURSE ---
Dr. Blackman notified of BP
--- NOTE | 2025-07-22 14:18 | PM.DS1 ---
DS: Providers Provider Date of admission: 07/21/25 09:20 Primary care physician: Marlon Michelle DO Consults: 07/21/25 00:19 Consult to Telestroke Routine Reason for consultation: Confusion, TIA 07/21/25 12:13 Occupational Therapy Eval and Treat Routine Reason for consultation: cva Physical Therapy Eval and Treat Routine Reason for consultation: tia Speech Therapy Eval and Treat Routine Reason for consultation: tia DS: Diagnosis Discharge Diagnosis (1) TIA (transient ischemic attack): (2) Hyperlipidemia: Plan As listed above and others that are not listed DS: Summary Hospital Course Hospital Course: Mrs. Colunga is a 79-year-old female who came in with reported history of transient incoherent state. Transient expressive status. Transient incoherent speech but no slurred speech Suspected transient cerebral dysfunction, probable transient ischemic attack. Patient has had a history of TIA. She is on aspirin and Plavix. She admitted that she has not been taking aspirin faithfully in the recent past but she has been taking it daily within the last 2 weeks. Patient is also on a statin. Her NIH stroke is 0 Patient had another episode last evening, resolved spontaneously. Repeat CAT scan is negative No clinical evidence of a metabolic encephalopathy MRI of the brain does not show any acute stroke but positive for multiple old strokes Continue dual antiplatelet therapy Telemetry monitoring rule out cardiac dysrhythmia or A-fib Echocardiogram rule out cardiomyopathy or valvular disease. Echo cardiogram came back unremarkable Check lipid profile. Check A1c. Recommend outpatient Holter monitor to rule out the possibility of intermittent A-fib not seen on current monitoring. Neuro consultation. Patient is on dual antiplatelet therapy. Defer further needed diagnostic and therapeutic intervention to neurology team Patient was seen by teleneuro team. Neurologist could not exclude the possibility of intermittent seizure causing her to have transient incoherent state. Neurology team recommended to transfer patient to [place] for continuous EEG monitoring. Hypertension, hyperlipidemia, stable I discussed her case with her son at the bedside. Chronic medical conditions not listed above, incidental findings seen on labs and imaging. These would need to be addressed. Could be addressed when time and condition are appropriate. Could be addressed in the outpatient setting by PCP collaboration with other needed outpatient providers. Time Spent with Patient Time attestation: Total time spent providing and/or coordinating discharge services: Time spent: greater than 30 minutes Quality: Stroke Onset of Symptoms Date: 07/20/25 Onset of Symptoms Time: 20:00 Symptom Onset Unknown: No Exam Constitutional Vital Signs, click to edit/add: Last Vital Signs Temp 97.4 F L 07/22/25 13:52 Pulse 91 H 07/22/25 14:06 Resp 18 07/22/25 13:52 BP 167/89 H 07/22/25 13:52 Pulse Ox 93 L 07/22/25 13:52 O2 Del Method Room Air 07/22/25 13:52 DS: Data Data Completed and Pending Labs on day of discharge: Labs from last 24 hours 07/22/25 07/21/25 07/21/25 04:49 19:15 19:14 WBC 7.7 7.5 RBC 4.19 L 4.45 Hgb 13.1 14.0 Hct 38.6 41.4 MCV 92.1 93.0 MCH 31.3 31.5 MCHC 33.9 33.8 RDW 13.2 13.2 Plt Count 336 382 MPV 10.0 10.0 Neut % (Auto) 65.0 Lymph % (Auto) 21.2 [place] % (Auto) 11.2 Eos % (Auto) 1.7 Baso % (Auto) 0.5 Neut # (Auto) 4.9 Lymph # (Auto) 1.6 [place] # (Auto) 0.8 Eos # (Auto) 0.1 Baso # (Auto) 0.0 Abs Immat Gran (auto) 0.03 Imm/Tot Granulo (auto) 0.4 PT 10.2 INR 0.96 APTT 28.7 Sodium 130 L 133 L Potassium 4.3 3.9 Chloride 94 L 97 L Carbon Dioxide 25.8 29.8 Anion Gap 14.5 10.1 BUN 11.0 10.0 Creatinine 0.47 L 0.66 Est GFR ( Amer) >60 >60 Est GFR (Non-Af Amer) >60 >60 BUN/Creatinine Ratio 23.4 15.2 Glucose 110 H 108 H Estimat Average Glucose Hemoglobin A1c Calcium 8.9 9.2 Total Bilirubin 0.4 AST 26 ALT 38 Alkaline Phosphatase 86 Troponin I High Sens 4.4 Total Protein 7.3 Albumin 3.7 Globulin 3.6 Albumin/Globulin Ratio 1.0 Triglycerides 82 Cholesterol 189 LDL Cholesterol, Calc 83.0 VLDL Cholesterol 16.4 HDL Cholesterol 90 H Cholesterol/HDL Ratio 2.1 Vitamin B12 TSH 2.774 POC Glucose 107 H 07/20/25 21:09 WBC RBC Hgb Hct MCV MCH MCHC RDW Plt Count MPV Neut % (Auto) Lymph % (Auto) [place] % (Auto) Eos % (Auto) Baso % (Auto) Neut # (Auto) Lymph # (Auto) [place] # (Auto) Eos # (Auto) Baso # (Auto) Abs Immat Gran (auto) Imm/Tot Granulo (auto) PT INR APTT Sodium Potassium Chloride Carbon Dioxide Anion Gap BUN Creatinine Est GFR ( Amer) Est GFR (Non-Af Amer) BUN/Creatinine Ratio Glucose Estimat Average Glucose 100 Hemoglobin A1c 5.1 Calcium Total Bilirubin AST ALT Alkaline Phosphatase Troponin I High Sens Total Protein Albumin Globulin Albumin/Globulin Ratio Triglycerides Cholesterol LDL Cholesterol, Calc VLDL Cholesterol HDL Cholesterol Cholesterol/HDL Ratio Vitamin B12 377 TSH POC Glucose Discharge Plan Discharge Disposition: Xfer Acute Care Hospital Condition: Good
--- NOTE | 2025-07-22 14:59 | SWNOTE1 ---
Plan is for pt to be transferred to higher level of care. SW attempted to review LIGHT form with pt again, but at this time pt refusing to sign and voiced she does not understand and continue to ask what Part B and copayment and Observation status meant. Pt voiced she does not want to pay co-pay. SW attempted to explain to best of ability, but pt did not want to sign at this time.
--- NOTE | 2025-07-22 16:09 | P.EN_ITS ---
Event Note Event Note: MACHINE PACKAGING TECHNICIAN neurology called me and informed me that neurologist is recommending patient to be transferred to [place] for continuous EEG monitoring. Subsequently I spoke with the attending physician Dr. Truman Newton. I provided her needed information. She accepted patient to be admitted there to facilitate continuous EEG monitoring and other needed neurological investigation. Patient is officially discharged from [place] pending bed availability
--- NOTE | 2025-07-22 16:22 | PC.NURSE ---
patients chair alarm was going off. Upon typewriter mechanic entering the room they noticed the patients right face was drooping and her words seem more slurred. Patient has been disoriented since xanax was given for MRI. Patient still disoriented. right hand grasp is weaker than left but was able to hold her arm up. Patient states right arm feels more numb. vital signs obtained and Dr. Blackman was notified by shed workers supervisor kellen Inman. Will call [facility] access to let them know patients symptoms are worsening.
[2025-07-22] MEDS: ENOXAPARIN SODIUM 40 MG/0.4 ML SYRINGE SUBQ (22:10)
[2025-07-22] MEDS: ATORVASTATIN CALCIUM 10 MG TABLET PO (22:10)
[2025-07-23] VITALS (10 sets, daily range): BP systolic 124–165; BP diastolic 70–82; PULSE 64–101; TEMP 36.9–37.2; O2SAT 92–95
--- NOTE | 2025-07-23 00:12 | PC.NURSE ---
Patient knows her 1st and last name. Can tell me sons name. Patient cannot tell nurse month, day, year, or place. Just says yeah to all the questions.
[2025-07-23] MEDS: PANTOPRAZOLE SODIUM 40 MG TABLET.DR PO (05:46)
[2025-07-23] MEDS: ASPIRIN 81 MG TAB.CHEW PO (09:11)
[2025-07-23] MEDS: CLOPIDOGREL BISULFATE 75 MG TABLET PO (09:11)
[2025-07-23] MEDS: LEVETIRACETAM 500 MG TABLET PO (09:11)
--- NOTE | 2025-07-23 09:38 | PM.PN ---
Progress Note: Subjective Subjective Interval history: Patient had another episode of inability to speak coherently last evening. This lasted for short period of time and patient was back to baseline after that. Overnight the patient did well. This morning the patient is awake and oriented. Slow to process information. No convulsion seen Exam Narrative Exam Narrative: [pt is awake and alert. oriented to place, time and person HEENT: [place] conjunctiva and NL buccal mucosa Neck: Supple, no tenderness no carotid bruit. Endocrine: No Thyromegaly. Vascular: No JVD or carotid bruit. Lymphatic: No cervical lymphadenopathy. Chest: CTA no DTP. Heart RRR, no extra sound or murmur. Abd: Soft, no tenderness, no rebound and no rigidity. Increase abd girth therefore clinically I could not exclude the possibility of intra abd mass or organomegaly. LE: No cyanosis or clubbing, no varices or edema. Neuro: Patient is awake and oriented. Able to focus. Able to follow command. Able to answer questions. Slow to process information. Symmetrical motor and tone Constitutional Vital Signs, click to edit/add: Last Vital Signs Temp 98.6 F 07/23/25 07:38 Pulse 101 H 07/23/25 08:00 Resp 18 07/23/25 07:38 BP 157/82 H 07/23/25 07:38 Pulse Ox 93 L 07/23/25 07:38 O2 Del Method Room Air 07/23/25 07:38 Progress Note: A&P Assessment and Plan (1) TIA (transient ischemic attack): (2) Hyperlipidemia: Plan Transient expressive status. Transient incoherent speech but no slurred speech Suspected transient cerebral dysfunction, probable transient ischemic attack. Patient has had a history of TIA. She is on aspirin and Plavix. She admitted that she has not been taking aspirin faithfully in the recent past but she has been taking it daily within the last 2 weeks. Patient is also on a statin. Her NIH stroke is 0 Patient had 2 episodes of disorientation, expressive aphasia and arm weakness. The first episode lasted for less than 15 minutes and resolved completely. The second episode happened Friday around 4 PM. Patient recovered however she continues to have slow to process information. No clinical evidence of a metabolic encephalopathy MRI of the brain does not show any acute stroke but positive for multiple old strokes Continue dual antiplatelet therapy Telemetry monitoring rule out cardiac dysrhythmia or A-fib Echocardiogram rule out cardiomyopathy or valvular disease. Echo cardiogram came back unremarkable Check lipid profile. Check A1c. Recommend outpatient Holter monitor to rule out the possibility of intermittent A-fib not seen on current monitoring. Patient was seen by neuro telemetry team from [place]. Neurologist felt that the patient may be having intermittent atypical seizure. He recommended patient to be transferred to [place] for continuous EEG monitoring. Patient was accepted to be transferred there pending bed availability. Meanwhile I started patient on Keppra after her second episode yesterday late afternoon given the impression by neurology that she may be having seizure. I discussed this with her son. I gave him update on condition and the treatment plan. I would recommend to hold Keppra when she is transferred to [place] to allow for more accurate EEG reading off antiepileptics Hypertension, hyperlipidemia, stable
--- NOTE | 2025-07-23 13:07 | PC.NURSE ---
report given to Cori at [facility], all questions answered
== END 2025-07-23 13:07 | disposition short-term general hospital (02) ==
LOC: ER 07-21 00:25 → MS 07-21 09:23
PROVIDERS: Physician Assistant; Admitting Provider Internal Medicine; Emergency Provider Emergency Medicine; PCP Internal Medicine; Visit Provider Internal Medicine
DX: G45.9 Transient cerebral ischemic attack, unspecified (principal); E78.5 Hyperlipidemia, unspecified; I10 Essential (primary) hypertension; K21.9 Gastro-esophageal reflux disease without esophagitis; Z86.73 Personal history of transient ischemic attack (TIA), and cerebral infarction without residual deficits; Z79.82 Long term (current) use of aspirin; Z79.02 Long term (current) use of antithrombotics/antiplatelets; I34.0 Nonrheumatic mitral (valve) insufficiency; Z96.649 Presence of unspecified artificial hip joint; Z90.13 Acquired absence of bilateral breasts and nipples; R47.89 Other speech disturbances
CPT/HCPCS: 36415; 70450; 70496; 70498; 70551; 71045; 80048; 80053; 80061; 81001; 82140; 82607; 82948; 83036; 84443; 84484; 85025; 85027; 85610; 85652; 85730; 86140; 92523; 93005; 93306; 96365; 96372; 96375; 97161; 97165; 99285; G0378; J1644; J1650; J1920; J1953; Q9967